=== PATIENT | female | born 1965 | race Two or more races ===

== ENCOUNTER 2020-07-16 08:06 | Outpatient (REF) | payer OTHER, SELFPAY ==
--- NOTE | 2020-07-16 09:32 | XR_ITS ---
EXAMINATION: CR X-RAY KNEE BILATERAL 4 VIEW CLINICAL INFORMATION: Bilateral knee pain. COMPARISON: None TECHNIQUE: 4 views each of the bilateral knees were obtained. FINDINGS: No significant tricompartmental degenerative joint changes are seen. There is no acute fracture, dislocation or joint effusion. The soft tissues are unremarkable. XR/XR knee RT 4V IMPRESSION: Unremarkable bilateral knees.
--- NOTE | 2020-07-16 09:32 | XR_ITS ---
EXAMINATION: XR LUMBOSACRAL SPINE WITH OBLIQUES CLINICAL INFORMATION: Low back pain, history of posterior fusion. COMPARISON: CT scan of the abdomen and pelvis dated 04/28/2018. TECHNIQUE: AP, both oblique, and lateral views of the lumbar spine. Lateral view of the lumbosacral junction. FINDINGS: Mild to moderate multilevel degenerative disc disease is seen, most pronounced at L5-S1. The patient is status post posterior fusion at L4-L5 with bilateral pedicle screws and posterior fixation rods intact. A retained screw is seen on the right at S1 without surrounding abnormality. A disc spacer at L4-5 appears intact. The vertebral bodies are intact. The soft tissues are unremarkable. Essure devices overlie the pelvis. XR/XR lumbar spine 4V min IMPRESSION: Multilevel degenerative changes. Posterior fusion hardware appears intact without overt abnormality.
--- NOTE | 2020-07-16 09:32 | XR_ITS ---
EXAMINATION: CR X-RAY KNEE BILATERAL 4 VIEW CLINICAL INFORMATION: Bilateral knee pain. COMPARISON: None TECHNIQUE: 4 views each of the bilateral knees were obtained. FINDINGS: No significant tricompartmental degenerative joint changes are seen. There is no acute fracture, dislocation or joint effusion. The soft tissues are unremarkable. XR/XR knee LT 4V IMPRESSION: Unremarkable bilateral knees.
[2020-07-16 11:00] LABS: Creatinine Urine 82.33 mg/dL; Microalbum/Creatinine Ratio Ur 12.1 ug/mg cr
[2020-07-16 11:02] LABS: Alanine Aminotransferase 13 U/L (0-31); Albumin Level 4.4 g/dL (3.5-5.0); Alkaline Phosphatase 55 U/L (39-117); Anion Gap 12 (12-20); Aspartate Amino Transferase 20 U/L (5-31); Bilirubin Total 0.8 mg/dL (0.0-1.0); Blood Urea Nitrogen 15 mg/dL (9-16); Calcium 9.4 mg/dL (8.4-10.2); Carbon Dioxide 28 mmol/L (22-29); Chloride 104 mmol/L (96-108); Cholesterol 220 mg/dL; Estimated Glomerular Filt Rate > 60; Glucose Fasting 74 mg/dL (60-99); HDL Cholesterol 66 mg/dL; LDL Cholesterol Calculated 142 mg/dl; Sodium 140 mmol/L (135-145); Triglycerides 61 mg/dL
[2020-07-16 11:06] LABS: Vitamin D 25-OH Total 22.9 ng/mL (>30)
--- NOTE | 2020-07-16 13:36 | MR_ITS ---
EXAMINATION: MR BRAIN WITHOUT AND WITH CONTRAST CLINICAL INFORMATION: Meningioma. COMPARISON: Brain MRI from 04/25/2019. TECHNIQUE: MRI of the brain was obtained using routine sequences without and with contrast following the administration of of Gadavist intravenous contrast. FINDINGS: Stable extra-axial, homogeneously enhancing lesion with susceptibility artifact along the posterior superior aspect of the right cerebellar hemisphere, measuring 1.8 x 1 x 1.1 cm. Stable 0.4 cm extra-axial enhancing nodule along the left aspect of the anterior falx cerebri with subtle susceptibility artifact. No significant perilesional edema. No focal restricted diffusion is demonstrated to suggest acute or subacute cerebral ischemia. No evidence of acute or chronic hemorrhagic products on heme-sensitive imaging. Normal parenchymal signal characteristics. The ventricles are normal in morphology and size. Normal positioning of the cerebellar tonsils. No midline shift. Normal appearance of the pituitary gland. No abnormalities of the posterior fossa with normal appearance of the brainstem and cerebellum. Normal arterial and venous vascular flow voids are present. No new abnormal contrast enhancement. Normal, homogeneous marrow signal. Mild mucosal thickening of the paranasal sinuses. No signal abnormalities within the mastoids. MR/MR head/brain wo/w con IMPRESSION: Stable 1.8 cm calcified meningioma along the undersurface of the right tentorial leaflet. Stable 0.4 cm left anterior falcine lesion suggestive of an additional small meningioma. No acute intracranial abnormalities.
== END 2020-07-16 08:07 | disposition home or self-care (01) ==
LOC: HO.LAB 08:06
PROVIDERS: PCP Internal Medicine; Referring Provider Internal Medicine; Visit Provider Physician Assistant
DX: M79.3 Panniculitis, unspecified (principal); Z90.3 Acquired absence of stomach [part of]; D32.9 Benign neoplasm of meninges, unspecified; E55.9 Vitamin D deficiency, unspecified; E11.9 Type 2 diabetes mellitus without complications; M25.561 Pain in right knee; M25.562 Pain in left knee; M51.36 Other intervertebral disc degeneration, lumbar region; M54.5 Low back pain
CPT/HCPCS: 70553; 72110; 73564; 80053; 80061; 82043; 82306; 99212; A9585

== ENCOUNTER → 2020-08-19 14:04 | Outpatient (BNVA) | payer OTHER, SELFPAY | PROVIDERS: PCP Internal Medicine; Referring Provider Internal Medicine; Visit Provider Nurse Practitioner | DX: Z13.89 Encounter for screening for other disorder (principal) | CPT/HCPCS: Q3014 ==

== ENCOUNTER → 2020-10-01 08:10 | Outpatient (BNVA) | payer OTHER, SELFPAY | PROVIDERS: PCP Internal Medicine; Visit Provider Physician Assistant | DX: Z90.3 Acquired absence of stomach [part of] (principal) | CPT/HCPCS: Q3014 ==

== ENCOUNTER 2021-01-09 09:32 | Outpatient (REF) | payer OTHER, SELFPAY ==
--- NOTE | ~2021-01-09 | MM_ITS ---
EXAMINATION: MM SCREENING DIGITAL BREAST TOMOSYNTHESIS, BILATERAL CLINICAL INFORMATION: Screening. Asymptomatic. The lifetime risk of breast cancer based on the Tyrer-Cuzick Model is 5%. COMPARISON: Mammography: 10/01/2019, 10/19/2018; outside mammography 12/26/2017 ([facility]). TECHNIQUE: Digital breast tomosynthesis is performed in both the craniocaudal and mediolateral oblique views along with computer-aided detection (CAD). Synthesized 2D images are generated from the tomosynthesis. FINDINGS: There are scattered areas of fibroglandular density (ACR BI-RADS breast composition Category b). There are no significant masses, abnormal calcifications, or other abnormalities. There is a small circumscribed nodule with adjacent biopsy clip marker again noted left breast mid upper outer quadrant. The axilla and skin contours are unremarkable. No significant changes. MM/MM tomosynthesis screening BI IMPRESSION: No mammographic evidence of malignancy. ASSESSMENT: BI-RADS 2: Benign RECOMMENDATION: Routine annual mammography screening. This patient's information was entered into a reminder system with a target due date for their next mammogram.
== END 2021-01-09 09:33 | disposition home or self-care (01) ==
LOC: HO.MAMMO 09:32
PROVIDERS: PCP Internal Medicine; Visit Provider Internal Medicine
DX: Z12.31 Encounter for screening mammogram for malignant neoplasm of breast (principal)
CPT/HCPCS: 77063; 77067

== ENCOUNTER → 2021-02-16 13:51 | Outpatient (BNVA) | payer OTHER, SELFPAY | PROVIDERS: PCP Internal Medicine; Visit Provider Nurse Practitioner | DX: K59.04 Chronic idiopathic constipation (principal); Z90.3 Acquired absence of stomach [part of] | CPT/HCPCS: Q3014 ==

== ENCOUNTER 2021-05-07 08:53 | Outpatient (REF) | payer OTHER, SELFPAY ==
--- NOTE | ~2021-05-07 | XR_ITS ---
EXAMINATION: XR ABDOMEN KUB CLINICAL INFORMATION: Calculus of kidney. COMPARISON: CT abdomen/pelvis dated 01/26/2018. TECHNIQUE: AP views of the abdomen. FINDINGS: No radiopaque renal stone. Left upper quadrant surgical sutures and clips. Essure device within the pelvis. Lower lumbar spine orthopedic hardware. Nonobstructive bowel gas pattern. No abnormal soft tissue calcification. No acute osseous abnormality. XR/XR KUB IMPRESSION: No radiopaque renal stone.
[2021-05-07 09:50] LABS: MANUAL DIFF FLAG NO
[2021-05-07 09:54] LABS: Eosinophils Absolute Auto 0.1 X10*3/uL (0.0-0.4); Eosinophils Percent Auto 2.4 % (0-4); Hematocrit 39.8 % (37-47); Hemoglobin 13.6 g/dl (12.0-16.0); Imm Gran Abs Auto 0.01 X10*3/uL (0.00-0.03); Imm Gran Pct Auto 0.3 % (0.0-0.4); Lymphocytes Absolute Auto 1.1 X10*3/uL (1.2-4.9); Lymphocytes Percent Auto 37.2 % (20-40); Mean Corpuscular HGB Conc 34.2 g/dl (31.0-35.0); Mean Corpuscular Hemoglobin 29.5 pg (27.0-33.0); Mean Corpuscular Volume 86.3 fL (80-98); Mean Platelet Volume 12.9 fL (9.4-12.3); Monocytes Absolute Auto 0.3 X10*3/uL (0.1-1.2); Monocytes Percent Auto 9.4 % (2-11); Neutrophils Absolute Auto 1.4 X10*3/uL (2.0-8.3); Neutrophils Percent Auto 49.7 % (45-73); Platelet Count 146 X10*3/uL (160-400); Red Blood Count 4.61 X10*6/uL (4.20-5.50); Red Cell Distribution Width 14.3 % (11.0-16.0); White Blood Count 2.9 X10*3/uL (4.8-10.8)
[2021-05-07 10:25] LABS: Alanine Aminotransferase 11 U/L (0-31); Albumin Level 4.5 g/dL (3.5-5.0); Alkaline Phosphatase 60 U/L (39-117); Anion Gap 13 (12-20); Aspartate Amino Transferase 19 U/L (5-31); Blood Urea Nitrogen 12 mg/dL (9-16); C Reactive Protein 0.04 mg/dL (< or = 0.50); Calcium 10.6 mg/dL (8.4-10.2); Carbon Dioxide 29 mmol/L (22-29); Chloride 106 mmol/L (96-108); Cholesterol 203 mg/dL; Estimated Glomerular Filt Rate > 60; Glucose Fasting 88 mg/dL (60-99); HDL Cholesterol 76 mg/dL; LDL Cholesterol Calculated 113 mg/dl; Potassium 3.8 mmol/L (3.3-5.1); Rheumatoid Factor 23.3 IU/mL (<15.0); Sodium 144 mmol/L (135-145); Total Protein 7.1 g/dL (6.5-8.0); Triglycerides 74 mg/dL
[2021-05-07 10:35] LABS: Erythrocyte Sedimentation Rate 6 MM/HR (0-20)
[2021-05-07 10:54] LABS: Folate 14.5 ng/mL (> or = 4.0); Vitamin B12 401 pg/mL (200-900)
[2021-05-12 20:31] LABS: Vitamin D 25-OH, D2 <4 ng/mL; Vitamin D 25-OH, D3 26 ng/mL; Vitamin D 25-OH, Total 26 ng/mL (30-100)
== END 2021-05-07 08:54 | disposition home or self-care (01) ==
LOC: HO.XRAY 08:53
PROVIDERS: PCP Internal Medicine; Visit Provider Internal Medicine
DX: E55.9 Vitamin D deficiency, unspecified (principal); M25.50 Pain in unspecified joint; D64.9 Anemia, unspecified; E78.5 Hyperlipidemia, unspecified; N20.0 Calculus of kidney
CPT/HCPCS: 36415; 74018; 80053; 80061; 82306; 82607; 82746; 85025; 85652; 86140; 86431

== ENCOUNTER → 2021-05-14 14:50 | Outpatient (BNVA) | payer OTHER, SELFPAY | PROVIDERS: PCP Internal Medicine; Referring Provider Internal Medicine; Visit Provider Physician Assistant Surgical | DX: Z90.3 Acquired absence of stomach [part of] (principal) | CPT/HCPCS: 99212 ==

== ENCOUNTER → 2021-06-15 14:56 | Outpatient (BNV) | payer OTHER, SELFPAY | PROVIDERS: PCP Student in an Organized Health Care Education/Training Program; Visit Provider Internal Medicine | DX: D69.6 Thrombocytopenia, unspecified (principal); D72.819 Decreased white blood cell count, unspecified | CPT/HCPCS: 99212; 99213; 99214 ==

== ENCOUNTER → 2021-08-20 07:18 | Outpatient (BNVA) | payer OTHER, SELFPAY | PROVIDERS: PCP Internal Medicine; Referring Provider Internal Medicine; Visit Provider Nurse Practitioner | DX: K59.04 Chronic idiopathic constipation (principal); K57.32 Diverticulitis of large intestine without perforation or abscess without bleeding | CPT/HCPCS: 99212 ==

== ENCOUNTER 2021-09-17 09:47 | Outpatient (REF) | payer OTHER, SELFPAY ==
--- NOTE | ~2021-09-17 | MR_ITS ---
MR BRAIN WITHOUT AND WITH CONTRAST CLINICAL INFORMATION: Meningioma. COMPARISON: Brain MRI 07/16/2020 and 04/24/2018. TECHNIQUE: Multiplanar, multisequence MRI of the brain was obtained before and after the intravenous administration of 6 mL Gadavist. FINDINGS: There is a stable appearing calcified 1.8 x 1 x 1.1 cm enhancing extra-axial mass along the undersurface of the right tentorial leaflet contacting the inferomedial margin of the right transverse sinus that remains most compatible with a meningioma. Stable nodular foci of enhancement dorsal to the vertebral arteries at the level of the foramen magnum when compared to a brain MRIs dated back to 04/24/2018, most likely benign enhancing foramen magnum lesions thought to be related to varices or spinal accessory nerve ganglion. There is no new pathologic enhancement intracranially. There is mild chronic microangiopathy. There is no hydrocephalus, extra-axial surface collection, or herniation. The major flow voids at the skull base are preserved. There is no acute infarct on diffusion-weighted imaging. There is no intracranial hemorrhage on the gradient recalled echo acquisition. The midline structures are normal. The cerebellar tonsils are normally positioned. The cerebellum and brainstem are normal. The craniocervical junction is normal. Osseous marrow signal intensity is homogenous. The visualized soft tissues are unremarkable. MR/MR head/brain wo/w con IMPRESSION: - Stable appearing 1.8 cm meningioma along the inferior surface of the right tentorial leaflet. No adjacent parenchymal edema. - There is a stable 0.4 cm anterior left parafalcine meningioma as well. - Stable nodular foci of enhancement dorsal to the vertebral arteries at the level of the foramen magnum bilaterally when compared to a brain MRIs dated back to 04/24/2018, most likely benign enhancing foramen magnum lesions thought to be related to varices or spinal accessory nerve ganglion.
[2021-09-17 10:29] LABS: Blood Urea Nitrogen 19 mg/dL (9-16); Estimated Glomerular Filt Rate > 60
== END 2021-09-17 09:48 | disposition home or self-care (01) ==
LOC: HO.MRI 09:47
PROVIDERS: PCP Internal Medicine; Visit Provider Neurological Surgery
DX: Z01.818 Encounter for other preprocedural examination (principal); D32.9 Benign neoplasm of meninges, unspecified
CPT/HCPCS: 36415; 70553; 82565; 84520

== ENCOUNTER → 2021-09-29 09:21 | Outpatient (BNVA) | payer OTHER, SELFPAY | PROVIDERS: PCP Internal Medicine; Referring Provider Internal Medicine; Visit Provider Nurse Practitioner | DX: K59.04 Chronic idiopathic constipation (principal); K57.32 Diverticulitis of large intestine without perforation or abscess without bleeding; R10.9 Unspecified abdominal pain | CPT/HCPCS: 99212 ==

== ENCOUNTER 2021-10-21 12:27 | Outpatient (REF) | payer OTHER, SELFPAY ==
--- NOTE | ~2021-10-21 | CT_ITS ---
EXAMINATION: CT ABDOMEN AND PELVIS WITH CONTRAST CLINICAL INFORMATION: Abdominal pain COMPARISON: Previous CT of the abdomen and pelvis December 2017 TECHNIQUE: Multidetector volumetric images were obtained from the superior aspect of the liver through the pubic symphysis following administration 85 mL of Omnipaque 350 intravenous contrast. Sagittal and coronal reformatted images were obtained on the technologist's workstation. Oral contrast: Yes This CT examination was performed using dose optimization techniques as appropriate, variously including the following: *Automated exposure control *Adjustment of mA and/or kV according to patient size (this includes techniques or standardized protocols for targeted exams where dose is matched to indication/reason for exam; i.e. extremities or head) *Use of iterative reconstruction technique DLP: 304 mGy-cm FINDINGS: LUNG BASES: The visualized lung bases are unremarkable. LIVER, GALLBLADDER, AND BILIARY TREE: There 2 small liver cysts, largest measuring 1 x 1.5 cm in the right lobe of the liver. The liver is otherwise unremarkable. The gallbladder is unremarkable. There is no biliary duct dilatation. PANCREAS: Unremarkable. SPLEEN: Unremarkable. ADRENAL GLANDS: Unremarkable. KIDNEYS AND URETERS: The kidneys are normal in size, shape, and attenuation. No hydronephrosis, hydroureter, or calculi seen. No perinephric stranding. BLADDER: Unremarkable. GASTROINTESTINAL TRACT: The small and large bowel are unremarkable. The appendix is unremarkable. There are postsurgical changes to the stomach, probably gastric sleeve procedure. ABDOMINAL WALL: No significant hernia is appreciated. LYMPH NODES: Normal. VASCULAR: Unremarkable. PELVIC VISCERA: There are probable Essure devices in the uterus. The ovaries appear prominent. There is a small calcification in the left ovary. OSSEOUS STRUCTURES: There are postsurgical changes at L4-L5. There are mild degenerative changes of the spine. CT/CT abdomen pelvis w con IMPRESSION: No acute findings. Small liver cysts. Postsurgical changes to the stomach probably from gastric sleeve procedure. Prominent bilateral ovaries. Small calcification in the left ovary. Fleischner guidelines were followed.
[2021-10-21] MEDS: iohexoL 350 MG/ML 100 ML INFUS..BTL IV (15:06)
[2021-10-21] MEDS: Barium Sulfate Oral (Mocha) 450 ML ORAL.SUSP 900 ML PO (15:07)
== END 2021-10-21 12:28 | disposition home or self-care (01) ==
LOC: HO.CT 12:27
PROVIDERS: Visit Provider Nurse Practitioner
DX: R10.9 Unspecified abdominal pain (principal)
CPT/HCPCS: 74177; Q9967

== ENCOUNTER 2021-10-22 08:11 | Outpatient (REF) | payer OTHER, SELFPAY | END 2021-10-22 08:12 | disposition home or self-care (01) | LOC: HO.MAMMO 08:11 | PROVIDERS: PCP Internal Medicine; Visit Provider Internal Medicine | DX: Z13.89 Encounter for screening for other disorder (principal) ==

== ENCOUNTER → 2021-11-03 07:43 | Outpatient (BNVA) | payer OTHER, SELFPAY | PROVIDERS: PCP Internal Medicine; Referring Provider Internal Medicine; Visit Provider Nurse Practitioner | DX: R10.32 Left lower quadrant pain (principal); K59.04 Chronic idiopathic constipation; K57.32 Diverticulitis of large intestine without perforation or abscess without bleeding; I10 Essential (primary) hypertension; E78.5 Hyperlipidemia, unspecified; E55.9 Vitamin D deficiency, unspecified; M79.7 Fibromyalgia; Z90.3 Acquired absence of stomach [part of]; Z88.8 Allergy status to other drugs, medicaments and biological substances | CPT/HCPCS: 99212 ==

== ENCOUNTER 2021-11-10 14:02 | Outpatient (REF) | payer OTHER, SELFPAY ==
--- NOTE | ~2021-11-10 | MM_ITS ---
EXAMINATION: BONE DENSITOMETRY CLINICAL INDICATION: Menopause. COMPARISON: This is the patient's baseline examination. TECHNIQUE: Using a [employer] DXA System (software version: 13.1) manufactured by [employer], dual-energy x-ray absorptiometry was performed of the lumbar spine and left hip. The images are of good technical quality. Summary results are attached. FINDINGS: AP SPINE L1-L2 (excluding L3 and L4): The data of L1-L4 has been changed to exclude the L3 and L4 vertebral bodies, because hardware at these levels may cause overestimation of lumbar spine density. BMD 1.154 g/cm2, Z-score 0.8, T-score -0.1, normal. LEFT FEMUR, NECK: BMD 1.031 g/cm2, Z-score 1.0, T-score 0.0, normal. LEFT FEMUR, TOTAL: BMD 1.127 g/cm2, Z-score 1.7, T-score 0.9, normal. IDENTIFIED RISK FACTORS: Menopause. HISTORY OF FRACTURE: None listed. MEDICATIONS: Calcium, vitamin D. MM/XR DEXA axial skeleton IMPRESSION: 1. DIAGNOSIS: Normal bone density based on the lowest T-score value of -0.1 in the lumbar spine applying World Health Organization criteria. 2. 10-YEAR FRACTURE RISK PREDICTION, FRAX: According to the guidelines, FRAX calculation should only be performed on patients in the osteopenia bone density category. Therefore, FRAX was not performed on this patient. 3. Treatment Recommendations: NOF guidelines recommend consideration for treatment in postmenopausal women and men age 50 and older presenting with the following: -A hip or vertebral (clinical or morphometric) fracture. -T-score less than or equal to -2.5 at the femoral neck or spine after appropriate evaluation to exclude secondary causes. -Low bone mass at the hip or spine and a 10-year fracture probability by FRAX of greater than or equal to 3% for hip fracture or greater than or equal to 20% for major osteoporotic fracture based on the [place] adapted WHO algorithm. 4. Other Recommendations: All treatment decisions require clinical judgment and consideration of individual patient factors, including patient preferences, comorbidities, previous drug use, risk factors not captured in the FRAX model (e.g. frailty, falls, vitamin D deficiency, increased bone turnover, interval significant decline in bone density) and possible under or overestimation of fracture risk by FRAX. FUTURE SCAN RECOMMENDATION: People with diagnosed cases of osteoporosis or at high risk for fracture should have regular bone mineral density tests. For patients eligible for Medicare, routine testing is allowed once every 2 years. The testing frequency can be increased to one year for patients who have rapidly progressing disease, those who are receiving or discontinuing medical therapy to restore bone mass, or have additional risk factors.
== END 2021-11-10 14:03 | disposition home or self-care (01) ==
LOC: HO.MAMMO 14:02
PROVIDERS: PCP Internal Medicine; Visit Provider Internal Medicine
DX: Z13.820 Encounter for screening for osteoporosis (principal); Z78.0 Asymptomatic menopausal state; Z79.899 Other long term (current) drug therapy
CPT/HCPCS: 77080

== ENCOUNTER → 2021-11-11 08:20 | Outpatient (BNVA) | payer OTHER, SELFPAY | PROVIDERS: PCP Internal Medicine; Visit Provider Physician Assistant Surgical | DX: Z90.3 Acquired absence of stomach [part of] (principal) | CPT/HCPCS: Q3014 ==

== ENCOUNTER 2022-01-26 07:39 | Outpatient (REF) | payer OTHER, SELFPAY ==
[2022-01-26 09:21] LABS: MANUAL DIFF FLAG NO
[2022-01-26 09:31] LABS: Basophils Percent Auto 0.7 % (0-2); Eosinophils Absolute Auto 0.1 X10*3/uL (0.0-0.4); Eosinophils Percent Auto 4.3 % (0-4); Hematocrit 37.7 % (37.0-47.0); Hemoglobin 12.9 g/dl (12.0-16.0); Imm Gran Abs Auto 0.01 X10*3/uL (0.00-0.03); Imm Gran Pct Auto 0.3 % (0.0-0.4); Lymphocytes Absolute Auto 0.8 X10*3/uL (1.2-4.9); Mean Corpuscular HGB Conc 34.2 g/dl (31.0-35.0); Mean Corpuscular Hemoglobin 30.1 pg (27.0-33.0); Mean Corpuscular Volume 87.9 fL (80.0-98.0); Mean Platelet Volume 12.4 fL (9.4-12.3); Monocytes Absolute Auto 0.3 X10*3/uL (0.1-1.2); Monocytes Percent Auto 8.9 % (2-11); Neutrophils Absolute Auto 1.9 x10*3/uL (2.0-8.3); Neutrophils Percent Auto 60.8 % (45-73); Platelet Count 132 X10*3/uL (160-400); Red Blood Count 4.29 X10*6/uL (4.20-5.50); Red Cell Distribution Width 13.8 % (11.0-16.0)
[2022-01-26 10:25] LABS: Erythrocyte Sedimentation Rate 4 MM/HR (0-20)
[2022-01-26 10:33] LABS: Alanine Aminotransferase 19 U/L (0-31); Albumin Level 4.2 g/dL (3.5-5.0); Alkaline Phosphatase 61 U/L (39-117); Anion Gap 12 (12-20); Aspartate Amino Transferase 22 U/L (5-31); Bilirubin Total 1.3 mg/dL (0.0-1.0); Blood Urea Nitrogen 21 mg/dL (9-16); C Reactive Protein 0.07 mg/dL (< or = 0.50); Calcium 9.8 mg/dL (8.4-10.2); Carbon Dioxide 27 mmol/L (22-29); Chloride 109 mmol/L (96-108); Cholesterol 201 mg/dL; Estimated Glomerular Filt Rate > 60; Glucose Fasting 93 mg/dL (60-99); HDL Cholesterol 71 mg/dL; LDL Cholesterol Calculated 114 mg/dl; Potassium 3.7 mmol/L (3.3-5.1); Sodium 144 mmol/L (135-145); Total Protein 6.7 g/dL (6.5-8.0); Triglycerides 80 mg/dL
[2022-01-26 11:21] LABS: Folate 14.6 ng/mL (> or = 4.0); Vitamin B12 321 pg/mL (200-900)
[2022-01-27 15:37] LABS: Anti Nuclear Antibody Screen NEGATIVE (NEGATIVE)
[2022-01-28 13:36] LABS: Complement C3 102 mg/dL (83-193)
[2022-01-28 23:06] LABS: Cyclic Citrullinated Peptide <16 UNITS
[2022-01-29 21:07] LABS: Vitamin A 79 mcg/dL (38-98)
[2022-01-30 11:17] LABS: Vitamin B1 13 nmol/L (8-30)
== END 2022-01-26 07:40 | disposition home or self-care (01) ==
LOC: HO.LAB 07:39
PROVIDERS: Nurse Practitioner; Physician Assistant Surgical; PCP Internal Medicine; Visit Provider Internal Medicine Rheumatology
DX: M25.50 Pain in unspecified joint (principal); M79.7 Fibromyalgia; M65.9 Synovitis and tenosynovitis, unspecified; M47.816 Spondylosis without myelopathy or radiculopathy, lumbar region; I10 Essential (primary) hypertension; K59.04 Chronic idiopathic constipation; R76.8 Other specified abnormal immunological findings in serum; R10.9 Unspecified abdominal pain; Z79.899 Other long term (current) drug therapy; Z90.3 Acquired absence of stomach [part of]
CPT/HCPCS: 36415; 80053; 80061; 82607; 82746; 84425; 84443; 84590; 85025; 85652; 86038; 86039; 86140; 86160; 86200; 99202

== ENCOUNTER 2022-05-15 07:32 | Outpatient (REF) | payer OTHER, SELFPAY ==
--- NOTE | ~2022-05-15 | MM_ITS ---
EXAMINATION: MM SCREENING DIGITAL BREAST TOMOSYNTHESIS, BILATERAL CLINICAL INFORMATION: Screening. Asymptomatic. The lifetime risk of breast cancer based on the Tyrer-Cuzick Model is 6%. COMPARISON: Mammography: 01/09/2021, 10/01/2019, 10/19/2018 TECHNIQUE: Digital breast tomosynthesis is performed in both the craniocaudal and mediolateral oblique views along with computer-aided detection (CAD). Synthesized 2D images are generated from the tomosynthesis. Additional left MLO view is provided. FINDINGS: There are scattered areas of fibroglandular density (ACR BI-RADS breast composition Category b). There are no significant masses, abnormal calcifications, or other abnormalities. Breast tissue composition borders on predominantly fatty. There is no developing density or architectural abnormality. Left breast has biopsy clip marker upper outer quadrant adjacent to a small stable smooth nodule. The axilla are unremarkable. MM/MM tomosynthesis screening BI IMPRESSION: No mammographic evidence of malignancy. ASSESSMENT: BI-RADS 2: Benign RECOMMENDATION: Routine annual mammography screening. This patient's information was entered into a reminder system with a target due date for their next mammogram.
== END 2022-05-15 07:33 | disposition home or self-care (01) ==
LOC: HO.MAMMO 07:32
PROVIDERS: PCP Internal Medicine; Visit Provider Internal Medicine
DX: Z12.31 Encounter for screening mammogram for malignant neoplasm of breast (principal)
CPT/HCPCS: 77063; 77067

== ENCOUNTER → 2022-05-27 15:43 | Outpatient (BNVA) | payer OTHER, SELFPAY | PROVIDERS: PCP Internal Medicine; Visit Provider Physician Assistant Surgical | DX: E66.3 Overweight (principal); Z90.3 Acquired absence of stomach [part of]; Z68.28 Body mass index [BMI] 28.0-28.9, adult | CPT/HCPCS: 99212 ==

== ENCOUNTER → 2022-06-15 08:16 | Outpatient (BNVA) | payer OTHER, SELFPAY | PROVIDERS: PCP Internal Medicine; Referring Provider Internal Medicine; Visit Provider Nurse Practitioner | DX: R10.32 Left lower quadrant pain (principal); K59.04 Chronic idiopathic constipation; Z80.0 Family history of malignant neoplasm of digestive organs | CPT/HCPCS: 99212 ==

== ENCOUNTER 2022-07-07 10:57 | Outpatient (REF) | payer OTHER, SELFPAY ==
--- NOTE | ~2022-07-07 | XR_ITS ---
EXAMINATION: XR SINUSES CLINICAL INFORMATION: Disorders of the nose and nasal sinuses. COMPARISON: October 10, 2017 TECHNIQUE: 5 views of the paranasal sinuses. FINDINGS: Paranasal sinuses appear clear without air-fluid levels. Mastoid air cells are aerated. No fractures are identified. No radiodense foreign bodies. XR/XR sinus min 3V IMPRESSION: No evidence of acute sinusitis.
--- NOTE | ~2022-07-07 | XR_ITS ---
EXAMINATION: XR SHOULDER, LEFT CLINICAL INFORMATION: Pain. COMPARISON: No similar priors. TECHNIQUE: AP external rotation, Grashey, scapular Y, and axillary views of the left shoulder. FINDINGS: No acute fracture or malalignment. Mild degenerative osteoarthritis of the left acromioclavicular joint. Os acromiale variation. Well-corticated 0.5 cm osseous density projecting over the superior glenohumeral joint. The included portions of left-sided ribs and left lung are within normal limits. XR/XR shoulder LT min 2V IMPRESSION: 1. No acute fracture or malalignment. 2. Mild degenerative osteoarthritis of the left acromioclavicular joint. 3. Os acromiale variation. 4. Well-corticated 0.5 cm osseous density projecting over the superior glenohumeral joint, possibly an intra-articular body.
--- NOTE | ~2022-07-07 | XR_ITS ---
EXAMINATION: XR KNEE, LEFT CLINICAL INFORMATION: Pain. COMPARISON: None TECHNIQUE: Three views of the left knee. FINDINGS: No acute fracture or malalignment. Mild joint space narrowing and subcortical sclerosis of the medial and patellofemoral compartments. Enthesophytes along the upper pole of the patellar noted. Small joint effusion. XR/XR knee LT 3V IMPRESSION: No acute fracture or malalignment. Mild degenerative osteoarthritis of the medial and patellofemoral compartments. Superior patellar enthesophytes. Small joint effusion.
--- NOTE | ~2022-07-07 | XR_ITS ---
EXAMINATION: XR ABDOMEN KUB CLINICAL INDICATION: Dorsalgia. COMPARISON: CT abdomen/pelvis 10/21/2021. KUB 05/07/2021. TECHNIQUE: AP view of the abdomen. FINDINGS: Nonobstructive bowel gas patterns. No significant colonic stool burden. Lower lumbar spinal hardware with similar fragmented body projecting along the right superior sacrum when compared to 05/07/2021. SI joints are symmetric. The femoral heads are well-seated in their respective acetabula with mild degenerative osteoarthritis. Essure devices are redemonstrated in the pelvis. XR/XR KUB IMPRESSION: 1. Nonobstructive bowel gas pattern. 2. No significant colonic stool burden. 3. Redemonstration of hardware in the lower lumbar spine with similar fragmented body projecting along the right superior sacrum when compared to 05/07/2021. In view of provided history of dorsalgia, correlation with dedicated radiographic images of the lumbar spine could be obtained if clinically deemed appropriate.
--- NOTE | ~2022-07-07 | XR_ITS ---
EXAMINATION: X-RAY RIGHT HIP X-RAY LEFT HIP CLINICAL INFORMATION: Pain. COMPARISON: CT abdomen/pelvis 10/21/2021. TECHNIQUE: 2 views of each hip. FINDINGS: Right hip: No acute fracture or malalignment. Mild joint space narrowing and subcortical sclerosis of the right hip. Pubic symphysis is maintained. Essure device noted in the pelvis. Redemonstration of a fragmented metallic body projecting over the right upper sacrum, unchanged since abdominal radiograph from 05/07/2021. Small pelvic phleboliths are noted. Left hip: No acute fracture or malalignment. As above, there is mild degenerative osteoarthritis. XR/XR hip RT min 2V IMPRESSION: 1. No acute fracture or malalignment. 2. Mild degenerative osteoarthritis of both hips. 3. Redemonstration of a fragmented metallic body projecting over the right upper sacrum, unchanged since 05/07/2021. 4. Essure device.
--- NOTE | ~2022-07-07 | XR_ITS ---
EXAMINATION: X-RAY RIGHT HIP X-RAY LEFT HIP CLINICAL INFORMATION: Pain. COMPARISON: CT abdomen/pelvis 10/21/2021. TECHNIQUE: 2 views of each hip. FINDINGS: Right hip: No acute fracture or malalignment. Mild joint space narrowing and subcortical sclerosis of the right hip. Pubic symphysis is maintained. Essure device noted in the pelvis. Redemonstration of a fragmented metallic body projecting over the right upper sacrum, unchanged since abdominal radiograph from 05/07/2021. Small pelvic phleboliths are noted. Left hip: No acute fracture or malalignment. As above, there is mild degenerative osteoarthritis. XR/XR hip LT min 2V IMPRESSION: 1. No acute fracture or malalignment. 2. Mild degenerative osteoarthritis of both hips. 3. Redemonstration of a fragmented metallic body projecting over the right upper sacrum, unchanged since 05/07/2021. 4. Essure device.
[2022-07-07 11:13] LABS: MANUAL DIFF FLAG NO
[2022-07-07 12:25] LABS: Basophils Percent Auto 0.8 % (0-2); Eosinophils Absolute Auto 0.2 X10*3/uL (0.0-0.4); Eosinophils Percent Auto 3.8 % (0-4); Hematocrit 42.2 % (37.0-47.0); Hemoglobin 14.1 g/dl (12.0-16.0); Lymphocytes Absolute Auto 1.2 X10*3/uL (1.2-4.9); Lymphocytes Percent Auto 30.1 % (20-40); Mean Corpuscular HGB Conc 33.4 g/dl (31.0-35.0); Mean Corpuscular Hemoglobin 29.4 pg (27.0-33.0); Mean Corpuscular Volume 88.1 fL (80.0-98.0); Mean Platelet Volume 12.2 fL (9.4-12.3); Monocytes Absolute Auto 0.4 X10*3/uL (0.1-1.2); Monocytes Percent Auto 9.6 % (2-11); Neutrophils Absolute Auto 2.2 x10*3/uL (2.0-8.3); Neutrophils Percent Auto 55.7 % (45-73); Platelet Count 145 X10*3/uL (160-400); Red Blood Count 4.79 X10*6/uL (4.20-5.50); Red Cell Distribution Width 13.1 % (11.0-16.0)
[2022-07-07 13:15] LABS: Alanine Aminotransferase 13 U/L (0-31); Albumin Level 4.7 g/dL (3.5-5.0); Alkaline Phosphatase 76 U/L (39-117); Anion Gap 14 (12-20); Aspartate Amino Transferase 20 U/L (5-31); Bilirubin Total 0.9 mg/dL (0.0-1.0); Blood Urea Nitrogen 16 mg/dL (9-16); Calcium 10.3 mg/dL (8.4-10.2); Carbon Dioxide 28 mmol/L (22-29); Chloride 107 mmol/L (96-108); Cholesterol 235 mg/dL; Estimated Glomerular Filt Rate > 60; Glucose Fasting 85 mg/dL (60-99); HDL Cholesterol 74 mg/dL; LDL Cholesterol Calculated 142 mg/dl; Potassium 4.3 mmol/L (3.3-5.1); Sodium 145 mmol/L (135-145); Total Protein 7.5 g/dL (6.5-8.0); Triglycerides 99 mg/dL
== END 2022-07-07 10:58 | disposition home or self-care (01) ==
LOC: HO.LAB 10:57
PROVIDERS: PCP Internal Medicine; Visit Provider Internal Medicine
DX: D72.819 Decreased white blood cell count, unspecified (principal); E55.9 Vitamin D deficiency, unspecified; E78.5 Hyperlipidemia, unspecified; M54.9 Dorsalgia, unspecified; J34.89 Other specified disorders of nose and nasal sinuses; M25.552 Pain in left hip; M25.512 Pain in left shoulder; M25.562 Pain in left knee; M25.551 Pain in right hip
CPT/HCPCS: 36415; 70220; 73030; 73502; 73562; 74018; 80053; 80061; 82306; 85025

== ENCOUNTER → 2022-08-09 10:31 | Outpatient (BNVA) | payer OTHER, SELFPAY | PROVIDERS: PCP Internal Medicine; Visit Provider Physician Assistant | DX: M75.22 Bicipital tendinitis, left shoulder (principal); S16.1XXA Strain of muscle, fascia and tendon at neck level, initial encounter | CPT/HCPCS: 99202 ==

== ENCOUNTER 2022-09-09 14:03 | Outpatient (REF) | payer OTHER, SELFPAY ==
--- NOTE | 2022-09-09 08:00 | EMG_ITS ---
Left median and ulnar motor and sensory studies were performed. Left radial sensory study was performed, and paraspinal muscles were tested with a needle. IMPRESSION: 1. [id number] left median neuropathy across carpal tunnel. 2. 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 MD ANTONINA Eden/DAVIAN / [id number]
== END 2022-09-09 14:04 | disposition home or self-care (01) ==
LOC: HO.NEURO 14:03
PROVIDERS: PCP Internal Medicine; Visit Provider Internal Medicine
DX: R20.0 Anesthesia of skin (principal)
CPT/HCPCS: 95886; 95909

== ENCOUNTER → 2022-10-06 11:53 | Outpatient (BNVA) | payer OTHER, SELFPAY | PROVIDERS: PCP Internal Medicine; Visit Provider Nurse Practitioner | DX: K59.04 Chronic idiopathic constipation (principal); K21.9 Gastro-esophageal reflux disease without esophagitis; R10.32 Left lower quadrant pain; Z80.0 Family history of malignant neoplasm of digestive organs | CPT/HCPCS: 99212 ==

== ENCOUNTER 2022-10-19 10:00 | Outpatient (RCR) | payer OTHER, SELFPAY ==
--- NOTE | 2022-10-12 14:27 | MHC.PT.EP ---
[facility] [place] Office [place] Office [place] Office [address] [phone] F: [phone] F: [phone] F: [phone] F: [phone] Physical Therapy Plan of Care Date of Evaluation: Date of Surgery: N/A Diagnosis: bicipital tendinitis, left shoulder strain of muscle, fascia and tendon at neck level, initial encounter Assessment: Pt is a 57yo F who presents to PT with pain in L side of neck radiating into L UE. She presents to PT with current impairments in pain, decreased cervical ROM, decreased L shoulder ROM, soft tissue restrictions, decreased UE strength and impaired posture. She is TTP throughout L medial scap border, L UT, L levator, cervical PS and occipitals. She is limited functionally by lifting, reaching, overhead ADLs, driving, and sleeping. She is a good candidate for skilled PT in order to address current impairments to facilitate return to PLOF. She is recommended to be seen 2x/week however she reports she is only able to attend 1x/week at this time. She will be seen 1x/week for 5 weeks and will be reassessed at that time. Frequency and Duration: The patient will be seen 1x/week for 5 weeks Short Term Goals: Pt will be I with HEP to promote self management of symptoms Pt will demonstrate improvements in postural awareness throughout the day Pt will improve B cervical rotation by 10 degrees B Intermediate Goals: Pt will achieve full ROM all planes of cervical spine Pt will perform overhead ADLs with minimal to no compensation Pt will demonstrate improvements in function as evidenced by statistically significant improvement in SPADI outcome measure Treatment Plan: Modalities to reduce pain, spasms and effusion. Manual therapy to restore motion and function. Therapeutic exercise to improve strength and flexibility. Neuromuscular re-education for posture and balance. Therapeutic activities to return to functional activities of daily living. Electronically signed by: Zunilda Harrison, PT, DPT Please sign and return to therapist. Thank you for your referral.
--- NOTE | 2022-11-25 14:17 | MHC.PT.DC ---
[facility] [place] Office [place] Office [place] Office [address] Vini Flores [address] [phone] F: [phone] F: [phone] F: [phone] F: [phone] Physical Therapy Discharge Report Diagnosis: bicipital tendinitis, left shoulder strain of muscle, fascia and tendon at neck level, initial encounter Date of Surgery: N/A Date of Evaluation: 10/12/22 Date of Discharge: 11/25/22 Treatments to Date: 2 Cancellations to Date: 1 No Shows to Date: 2 Discharge Status: Visit Non-compliance Discharge Summary: Pt was seen for PT from 10/12/22-10/19/22. She attended initial PT evaluation and 1 treatment session. Her last attended appointment was 10/19/22. She had 1 no-show and 2 cancellations for her last 3 scheduled appointments. Pt is being D/C from skilled PT as she has not attended in > 30 days. Pt current level of function unknown at this time. Electronically signed by: Zunilda Harrison, PT, DPT Please sign and return to therapist. Thank you for your referral.
== END 2022-11-25 14:17 | disposition home or self-care (01) ==
LOC: HO.PT 10:00
PROVIDERS: PCP Internal Medicine; Visit Provider Physician Assistant
DX: M75.22 Bicipital tendinitis, left shoulder (principal); S16.1XXD Strain of muscle, fascia and tendon at neck level, subsequent encounter
CPT/HCPCS: 97110; 97140; 97162

== ENCOUNTER → 2022-11-25 08:09 | Outpatient (BNVA) | payer OTHER, SELFPAY | PROVIDERS: PCP Internal Medicine; Visit Provider Nurse Practitioner Family | DX: G56.22 Lesion of ulnar nerve, left upper limb (principal); M79.7 Fibromyalgia; M54.2 Cervicalgia | CPT/HCPCS: 99202 ==

== ENCOUNTER → 2022-12-08 13:38 | Outpatient (BNVA) | payer OTHER, SELFPAY | PROVIDERS: PCP Internal Medicine; Visit Provider Orthopaedic Surgery | DX: G56.02 Carpal tunnel syndrome, left upper limb (principal); G56.22 Lesion of ulnar nerve, left upper limb; R20.0 Anesthesia of skin; R20.2 Paresthesia of skin | CPT/HCPCS: 99212 ==

== ENCOUNTER 2022-12-30 07:19 | Day surgery (SDC) | payer OTHER, SELFPAY ==
[2022-12-30 07:52] VITALS: BMI 28.3
--- NOTE | 2022-12-30 08:15 | MHC.SHP ---
Pre-Procedural Eval Section A Date of Service: 12/30/22 The patient is an INPATIENT: No The History & Physical has been completed within 30 days and I have reviewed it.: Yes Section B Chief Complaint: Carpal tunnel syndrome, left upper limb Allergies: Allergies Allergy/AdvReac Type Severity Reaction Status Date / Time gabapentin Allergy Intermediate inadequate Verified 12/08/22 14:12 response hydromorphone [From DILAUDID] Allergy Intermediate RASH Verified 12/08/22 14:12 lisinopril [LISINOPRIL] Allergy Intermediate CLOGGED Verified 12/08/22 14:12 THROAT, shortness of breath, anaphylaxis topiramate Allergy Intermediate inadequate Verified 12/08/22 14:12 response Plan I have reviewed the history and physical and performed a pertinent physical examination on my patient. No changes have occurred unless specified. Time Spent With Patient Time: Total time managing care of this patient today ____ minutes.
--- NOTE | 2022-12-30 08:15 | W.PM.OPN ---
Operative Note Operative Note Date of Service: 12/30/22 Narrative: Preop diagnosis: 1. Left Carpal tunnel syndrome Postop diagnosis: same Procedure: 1. Left Carpal tunnel release Surgeon: Goldie Spain MD Anesthesia: local block using 1% lidocaine with epinephrine Findings: Thickened transverse carpal ligament. EBL: Less than 5 mL Specimens: None Complications: None Disposition: Brought to recovery room in stable condition Plan: Follow-up for 10-14 days for wound check and suture removal Indications: The patient is 57 years old, with left carpal tunnel syndrome that has been unresponsive to nonoperative management. The risks and benefits of operative treatment including but not limited to risk of damage to blood vessels, nerves, tendons, infection, persistent pain, persistent symptoms, or possible need for additional surgery were discussed with the patient and the patient wishes to proceed with surgery. Procedure: Once consent was obtained a local block was performed using a combination of 1% lidocaine with epinephrine. The patient was then brought back to the operating suite and placed on the operative table in supine position. The left upper extremity was prepped and draped in a standard surgical fashion. Once assured that we had a good block, a 2.0 cm longitudinal incision was made centered over the carpal tunnel. The incision was made through the skin to the subcutaneous tissues using a #15 blade. Dissection was made down to the level of the transverse carpal ligament with care being taken to protect the palmar cutaneous nerve. Once the transverse carpal ligament was clearly visualized, a longitudinal incision was made in the transverse carpal ligament 1st using a #15 blade, then using tenotomy scissors under direct visualization. Care was taken to look for and protect the motor branch of the median nerve when seen in this area. Once satisfied with our carpal tunnel release the wound was copiously irrigated with normal saline and hemostasis was obtained with a brief period of local pressure. The skin edges were reapproximated with some 5.0 nylon suture material and a sterile dressing was applied. The patient appears to have tolerated the procedure well and with no complications. All digits were well vascularized at the conclusion of the case.
[2022-12-30 08:56] VITALS: BP 153/88; PULSE 62; RESP 18; O2SAT 99
== END 2022-12-30 09:08 | disposition home or self-care (01) ==
PROVIDERS: PCP Internal Medicine; Visit Provider Orthopaedic Surgery
PROC: (CPT 64721; principal; 2022-12-30 08:30)
DX: G56.02 Carpal tunnel syndrome, left upper limb (principal); R20.0 Anesthesia of skin; R20.2 Paresthesia of skin; E78.5 Hyperlipidemia, unspecified; I10 Essential (primary) hypertension; R76.8 Other specified abnormal immunological findings in serum; M79.7 Fibromyalgia; F41.1 Generalized anxiety disorder; E55.9 Vitamin D deficiency, unspecified; F32.0 Major depressive disorder, single episode, mild; Z88.8 Allergy status to other drugs, medicaments and biological substances
CPT/HCPCS: 64721; J0171

== ENCOUNTER → 2023-01-12 09:24 | Outpatient (BNVA) | payer OTHER, SELFPAY | PROVIDERS: PCP Internal Medicine; Visit Provider Orthopaedic Surgery | DX: G56.02 Carpal tunnel syndrome, left upper limb (principal) | CPT/HCPCS: 99212 ==

== ENCOUNTER 2023-03-31 10:01 | Outpatient (AMB) | payer OTHER, SELFPAY ==
--- NOTE | 2023-03-31 10:17 | MHC.OFFVIS ---
Intake Vital Signs 03/31/23 10:18 Height 5 ft 3 in Weight 152 lb 1.903 oz BMI 26.9 BP 171/90 H Blood Pressure Location Lt brachial Position Sitting Pulse 65 Intake Visit Reasons: 6month f/u Intake Note: Abby presents in offce as a est.patient for a f/u of [facility]. PT CC: Patient c/o bloating, abdominal pain<del>,</del> and constipation. 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 Accompanied by: Self / Same As Patient Allergies gabapentin Allergy (Intermediate, Verified 03/31/23 10:25) inadequate response hydromorphone [From DILAUDID] Allergy (Intermediate, Verified 03/31/23 10:25) RASH lisinopril [LISINOPRIL] Allergy (Intermediate, Verified 03/31/23 10:25) CLOGGED THROAT, shortness of breath, anaphylaxis topiramate Allergy (Intermediate, Verified 03/31/23 10:25) inadequate response HPI 6month f/u HPI Details Assessment & Plan (1) Chronic idiopathic constipation: ?Code(s): K59.04 - Chronic idiopathic constipation ?Plan: She is having more trouble with GERD, although she was told they fixed what caused the GERD when they did her gastric bypass. She admits she has gained back some weight after her initial loss, so this is part of the problems. I will start her on protonix 40mg bid. She continues to do well moving her bowels with Trulance, bisacodyl and she has no more LLQ cramping with taking the bentyl tid. ROV 6 mos. Her last colonoscopy was in 2018 so she will be due for repeat 2023. (2) LLQ abdominal pain: ?Code(s): R10.32 - Left lower quadrant pain (3) Family history of colon cancer in father: ?Comment: dx after age 60, survived of other problems.? Due for colonoscopy in 2023 ?Code(s): Z80.0 - Family history of malignant neoplasm of digestive organs (4) GERD (gastroesophageal reflux disease): ?Code(s): K21.9 - Gastro-esophageal reflux disease without esophagitis ? ? ? Medications: New pantoprazole (Prot peter) 40 mg? PO BID 30 d ays 60 tabs 6RF K21.9 - Gastro-eso phageal reflux dis ease without esoph agitis ? Changed From bisacodyl 10 mg (2 x 5 mg) P O BEDTIME 30 days 60 tabs 1RF K59.04 - Chronic i diopathic constipa tion ? To bisacodyl 10 mg (2 x 5 mg) P O BEDTIME 90 days 180 tabs 1RF K59.04 - Chronic i diopathic constipa tion ? Refilled plecanatide (Trula nce) 3 mg? PO DAILY 30 tabs 6RF K59.04 - Chronic i diopathic constipa tion ? Discontinued simethicone ?? aft er meals ?? Discon tinued Reason:? Do ctor's Order 180 mg? PO QID 30 days 120 caps 3RF A ? ? TODAY'S VISIT In the past she has been very stable on Trulance any needed bisacodyl at times to make it work but now she is having trouble with her stooling. About 1 month ago she started having blood in her BM's and bilateral lower abd and periumbilical pain. When she takes the Trulance her stooling is watery, which is not like before. The pain is worse with eating and not relieved with BM. She is no longer having blood in her stools, but she did have a for 2 day straight at the onset of symptoms. She denies any fevers or chills, she has occasional nausea no vomiting. No new medications at the time of the symptoms, she denies eating any undercooked food her seafood and she denies any sick contacts. When she does not take the Trulance she no longer has watery diarrhea so I kind of doubt that this is an infection. She continues on her pantoprazole twice a day with good control of her heartburn. Her last colonoscopy was in 2018 so she will be due for repeat 2023. Since her over riding problem is pain and she did have an episode of blood I am thinking this might be diverticulitis. I am going to get a CT scan to see but in the meantime I think I will start her on empiric Augmentin therapy to see if this improves her discomfort. She tells me she wanted to present to the ER but her insurance limits her saying that she needs to call, will [facility] and get permission before she can present to an ER. Return office visit in 2 weeks to evaluate her response the antibiotics and of course again after her CT scan. [facility] Medical History Bicytopenia Chronic idiopathic constipation Dyslipidemia Essential hypertension Fibromyalgia Flexor tenosynovitis of finger Generalized anxiety disorder History of herniated intervertebral disc History of partial adherence to treatment Hypovitaminosis D Meningioma Mild major depression, single episode Osteoarthritis of lumbar spine Polyarthralgia Postmenopausal Rheumatoid factor positive Surgical History History of lumbar fusion History of sleeve gastrectomy Hx of section Hx of colonoscopy Hx of hernia repair Hx of melanoma excision Hx of ovarian cystectomy Family History Father Prostate cancer Diabetes mellitus Mother Migraine Arthritis Hypertension Heart disease Emphysema lung CVD (cardiovascular disease) Brother Drug overdose Brother Kirvzfc-Qafop-Jjmqx disease Sister No problems noted. Sister No problems noted. Son No problems noted. Son No problems noted. Son No problems noted. Daughter No problems noted. Daughter No problems noted. Daughter No problems noted. Family/Other Substance use disorder Social History Household Members: Children Housing: House Are you a primary director of primary care to a significant other at home: No Do you presently have visiting nurse or other home services: No Alcohol intake: current Alcohol intake frequency: a few times a month Alcohol type: beer Patient Tobacco Use Status: Never used Tobacco e-Cigarette/Vaping Use: Never Used Second Hand Smoke Exposure: No service: No Current occupational status: disabled Cognitive needs: No Hearing needs: No Vision needs: No Review of Systems Const Denies fatigue, Denies fever(s), Denies night sweats, Denies poor appetite and Denies weight loss ENT Reports Normal hearing present, Denies dental pain, Denies dysphagia, Denies hearing loss, Denies mouth pain, Denies odynophagia, Denies throat swelling, Denies tongue swelling and Reports other (Dentition adequate) Card Reports no additional complaints Resp Reports no additional complaints GI Reports abdominal pain, Denies melena, Reports bloating, Reports hematochezia, Reports constipation, Denies GI cramping, Denies dysphagia, Denies excessive flatus, Denies early satiety, Reports heartburn, Reports diarrhea, Reports nausea, Denies odynophagia, Denies vomiting and Denies hematemesis Skin/Breast Denies pruritus, Denies lesions, Denies rash and Denies jaundice Neuro Reports Normal hearing present and Denies Abnormal speech present Endo Denies fatigue Aller/Immun Denies throat swelling and Denies tongue swelling Physical Exam Vital Signs: Last Vital Signs Pulse 65 03/31/23 10:18 BP 171/90 H 03/31/23 10:18 BMI result Body Mass Index 26.9 Const General: cooperative, no acute distress, well developed and well groomed Nutritional Appearance: average body habitus and well nourished Orientation/consciousness: oriented to person, oriented to place and oriented to time Limitations: No language barrier HEENT Head: Yes normocephalic and Yes atraumatic Eyes General: appearance normal, both eyes and all related structures Pupils: Equal, round and reactive pupils present Neck Neck: Yes normal visual inspection and Yes no lymphadenopathy Thyroid: Thyroid normal Resp Effort & Inspection: normal respiratory effort and able to speak in complete sentences Auscultation: clear to auscultation bilaterally Cardio Rate: regular rate Rhythm: regular rhythm Heart sounds: Normal, physiologic split S2 sound present Peripheral pulses: radial pulses present and posterior tibial pulses present GI Inspection: Yes distended and No Abdominal panniculus present Palpation (GI): Soft to palpation, Tenderness to palpation present (GI) periumbilically, no guarding, not rigid and No hepatosplenomegaly present Percussion: Yes normal to percussion Auscultation: normal bowel sounds Rectal Exam - Female: deferred Skin General skin exam: no rashes or lesions noted, turgor normal, skin not dry, no jaundice, No spider nevi and no striae Rashes: no rashes Nails: normal Neuro General: oriented to person, oriented to place and oriented to time Cranial nerves: Yes Equal, round and reactive pupils present and Yes Normal hearing present Speech: No Abnormal speech present Extrem General: Yes normal to inspection, No clubbing, No cyanosis and No edema Psych Appearance: grossly normal and well kempt Mental Status: mental status grossly normal Speech and movement: Normal speech and movement present Affect: normal affect Attitude: cooperative Thought process: Normal thought process present and not confabulating Thought content: Normal thought content present Insight: Limited insight present (Psych) Judgement: Limited judgement present (Psych) Assessment & Plan Assessment & Plan (1) Diverticulitis: Code(s): K57.92 - Diverticulitis of intestine, part unspecified, without perforation or abscess without bleeding Plan: In the past she has been very stable on Trulance any needed bisacodyl at times to make it work but now she is having trouble with her stooling. About 1 month ago she started having blood in her BM's and bilateral lower abd and periumbilical pain. When she takes the Trulance her stooling is watery, which is not like before. The pain is worse with eating and not relieved with BM. She is no longer having blood in her stools, but she did have a for 2 day straight at the onset of symptoms. She denies any fevers or chills, she has occasional nausea no vomiting. No new medications at the time of the symptoms, she denies eating any undercooked food her seafood and she denies any sick contacts. When she does not take the Trulance she no longer has watery diarrhea so I kind of doubt that this is an infection. She continues on her pantoprazole twice a day with good control of her heartburn. Her last colonoscopy was in 2018 so she will be due for repeat 2023. Since her over riding problem is pain and she did have an episode of blood I am thinking this might be diverticulitis. I am going to get a CT scan to see but in the meantime I think I will start her on empiric Augmentin therapy to see if this improves her discomfort. She tells me she wanted to present to the ER but her insurance limits her saying that she needs to call, will [facility] and get permission before she can present to an ER. Return office visit in 2 weeks to evaluate her response the antibiotics and of course again after her CT scan. (2) Abdominal pain: Code(s): R10.9 - Unspecified abdominal pain (3) GERD (gastroesophageal reflux disease): Code(s): K21.9 - Gastro-esophageal reflux disease without esophagitis (4) Chronic idiopathic constipation: Code(s): K59.04 - Chronic idiopathic constipation Orders: Orders CT abdomen pelvis w IV con Today R10.9 - Unspecified abdominal pain Creatinine Today K57.92 - Diverticulitis of intestine, part unspecified, without perforation or abscess without bleeding Blood Urea Nitrogen Today K57.92 - Diverticulitis of intestine, part unspecified, without perforation or abscess without bleeding Medications: New amoxicillin-pot clavulanate 875-125 mg 1 tab PO BID 10 days 20 tabs 0RF K21.9 - Gastro-esophageal reflux disease without esophagitis, K57.92 - Diverticulitis of intestine, part unspecified, without perforation or abscess without bleeding Coding Level of Care Code Est Pt Level 4 (68204) Diagnoses Diverticulitis K57.92 Abdominal pain R10.9 GERD (gastroesophageal reflux disease) K21.9 Chronic idiopathic constipation K59.04
[2023-03-31 10:18] VITALS: BP 171/90; PULSE 65; BMI 26.9
== END 2023-03-31 10:40 | disposition home or self-care (01) ==
PROVIDERS: PCP Internal Medicine; Visit Provider Nurse Practitioner
DX: K57.92 Diverticulitis of intestine, part unspecified, without perforation or abscess without bleeding (principal); R10.9 Unspecified abdominal pain; K21.9 Gastro-esophageal reflux disease without esophagitis; K59.04 Chronic idiopathic constipation
CPT/HCPCS: 99214

== ENCOUNTER → 2023-03-31 10:01 | Outpatient (BNVA) | payer OTHER, SELFPAY | PROVIDERS: PCP Internal Medicine; Visit Provider Nurse Practitioner | DX: K57.92 Diverticulitis of intestine, part unspecified, without perforation or abscess without bleeding (principal); K21.9 Gastro-esophageal reflux disease without esophagitis; K59.04 Chronic idiopathic constipation; R10.9 Unspecified abdominal pain | CPT/HCPCS: 99212 ==

== ENCOUNTER 2023-04-12 14:29 | Outpatient (AMB) | payer OTHER, SELFPAY ==
--- NOTE | 2023-04-12 14:37 | MHC.PC.OV ---
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 Accompanied by: Self / Same As Patient Allergies gabapentin Allergy (Intermediate, Verified 04/12/23 15:11) inadequate response hydromorphone [From DILAUDID] Allergy (Intermediate, Verified 04/12/23 15:11) RASH lisinopril [LISINOPRIL] Allergy (Intermediate, Verified 04/12/23 15:11) CLOGGED THROAT, shortness of breath, anaphylaxis topiramate Allergy (Intermediate, Verified 04/12/23 15:11) inadequate response Medication List - Last Reconciled 04/12/23 by Quynh Fried MD acetaminophen (Tylenol Extra Strength) 1,000 mg PO QID PRN amlodipine 5 mg PO BID 90 days biotin 1 mg PO DAILY bisacodyl 10 mg (2 x 5 mg) PO BEDTIME 90 days blood pressure test kit-small As directed cholecalciferol (vitamin D3) 25 mcg PO DAILY dicyclomine 20 mg PO TID PRN [elevating leg wedge As directed] [handheld shower As directed] hydrochlorothiazide 12.5 mg PO DAILY 90 days ibuprofen 800 mg PO Q8H PRN magnesium oxide 400 mg PO BEDTIME 30 days aktny-2f-caq-epa-fish oil 350-400 mg 1 cap PO DAILY pantoprazole 40 mg PO BID plecanatide (Trulance) 3 mg PO DAILY [wedge pillow As directed] Tobacco use date assessed: 11/03/22 Dental Screening Dental Screen Date: 04/12/23 Did you have a dental visit in the last 12 months?: Yes Did you have a dental problem in the last 6 months where you did not have access to dental care?: No Was dental information given to patient?: Patient has dentist HPI HPI Comments History of Present Illness Details This is a 57-year-old female with mild major depression, chronic idiopathic constipation and GERD that complains of bilateral leg pain that started few weeks ago. She has fibromyalgia with diffuse joint pain and has tried multiple medications with no success. She declines medication for her depression. Constipation stable with medications as well as GERD. Has diffuse abdominal pain follow by GI. Will order venous duplex to rule out DVT. Mony's positive bilateral PFSH Medical History (Updated 04/12/23 @ 15:17 by Quynh Fried MD) Bicytopenia Chronic idiopathic constipation Dyslipidemia Essential hypertension Fibromyalgia Flexor tenosynovitis of finger Generalized anxiety disorder History of herniated intervertebral disc History of partial adherence to treatment Hypovitaminosis D Meningioma Mild major depression, single episode Osteoarthritis of lumbar spine Polyarthralgia Postmenopausal Rheumatoid factor positive Surgical History History of lumbar fusion History of sleeve gastrectomy Hx of section Hx of colonoscopy Hx of hernia repair Hx of melanoma excision Hx of ovarian cystectomy Family History Father Prostate cancer Diabetes mellitus Mother Migraine Arthritis Hypertension Heart disease Emphysema lung CVD (cardiovascular disease) Brother Drug overdose Brother Qztdgkc-Ecuac-Srwru disease Sister No problems noted. Sister No problems noted. Son No problems noted. Son No problems noted. Son No problems noted. Daughter No problems noted. Daughter No problems noted. Daughter No problems noted. Family/Other Substance use disorder Social History Household Members: Children Housing: House Are you a primary customer care associate to a significant other at home: No Do you presently have visiting nurse or other home services: No Alcohol intake: current Alcohol intake frequency: a few times a month Alcohol type: beer Patient Tobacco Use Status: Never used Tobacco e-Cigarette/Vaping Use: Never Used Second Hand Smoke Exposure: No service: No Current occupational status: disabled Cognitive needs: No Hearing needs: No Vision needs: No Questionnaire Thrive Questionnaire Date Thrive assessed: 11/03/22 MARK ANTHONY-7 AMB Questionnaire MARK ANTHONY-7 Date MARK ANTHONY - 7 assessed: 11/03/22 Source: Developed by Drs. Celso Finney, Josefa Morales, Damion Wood and colleagues, with an educational maria r from [employer]. Review of Systems Const All systems reviewed & are unremarkable except as noted in HPI and below Eyes Reports no additional complaints, Denies change in vision and Denies other visual disturbances Card Denies chest pain at rest, Denies chest pain with activity, Denies edema, Denies irregular heart rhythm, Denies claudication, Denies dyspnea, Denies dyspnea on exertion, Denies orthopnea, Denies paroxysmal nocturnal dyspnea and Denies slow heart rate Resp Denies cough, Denies dyspnea and Denies dyspnea on exertion GI Denies abdominal pain, Denies change in bowel habits, Denies excessive flatus, Denies nausea and Denies vomiting Denies urinary incontinence, Denies urinary hesitancy and Denies urinary urgency Musc Denies abnormal gait, Denies atrophy, Denies deformity, Reports arthralgias and Denies limited range of motion Skin/Breast Denies bleeding lesions, Denies changing lesions and Denies rash Neuro Denies abnormal gait and Denies lack of coordination Physical exam (Primary Care) Vital Signs: Last Vital Signs Pulse 76 04/12/23 14:42 BP 138/88 04/12/23 14:42 Pulse Ox 98 04/12/23 14:42 Oxygen Delivery Method Room Air 04/12/23 14:42 BMI result Body Mass Index 27.3 Tobacco/Smoking Status: Tobacco use Status Tobacco use date assessed 11/03/22 04/12/23 14:37 Patient Tobacco Use Status Never used Tobacco 04/12/23 14:37 e-Cigarette/Vaping Use Never Used 04/12/23 14:37 Thrive Assessment: Date of Thrive Assessment Date Thrive assessed 11/03/22 04/12/23 14:37 Eyes General: appearance normal, both eyes and all related structures Eyelids: Yes eyelids normal Conjunctivae: conjunctivae normal Neck Neck: Yes normal visual inspection and Yes supple Resp Effort & Inspection: normal respiratory effort Auscultation: clear to auscultation bilaterally Cardio Jugular venous distension: no JVD Rate: regular rate Rhythm: regular rhythm Heart sounds: S1 normal heart sound present and S2 normal heart sound present Extrem General: Yes full ROM Assessment and Plan Assessment & Plan (1) GERD (gastroesophageal reflux disease): Code(s): K21.9 - Gastro-esophageal reflux disease without esophagitis Plan: Continue pantoprazole. (2) Mild major depression, single episode: Code(s): F32.0 - Major depressive disorder, single episode, mild Plan: Declines medication. (3) Chronic idiopathic constipation: Code(s): K59.04 - Chronic idiopathic constipation Plan: Continue true lands as needed. (4) Right leg pain: Code(s): M79.604 - Pain in right leg Plan: Ultrasound Doppler ordered. (5) Left leg pain: Code(s): M79.605 - Pain in left leg Plan: Ultrasound Doppler ordered. Orders: Orders US venous duplex LE BI Today M79.604 - Pain in right leg, M79.605 - Pain in left leg Coding Level of Care Code Est Pt Level 4 (45922) Diagnoses GERD (gastroesophageal reflux disease) K21.9 Mild major depression, single episode F32.0 Chronic idiopathic constipation K59.04 Right leg pain M79.604 Left leg pain M79.605 Time Spent (min) 22
[2023-04-12 14:42] VITALS: BP 138/88; PULSE 76; O2SAT 98; BMI 27.3
== END 2023-04-12 15:20 | disposition home or self-care (01) ==
PROVIDERS: PCP Internal Medicine; Visit Provider Internal Medicine
DX: K21.9 Gastro-esophageal reflux disease without esophagitis (principal); F32.0 Major depressive disorder, single episode, mild; K59.04 Chronic idiopathic constipation; M79.604 Pain in right leg; M79.605 Pain in left leg
CPT/HCPCS: 99214

== ENCOUNTER 2023-04-13 09:03 | Outpatient (REF) | payer OTHER, SELFPAY ==
--- NOTE | ~2023-04-13 | US_ITS ---
EXAMINATION: US VENOUS ULTRASOUND WITH DOPPLER LOWER EXTREMITY, BILATERAL CLINICAL INFORMATION: Lower leg pain. COMPARISON: None available. TECHNIQUE: Ultrasound of the deep veins is performed from the hip to the calf with compression sonography and color and pulse Doppler assessment. Spectral analysis with color-flow imaging is performed. FINDINGS: RIGHT: There is normal venous compression and respiratory variation and augmented flow. The visualized common femoral vein, superficial femoral vein, profunda femoral vein, popliteal vein, and the trifurcation region shows no evidence of deep venous thrombosis. There is no significant popliteal fossa cyst. LEFT: There is normal venous compression and respiratory variation and augmented flow. The visualized common femoral vein, superficial femoral vein, profunda femoral vein, popliteal vein, and the trifurcation region shows no evidence of deep venous thrombosis. There is no significant popliteal fossa cyst. If the patient's symptoms persist, followup ultrasound in 5 days 7 days might be of value to exclude proximal propagation from a non-visualized calf vein. US/US venous duplex LE BI IMPRESSION: No evidence for deep venous thrombosis in the visualized veins of the bilateral lower extremities.
== END 2023-04-13 09:04 | disposition home or self-care (01) ==
LOC: HO.US 09:03
PROVIDERS: PCP Internal Medicine; Visit Provider Internal Medicine
DX: M79.604 Pain in right leg (principal); M79.605 Pain in left leg
CPT/HCPCS: 93970

== ENCOUNTER 2023-04-14 09:35 | Outpatient (AMB) | payer OTHER, SELFPAY ==
--- NOTE | 2023-04-14 09:37 | MHC.OFFVIS ---
Intake Vital Signs 04/14/23 10:16 Height 5 ft 3 in Weight 154 lb 5.177 oz BMI 27.3 BP 121/67 Blood Pressure Location Lt brachial Position Sitting Pulse 73 Intake Visit Reasons: 2 week follow up Intake Note: Abby presents in offce as a est.patient for a f/u of [facility]. PT CC: Patient c/o bloating, abdominal pain, and constipation. 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 Required: No Accompanied by: Self / Same As Patient Allergies gabapentin Allergy (Intermediate, Verified 04/14/23 10:18) inadequate response hydromorphone [From DILAUDID] Allergy (Intermediate, Verified 04/14/23 10:18) RASH lisinopril [LISINOPRIL] Allergy (Intermediate, Verified 04/14/23 10:18) CLOGGED THROAT, shortness of breath, anaphylaxis topiramate Allergy (Intermediate, Verified 04/14/23 10:18) inadequate response HPI 2 week follow up HPI Details Assessment & Plan (1) Diverticulitis: ?Code(s): K57.92 - Diverticulitis of intestine, part unspecified, without perforation or abscess without bleeding ?Plan: In the past she has been very stable on Trulance any needed bisacodyl at times to make it work but now she is having trouble with her stooling. About 1 month ago she started having blood in her BM's and bilateral lower abd and periumbilical pain. When she takes the Trulance her stooling is watery, which is not like before. The pain is worse with eating and not relieved with BM. She is no longer having blood in her stools, but she did have a for 2 day straight at the onset of symptoms.? She denies any fevers or chills, she has occasional nausea no vomiting. No new medications at the time of the symptoms, she denies eating any undercooked food her seafood and she denies any sick contacts.? When she does not take the Trulance she no longer has watery diarrhea so I kind of doubt that this is an infection.? She continues on her pantoprazole twice a day with good control of her heartburn. Her last colonoscopy was in 2018 so she will be due for repeat 2023. Since her over riding problem is pain and she did have an episode of blood I am thinking this might be diverticulitis.? I am going to get a CT scan to see but in the meantime I think I will start her on empiric Augmentin therapy to see if this improves her discomfort.? She tells me she wanted to present to the ER but her insurance limits her saying that she needs to call, [facility] and get permission before she can present to an ER. Return office visit in 2 weeks to evaluate her response the antibiotics and of course again after her CT scan. (2) Abdominal pain: ?Code(s): R10.9 - Unspecified abdominal pain (3) GERD (gastroesophageal reflux disease): ?Code(s): K21.9 - Gastro-esophageal reflux disease without esophagitis (4) Chronic idiopathic constipation: ?Code(s): K59.04 - Chronic idiopathic constipation ? ? ? Orders: Orders CT abdomen pelvis w IV con Today R10.9 - Unspecifie d abdominal pain ? Creatinine Today K57.92 - Diverticu litis of intestine , part unspecified , without perforat ion or abscess wit hout bleeding ? Blood Urea Nitroge n Today K57.92 - Diverticu litis of intestine , part unspecified , without perforat ion or abscess wit hout bleeding ? Medications: New amoxicillin-pot cl avulanate 875-125 mg 1 tab? PO BID 10 d ays 20 tabs 0RF K21.9 - Gastro-eso phageal reflux dis ease without esoph agitis, K57.92 - D iverticulitis of i ntestine, part uns pecified, without perforation or abs cess without bleed ing ? CT ABDOMEN AND PELVIS NOT YET OBTAINED . TODAY'S VISIT She continues to have whole belly periumbilical pain and bloating. Her BM's are variable. CT has not yet been scheduled. will change to urgent. Again she has a history of diverticulitis that has not resolved with several rounds of antibiotic treatment. However this time the problem is not isolated to left lower quadrant.. She continues on pantoprazole twice a day. ROV 4 weeks. Adding reglan to Trulance and bisacodyl. [facility] Medical History Bicytopenia Chronic idiopathic constipation Dyslipidemia Essential hypertension Fibromyalgia Flexor tenosynovitis of finger Generalized anxiety disorder History of herniated intervertebral disc History of partial adherence to treatment Hypovitaminosis D Meningioma Mild major depression, single episode Osteoarthritis of lumbar spine Polyarthralgia Postmenopausal Rheumatoid factor positive Surgical History History of lumbar fusion History of sleeve gastrectomy Hx of section Hx of colonoscopy Hx of hernia repair Hx of melanoma excision Hx of ovarian cystectomy Family History Father Prostate cancer Diabetes mellitus Mother Migraine Arthritis Hypertension Heart disease Emphysema lung CVD (cardiovascular disease) Brother Drug overdose Brother Kelwqah-Bgqtp-Atcaj disease Sister No problems noted. Sister No problems noted. Son No problems noted. Son No problems noted. Son No problems noted. Daughter No problems noted. Daughter No problems noted. Daughter No problems noted. Family/Other Substance use disorder Social History Household Members: Children Housing: House Are you a primary resident care manager rn to a significant other at home: No Do you presently have visiting nurse or other home services: No Alcohol intake: current Alcohol intake frequency: a few times a month Alcohol type: beer Patient Tobacco Use Status: Never used Tobacco e-Cigarette/Vaping Use: Never Used Second Hand Smoke Exposure: No service: No Current occupational status: disabled Cognitive needs: No Hearing needs: No Vision needs: No Review of Systems Const Denies fatigue, Denies fever(s), Denies night sweats, Denies poor appetite and Denies weight loss Eyes Reports requires corrective lenses ENT Reports Normal hearing present, Denies dental pain, Denies dysphagia, Denies hearing loss, Denies mouth pain, Denies odynophagia, Denies throat swelling, Denies tongue swelling and Reports other (Dentition adequate) GI Denies abdominal pain, Denies melena, Denies bloating, Denies hematochezia, Denies constipation, Denies GI cramping, Denies dysphagia, Denies excessive flatus, Denies early satiety, Denies heartburn, Denies diarrhea, Denies nausea, Denies odynophagia, Denies vomiting and Denies hematemesis Skin/Breast Denies pruritus, Denies lesions, Denies rash and Denies jaundice Neuro Reports Normal hearing present and Denies Abnormal speech present Endo Denies fatigue Aller/Immun Denies throat swelling and Denies tongue swelling Physical Exam Vital Signs: Last Vital Signs Pulse 73 04/14/23 10:16 BP 121/67 04/14/23 10:16 BMI result Body Mass Index 27.3 Const General: cooperative, no acute distress, well developed and well groomed Nutritional Appearance: well nourished, obese and overweight Orientation/consciousness: oriented to person, oriented to place and oriented to time Limitations: No language barrier, ambulation with cane, ambulation with walker and wheelchair HEENT Head: Yes normocephalic and Yes atraumatic Eyes General: appearance normal, both eyes and all related structures Pupils: Equal, round and reactive pupils present Neck Neck: Yes normal visual inspection and Yes no lymphadenopathy Thyroid: Thyroid normal Resp Effort & Inspection: normal respiratory effort and able to speak in complete sentences Auscultation: clear to auscultation bilaterally Cardio Rate: regular rate Rhythm: regular rhythm Heart sounds: Normal, physiologic split S2 sound present Peripheral pulses: radial pulses present and posterior tibial pulses present GI Inspection: Yes distended, No Abdominal panniculus present and Yes obesity Palpation (GI): Soft to palpation, nontender, no guarding, not rigid and No hepatosplenomegaly present Percussion: Yes normal to percussion Auscultation: normal bowel sounds Rectal Exam - Female: deferred Skin General skin exam: no rashes or lesions noted, turgor normal, skin not dry, no jaundice, No spider nevi and no striae Rashes: no rashes Nails: normal Neuro General: oriented to person, oriented to place and oriented to time Cranial nerves: Yes Equal, round and reactive pupils present and Yes Normal hearing present Speech: No Abnormal speech present Extrem General: Yes normal to inspection, No clubbing, No cyanosis and No edema Psych Thought process: Normal thought process present and not confabulating Thought content: Normal thought content present Insight: Good insight present (Psych) Judgement: Good judgement present (Psych) Assessment & Plan Assessment & Plan (1) Chronic idiopathic constipation: Code(s): K59.04 - Chronic idiopathic constipation Plan: She continues to have whole belly periumbilical pain and bloating. Her BM's are variable. CT has not yet been scheduled. will change to urgent. Again she has a history of diverticulitis that has not resolved with several rounds of antibiotic treatment. However this time the problem is not isolated to left lower quadrant.. She continues on pantoprazole twice a day. ROV 4 weeks. Adding reglan to Trulance and bisacodyl. . (2) Small bowel motility disorder: Code(s): K59.9 - Functional intestinal disorder, unspecified (3) GERD (gastroesophageal reflux disease): Code(s): K21.9 - Gastro-esophageal reflux disease without esophagitis (4) Diverticulitis: Code(s): K57.92 - Diverticulitis of intestine, part unspecified, without perforation or abscess without bleeding Medications: New metoclopramide HCl (Reglan) 10 mg PO TID 90 tabs 3RF K59.9 - Functional intestinal disorder, unspecified Coding Level of Care Code Est Pt Level 3 (49890) Diagnoses Chronic idiopathic constipation K59.04 Small bowel motility disorder K59.9 GERD (gastroesophageal reflux disease) K21.9 Diverticulitis K57.92
[2023-04-14 10:16] VITALS: BP 121/67; PULSE 73; BMI 27.3
== END 2023-04-14 10:42 | disposition home or self-care (01) ==
PROVIDERS: PCP Internal Medicine; Visit Provider Nurse Practitioner
DX: K59.04 Chronic idiopathic constipation (principal); K59.9 Functional intestinal disorder, unspecified; K21.9 Gastro-esophageal reflux disease without esophagitis; K57.92 Diverticulitis of intestine, part unspecified, without perforation or abscess without bleeding
CPT/HCPCS: 99213

== ENCOUNTER → 2023-04-14 09:35 | Outpatient (BNVA) | payer OTHER, SELFPAY | PROVIDERS: PCP Internal Medicine; Visit Provider Nurse Practitioner | DX: K59.04 Chronic idiopathic constipation (principal); K59.9 Functional intestinal disorder, unspecified; K21.9 Gastro-esophageal reflux disease without esophagitis; K57.92 Diverticulitis of intestine, part unspecified, without perforation or abscess without bleeding | CPT/HCPCS: 99212 ==

== ENCOUNTER 2023-04-27 07:42 | Outpatient (AMB) | payer OTHER, SELFPAY ==
--- NOTE | 2023-04-27 08:00 | MHC.OFFVIS ---
Intake Vital Signs 04/27/23 08:05 Height 5 ft 3 in Weight 154 lb BMI 27.3 BP 130/99 H Blood Pressure Location Rt brachial Position Sitting Pulse 73 Pulse Source Pulse Oximeter Pulse Oximetry (%) 98 Oxygen Delivery Method Room Air Intake Visit Reasons: 5m follow up Lesion of Medium Nerve - Confirmed Intake Note: Patient presents for 5 month follow up. patient states My PCP informed to tell her about some symptoms I've been having ,I'm experiencing like this burning feeling in my head and my memory fails on me Allergies gabapentin Allergy (Intermediate, Verified 04/27/23 08:04) inadequate response hydromorphone [From DILAUDID] Allergy (Intermediate, Verified 04/27/23 08:04) RASH lisinopril [LISINOPRIL] Allergy (Intermediate, Verified 04/27/23 08:04) CLOGGED THROAT, shortness of breath, anaphylaxis topiramate Allergy (Intermediate, Verified 04/27/23 08:04) inadequate response Medication List - Last Reconciled 04/27/23 by SIMON Johnston acetaminophen (Tylenol Extra Strength) 1,000 mg PO QID PRN amlodipine 5 mg PO BID 90 days biotin 1 mg PO DAILY bisacodyl 10 mg (2 x 5 mg) PO BEDTIME 90 days blood pressure test kit-small As directed cholecalciferol (vitamin D3) 25 mcg PO DAILY dicyclomine 20 mg PO TID PRN [elevating leg wedge As directed] [handheld shower As directed] hydrochlorothiazide 12.5 mg PO DAILY 90 days ibuprofen 800 mg PO Q8H PRN 30 days magnesium oxide 400 mg PO BEDTIME 30 days metoclopramide HCl (Reglan) 10 mg PO TID uyfkx-[id number]-fish oil 350-400 mg 1 cap PO DAILY pantoprazole 40 mg PO BID plecanatide (Trulance) 3 mg PO DAILY [wedge pillow As directed] HPI HPI Comments History of Present Illness Details 57-yr-old presents for f/u visit. States her left hand is still weak following the carpal tunnel repair- states she is doing home exrcises. Pt reports she was outside shoveling with her dtr. When all of a sudden, pt stopped responding. She did not have LOC or fall. Her dtr called 911, and she was brought to [facility] ER. Pt does not recall this event well or what happened in the ER. She sometimes forgets what she is about to do. Sometimes she has a burning sensation in bilateral occipital regions a/w cheek redness. This lasts about 5-10 minutes. Occurs once a day, not every day. Pressing her thumbs over the bilateral mastoid processes alleviates the discomfort. She reports chronic neck-upper trap pain. She states that she was advised to have cervical repair, but does not want to at this time. She reports that she is having a migraine 3 x's per week. Throbbing frontal/temporal pounding pain a/w photophobia, phonophobia, nausea. Has to jann down. Used to take Fioricet- but insurnace does not cover. Ibuprofen 800mg does not help. She has tried Amitriptyline, Topiramate, Lyrica- none was helpful. [facility] Medical History Bicytopenia Chronic idiopathic constipation Dyslipidemia Essential hypertension Fibromyalgia Flexor tenosynovitis of finger Generalized anxiety disorder History of herniated intervertebral disc History of partial adherence to treatment Hypovitaminosis D Meningioma Mild major depression, single episode Osteoarthritis of lumbar spine Polyarthralgia Postmenopausal Rheumatoid factor positive Surgical History History of lumbar fusion History of sleeve gastrectomy Hx of section Hx of colonoscopy Hx of hernia repair Hx of melanoma excision Hx of ovarian cystectomy Family History Father Prostate cancer Diabetes mellitus Mother Migraine Arthritis Hypertension Heart disease Emphysema lung CVD (cardiovascular disease) Brother Drug overdose Brother Kzctbgx-Mpdfg-Dbdrz disease Sister No problems noted. Sister No problems noted. Son No problems noted. Son No problems noted. Son No problems noted. Daughter No problems noted. Daughter No problems noted. Daughter No problems noted. Family/Other Substance use disorder Social History Household Members: Children Housing: House Are you a primary child day care teacher to a significant other at home: No Do you presently have visiting nurse or other home services: No Alcohol intake: current Alcohol intake frequency: a few times a month Alcohol type: beer Patient Tobacco Use Status: Never used Tobacco e-Cigarette/Vaping Use: Never Used Second Hand Smoke Exposure: No service: No Current occupational status: disabled Cognitive needs: No Hearing needs: No Vision needs: No Review of Systems Const All systems reviewed & are unremarkable except as noted in HPI and below Physical Exam Vital Signs: Last Vital Signs Pulse 73 04/27/23 08:05 BP 130/99 H 04/27/23 08:05 Pulse Ox 98 04/27/23 08:05 Oxygen Delivery Method Room Air 04/27/23 08:05 BMI result Body Mass Index 27.3 Const General: cooperative and no acute distress Orientation/consciousness: patient oriented x3 HEENT Other: Diffuse scalp tenderness No focal pain/shooting pain elicted w/ plapation over ez VISHNU and JEEVAN Head: Yes normocephalic Resp Effort & Inspection: normal respiratory effort and able to speak in complete sentences Back/Spine/Pelvis Other: Bilateral posterior cervical tightness. Cervical ROM: limited Left Spurling: elicits pain that moves into bilateral upper traps Right Spurling: elicits pain that moves into bilateral upper traps Neuro General: patient oriented x3, gait normal and CN's II-XI intact bilaterally Cognition (Neuro): normal cognition Motor exam (neuro): 5/5 motor strength present throughout (w/ exception of mildly decreased L> R hand grasp) Deep tendon reflexes (DTR's): Right triceps reflex intensity grade: 2+, Left triceps reflex intensity grade: 2+, Rt Biceps (C5, C6): 2+, Left biceps reflex intensity grade: 2+, Right brachioradialis reflex intensity grade: 2+, Left brachioradialis reflex intensity grade: 2+, Right patellar reflex intensity grade: 2+ and Left patellar reflex intensity grade: 2+ Psych Appearance: grossly normal Mental Status: mental status grossly normal Speech and movement: Normal speech and movement present Affect: normal affect Attitude: cooperative Thought process: Normal thought process present Assessment & Plan Assessment & Plan (1) Obstructive sleep apnea: Comment: not on PAP for years Code(s): G47.33 - Obstructive sleep apnea (adult) (pediatric) (2) Sleep difficulties: Code(s): G47.9 - Sleep disorder, unspecified (3) Excessive daytime sleepiness: Code(s): G47.19 - Other hypersomnia (4) Snoring: Code(s): R06.83 - Snoring (5) Memory loss: Code(s): R41.3 - Other amnesia (6) Migraine without aura: Code(s): G43.009 - Migraine without aura, not intractable, without status migrainosus (7) Headache: Comment: likely cervicogenic. Low suspicion for ON as pain relieved by pt applying pressure Code(s): R51.9 - Headache, unspecified Plan For episode of memroy loss and memory difficulties: Will request [facility] records Pt advised to undergo HST to assess status of sleep apnea follwoing her weight loss surgery w/ > 10 % body weight reduction. For occipital headcahe and cervicalgia: Offered PT- pt states she will do exercises at home Use warm compresses x's 20 minutes For migarine w/o aura: Trial propranolol 10mg bid- monitor for lightheadedness Continue Magnesium Trial Sumatriptan prn. Previous migraine tx trials- Amitriptyline- not effective, Topiramate- not effective, Gabapentin and Pregabalin- ineffective. Future considerations: CGRP MaB f/u in 3 months or sooner prn Orders: Orders RT home sleep study Today G47.19 - Other hypersomnia, G47.33 - Obstructive sleep apnea (adult) (pediatric), G47.9 - Sleep disorder, unspecified, R06.83 - Snoring Medications: New sumatriptan succinate (0.5 - 1 x 100 mg) 50 - 100 mg orally at onset of headache, may repeat in 2 hrs PRN; max 2 tabs per day or 4 tabs/week (may take with Ibuprofen) 30 days 12 tabs 6RF migraine headache propranolol 10 mg PO BID 30 days 60 tabs 3RF Coding Level of Care Code Est Pt Level 4 (32542) Diagnoses Obstructive sleep apnea G47.33 Sleep difficulties G47.9 Excessive daytime sleepiness G47.19 Snoring R06.83 Memory loss R41.3 Migraine without aura G43.009 Headache R51.9
[2023-04-27 08:05] VITALS: BP 130/99; PULSE 73; O2SAT 98; BMI 27.3
== END 2023-04-27 08:39 | disposition home or self-care (01) ==
PROVIDERS: Visit Provider Nurse Practitioner Family
DX: G47.33 Obstructive sleep apnea (adult) (pediatric) (principal); G47.9 Sleep disorder, unspecified; G47.19 Other hypersomnia; R06.83 Snoring; R41.3 Other amnesia; G43.009 Migraine without aura, not intractable, without status migrainosus; R51.9 Headache, unspecified
CPT/HCPCS: 99214

== ENCOUNTER → 2023-04-27 07:42 | Outpatient (BNVA) | payer OTHER, SELFPAY | PROVIDERS: Visit Provider Nurse Practitioner Family | DX: G47.33 Obstructive sleep apnea (adult) (pediatric) (principal); G47.19 Other hypersomnia; R06.83 Snoring; R41.3 Other amnesia; G43.009 Migraine without aura, not intractable, without status migrainosus; Z79.899 Other long term (current) drug therapy | CPT/HCPCS: 99212 ==

== ENCOUNTER 2023-05-10 10:16 | Outpatient (AMB) | payer OTHER, SELFPAY ==
[2023-05-10 10:24] VITALS: BP 118/78; PULSE 74; RESP 16; O2SAT 98; BMI 29.1
--- NOTE | 2023-05-10 10:24 | MHC.PC.OV ---
Vital Signs 05/10/23 10:24 Height 5 ft 0.63 in Weight 152 lb 2 oz BMI 29.1 BP 118/78 Blood Pressure Location Lt brachial Position Sitting Respiration 16 Pulse 74 Pulse Source Pulse Oximeter Pulse Oximetry (%) 98 Intake Visit Reasons: chronic pain Intake Note: Pt is here for F/U on chronic pain. 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 Accompanied by: Self / Same As Patient Allergies gabapentin Allergy (Intermediate, Verified 05/10/23 10:32) inadequate response hydromorphone [From DILAUDID] Allergy (Intermediate, Verified 05/10/23 10:32) RASH lisinopril [LISINOPRIL] Allergy (Intermediate, Verified 05/10/23 10:32) CLOGGED THROAT, shortness of breath, anaphylaxis topiramate Allergy (Intermediate, Verified 05/10/23 10:32) inadequate response Medication List - Last Reconciled 05/10/23 by Quynh Fried MD acetaminophen (Tylenol Extra Strength) 1,000 mg PO QID PRN amlodipine 5 mg PO BID 90 days biotin 1 mg PO DAILY bisacodyl 10 mg (2 x 5 mg) PO BEDTIME 90 days blood pressure test kit-small As directed cholecalciferol (vitamin D3) 25 mcg PO DAILY dicyclomine 20 mg PO TID PRN [elevating leg wedge As directed] [handheld shower As directed] hydrochlorothiazide 12.5 mg PO DAILY 90 days ibuprofen 800 mg PO Q8H PRN 30 days magnesium oxide 400 mg PO BEDTIME 30 days metoclopramide HCl (Reglan) 10 mg PO TID [id number]-fish oil 350-400 mg 1 cap PO DAILY pantoprazole 40 mg PO BID plecanatide (Trulance) 3 mg PO DAILY propranolol 10 mg PO BID 30 days sumatriptan succinate 50 - 100 mg orally at onset of headache, may repeat in 2 hrs PRN; max 2 tabs per day or 4 tabs/week (may take with Ibuprofen) 30 days [wedge pillow As directed] Tobacco use date assessed: 11/03/22 Dental Screening Dental Screen Date: 05/10/23 Did you have a dental visit in the last 12 months?: Yes Did you have a dental problem in the last 6 months where you did not have access to dental care?: No Was dental information given to patient?: Patient has dentist HPI HPI Comments History of Present Illness Details This is a 58-year-old female with GERD, hypertension, mild major depression and meningioma that comes today complaining of lumbar pain has been present for years with no radiation to legs. She would like a back brace for stability. GERD somewhat stable with PPIs but she complains of a diffuse abdominal pain and will have CT scan of the abdomen May 25. Blood pressure stable. Depression he is present but she declines counseling or medication. Has meningioma follow by Neurosurgery and has MRI of the brain yearly which has not changed. No chest pain or shortness of breath. [facility] Medical History (Updated 05/10/23 @ 10:37 by Quynh Fried MD) Osteoarthritis of lumbar spine Flexor tenosynovitis of finger Rheumatoid factor positive Postmenopausal Generalized anxiety disorder Mild major depression, single episode Fibromyalgia Essential hypertension Meningioma Bicytopenia Dyslipidemia Hypovitaminosis D Chronic idiopathic constipation Polyarthralgia History of herniated intervertebral disc History of partial adherence to treatment Surgical History Hx of colonoscopy Hx of melanoma excision History of sleeve gastrectomy Hx of hernia repair Hx of ovarian cystectomy History of lumbar fusion Hx of section Family History Father Prostate cancer Diabetes mellitus Mother Migraine Arthritis Hypertension Heart disease Emphysema lung CVD (cardiovascular disease) Brother Drug overdose Brother Nuxwbny-Kwrve-Lyths disease Sister No problems noted. Sister No problems noted. Son No problems noted. Son No problems noted. Son No problems noted. Daughter No problems noted. Daughter No problems noted. Daughter No problems noted. Family/Other Substance use disorder Social History Household Members: Children Housing: House Are you a primary respiratory care instructor to a significant other at home: No Do you presently have visiting nurse or other home services: No Alcohol intake: current Alcohol intake frequency: a few times a month Alcohol type: beer Patient Tobacco Use Status: Never used Tobacco e-Cigarette/Vaping Use: Never Used Second Hand Smoke Exposure: No service: No Current occupational status: disabled Cognitive needs: No Hearing needs: No Vision needs: No Questionnaire Thrive Questionnaire Date Thrive assessed: 11/03/22 MARK ANTHONY-7 AMB Questionnaire MARK ANTHONY-7 Date MARK ANTHONY - 7 assessed: 11/03/22 Source: Developed by Drs. Celso Finney, Josefa Morales, Damion Wood and colleagues, with an educational maria r from [employer]. Review of Systems Const All systems reviewed & are unremarkable except as noted in HPI and below Eyes Reports no additional complaints, Denies change in vision and Denies other visual disturbances Card Denies chest pain at rest, Denies chest pain with activity, Denies edema, Denies irregular heart rhythm, Denies claudication, Denies dyspnea, Denies dyspnea on exertion, Denies orthopnea, Denies paroxysmal nocturnal dyspnea and Denies slow heart rate Resp Denies cough, Denies dyspnea and Denies dyspnea on exertion GI Denies abdominal pain, Denies change in bowel habits, Denies excessive flatus, Denies nausea and Denies vomiting Denies urinary incontinence, Denies urinary hesitancy and Denies urinary urgency Musc Denies abnormal gait, Denies atrophy, Denies deformity and Denies limited range of motion Skin/Breast Denies bleeding lesions, Denies changing lesions and Denies rash Neuro Denies abnormal gait and Denies lack of coordination Physical exam (Primary Care) Vital Signs: Last Vital Signs Pulse 74 05/10/23 10:24 Resp 16 05/10/23 10:24 BP 118/78 05/10/23 10:24 Pulse Ox 98 05/10/23 10:24 BMI result Body Mass Index 29.1 Tobacco/Smoking Status: Tobacco use Status Tobacco use date assessed 11/03/22 05/10/23 10:30 Patient Tobacco Use Status Never used Tobacco 05/10/23 10:30 e-Cigarette/Vaping Use Never Used 05/10/23 10:30 Thrive Assessment: Date of Thrive Assessment Date Thrive assessed 11/03/22 05/10/23 10:30 Eyes General: appearance normal, both eyes and all related structures Eyelids: Yes eyelids normal Conjunctivae: conjunctivae normal Neck Neck: Yes normal visual inspection and Yes supple Resp Effort & Inspection: normal respiratory effort Auscultation: clear to auscultation bilaterally Cardio Jugular venous distension: no JVD Rate: regular rate Rhythm: regular rhythm Heart sounds: S1 normal heart sound present and S2 normal heart sound present Extrem General: Yes full ROM Assessment and Plan Assessment & Plan (1) Lumbar pain: Code(s): M54.50 - Low back pain, unspecified Plan: Start back brace as needed (2) GERD (gastroesophageal reflux disease): Code(s): K21.9 - Gastro-esophageal reflux disease without esophagitis Plan: Continue PPIs (3) Mild major depression, single episode: Code(s): F32.0 - Major depressive disorder, single episode, mild Plan: Consider counseling. (4) Essential hypertension: Code(s): I10 - Essential (primary) hypertension Plan: Continue amlodipine and hydrochlorothiazide. Blood pressure goal is equal or less than 130/80. (5) Meningioma: Code(s): D32.9 - Benign neoplasm of meninges, unspecified Plan: Follow-up with Neurosurgery. Medications: New back brace As directed 1 ea 0RF M54.50 - Low back pain, unspecified Coding Level of Care Code Est Pt Level 4 (30477) Diagnoses Lumbar pain M54.50 GERD (gastroesophageal reflux disease) K21.9 Mild major depression, single episode F32.0 Essential hypertension I10 Meningioma D32.9 Time Spent (min) 23
== END 2023-05-10 10:37 | disposition home or self-care (01) ==
PROVIDERS: PCP Internal Medicine; Visit Provider Internal Medicine
DX: K21.9 Gastro-esophageal reflux disease without esophagitis (principal); F32.0 Major depressive disorder, single episode, mild; I10 Essential (primary) hypertension; D32.9 Benign neoplasm of meninges, unspecified; M54.50 Low back pain, unspecified
CPT/HCPCS: 99214

== ENCOUNTER 2023-05-25 07:39 | Outpatient (REF) | payer OTHER, SELFPAY ==
--- NOTE | ~2023-05-25 | CT_ITS ---
EXAMINATION: CT ABDOMEN AND PELVIS WITH CONTRAST CLINICAL INFORMATION: Abdominal pain COMPARISON: Previous CT of the abdomen and pelvis September 2021 TECHNIQUE: Multidetector volumetric images were obtained from the superior aspect of the liver through the pubic symphysis following administration 85 mL of Omnipaque 350 intravenous contrast. Sagittal and coronal reformatted images were obtained on the technologist's workstation. Oral contrast: Yes This CT examination was performed using dose optimization techniques as appropriate, variously including the following: *Automated exposure control *Adjustment of mA and/or kV according to patient size (this includes techniques or standardized protocols for targeted exams where dose is matched to indication/reason for exam; i.e. extremities or head) *Use of iterative reconstruction technique DLP: 389 mGy-cm FINDINGS: LUNG BASES: Chronic scarring or subsegmental atelectasis right lower lobe LIVER, GALLBLADDER, AND BILIARY TREE: The liver is normal in size, shape, and attenuation. Small liver cysts largest measuring 2 cm right. No other focal hepatic lesion or biliary ductal dilatation is present. The gallbladder is unremarkable with no evidence of radiopaque gallstones, gallbladder wall thickening, or obvious pericholecystic inflammatory changes. PANCREAS: Unremarkable. SPLEEN: Unremarkable. ADRENAL GLANDS: Unremarkable. KIDNEYS AND URETERS: The kidneys are normal in size, shape, and attenuation. No hydronephrosis, hydroureter, or calculi seen. No perinephric stranding. BLADDER: Unremarkable. GASTROINTESTINAL TRACT: The small and large bowel are unremarkable. The appendix is unremarkable. Postsurgical changes from gastric sleeve ABDOMINAL WALL: No significant hernia is appreciated. LYMPH NODES: Normal. VASCULAR: Unremarkable. PELVIC VISCERA: Devika devices. These are prominent similar to previous exam. There is a small calcification left ovary OSSEOUS STRUCTURES: Postsurgical changes at L4-L5 with posterior rods, bilateral pedicle screws and disc spacer. Part of of a screw in the right S1 vertebral body. This is unchanged. There are degenerative changes at L L3-L4 and L5-S1. CT/CT abdomen pelvis w IV con IMPRESSION: No acute findings. Postoperative change from gastric sleeve. Liver cysts. Prominent ovaries and small calcification in the left ovary. This is similar to previous exam. Fleischner guidelines were followed.
[2023-05-25 08:55] LABS: Blood Urea Nitrogen 16 mg/dL (9-16); Estimated Glomerular Filt Rate > 60
[2023-05-25 09:11] LABS: Thyroid Stimulating Hormone 0.98 uIU/mL (0.32-4.0)
[2023-05-25 09:46] LABS: Folate 13.6 ng/mL (> or = 4.0); Vitamin B12 441 pg/mL (200-900)
[2023-05-25] MEDS: Barium Sulfate Oral (Berry) 450 ML ORAL.SUSP 900 ML PO (10:49)
[2023-05-25] MEDS: iohexoL 350 MG/ML 100 ML INFUS..BTL IV (10:49)
== END 2023-05-25 07:40 | disposition home or self-care (01) ==
LOC: HO.CT 07:39
PROVIDERS: PCP Internal Medicine; Visit Provider Nurse Practitioner
DX: K57.92 Diverticulitis of intestine, part unspecified, without perforation or abscess without bleeding (principal); R41.3 Other amnesia; E53.8 Deficiency of other specified B group vitamins; R10.9 Unspecified abdominal pain
CPT/HCPCS: 36415; 74177; 82565; 82607; 82746; 84443; 84520; Q9967

== ENCOUNTER 2023-05-26 10:04 | Outpatient (REF) | payer OTHER, SELFPAY ==
--- NOTE | ~2023-05-26 | MM_ITS ---
EXAMINATION: MM SCREENING DIGITAL BREAST TOMOSYNTHESIS, BILATERAL CLINICAL INFORMATION: Screening. Asymptomatic. COMPARISON: Mammography: This study is compared with prior exams dating back to 2018. TECHNIQUE: Digital breast tomosynthesis is performed in both the craniocaudal and mediolateral oblique views along with computer-aided detection (CAD). Synthesized 2D images are generated from the tomosynthesis. FINDINGS: There are scattered areas of fibroglandular density (ACR BI-RADS breast composition Category b). There are no significant masses, abnormal calcifications, or other abnormalities. There is a tissue marker present in the left breast from prior benign percutaneous biopsy. MM/MM tomosynthesis screening BI IMPRESSION: No mammographic evidence of malignancy. ASSESSMENT: BI-RADS BI-RADS 2 - Benign Findings RECOMMENDATION: Routine annual mammography screening. 1 year F/U This examination should not preclude the clinical evaluation of a suspicious palpable abnormality. This patient's information was entered into a reminder system with a target due date for their next mammogram.
== END 2023-05-26 10:05 | disposition home or self-care (01) ==
LOC: HO.MAMMO 10:04
PROVIDERS: PCP Internal Medicine; Visit Provider Obstetrics & Gynecology Female Pelvic Medicine and Reconstructive Surgery
DX: Z12.31 Encounter for screening mammogram for malignant neoplasm of breast (principal)
CPT/HCPCS: 77063; 77067

== ENCOUNTER → 2023-05-26 10:15 | Outpatient (BNV) | payer OTHER, SELFPAY | PROVIDERS: PCP Internal Medicine; Visit Provider Radiology Diagnostic Radiology | DX: Z12.31 Encounter for screening mammogram for malignant neoplasm of breast (principal) | CPT/HCPCS: 77063; 77067 ==

== ENCOUNTER 2023-06-01 07:47 | Outpatient (AMB) | payer OTHER, SELFPAY ==
[2023-06-01 07:53] VITALS: BP 154/100; PULSE 69; BMI 27.1
--- NOTE | 2023-06-01 07:53 | MHC.OFFVIS ---
Intake Vital Signs 06/01/23 07:53 Height 5 ft 3 in Weight 153 lb BMI 27.1 BP 154/100 H Blood Pressure Location Rt brachial Position Sitting Pulse 69 Intake Visit Reasons: 4 week follow up Intake Note: Abby presents to in office visit today in follow up of [facility] PT CC: Patient states she continues to have abdominal bloating, abdominal pain, and constipation. Denies any other GI issues. 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 Accompanied by: Self / Same As Patient Allergies gabapentin Allergy (Intermediate, Verified 06/01/23 07:55) inadequate response hydromorphone [From DILAUDID] Allergy (Intermediate, Verified 06/01/23 07:55) RASH lisinopril [LISINOPRIL] Allergy (Intermediate, Verified 06/01/23 07:55) CLOGGED THROAT, shortness of breath, anaphylaxis topiramate Allergy (Intermediate, Verified 06/01/23 07:55) inadequate response HPI 4 week follow up HPI Details Assessment & Plan (1) Chronic idiopathic constipation: Code(s): K59.04 - Chronic idiopathic constipation Plan: She continues to have whole belly periumbilical pain and bloating. Her BM's are variable. CT has not yet been scheduled. will change to urgent. Again she has a history of diverticulitis that has not resolved with several rounds of antibiotic treatment. However this time the problem is not isolated to left lower quadrant.. She continues on pantoprazole twice a day. ROV 4 weeks. Adding reglan to Trulance and bisacodyl. . (2) Small bowel motility disorder: Code(s): K59.9 - Functional intestinal disorder, unspecified (3) GERD (gastroesophageal reflux disease): Code(s): K21.9 - Gastro-esophageal reflux disease without esophagitis (4) Diverticulitis: Code(s): K57.92 - Diverticulitis of intestine, part unspecified, without perforation or abscess without bleeding Medications: New metoclopramide HCl (Reglan) 10 mg PO TID 90 t abs 3RF K59.9 - Functional intestinal disord er, unspecified CT ABDOMEN AND PELVIS 05/25/23 FINDINGS: LUNG BASES: Chronic scarring or subsegmental atelectasis right lower lobe LIVER, GALLBLADDER, AND BILIARY TREE: The liver is normal in size, shape, and attenuation. Small liver cysts largest measuring 2 cm right. No other focal hepatic lesion or biliary ductal dilatation is present. The gallbladder is unremarkable with no evidence of radiopaque gallstones, gallbladder wall thickening, or obvious pericholecystic inflammatory changes. PANCREAS: Unremarkable. SPLEEN: Unremarkable. ADRENAL GLANDS: Unremarkable. KIDNEYS AND URETERS: The kidneys are normal in size, shape, and attenuation. No hydronephrosis, hydroureter, or calculi seen. No perinephric stranding. BLADDER: Unremarkable. GASTROINTESTINAL TRACT: The small and large bowel are unremarkable. The appendix is unremarkable. Postsurgical changes from gastric sleeve ABDOMINAL WALL: No significant hernia is appreciated. LYMPH NODES: Normal. VASCULAR: Unremarkable. PELVIC VISCERA: Devika devices. These are prominent similar to previous exam. There is a small calcification left ovary OSSEOUS STRUCTURES: Postsurgical changes at L4-L5 with posterior rods, bilateral pedicle screws and disc spacer. Part of of a screw in the right S1 vertebral body. This is unchanged. There are degenerative changes at L L3-L4 and L5-S1. CT/CT abdomen pelvis w IV con IMPRESSION: No acute findings. Postoperative change from gastric sleeve. Liver cysts. Prominent ovaries and small calcification in the left ovary. This is similar to previous exam. TODAY'S VISIT She continues to have whole abd bloating and discomfort. She can not say that it comes after eating or when she moves her bowels, it is random in terms of timing/time of day. She DOES have a hx of adhesions after tubal ligation. We review the CT scan it does not provide any explanation for her pain. We agree she will try the metoclopramide at least twice a day to see if this helps. The only thing I can fat them is that she is having gas trapping since she has quite a lot of bloating. So far we have been unable to uncover the exact mechanism that is causing her the pain/discomfort. She was educated that could be adhesions which is something we create see on imaging and of course there is risks associated with surgery to corrected he has ends in that sometimes we create more of them. She understands this. I am uncertain how adherent she is her medical regimen. She admits she really does not like take pills and at 1st she did not try the Reglan because she said ?I do not like taking so many pills.? She does say she is taking the Trulance and she feels that she is moving her bowels well. She also has pantoprazole twice a day, dicyclomine and bisacodyl available to her. ROV 4 weeks. [facility] Medical History Osteoarthritis of lumbar spine Flexor tenosynovitis of finger Rheumatoid factor positive Postmenopausal Generalized anxiety disorder Mild major depression, single episode Fibromyalgia Essential hypertension Meningioma Bicytopenia Dyslipidemia Hypovitaminosis D Chronic idiopathic constipation Polyarthralgia History of herniated intervertebral disc History of partial adherence to treatment Surgical History Hx of colonoscopy Hx of melanoma excision History of sleeve gastrectomy Hx of hernia repair Hx of ovarian cystectomy History of lumbar fusion Hx of section Family History Father Prostate cancer Diabetes mellitus Mother Migraine Arthritis Hypertension Heart disease Emphysema lung CVD (cardiovascular disease) Brother Drug overdose Brother Ovhnptt-Fvury-Aelwg disease Sister No problems noted. Sister No problems noted. Son No problems noted. Son No problems noted. Son No problems noted. Daughter No problems noted. Daughter No problems noted. Daughter No problems noted. Family/Other Substance use disorder Social History Household Members: Children Housing: House Are you a primary long term acute care registered nurse to a significant other at home: No Do you presently have visiting nurse or other home services: No Alcohol intake: current Alcohol intake frequency: a few times a month Alcohol type: beer Patient Tobacco Use Status: Never used Tobacco e-Cigarette/Vaping Use: Never Used Second Hand Smoke Exposure: No service: No Current occupational status: disabled Cognitive needs: No Hearing needs: No Vision needs: No Review of Systems Const Denies fatigue, Denies fever(s), Denies night sweats, Denies poor appetite and Denies weight loss ENT Reports Normal hearing present, Denies dental pain, Denies dysphagia, Denies hearing loss, Denies mouth pain, Denies odynophagia, Denies throat swelling, Denies tongue swelling and Reports other (Dentition adequate) Card Reports no additional complaints Resp Reports no additional complaints GI Reports abdominal pain, Denies melena, Reports bloating, Denies hematochezia, Reports constipation, Denies GI cramping, Denies dysphagia, Denies excessive flatus, Denies early satiety, Reports heartburn, Denies diarrhea, Denies nausea, Denies odynophagia, Denies vomiting and Denies hematemesis Skin/Breast Denies pruritus, Denies lesions, Denies rash and Denies jaundice Neuro Reports Normal hearing present and Denies Abnormal speech present Endo Denies fatigue Aller/Immun Denies throat swelling and Denies tongue swelling Physical Exam Vital Signs: Last Vital Signs Pulse 69 06/01/23 07:53 BP 154/100 H 06/01/23 07:53 BMI result Body Mass Index 27.1 Const General: cooperative, no acute distress, well developed and well groomed Nutritional Appearance: average body habitus and well nourished Orientation/consciousness: oriented to person, oriented to place and oriented to time Limitations: No language barrier HEENT Head: Yes normocephalic and Yes atraumatic Eyes General: appearance normal, both eyes and all related structures Pupils: Equal, round and reactive pupils present Neck Neck: Yes normal visual inspection and Yes no lymphadenopathy Thyroid: Thyroid normal Resp Effort & Inspection: normal respiratory effort and able to speak in complete sentences Auscultation: clear to auscultation bilaterally Cardio Rate: regular rate Rhythm: regular rhythm Heart sounds: Normal, physiologic split S2 sound present Peripheral pulses: radial pulses present and posterior tibial pulses present GI Inspection: No distended and No Abdominal panniculus present Palpation (GI): Soft to palpation, nontender, no guarding, not rigid and No hepatosplenomegaly present Percussion: Yes normal to percussion Auscultation: normal bowel sounds Rectal Exam - Female: deferred Skin General skin exam: no rashes or lesions noted, turgor normal, skin not dry, no jaundice, No spider nevi and no striae Rashes: no rashes Nails: normal Neuro General: oriented to person, oriented to place and oriented to time Cranial nerves: Yes Equal, round and reactive pupils present and Yes Normal hearing present Speech: No Abnormal speech present Extrem General: Yes normal to inspection, No clubbing, No cyanosis and No edema Psych Appearance: grossly normal and well kempt Mental Status: mental status grossly normal Speech and movement: Normal speech and movement present Affect: normal affect Attitude: cooperative Thought process: Normal thought process present and not confabulating Thought content: Normal thought content present Insight: Limited insight present (Psych) Judgement: Limited judgement present (Psych) Results Reviewed Results Reviewed: CT ABDOMEN AND PELVIS 05/25/23 FINDINGS: LUNG BASES: Chronic scarring or subsegmental atelectasis right lower lobe LIVER, GALLBLADDER, AND BILIARY TREE: The liver is normal in size, shape, and attenuation. Small liver cysts largest measuring 2 cm right. No other focal hepatic lesion or biliary ductal dilatation is present. The gallbladder is unremarkable with no evidence of radiopaque gallstones, gallbladder wall thickening, or obvious pericholecystic inflammatory changes. PANCREAS: Unremarkable. SPLEEN: Unremarkable. ADRENAL GLANDS: Unremarkable. KIDNEYS AND URETERS: The kidneys are normal in size, shape, and attenuation. No hydronephrosis, hydroureter, or calculi seen. No perinephric stranding. BLADDER: Unremarkable. GASTROINTESTINAL TRACT: The small and large bowel are unremarkable. The appendix is unremarkable. Postsurgical changes from gastric sleeve ABDOMINAL WALL: No significant hernia is appreciated. LYMPH NODES: Normal. VASCULAR: Unremarkable. PELVIC VISCERA: Devika devices. These are prominent similar to previous exam. There is a small calcification left ovary OSSEOUS STRUCTURES: Postsurgical changes at L4-L5 with posterior rods, bilateral pedicle screws and disc spacer. Part of of a screw in the right S1 vertebral body. This is unchanged. There are degenerative changes at L L3-L4 and L5-S1. CT/CT abdomen pelvis w IV con IMPRESSION: No acute findings. Postoperative change from gastric sleeve. Liver cysts. Prominent ovaries and small calcification in the left ovary. This is similar to previous exam. Assessment & Plan Assessment & Plan (1) Periumbilical abdominal pain: Code(s): R10.33 - Periumbilical pain Plan: She continues to have whole abd bloating and discomfort. She can not say that it comes after eating or when she moves her bowels, it is random in terms of timing/time of day. She DOES have a hx of adhesions after tubal ligation. We review the CT scan it does not provide any explanation for her pain. We agree she will try the metoclopramide at least twice a day to see if this helps. The only thing I can fat them is that she is having gas trapping since she has quite a lot of bloating. So far we have been unable to uncover the exact mechanism that is causing her the pain/discomfort. She was educated that could be adhesions which is something we create see on imaging and of course there is risks associated with surgery to corrected he has ends in that sometimes we create more of them. She understands this. I am uncertain how adherent she is her medical regimen. She admits she really does not like take pills and at 1st she did not try the Reglan because she said ?I do not like taking so many pills.? She does say she is taking the Trulance and she feels that she is moving her bowels well. She also has pantoprazole twice a day, dicyclomine and bisacodyl available to her. ROV 4 weeks. (2) GERD (gastroesophageal reflux disease): Code(s): K21.9 - Gastro-esophageal reflux disease without esophagitis (3) Small bowel motility disorder: Code(s): K59.9 - Functional intestinal disorder, unspecified (4) Chronic idiopathic constipation: Code(s): K59.04 - Chronic idiopathic constipation (5) Back pain: Code(s): M54.9 - Dorsalgia, unspecified Orders: Orders XR thoracic spine 2V Today M54.9 - Dorsalgia, unspecified Coding Level of Care Code Est Pt Level 3 (93181) Diagnoses Periumbilical abdominal pain R10.33 GERD (gastroesophageal reflux disease) K21.9 Small bowel motility disorder K59.9 Chronic idiopathic constipation K59.04 Back pain M54.9
== END 2023-06-01 08:29 | disposition home or self-care (01) ==
PROVIDERS: PCP Internal Medicine; Visit Provider Nurse Practitioner
DX: R10.33 Periumbilical pain (principal); K21.9 Gastro-esophageal reflux disease without esophagitis; K59.9 Functional intestinal disorder, unspecified; K59.04 Chronic idiopathic constipation; M54.9 Dorsalgia, unspecified
CPT/HCPCS: 99213

== ENCOUNTER → 2023-06-01 07:47 | Outpatient (BNVA) | payer OTHER, SELFPAY | PROVIDERS: PCP Internal Medicine; Visit Provider Nurse Practitioner | DX: K59.04 Chronic idiopathic constipation (principal); K57.92 Diverticulitis of intestine, part unspecified, without perforation or abscess without bleeding; K59.9 Functional intestinal disorder, unspecified; K21.9 Gastro-esophageal reflux disease without esophagitis; R10.33 Periumbilical pain | CPT/HCPCS: 99212 ==

== ENCOUNTER → 2023-06-15 09:37 | Outpatient (REF) | payer OTHER, SELFPAY | LOC: HO.SL 09:37 | PROVIDERS: PCP Internal Medicine; Visit Provider Nurse Practitioner Family | DX: G47.33 Obstructive sleep apnea (adult) (pediatric) (principal); G47.19 Other hypersomnia; R06.83 Snoring | CPT/HCPCS: 95806 ==

== ENCOUNTER → 2023-06-15 09:45 | Outpatient (BNV) | payer OTHER, SELFPAY | PROVIDERS: PCP Internal Medicine; Visit Provider Psychiatry & Neurology Neurology | DX: G47.33 Obstructive sleep apnea (adult) (pediatric) (principal) | CPT/HCPCS: 95806 ==

== ENCOUNTER 2023-07-20 08:34 | Outpatient (AMB) | payer OTHER, SELFPAY ==
[2023-07-20 09:15] VITALS: BP 140/90; PULSE 72; TEMP 36.7; O2SAT 98; BMI 27.6
--- NOTE | 2023-07-20 09:15 | MHC.OFFWIV ---
Intake Vital Signs 07/20/23 09:15 Height 5 ft 3 in Weight 70.76 kg BMI 27.6 BP 140/90 H Blood Pressure Location Lt brachial Position Sitting Pulse 72 Pulse Source Pulse Oximeter Temp 98.0 F Temp Source Oral Pulse Oximetry (%) 98 Oxygen Delivery Method Room Air Intake Visit Reasons: EST/ear infection left side (lobby) Intake Note: Pt is here today c/o Lt ear pain and chest discomfort x2days Patient Tobacco Use Status: Never used Tobacco Allergies gabapentin Allergy (Intermediate, Verified 07/20/23 09:15) inadequate response hydromorphone [From DILAUDID] Allergy (Intermediate, Verified 07/20/23 09:15) RASH lisinopril [LISINOPRIL] Allergy (Intermediate, Verified 07/20/23 09:15) CLOGGED THROAT, shortness of breath, anaphylaxis topiramate Allergy (Intermediate, Verified 07/20/23 09:15) inadequate response HPI HPI Comments History of Present Illness Details [id number] 58 year old female presents w/ cough, fatigue, malise, L ear pain X few days worsening. Reports slight chest discomfort w/ , but when she is not coughing she does not have chest discomfort or shortness of breath. Denies shortness of breath in general, fevers, chills, nausea, vomiting, abdominal pain, headache, vision changes dizziness or weakness physical exam and history concerning for otitis media, unlikely otitis externa, mastoiditis. Other differentials include sinusitis. Unlikely pneumonia, pulmonary embolism, ACS, malignant otitis Plan- Dc w/ augmentin . Educated patient on diagnosis and treatment plan, answered all question, patient verbalizes understanding. At this time patient will be discharged home, advised to return with new or worsening symptoms. Educated on worrisome signs and symptoms and when to return. At this time I feel comfortable discharge home. [facility] Medical History Osteoarthritis of lumbar spine Flexor tenosynovitis of finger Rheumatoid factor positive Postmenopausal Generalized anxiety disorder Mild major depression, single episode Fibromyalgia Essential hypertension Meningioma Bicytopenia Dyslipidemia Hypovitaminosis D Chronic idiopathic constipation Polyarthralgia History of herniated intervertebral disc History of partial adherence to treatment Surgical History Hx of colonoscopy Hx of melanoma excision History of sleeve gastrectomy Hx of hernia repair Hx of ovarian cystectomy History of lumbar fusion Hx of section Family History Father Prostate cancer Diabetes mellitus Mother Migraine Arthritis Hypertension Heart disease Emphysema lung CVD (cardiovascular disease) Brother Drug overdose Brother Rmjusim-Swjpt-Nzbtq disease Sister No problems noted. Sister No problems noted. Son No problems noted. Son No problems noted. Son No problems noted. Daughter No problems noted. Daughter No problems noted. Daughter No problems noted. Family/Other Substance use disorder Household Members: Children Housing: House Are you a primary progressive care nurse to a significant other at home: No Do you presently have visiting nurse or other home services: No Alcohol intake: current Alcohol intake frequency: a few times a month Alcohol type: beer Patient Tobacco Use Status: Never used Tobacco e-Cigarette/Vaping Use: Never Used Second Hand Smoke Exposure: No service: No Current occupational status: disabled Cognitive needs: No Hearing needs: No Vision needs: No Review of Systems Const Details: Constitutional : No Weight loss, No Fever, No Chills, + Fatigue, + Malaise ENT/Mouth : No sore throat, No Rhinorrhea, + ear pain Eyes: No Eye Pain, No Swelling, No Redness Cardiovascular : No Chest Pain, No SOB, No Dyspnea on Exertion, No Orthopnea, No Edema, No Palpitations Respiratory : + Cough, No Sputum, No Wheezing Gastrointestinal : No Nausea, No Vomiting, No Diarrhea, No Constipation, No abdominal Pain, No Hematochezia, No Melena Genitourinary : No Dysuria, No Urinary Frequency, No Hematuria, Musculoskeletal : No joint pain, No Myalgias, No Joint Swelling Skin : No Skin Lesions, No rash Neuro : + Weakness, No Numbness, No Dizziness, No Headache Psych : No Anxiety/Panic, No Depression All other systems reviewed and are negative All systems reviewed & are unremarkable except as noted in HPI and below Physical Exam Vital Signs: Last Vital Signs Temp 98.0 F 07/20/23 09:15 Pulse 72 07/20/23 09:15 BP 140/90 H 07/20/23 09:15 Pulse Ox 98 11/22/23 09:15 Oxygen Delivery Method Room Air 07/20/23 09:15 BMI result Body Mass Index 27.6 vss Appearance: Alert.? Oriented X3.? No acute distress.? Head: Normocephalic, atraumatic, no step-offs or deformities Eyes: Pupils equal, round and reactive to light.? ENT: Pharynx normal.??External ears normal, TMs on left w/ errythema and bulging L EC errythema noted. Right TM and ear canal errythema noted. No pain with manipulation of external ears bilaterally. No mastoid tenderness. Neck: Normal inspection.? Neck supple.? CVS: Normal heart rate and rhythm.? Pulses normal.? Respiratory: No respiratory distress.? Breath sounds normal.? Abdomen: Soft and nontender.? Skin: Skin warm and dry.? Normal skin color.? Normal skin turgor.? Extremities: No lower extremity edema.? No calf ttp. 5/5 strength to bilateral upper and lower extremities Back: No midline tenderness, no C-spine tenderness, full range of motion, no CVA tenderness bilaterally Neuro: Oriented X 3.? No motor deficit.? No sensory deficit. CN 2-12 intact Assessment & Plan Assessment & Plan (1) Sinusitis: Code(s): J32.9 - Chronic sinusitis, unspecified (2) Otitis media: Code(s): H66.90 - Otitis media, unspecified, unspecified ear Plan Take your medications as prescribed. If you were prescribed antibiotics today, it is important that you take your medication to their entirety, do not skip any doses, do not finish them early. Follow-up with your primary care provider this week. Return to the emergency department with new or worsening symptoms. Such as fevers, chills, chest pain, shortness of breath, nausea, vomiting, dizziness, headache, vision changes, lethargy In case of emergency call 911 Medications: New amoxicillin-pot clavulanate 875-125 mg 1 tab PO BID 10 days 20 tabs 0RF Coding Level of Care Code Est Pt Level 3 (38401) Diagnoses Sinusitis J32.9 Otitis media H66.90
== END 2023-07-20 11:12 | disposition home or self-care (01) ==
PROVIDERS: PCP Internal Medicine; Visit Provider Physician Assistant
DX: J32.9 Chronic sinusitis, unspecified (principal); H66.90 Otitis media, unspecified, unspecified ear
CPT/HCPCS: 99213

== ENCOUNTER 2023-08-08 08:50 | Outpatient (AMB) | payer OTHER, SELFPAY ==
--- NOTE | 2023-08-08 08:54 | MHC.OFFVIS ---
Intake Vital Signs 08/08/23 08:56 Height 5 ft 1 in Weight 155 lb BMI 29.3 BP 148/100 H Blood Pressure Location Rt brachial Position Sitting Pulse 88 Pulse Source Pulse Oximeter Pulse Oximetry (%) 98 Oxygen Delivery Method Room Air Intake Visit Reasons: 3m follow up Lesion of Medium Nerve-LVM Intake Note: Patient presents for 3 month follow up. Allergies gabapentin Allergy (Intermediate, Verified 08/08/23 08:57) inadequate response hydromorphone [From DILAUDID] Allergy (Intermediate, Verified 08/08/23 08:57) RASH lisinopril [LISINOPRIL] Allergy (Intermediate, Verified 08/08/23 08:57) CLOGGED THROAT, shortness of breath, anaphylaxis topiramate Allergy (Intermediate, Verified 08/08/23 08:57) inadequate response Medication List - Last Reconciled 08/08/23 by SIMON Johnston acetaminophen (Tylenol Extra Strength) 1,000 mg PO QID PRN amlodipine 5 mg PO BID 90 days amoxicillin-pot clavulanate 875-125 mg 1 tab PO BID 10 days back brace As directed biotin 1 mg PO DAILY bisacodyl 10 mg (2 x 5 mg) PO BEDTIME 90 days blood pressure test kit-small As directed cholecalciferol (vitamin D3) 25 mcg PO DAILY dicyclomine 20 mg PO TID PRN [elevating leg wedge As directed] [handheld shower As directed] hydrochlorothiazide 12.5 mg PO DAILY 90 days ibuprofen 800 mg PO Q8H PRN 30 days magnesium oxide 400 mg PO BEDTIME 30 days metoclopramide HCl (Reglan) 10 mg PO TID aapir-5h-dve-epa-fish oil 350-400 mg 1 cap PO DAILY pantoprazole 40 mg PO BID plecanatide (Trulance) 3 mg PO DAILY propranolol 10 mg PO BID 30 days sumatriptan succinate (Imitrex) 50 - 100 mg orally at onset of headache, may repeat in 2 hrs PRN; max 2 tabs per day or 4 tabs/week (may take with Ibuprofen) [wedge pillow As directed] HPI HPI Comments History of Present Illness Details 58-yr-old female presents for f/u visit. Pt denies any significant interval medical changes. She is most concerned about her memory. States poor STM memory- forgetting things that people tell her, forgetting why she went into a room. Not repeating herself, not misplacing things. Her HST showed moderate obstructive sleep apnea w/ AHI 22/hr w/ O2 rani 79% (SpO2 under 90% x's 13 min of study) Pt reports she is having less migraines. Taking Propranolol- but not consistently. Sumatriptan is helpful. She continues to have posterior cervical pain and occipital headache. [facility] Medical History (Updated 08/08/23 @ 09:42 by SIMON Johnston) Osteoarthritis of lumbar spine Flexor tenosynovitis of finger Rheumatoid factor positive Postmenopausal Generalized anxiety disorder Mild major depression, single episode Fibromyalgia Essential hypertension Meningioma Bicytopenia Dyslipidemia Hypovitaminosis D Chronic idiopathic constipation Polyarthralgia History of herniated intervertebral disc History of partial adherence to treatment Surgical History Hx of colonoscopy Hx of melanoma excision History of sleeve gastrectomy Hx of hernia repair Hx of ovarian cystectomy History of lumbar fusion Hx of section Family History Father Prostate cancer Diabetes mellitus Mother Migraine Arthritis Hypertension Heart disease Emphysema lung CVD (cardiovascular disease) Brother Drug overdose Brother Ujepaun-Wjeil-Eqotj disease Sister No problems noted. Sister No problems noted. Son No problems noted. Son No problems noted. Son No problems noted. Daughter No problems noted. Daughter No problems noted. Daughter No problems noted. Family/Other Substance use disorder Social History Household Members: Children Housing: House Are you a primary primary care provider to a significant other at home: No Do you presently have visiting nurse or other home services: No Alcohol intake: current Alcohol intake frequency: a few times a month Alcohol type: beer Patient Tobacco Use Status: Never used Tobacco e-Cigarette/Vaping Use: Never Used Second Hand Smoke Exposure: No service: No Current occupational status: disabled Cognitive needs: No Hearing needs: No Vision needs: No Review of Systems Const All systems reviewed & are unremarkable except as noted in HPI and below Physical Exam Vital Signs: Last Vital Signs Pulse 88 08/08/23 08:56 BP 148/100 H 08/08/23 08:56 Pulse Ox 98 08/08/23 08:56 Oxygen Delivery Method Room Air 08/08/23 08:56 BMI result Body Mass Index 29.3 Const General: cooperative and no acute distress Orientation/consciousness: patient oriented x3 HEENT Head: Yes normocephalic Resp Effort & Inspection: normal respiratory effort and able to speak in complete sentences Neuro General: patient oriented x3, gait normal and CN's II-XI intact bilaterally Cognition (Neuro): normal cognition Motor exam (neuro): 5/5 motor strength present throughout Psych Appearance: grossly normal Mental Status: mental status grossly normal Speech and movement: Normal speech and movement present Affect: normal affect Attitude: cooperative Thought process: Normal thought process present Thought content: Normal thought content present Insight: Good insight present (Psych) Judgement: Good judgement present (Psych) Assessment & Plan Assessment & Plan (1) Moderate obstructive sleep apnea: Comment: 06/2023- HST AHI 22/hr w/ O2 rani 79% Code(s): G47.33 - Obstructive sleep apnea (adult) (pediatric) (2) Memory loss: Code(s): R41.3 - Other amnesia (3) Headache: Comment: likely cervicogenic. Low suspicion for ON as pain relieved by pt applying pressure Code(s): R51.9 - Headache, unspecified (4) Migraine without aura: Code(s): G43.009 - Migraine without aura, not intractable, without status migrainosus (5) Meningioma: Comment: MRI, Aug 2021: 1.8 cm meningioma along the inferior surface of the right tentorial leaflet. Head Ct Sep 2022: stable Code(s): D32.9 - Benign neoplasm of meninges, unspecified Plan For episode of memory loss and memory difficulties in setting of HTN: Reviewed HST- showed moderate ALEKSANDER w/ nocturnal hypoxemia w/ SpO2 < 90% x's 13 min of study. Pt advised to undergo in-lab PAP titration PSG to determine optimal PAP tx settings, which pt agrees to. ? For occipital headache and cervicalgia: Offered PT- pt declined Advised to use warm weighted neck packs x's 20 minutes 3-4 x's per day Could consider referring back to pain management. ? For migraine w/o aura: Try to be more consistent taking Propranolol 10mg bid. Continue Magnesium Continue Sumatriptan prn. Information shared on Nerivio neuromodulation device- this may help migraine and occipital headache. Previous migraine tx trials- Amitriptyline- not effective, Topiramate- not effective, Gabapentin and Pregabalin- ineffective. Future considerations: CGRP MaB ? f/u in 3 months or sooner prn Orders: Orders RT PSG in-lab sleep titration Today G47.33 - Obstructive sleep apnea (adult) (pediatric), G47.34 - Idiopathic sleep related nonobstructive alveolar hypoventilation, I10 - Essential (primary) hypertension Medications: Changed From sumatriptan succinate (Imitrex) 50 - 100 mg orally at onset of headache, may repeat in 2 hrs PRN; max 2 tabs per day or 4 tabs/week (may take with Ibuprofen) migraine headache To sumatriptan succinate (Imitrex) 50 - 100 mg orally at onset of headache, may repeat in 2 hrs PRN; max 2 tabs per day or 4 tabs/week (may take with Ibuprofen) 12 tabs 0RF migraine headache 30 days Refilled magnesium oxide may hold for loose stools 400 mg PO BEDTIME 30 tabs 6RF 30 days Coding Level of Care Code Est Pt Level 4 (15976) Diagnoses Moderate obstructive sleep apnea G47.33 Memory loss R41.3 Headache R51.9 Migraine without aura G43.009 Meningioma D32.9
[2023-08-08 08:56] VITALS: BP 148/100; PULSE 88; O2SAT 98; BMI 29.3
== END 2023-08-08 09:31 | disposition home or self-care (01) ==
PROVIDERS: PCP Internal Medicine; Visit Provider Nurse Practitioner Family
DX: G47.33 Obstructive sleep apnea (adult) (pediatric) (principal); R41.3 Other amnesia; R51.9 Headache, unspecified; G43.009 Migraine without aura, not intractable, without status migrainosus; D32.9 Benign neoplasm of meninges, unspecified
CPT/HCPCS: 99214

== ENCOUNTER → 2023-08-08 08:50 | Outpatient (BNVA) | payer OTHER, SELFPAY | PROVIDERS: PCP Internal Medicine; Visit Provider Nurse Practitioner Family | DX: D32.9 Benign neoplasm of meninges, unspecified (principal); R41.3 Other amnesia; R51.9 Headache, unspecified; G47.33 Obstructive sleep apnea (adult) (pediatric); G43.009 Migraine without aura, not intractable, without status migrainosus | CPT/HCPCS: 99212 ==

== ENCOUNTER 2023-09-14 07:54 | Outpatient (AMB) | payer OTHER, SELFPAY ==
[2023-09-14 08:03] VITALS: BP 122/90; BMI 29.7
--- NOTE | 2023-09-14 08:03 | MHC.PC.OV ---
Vital Signs 09/14/23 08:03 Height 5 ft 1 in Weight 157 lb BMI 29.7 BP 122/90 H Blood Pressure Location Lt brachial Position Sitting Intake Visit Reasons: 4mth f/u Intake Note: Patient here for a 4 month follow up [employer] Required: No Accompanied by: Self / Same As Patient Allergies gabapentin Allergy (Intermediate, Verified 09/14/23 08:16) inadequate response hydromorphone [From DILAUDID] Allergy (Intermediate, Verified 09/14/23 08:16) RASH lisinopril [LISINOPRIL] Allergy (Intermediate, Verified 09/14/23 08:16) CLOGGED THROAT, shortness of breath, anaphylaxis topiramate Allergy (Intermediate, Verified 09/14/23 08:16) inadequate response Medication List - Last Reconciled 09/14/23 by Quynh Fried MD acetaminophen (Tylenol Extra Strength) 1,000 mg PO QID PRN amlodipine 5 mg PO BID 90 days back brace As directed biotin 1 mg PO DAILY bisacodyl 10 mg (2 x 5 mg) PO BEDTIME 90 days blood pressure test kit-small As directed cholecalciferol (vitamin D3) 25 mcg PO DAILY dicyclomine 20 mg PO TID PRN [elevating leg wedge As directed] [handheld shower As directed] hydrochlorothiazide 12.5 mg PO DAILY 90 days ibuprofen 800 mg PO Q8H PRN 30 days magnesium oxide 400 mg PO BEDTIME 30 days metoclopramide HCl 10 mg PO TID spszj-2n-vzw-epa-fish oil 350-400 mg 1 cap PO DAILY pantoprazole 40 mg PO BID plecanatide (Trulance) 3 mg PO DAILY propranolol 10 mg PO BID 30 days sumatriptan succinate (Imitrex) 50 - 100 mg orally at onset of headache, may repeat in 2 hrs PRN; max 2 tabs per day or 4 tabs/week (may take with Ibuprofen) 30 days [wedge pillow As directed] Tobacco use date assessed: 09/14/23 Dental Screening Dental Screen Date: 09/14/23 Did you have a dental visit in the last 12 months?: Yes Did you have a dental problem in the last 6 months where you did not have access to dental care?: No Was dental information given to patient?: Patient has dentist HPI HPI Comments History of Present Illness Details This is a 58-year-old female with hypertension and GERD that complains of memory loss that has been present for over 6 months in which she gets loss while driving. She also complains of right hip pain that has been present for few months and the pain is aggravated on right hip abduction. Blood pressure stable. GERD stable with medications. No chest pain or shortness of breath. [facility] Medical History (Updated 09/14/23 @ 08:30 by Quynh Fried MD) Osteoarthritis of lumbar spine Flexor tenosynovitis of finger Rheumatoid factor positive Postmenopausal Generalized anxiety disorder Mild major depression, single episode Fibromyalgia Essential hypertension Meningioma Bicytopenia Dyslipidemia Hypovitaminosis D Chronic idiopathic constipation Polyarthralgia History of herniated intervertebral disc History of partial adherence to treatment Surgical History Hx of colonoscopy Hx of melanoma excision History of sleeve gastrectomy Hx of hernia repair Hx of ovarian cystectomy History of lumbar fusion Hx of section Family History (Updated 09/14/23 @ 08:20 by Quynh Fried MD) Father Prostate cancer Diabetes mellitus Colon cancer Mother Migraine Arthritis Hypertension Heart disease Emphysema lung CVD (cardiovascular disease) Brother Drug overdose Brother Ylyfvfs-Xuefv-Wfcgx disease Sister No problems noted. Sister No problems noted. Son No problems noted. Son No problems noted. Son No problems noted. Daughter No problems noted. Daughter No problems noted. Daughter No problems noted. Family/Other Substance use disorder Social History Household Members: Children Housing: House Are you a primary home care liaison to a significant other at home: No Do you presently have visiting nurse or other home services: No Alcohol intake: current Alcohol intake frequency: a few times a month Alcohol type: beer Patient Tobacco Use Status: Never used Tobacco e-Cigarette/Vaping Use: Never Used Second Hand Smoke Exposure: No service: No Current occupational status: disabled Cognitive needs: No Hearing needs: No Vision needs: No Questionnaire PHQ-9 Over the last 2 weeks, how often have you been bothered by any of the following problems? 1. Little interest or pleasure in doing things: not at all 2. Feeling down, depressed, or hopeless: not at all 3. Trouble falling or staying asleep, or sleeping too much: not at all 4. Feeling tired or having little energy: not at all 5. Poor appetite or overeating: not at all 6. Feeling bad about yourself - or that you are a failure or have let yourself or your family down: not at all 7. Trouble concentrating on things, such as reading the newspaper or watching television: not at all 8. Moving or speaking so slowly that other people could have noticed. Or the opposite - being so fidgety or restless that you have been moving around a lot more than usual: not at all 9. Thoughts that you would be better off or of hurting yourself in some way: not at all Total score: 0 Depression Screening Interpretation: Negative Depression Screening Done: Yes 72382 - PHQ-9 Billing: Yes Source: Developed by Drs. Celso Finney, Josefa Morales, Damion Wood and colleagues, with an educational maria r from [employer]. Thrive Questionnaire Date Thrive assessed: 09/14/23 I am a: Patient What is your living situation today?: I have a steady place to live Within the past 12 months, did the food you bought not last and you didn't have the money to get more?: Never true Within the past 12 months, did you worry whether your food would run out before you got money to buy more?: Never true Do you have trouble paying for medicines?: No Do you have trouble getting transportation to medical appointments?: No Do you have trouble paying your heating and electricity bill?: No Do you have trouble taking care of your child, family member or friend?: No Do you have trouble with day-to-day activities such as bathing, preparing meals, shopping, managing finances, etc.?: No Are you currently unemployed and looking for a job?: No Are you interested in more education?: No Please select the resources that you would like help with: None AUDIT C Alcohol Use Questionnaire (AUDIT-C) 1. How often do you have a drink containing alcohol?: Monthly or less 2. How many drinks containing alcohol do you have on a typical day when you are drinking?: 1 or 2 3. How often do you have six or more drinks on one occasion?: Never Total Score: 1 Score Reviewed/Action Taken: No MARK ANTHONY-7 AMB Questionnaire MARK ANTHONY-7 Date MARK ANTHONY - 7 assessed: 09/14/23 Feeling nervous, anxious, or on edge: 0 = Not at all Not being able to stop or control worryin = Not at all Worrying too much about different things: 0 = Not at all Trouble relaxin = Not at all Being so restless that it is hard to sit still: 0 = Not at all Becoming easily annoyed or irritable: 0 = Not at all Feeling afraid as if something awful might happen: 0 = Not at all Total MARK ANTHONY-7 score (0-4 normal; 5-9 mild; 10-14 moderate; 15-21 severe): 0 Source: Developed by Drs. Celso Finney, Josefa Morales, Damion Wood and colleagues, with an educational maria r from [employer]. MARK ANTHONY-7 Assessment Billing MARK ANTHONY-7 Assessment Tool: MARK ANTHONY-7 Assessment 53159 Review of Systems Const All systems reviewed & are unremarkable except as noted in HPI and below Reports headache(s) Eyes Reports no additional complaints, Denies change in vision and Denies other visual disturbances ENT Reports headache(s) Card Denies chest pain at rest, Denies chest pain with activity, Denies edema, Denies irregular heart rhythm, Denies claudication, Denies dyspnea, Denies dyspnea on exertion, Denies orthopnea, Denies paroxysmal nocturnal dyspnea and Denies slow heart rate Resp Denies cough, Denies dyspnea and Denies dyspnea on exertion GI Denies abdominal pain, Denies change in bowel habits, Denies excessive flatus, Denies nausea and Denies vomiting Denies urinary incontinence, Denies urinary hesitancy and Denies urinary urgency Musc Denies abnormal gait, Reports back pain, Denies atrophy, Denies deformity, Reports arthralgias and Denies limited range of motion Skin/Breast Denies bleeding lesions, Denies changing lesions and Denies rash Neuro Denies abnormal gait, Denies behavioral changes, Reports headache(s), Denies lack of coordination and Reports memory loss Psych Denies behavioral changes and Reports memory loss Physical exam (Primary Care) Vital Signs: Last Vital Signs BP 122/90 H 09/14/23 08:03 BMI result Body Mass Index 29.7 Tobacco/Smoking Status: Tobacco use Status Tobacco use date assessed 09/14/23 09/14/23 08:07 Patient Tobacco Use Status Never used Tobacco 09/14/23 08:07 e-Cigarette/Vaping Use Never Used 09/14/23 08:07 PHQ-9: PHQ-9 Score PHQ-9: Total score 0 09/14/23 08:10 Depression Screening Interpretation: Negative Thrive Assessment: Date of Thrive Assessment Date Thrive assessed 09/14/23 09/14/23 08:10 Eyes General: appearance normal, both eyes and all related structures Eyelids: Yes eyelids normal Conjunctivae: conjunctivae normal Neck Neck: Yes normal visual inspection and Yes supple Resp Effort & Inspection: normal respiratory effort Auscultation: clear to auscultation bilaterally Cardio Jugular venous distension: no JVD Rate: regular rate Rhythm: regular rhythm Heart sounds: S1 normal heart sound present and S2 normal heart sound present Extrem General: Yes full ROM Office Procedures Flu Questionnaire Does the patient have a severe egg allergy?: No Immunizations flu vacc [id number] 6mos up(PF) 60 mcg(15 mcgx4)/0.5 mL IM syringe Performing Provider: Quynh Fried MD [facility] Documented (not given) by: MARLENE Wiggins on 09/14/23 08:08 Reason Not Given: Patient Refused Assessment and Plan Assessment & Plan (1) Cognitive impairment: Code(s): R41.89 - Other symptoms and signs involving cognitive functions and awareness Plan: Labs ordered. Referred to neurology. (2) GERD (gastroesophageal reflux disease): Code(s): K21.9 - Gastro-esophageal reflux disease without esophagitis Plan: Continue pantoprazole. Follow-up with Gastroenterology. (3) Right hip pain: Code(s): M25.551 - Pain in right hip Plan: X-ray ordered. (4) Essential hypertension: Code(s): I10 - Essential (primary) hypertension Plan: Continue hydrochlorothiazide. Blood pressure goal is equal or less than 130/80. Orders: Orders Lipid Panel Today E78.5 - Hyperlipidemia, unspecified Vitamin B12 and Folate Today E53.8 - Deficiency of other specified B group vitamins, R41.89 - Other symptoms and signs involving cognitive functions and awareness Comprehensive [place]. Panel Fast Today R41.89 - Other symptoms and signs involving cognitive functions and awareness MR head/brain wo con Today D32.9 - Benign neoplasm of meninges, unspecified, R41.89 - Other symptoms and signs involving cognitive functions and awareness Influenza [id number] Immunization Today Z23 - Encounter for immunization XR hip RT min 2V Today M25.551 - Pain in right hip Vitamin D 25-OH Total Today E55.9 - Vitamin D deficiency, unspecified Thyroid Stimulating Hormone Today R41.89 - Other symptoms and signs involving cognitive functions and awareness Referrals Neurology Referral R41.89 - Other symptoms and signs involving cognitive functions and awareness Coding Level of Care Code Est Pt Level 4 (45125) Diagnoses Cognitive impairment R41.89 GERD (gastroesophageal reflux disease) K21.9 Right hip pain M25.551 Essential hypertension I10 Additional Codes MARK ANTHONY-7 Assessment Billing - MARK ANTHONY-7 Assessment Tool: MARK ANTHONY-7 Assessment 26268 ([id number]) Time Spent (min) 23
== END 2023-09-14 08:24 | disposition home or self-care (01) ==
PROVIDERS: PCP Internal Medicine; Visit Provider Internal Medicine
DX: R41.89 Other symptoms and signs involving cognitive functions and awareness (principal); K21.9 Gastro-esophageal reflux disease without esophagitis; M25.551 Pain in right hip; I10 Essential (primary) hypertension
CPT/HCPCS: 99214

== ENCOUNTER 2023-09-14 08:36 | Outpatient (REF) | payer OTHER, SELFPAY ==
--- NOTE | ~2023-09-14 | XR_ITS ---
EXAMINATION: XR HIP, RIGHT CLINICAL INFORMATION: Pain. COMPARISON: Radiographs dated 07/07/2022. TECHNIQUE: AP and frog-leg lateral views of the right hip. FINDINGS: Bony alignment and mineralization are normal. The right acetabular joint space is well-maintained. There is minimal subchondral sclerosis and peripheral osteophyte formation of the right acetabular roof. The right femoral head is smooth. There is no fracture or dislocation. Essure fallopian tube closure coils are noted, and there are pelvic phleboliths. XR/XR hip RT min 2V IMPRESSION: There is very mild osteoarthritic change of the right hip. No fracture or dislocation is seen.
[2023-09-14 10:10] LABS: Alanine Aminotransferase 17 U/L (0-31); Albumin Level 4.5 g/dL (3.5-5.0); Alkaline Phosphatase 61 U/L (39-117); Anion Gap 14 (12-20); Aspartate Amino Transferase 20 U/L (5-31); Bilirubin Total 0.6 mg/dL (0.0-1.0); Blood Urea Nitrogen 20 mg/dL (9-16); Calcium 10.1 mg/dL (8.4-10.2); Carbon Dioxide 28 mmol/L (22-29); Chloride 104 mmol/L (96-108); Cholesterol 216 mg/dL (<200); Estimated Glomerular Filt Rate > 60; Glucose Fasting 98 mg/dL (60-99); HDL Cholesterol 73 mg/dL (>40); LDL Cholesterol Calculated 121 mg/dL (<100); Potassium 3.8 mmol/L (3.3-5.1); Sodium 142 mmol/L (135-145); Total Protein 7.6 g/dL (6.5-8.0); Triglycerides 111 mg/dL (<150)
[2023-09-14 10:31] LABS: Thyroid Stimulating Hormone 0.88 uIU/mL (0.32-4.0); Vitamin D 25-OH Total 25.6 ng/mL (>30)
[2023-09-14 10:33] LABS: Folate 11.4 ng/mL (> or = 4.0); Vitamin B12 387 pg/mL (200-900)
== END 2023-09-14 08:37 | disposition home or self-care (01) ==
LOC: HO.LAB 08:36
PROVIDERS: PCP Internal Medicine; Visit Provider Internal Medicine
DX: M25.551 Pain in right hip (principal); R41.89 Other symptoms and signs involving cognitive functions and awareness; E78.5 Hyperlipidemia, unspecified; E53.8 Deficiency of other specified B group vitamins; E55.9 Vitamin D deficiency, unspecified
CPT/HCPCS: 36415; 73502; 80053; 80061; 82306; 82607; 82746; 84443

== ENCOUNTER 2023-09-14 16:21 | Outpatient (REF) | payer OTHER, SELFPAY ==
--- NOTE | ~2023-09-14 | MR_ITS ---
EXAMINATION: MR BRAIN WITH AND WITHOUT CONTRAST CLINICAL INFORMATION: Follow-up meningioma COMPARISON: MRI brain 09/17/2021 TECHNIQUE: MRI of the brain was obtained using routine sequences before and following administration of intravenous contrast. A total of 7 mL of Gadavist was administered intravenously. FINDINGS: Again seen is a calcified, enhancing, extra-axial mass along the inferior aspect of the right tentorial leaflet measuring up to 1.8 x 1.0 cm, not significantly change compared to the prior examination. There is compression and probable invasion of the right transverse sinus. An additional calcified lesion along the parasagittal left frontal lobe measuring approximately 4 mm appears stable. Stable enhancing, nodular foci at the level of the foramen magnum dorsal to the vertebral arteries. There is no reduced diffusion to suggest acute infarct. No midline shift or downward herniation. The ventricles and sulci are normal in size and configuration. Few punctate scattered T2/FLAIR hyperintense foci are specific but likely represent chronic change. Intracranial flow voids are preserved. Mild upward convexity of the pituitary gland. Mucosal thickening in the ethmoid air cells. The mastoid air cells are well-aerated. No focal expansile/destructive osseous lesion. MR/MR head/brain wo/w con IMPRESSION: Stable meningioma along the inferior aspect of the right tentorial leaflet with compression and possible extension into the right transverse sinus. Stable nodular enhancement with associated susceptibility artifact in the parasagittal left frontal lobe. Stable nodular foci of enhancement at the foramen magnum which may represent benign enhancing foramen magnum lesions.
[2023-09-14] MEDS: gadobutroL 7.5 ML VIAL IVPUSH (17:25)
== END 2023-09-14 16:22 | disposition home or self-care (01) ==
LOC: HO.MRI 16:21
PROVIDERS: Visit Provider Neurological Surgery
DX: D32.0 Benign neoplasm of cerebral meninges (principal)
CPT/HCPCS: 70553; A9585

== ENCOUNTER → 2023-09-21 22:09 | Outpatient (REF) | payer OTHER, SELFPAY | LOC: HO.SL 22:09 | PROVIDERS: PCP Internal Medicine; Visit Provider Nurse Practitioner Family | DX: G47.33 Obstructive sleep apnea (adult) (pediatric) (principal); G47.34 Idiopathic sleep related nonobstructive alveolar hypoventilation; I10 Essential (primary) hypertension | CPT/HCPCS: 95811 ==

== ENCOUNTER → 2023-09-21 22:26 | Outpatient (BNV) | payer OTHER, SELFPAY | PROVIDERS: PCP Internal Medicine; Visit Provider Psychiatry & Neurology Neurology | DX: G47.33 Obstructive sleep apnea (adult) (pediatric) (principal) | CPT/HCPCS: 95811 ==

== ENCOUNTER 2023-09-22 09:43 | Outpatient (AMB) | payer OTHER, SELFPAY ==
--- NOTE | 2023-09-22 09:58 | MHC.OFFVIS ---
Intake Vital Signs 09/22/23 09:59 Height 5 ft 1 in Weight 155 lb BMI 29.3 BP 135/88 Blood Pressure Location Lt brachial Position Sitting Pulse 68 Intake Visit Reasons: follow up Intake Note: Abby presents to in office visit today in follow up of [facility]. CC: Patient states she continues to have abdominal bloating. Patient states that Trulance has been helping her with constipation. Denies any other GI issues. 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 She can not say that it comes after eating or when she moves her bowels, it is random in terms of timing/time of day. She DOES have a hx of adhesions after tubal ligation. We review the CT scan it does not provide any explanation for her pain. We agree she will try the metoclopramide at least twice a day to see if this helps. The only thing I can fat them is that she is having gas trapping since she has quite a lot of bloating. So far we have been unable to uncover the exact mechanism that is causing her the pain/discomfort. She was educated that could be adhesions which is something we create see on imaging and of course there is risks associated with surgery to corrected he has ends in that sometimes we create more of them. She understands this. I am uncertain how adherent she is her medical regimen. She admits she really does not like take pills and at 1st she did not try the Reglan because she said ?I do not like taking so many pills.? She does say she is taking the Trulance and she feels that she is moving her bowels well. She also has pantoprazole twice a day, dicyclomine and bisacodyl available to her. ROV 4 weeks. (2) GERD (gastroesophageal reflux disease): Code(s): K21.9 - Gastro-esophageal reflux disease without esophagitis (3) Small bowel motility disorder: Code(s): K59.9 - Functional intestinal disorder, unspecified (4) Chronic idiopathic constipation: Code(s): K59.04 - Chronic idiopathic constipation (5) Back pain: Code(s): M54.9 - Dorsalgia, unspecified Orders: Orders XR thoracic spine 2V Today M54.9 - Dorsalgia, unspecified X-RAY OF THE THORACIC SPINE Laboratory Tests 07/26/23 09/14/23 15:06 08:56 WBC 4.7 L Hgb 13.6 Hct 38.9 Plt Count 189 D Estimated GFR > 60 Total Bilirubin 0.6 AST 20 ALT 17 Alkaline Phosphata se 61 TSH 0.88 TODAY'S VISIT She did not go for the x-ray of the thoracic spine could she had many other studies and she was fearful about radiation exposure. She continues to have bloating, but moving her bowels well with just Trulance. She is passing gas, ? if enough as it really sounds like gas trapping especially since it gets worse when she eats vegetables like broccoli. She is tried to cut broccoli way down. She may do better with some digestive enzymes like Creon but she has a bit pill adverse. For now we will just try to get her on the simethicone and see if this relieves the problem but if not then we will consider moving to [place]on. She frequently becomes overwhelmed with her pill burden. She is due for screening colonoscopy because of her family history of colon cancer. Her last was in 2019 at [facility]. There are no prior problems with anesthesia or sedation. She has sleep apnea but no other respiratory problems and denies any cardiac problems. There are no infectious disease problems. Again she has a strong family history of colorectal cancer. ROV 6 weeks. PFSH Medical History (Updated 09/22/23 @ 16:42 by GRECIA Burgess) Small bowel motility disorder Diverticulitis Pre-op examination LLQ abdominal pain Back pain Lumbar pain Snoring Excessive daytime sleepiness Sleep difficulties Obstructive sleep apnea Right leg pain Left leg pain Upper respiratory tract infection Physical exam Memory loss Cervical strain Right hip pain Tenderness over frontal sinus Left knee pain Arm numbness Left hip pain Left shoulder pain Leg pain Osteoarthritis of lumbar spine Flexor tenosynovitis of finger Rheumatoid factor positive Postmenopausal Generalized anxiety disorder Mild major depression, single episode Fibromyalgia Essential hypertension Meningioma Bicytopenia Dyslipidemia Hypovitaminosis D Chronic idiopathic constipation Polyarthralgia History of herniated intervertebral disc History of partial adherence to treatment Surgical History (Updated 09/22/23 @ 16:42 by GRECIA Burgess) History of sleeve gastrectomy Hx of colonoscopy Hx of melanoma excision Hx of hernia repair Hx of ovarian cystectomy History of lumbar fusion Hx of section Family History Father Prostate cancer Diabetes mellitus Colon cancer Mother Migraine Arthritis Hypertension Heart disease Emphysema lung CVD (cardiovascular disease) Brother Drug overdose Brother Doepwlp-Zbmmu-Rryuh disease Sister No problems noted. Sister No problems noted. Son No problems noted. Son No problems noted. Son No problems noted. Daughter No problems noted. Daughter No problems noted. Daughter No problems noted. Family/Other Substance use disorder Social History Household Members: Children Housing: House Are you a primary housekeeper caregiver to a significant other at home: No Do you presently have visiting nurse or other home services: No Alcohol intake: current Alcohol intake frequency: a few times a month Alcohol type: beer Patient Tobacco Use Status: Never used Tobacco e-Cigarette/Vaping Use: Never Used Second Hand Smoke Exposure: No service: No Current occupational status: disabled Cognitive needs: No Hearing needs: No Vision needs: No Review of Systems Const Denies fatigue, Denies fever(s), Denies night sweats, Denies poor appetite and Denies weight loss ENT Reports Normal hearing present, Denies dental pain, Denies dysphagia, Denies hearing loss, Denies mouth pain, Reports neck pain, Denies odynophagia, Denies throat swelling, Denies tongue swelling and Reports other (Dentition adequate) Card Reports no additional complaints Resp Reports no additional complaints GI Denies abdominal pain, Denies melena, Reports bloating, Denies hematochezia, Reports constipation, Denies GI cramping, Denies dysphagia, Denies excessive flatus, Denies early satiety, Reports heartburn, Denies diarrhea, Denies nausea, Denies odynophagia, Denies vomiting and Denies hematemesis Musc Reports back pain, Reports myalgias, Reports arthralgias, Reports joint swelling, Reports neck pain and Reports tingling Skin/Breast Denies pruritus, Denies lesions, Denies rash and Denies jaundice Neuro Reports Normal hearing present, Denies Abnormal speech present and Reports tingling Endo Denies fatigue Aller/Immun Denies throat swelling and Denies tongue swelling Physical Exam Vital Signs: Last Vital Signs Pulse 68 09/22/23 09:59 BP 135/88 09/22/23 09:59 BMI result Body Mass Index 29.3 Const General: cooperative, no acute distress, well developed and well groomed Nutritional Appearance: well nourished and obese Orientation/consciousness: oriented to person, oriented to place and oriented to time Limitations: No language barrier HEENT Head: Yes normocephalic and Yes atraumatic Eyes General: appearance normal, both eyes and all related structures Pupils: Equal, round and reactive pupils present Neck Neck: Yes normal visual inspection and Yes no lymphadenopathy Thyroid: Thyroid normal Resp Effort & Inspection: normal respiratory effort and able to speak in complete sentences Auscultation: clear to auscultation bilaterally Cardio Rate: regular rate Rhythm: regular rhythm Heart sounds: Normal, physiologic split S2 sound present Peripheral pulses: radial pulses present and posterior tibial pulses present GI Inspection: Yes distended, Yes Abdominal panniculus present and Yes obesity Palpation (GI): Soft to palpation, nontender, no guarding, not rigid and No hepatosplenomegaly present Percussion: Yes normal to percussion Auscultation: normal bowel sounds Rectal Exam - Female: deferred Skin General skin exam: no rashes or lesions noted, turgor normal, skin not dry, no jaundice, No spider nevi and no striae Rashes: no rashes Nails: normal Neuro General: oriented to person, oriented to place and oriented to time Cranial nerves: Yes Equal, round and reactive pupils present and Yes Normal hearing present Speech: No Abnormal speech present Extrem General: Yes normal to inspection, No clubbing, No cyanosis and No edema Psych Appearance: grossly normal and well kempt Mental Status: mental status grossly normal Speech and movement: Normal speech and movement present Affect: normal affect Attitude: cooperative Thought process: Normal thought process present and not confabulating Thought content: Normal thought content present Insight: Fair insight present (Psych) Judgement: Fair judgement present (Psych) Assessment & Plan Assessment & Plan (1) Periumbilical abdominal pain: Code(s): R10.33 - Periumbilical pain (2) Family history of colon cancer in father: Comment: dx after age 60, survived of other problems. Due for colonoscopy in 2023 Code(s): Z80.0 - Family history of malignant neoplasm of digestive organs (3) GERD (gastroesophageal reflux disease): Code(s): K21.9 - Gastro-esophageal reflux disease without esophagitis (4) Chronic idiopathic constipation: Code(s): K59.04 - Chronic idiopathic constipation (5) Cognitive impairment: Code(s): R41.89 - Other symptoms and signs involving cognitive functions and awareness (6) Pre-op examination: Code(s): Z01.818 - Encounter for other preprocedural examination (7) Moderate obstructive sleep apnea: Comment: 06/2023- HST AHI 22/hr w/ O2 rani 79% Code(s): G47.33 - Obstructive sleep apnea (adult) (pediatric) Plan She did not go for the x-ray of the thoracic spine could she had many other studies and she was fearful about radiation exposure. She continues to have bloating, but moving her bowels well with just Trulance. She is passing gas, ? if enough as it really sounds like gas trapping especially since it gets worse when she eats vegetables like broccoli. She is tried to cut broccoli way down. She may do better with some digestive enzymes like Creon but she has a bit pill adverse. For now we will just try to get her on the simethicone and see if this relieves the problem but if not then we will consider moving to [place]. She frequently becomes overwhelmed with her pill burden. She is due for screening colonoscopy because of her family history of colon cancer. Her last was in 2019 at [facility]. There are no prior problems with anesthesia or sedation. She has sleep apnea but no other respiratory problems and denies any cardiac problems. There are no infectious disease problems. Again she has a strong family history of colorectal cancer. ROV 6 weeks. Orders: Orders Colonoscopy - GI Use Only Today Z80.0 - Family history of malignant neoplasm of digestive organs Medications: New simethicone after meals 180 mg PO QID 30 days 120 caps 3RF peg 3350-electrolytes 236-22.74-6.74 -5.86 gram (Golytely) until fecal effluent is clear; do not exceed a total volume of 2,000 mL 240 mL PO Q10M 1 day 4,000 mL 0RF Z12.11 - Encounter for screening for malignant neoplasm of colon Discontinued metoclopramide HCl Discontinued Reason: Patient Refused 10 mg PO TID 90 tabs 3RF K59.9 - Functional intestinal disorder, unspecified Coding Level of Care Code Est Pt Level 3 (36451) Diagnoses Periumbilical abdominal pain R10.33 Family history of colon cancer in father Z80.0 GERD (gastroesophageal reflux disease) K21.9 Chronic idiopathic constipation K59.04 Cognitive impairment R41.89 Pre-op examination Z01.818 Moderate obstructive sleep apnea G47.33
[2023-09-22 09:59] VITALS: BP 135/88; PULSE 68; BMI 29.3
== END 2023-09-22 10:36 | disposition home or self-care (01) ==
PROVIDERS: PCP Internal Medicine; Visit Provider Nurse Practitioner
DX: R10.33 Periumbilical pain (principal); Z80.0 Family history of malignant neoplasm of digestive organs; K21.9 Gastro-esophageal reflux disease without esophagitis; K59.04 Chronic idiopathic constipation; R41.89 Other symptoms and signs involving cognitive functions and awareness; Z01.818 Encounter for other preprocedural examination; G47.33 Obstructive sleep apnea (adult) (pediatric)
CPT/HCPCS: 99213

== ENCOUNTER → 2023-09-22 09:43 | Outpatient (BNVA) | payer OTHER, SELFPAY | PROVIDERS: PCP Internal Medicine; Visit Provider Nurse Practitioner | DX: Z01.818 Encounter for other preprocedural examination (principal); K59.04 Chronic idiopathic constipation; K21.9 Gastro-esophageal reflux disease without esophagitis; R10.33 Periumbilical pain; R41.89 Other symptoms and signs involving cognitive functions and awareness; G47.33 Obstructive sleep apnea (adult) (pediatric); Z80.0 Family history of malignant neoplasm of digestive organs | CPT/HCPCS: 99212 ==

== ENCOUNTER 2023-10-03 08:36 | Outpatient (AMB) | payer OTHER, SELFPAY ==
--- NOTE | 2023-10-03 09:14 | AM.OFFWIN_ITS ---
Intake Vital Signs 10/03/23 09:16 Height 5 ft 1 in BMI Reason not done Patient refused/unable BP 136/80 Blood Pressure Location Lt brachial Position Sitting Pulse 87 Pulse Source Pulse Oximeter Temp 98.6 F Temp Source Oral Pulse Oximetry (%) 98 Intake Visit Reasons: EP Sore throat/Bilateral ear pain [phone] Intake Note: pt is here for c/o sore throat, bilateral ear pain since yesterday Patient Tobacco Use Status: Never used Tobacco Allergies gabapentin Allergy (Intermediate, Verified 10/03/23 09:15) inadequate response hydromorphone [From DILAUDID] Allergy (Intermediate, Verified 10/03/23 09:15) RASH lisinopril [LISINOPRIL] Allergy (Intermediate, Verified 10/03/23 09:15) CLOGGED THROAT, shortness of breath, anaphylaxis topiramate Allergy (Intermediate, Verified 10/03/23 09:15) inadequate response Do you need a note to return to daycare/school/sports/work: Yes HPI HPI Comments History of Present Illness Details [id number] 58 year old female presents w/ sore thro at w/ radiation to b/l ears x 2 days. Daughter at home sick with strep and currently on atbx. Reports her throat hurts more w/ swallowing better at rest. Able to eat and drink just hurts. Denies changes in voice, fevers, chills, cp, sob, n/v/d, BRADY PE- Pharynx w/ errythema and mild edema w/ uvula mid line. Exudates to uvula, b/l tonsils. No palpable LAD b/l. Speaking full sentences controlling secretions well. History and physical exam concerning for strep pharyngitis versus viral illness versus mononucleosis. Peritonsillar or retropharyngeal abscess, epiglottitis, threat to airway, acute respiratory distress. Plan at this time will discharge with Augmentin, prednisone and magic mouthwash. Patient's rapid strep was negative however low sensitivity, will treat due to high clinical suspicion. Educated patient on diagnosis and treatment plan, answered all question, patient verbalizes understanding. At this time patient will be discharged home, advised to return with new or worsening symptoms. Educated on worrisome signs and symptoms and when to return. At this time I feel comfortable discharge home. [facility] Medical History Small bowel motility disorder Diverticulitis Pre-op examination LLQ abdominal pain Back pain Lumbar pain Snoring Excessive daytime sleepiness Sleep difficulties Obstructive sleep apnea Right leg pain Left leg pain Upper respiratory tract infection Physical exam Memory loss Cervical strain Right hip pain Tenderness over frontal sinus Left knee pain Arm numbness Left hip pain Left shoulder pain Leg pain Osteoarthritis of lumbar spine Flexor tenosynovitis of finger Rheumatoid factor positive Postmenopausal Generalized anxiety disorder Mild major depression, single episode Fibromyalgia Essential hypertension Meningioma Bicytopenia Dyslipidemia Hypovitaminosis D Chronic idiopathic constipation Polyarthralgia History of herniated intervertebral disc History of partial adherence to treatment Surgical History History of sleeve gastrectomy Hx of colonoscopy Hx of melanoma excision Hx of hernia repair Hx of ovarian cystectomy History of lumbar fusion Hx of section Family History Father Prostate cancer Diabetes mellitus Colon cancer Mother Migraine Arthritis Hypertension Heart disease Emphysema lung CVD (cardiovascular disease) Brother Drug overdose Brother Wgwmoib-Gpsqy-Epjct disease Sister No problems noted. Sister No problems noted. Son No problems noted. Son No problems noted. Son No problems noted. Daughter No problems noted. Daughter No problems noted. Daughter No problems noted. Family/Other Substance use disorder Social History Household Members: Children Housing: House Are you a primary manager medicare marketing to a significant other at home: No Do you presently have visiting nurse or other home services: No Alcohol intake: current Alcohol intake frequency: a few times a month Alcohol type: beer Patient Tobacco Use Status: Never used Tobacco e-Cigarette/Vaping Use: Never Used Second Hand Smoke Exposure: No service: No Current occupational status: disabled Cognitive needs: No Hearing needs: No Vision needs: No Review of Systems Const All systems reviewed & are unremarkable except as noted in HPI and below Physical Exam Vital Signs: Last Vital Signs Temp 98.6 F 10/03/23 09:16 Pulse 87 10/03/23 09:16 BP 136/80 10/03/23 09:16 Pulse Ox 98 10/03/23 09:16 vss Appearance: Alert.? Oriented X3.? No acute distress.? Head: Normocephalic, atraumatic, no step-offs or deformities Eyes: Pupils equal, round and reactive to light.? ENT: Pharynx w/ errythema and mild edema w/ uvula mid line. Exudates to uvula, b/l tonsils. No palpable LAD b/l. Speaking full sentences controlling secretions well. Neck: Normal inspection.? Neck supple.? CVS: Normal heart rate and rhythm.? Pulses normal.? Respiratory: No respiratory distress.? Breath sounds normal.? Abdomen: Soft and nontender.? Skin: Skin warm and dry.? Normal skin color.? Normal skin turgor.? Extremities: No lower extremity edema.? No calf ttp. 5/5 strength to bilateral upper and lower extremities Neuro: Oriented X 3.? No motor deficit.? No sensory deficit. CN 2-12 intact Assessment & Plan Assessment & Plan (1) Strep pharyngitis: Code(s): J02.0 - Streptococcal pharyngitis Plan Take your medications as prescribed. If you were prescribed antibiotics today, it is important that you take your medication to their entirety, do not skip any doses, do not finish them early. Follow-up with your primary care provider this week. Return to the emergency department with new or worsening symptoms. Such as fevers, chills, chest pain, shortness of breath, nausea, vomiting, dizziness, headache, vision changes, lethargy In case of emergency call 911 Medications: New prednisone 40 mg (2 x 20 mg) PO DAILY 5 days 10 tabs 0RF amoxicillin-pot clavulanate 875-125 mg 1 tab PO BID 10 days 20 tabs 0RF Magic Mouthwash Diphen/Lido/Antacid 1:1:1 Lidocaine Viscous 2 % 80mL; diphenhydramine 12.5 mg/5 mL 80mL; aluminum-mag hydrox-simeth 330tv-460xe-79yr/5mL 80mL Swish and spit do not swallow 5 mL PO TID 240 mL 0RF Coding Level of Care Code Est Pt Level 3 (64029) Diagnoses Strep pharyngitis J02.0
[2023-10-03 09:16] VITALS: BP 136/80; PULSE 87; TEMP 37; O2SAT 98
== END 2023-10-03 10:16 | disposition home or self-care (01) ==
PROVIDERS: PCP Internal Medicine; Visit Provider Physician Assistant
DX: J02.0 Streptococcal pharyngitis (principal); J02.9 Acute pharyngitis, unspecified
CPT/HCPCS: 87880; 99213

== ENCOUNTER 2023-11-03 09:36 | Outpatient (AMB) | payer OTHER, SELFPAY ==
--- NOTE | 2023-11-03 09:44 | A.OFFVIS_ITS ---
Intake Vital Signs 11/03/23 09:46 Height 5 ft 1 in Weight 158 lb 11.725 oz BMI 30.0 BP 160/94 H Blood Pressure Location Lt brachial Position Sitting Pulse 67 Intake Visit Reasons: 6 week follow up Intake Note: Abby presents to in office visit today in follow up of CIC. CC: Patient c/o abdominal pain, LLQ pain with radiation to her left leg, burning from her abdomen,and rectal bleeding that lasted one week. Symptoms onset about 3 weeks ago per PT. 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 Accompanied by: Self / Same As Patient Allergies gabapentin Allergy (Intermediate, Verified 11/03/23 09:53) inadequate response hydromorphone [From DILAUDID] Allergy (Intermediate, Verified 11/03/23 09:53) RASH lisinopril [LISINOPRIL] Allergy (Intermediate, Verified 11/03/23 09:53) CLOGGED THROAT, shortness of breath, anaphylaxis topiramate Allergy (Intermediate, Verified 11/03/23 09:53) inadequate response HPI 6 week follow up HPI Details Assessment & Plan (1) Periumbilical abdominal pain: Code(s): R10.33 - Periumbilical pain (2) Family history of colon cancer in fa ther: Comment: dx after age 62, survived of other problems. Due for colonoscopy in 2023 Code(s): Z80.0 - Family history of malignant neoplasm of digestive organs (3) GERD (gastroesophageal reflux diseas e): Code(s): K21.9 - Gastro-esophageal reflux disease without esophagitis (4) Chronic idiopathic constipation: Code(s): K59.04 - Chronic idiopathic constipation (5) Cognitive impairment: Code(s): R41.89 - Other symptoms and signs involving cognitive functions and awareness (6) Pre-op examination: Code(s): Z01.818 - Encounter for other preprocedural examination (7) Moderate obstructive sleep apnea: Comment: 06/2023- HST AHI 22/hr w/ O2 rani 79% Code(s): G47.33 - Obstructive sleep apnea (adult) (pediatric) Plan She did not go for the x-ray of the thoracic spine could she had many other studies and she was fearful about radiation exposure. She continues to have bloating, but moving her bowels well with just Trulance. She is passing gas, ? if enough as it really sounds like gas trapping especially since it gets worse when she eats vegetables like broccoli. She is tried to cut broccoli way down. She may do better with some digestive enzymes like Creon but she has a bit pill adverse. For now we will just try to get her on the simethicone and see if this relieves the problem but if not then we will consider moving to Creon. She frequently becomes overwhelmed with her pill burden. She is due for screening colonoscopy because of her family history of colon cancer. Her last was in 2019 at [facility]. There are no prior problems with anesthesia or sedation. She has sleep apnea but no other respiratory problems and denies any cardiac problems. There are no infectious disease problems. Again she has a strong family history of colorectal cancer. ROV 6 weeks. Orders: Orders Colonoscopy - GI U se Only Today Z80.0 - Family his tory of malignant neoplasm of digest dionisio organs Medications: New simethicone aft er meals 180 mg PO QID 30 days 120 caps 3RF peg 3350-electroly ngozi 236-22.74-6.74 -5.86 gram (Golyt rosa) until feca l effluent is joaquim r; do not exceed a total volume of 2 ,000 mL 240 mL PO Q10M 1 day 4,000 mL 0RF Z12.11 - Encounter for screening for malignant neoplas m of colon Discontinued metoclopramide HCl Discontinued R nathan: Patient Re fused 10 mg PO TID 90 t abs 3RF K59.9 - Functional intestinal disord er, unspecified COLONOSCOPY Scheduled for 01/16/2024 BIOPSY TODAY'S VISIT Her current medical regimen consists of Trulance, simethicone, bisacodyl, dicyclomine, magnesium, and pantoprazole twice a day. She started feeling unwell about 3 weeks ago, she tried to present to the ER in [place] but it was packed, so she left w/o being seen. She has been passing blood for a week and has pain described as burning on the left side, LLQ the worst and it radiates down her left leg. No fever, nausea. This sounds like diverticulitis even though she has no prior episodes. Rather than order a CT scan delay treatment further I think will just try treating her with a round of amoxicillin. I let her know that if she has not improving quickly to call me and then will consider adding a CT scan. Return office visit in 3 weeks to evaluate her response. [facility] Medical History (Updated 11/03/23 @ 10:10 by GRECIA Burgess) LLQ abdominal pain Pre-op examination Small bowel motility disorder Diverticulitis Back pain Lumbar pain Snoring Excessive daytime sleepiness Sleep difficulties Obstructive sleep apnea Right leg pain Left leg pain Upper respiratory tract infection Physical exam Memory loss Cervical strain Right hip pain Tenderness over frontal sinus Left knee pain Arm numbness Left hip pain Left shoulder pain Leg pain Osteoarthritis of lumbar spine Flexor tenosynovitis of finger Rheumatoid factor positive Postmenopausal Generalized anxiety disorder Mild major depression, single episode Fibromyalgia Essential hypertension Meningioma Bicytopenia Dyslipidemia Hypovitaminosis D Chronic idiopathic constipation Polyarthralgia History of herniated intervertebral disc History of partial adherence to treatment Surgical History History of sleeve gastrectomy Hx of colonoscopy Hx of melanoma excision Hx of hernia repair Hx of ovarian cystectomy History of lumbar fusion Hx of section Family History Father Prostate cancer Diabetes mellitus Colon cancer Mother Migraine Arthritis Hypertension Heart disease Emphysema lung CVD (cardiovascular disease) Brother Drug overdose Brother Ykwnill-Ftfes-Oxokb disease Sister No problems noted. Sister No problems noted. Son No problems noted. Son No problems noted. Son No problems noted. Daughter No problems noted. Daughter No problems noted. Daughter No problems noted. Family/Other Substance use disorder Social History Household Members: Children Housing: House Are you a primary healthcare prof to a significant other at home: No Do you presently have visiting nurse or other home services: No Alcohol intake: current Alcohol intake frequency: a few times a month Alcohol type: beer Patient Tobacco Use Status: Never used Tobacco e-Cigarette/Vaping Use: Never Used Second Hand Smoke Exposure: No service: No Current occupational status: disabled Cognitive needs: No Hearing needs: No Vision needs: No Review of Systems Const Denies fatigue, Denies fever(s), Reports malaise, Denies night sweats, Denies poor appetite and Denies weight loss ENT Reports Normal hearing present, Denies dental pain, Denies dysphagia, Denies hearing loss, Denies mouth pain, Denies odynophagia, Denies throat swelling, Denies tongue swelling and Reports other (Dentition adequate) Card Reports no additional complaints Resp Reports no additional complaints GI Details: Reports abdominal pain, Denies melena, Reports bloating, Reports hematochezia, Reports constipation, Denies GI cramping, Denies dysphagia, Denies excessive flatus, Denies early satiety, Reports heartburn, Denies diarrhea, Reports nausea, Denies odynophagia, Denies vomiting and Denies hematemesis Skin/Breast Denies pruritus, Denies lesions, Denies rash and Denies jaundice Neuro Reports Normal hearing present and Denies Abnormal speech present Endo Denies fatigue Aller/Immun Denies throat swelling and Denies tongue swelling Physical Exam Vital Signs: Last Vital Signs Pulse 67 11/03/23 09:46 BP 160/94 H 11/03/23 09:46 BMI result Body Mass Index 30.0 Const General: cooperative, no acute distress, well developed and well groomed Nutritional Appearance: well nourished and obese Orientation/consciousness: oriented to person, oriented to place and oriented to time Limitations: No language barrier HEENT Head: Yes normocephalic and Yes atraumatic Eyes General: appearance normal, both eyes and all related structures Pupils: Equal, round and reactive pupils present Neck Neck: Yes normal visual inspection and Yes no lymphadenopathy Thyroid: Thyroid normal Resp Effort & Inspection: normal respiratory effort and able to speak in complete sentences Auscultation: clear to auscultation bilaterally Cardio Rate: regular rate Rhythm: regular rhythm Heart sounds: Normal, physiologic split S2 sound present Peripheral pulses: radial pulses present and posterior tibial pulses present GI Inspection: No distended, No Abdominal panniculus present and Yes obesity Palpation (GI): Soft to palpation, nontender, no guarding, not rigid and No hepatosplenomegaly present Percussion: Yes normal to percussion Auscultation: normal bowel sounds Rectal Exam - Female: deferred Skin General skin exam: no rashes or lesions noted, turgor normal, skin not dry, no jaundice, No spider nevi and no striae Rashes: no rashes Nails: normal Neuro General: oriented to person, oriented to place and oriented to time Cranial nerves: Yes Equal, round and reactive pupils present and Yes Normal hearing present Speech: No Abnormal speech present Extrem General: Yes normal to inspection, No clubbing, No cyanosis and No edema Psych Appearance: grossly normal and well kempt Mental Status: mental status grossly normal Speech and movement: Normal speech and movement present Affect: normal affect Attitude: cooperative Thought process: Normal thought process present and not confabulating Thought content: Normal thought content present Insight: Fair insight present (Psych) and Limited insight present (Psych) Judgement: Fair judgement present (Psych) and Limited judgement present (Psych) Assessment & Plan Assessment & Plan (1) Abdominal bloating: Code(s): R14.0 - Abdominal distension (gaseous) (2) GERD (gastroesophageal reflux disease): Code(s): K21.9 - Gastro-esophageal reflux disease without esophagitis (3) Chronic idiopathic constipation: Code(s): K59.04 - Chronic idiopathic constipation (4) LLQ abdominal pain: Code(s): R10.32 - Left lower quadrant pain Plan Her current medical regimen consists of Trulance, simethicone, bisacodyl, dicyclomine, magnesium, and pantoprazole twice a day. She started feeling unwell about 3 weeks ago, she tried to present to the ER in [place] but it was packed, so she left w/o being seen. She has been passing blood for a week and has pain described as burning on the left side, LLQ the worst and it radiates down her left leg. No fever, nausea. This sounds like diverticulitis even though she has no prior episodes. Rather than order a CT scan delay treatment further I think will just try treating her with a round of amoxicillin. I let her know that if she has not improving quickly to call me and then will consider adding a CT scan. She has no prior colonoscopy so were uncertain what her level of diverticulosis is, but since this does not correlate well in the literature to actual infection this may be moot. She is prone to constipation so it makes sense that she may be prone to diverticulitis. Return office visit in 3 weeks to evaluate her response. COLONOSCOPY Scheduled for 01/16/2024 BIOPSY Medications: New amoxicillin-pot clavulanate 875-125 mg 1 tab PO BID 14 days 28 tabs 0RF R10.32 - Left lower quadrant pain Coding Level of Care Code Est Pt Level 3 (41757) Diagnoses Abdominal bloating R14.0 GERD (gastroesophageal reflux disease) K21.9 Chronic idiopathic constipation K59.04 LLQ abdominal pain R10.32
[2023-11-03 09:46] VITALS: BP 160/94; PULSE 67
== END 2023-11-03 10:13 | disposition home or self-care (01) ==
PROVIDERS: PCP Internal Medicine; Visit Provider Nurse Practitioner
DX: R14.0 Abdominal distension (gaseous) (principal); K21.9 Gastro-esophageal reflux disease without esophagitis; K59.04 Chronic idiopathic constipation; R10.32 Left lower quadrant pain
CPT/HCPCS: 99213

== ENCOUNTER → 2023-11-03 09:36 | Outpatient (BNVA) | payer OTHER, SELFPAY | PROVIDERS: PCP Internal Medicine; Visit Provider Nurse Practitioner | DX: R14.0 Abdominal distension (gaseous) (principal); K59.04 Chronic idiopathic constipation; R10.32 Left lower quadrant pain; K21.9 Gastro-esophageal reflux disease without esophagitis | CPT/HCPCS: 99212 ==

== ENCOUNTER 2023-11-06 13:34 | Outpatient (REF) | payer OTHER, SELFPAY ==
--- NOTE | ~2023-11-06 | MR_ITS ---
EXAMINATION: MR CERVICAL SPINE WITHOUT CONTRAST CLINICAL INFORMATION: Radiculopathy COMPARISON: Brain MRI 09/14/2023 TECHNIQUE: MRI of the cervical spine was obtained using routine sequences without contrast. FINDINGS: The craniocervical junction is intact. Reversal of the normal cervical lordosis. Slight retrolisthesis at C4-C5 related and C5-C6. Vertebral body heights are normal without acute compression fracture. No suspicious osseous lesion. Multilevel disc desiccation with severe C4-C5 and moderate C5-C6 and C6-C7 disc height loss with ventral disc osteophytes, patchy degenerative endplate Schmorl's nodes, and type I Modic endplate changes at these levels. Type II Modic endplate change at C6-C7. Several perineural root sleeve cysts are seen. There are multilevel degenerative changes with level by level detail as follows: C2-C3: Severe hypertrophic left greater than right facet arthrosis with degenerative marrow edema on the left and bilateral uncovertebral spurring. No spinal canal or neural foraminal stenosis. C3-C4: Bilateral uncovertebral joint hypertrophy. No spinal canal stenosis. Moderate left without right neural foraminal stenosis. C4-C5: Disc osteophyte complex with broad-based left paracentral disc protrusion, and left greater than right uncovertebral joint hypertrophy. Mild left eccentric spinal canal stenosis with left ventral cord flattening, severe left and moderate to severe right neural foraminal stenosis. C5-C6: Disc osteophyte complex with central disc protrusion, and bilateral uncovertebral joint hypertrophy. Mild spinal canal and moderate to severe bilateral neural foraminal stenosis. C6-C7: Disc osteophyte complex with bilateral uncovertebral joint hypertrophy. Mild spinal canal and moderate left greater than right neural foraminal stenosis. C7-T1: No spinal canal or neural foraminal stenosis. No cervical cord signal abnormality. No epidural fluid collection, mass, or hematoma. No significant abnormalities of the paraspinal musculature. The flow voids of the major cervical vessels are maintained. Partially imaged T2 hypointense mineralized meningioma in the right posterior fossa, better characterized on prior brain MRI. No demonstrated abnormalities in the visualized neck. MR/MR cervical spine wo con IMPRESSION: 1. Multilevel cervical spondylosis as described above with mild spinal canal stenosis from C4-C5 to C6-C7, most pronounced at C4-C5 where there is left ventral cord flattening. No cord compression or cord signal abnormality. Multilevel neural foraminal stenosis, worst and severe on the left and moderate to severe on the right at C4-C5 and moderate to severe bilaterally at C5-C6. 2. Severe hypertrophic left C2-C3 facet arthrosis with associated degenerative marrow edema. 3. Partially imaged meningioma in the right posterior fossa, better characterized on prior brain MRI.
== END 2023-11-06 13:35 | disposition home or self-care (01) ==
LOC: HO.MRI 13:34
PROVIDERS: PCP Internal Medicine; Visit Provider Neurological Surgery
DX: M54.12 Radiculopathy, cervical region (principal)
CPT/HCPCS: 72141

== ENCOUNTER 2023-11-17 09:03 | Outpatient (AMB) | payer OTHER, SELFPAY ==
[2023-11-17 09:20] VITALS: BP 136/82; BMI 29.9
--- NOTE | 2023-11-17 09:20 | MHC.PC.OV ---
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 Accompanied by: Self / Same As Patient Allergies gabapentin Allergy (Intermediate, Verified 11/17/23 09:47) inadequate response hydromorphone [From DILAUDID] Allergy (Intermediate, Verified 11/17/23 09:47) RASH lisinopril [LISINOPRIL] Allergy (Intermediate, Verified 11/17/23 09:47) CLOGGED THROAT, shortness of breath, anaphylaxis topiramate Allergy (Intermediate, Verified 11/17/23 09:47) inadequate response Medication List - Last Reconciled 11/17/23 by Quynh Fried MD acetaminophen (Tylenol Extra Strength) 1,000 mg PO QID PRN amlodipine 5 mg PO BID 90 days back brace As directed biotin 1 mg PO DAILY bisacodyl 10 mg (2 x 5 mg) PO BEDTIME 90 days blood pressure test kit-small As directed cholecalciferol (vitamin D3) 25 mcg PO DAILY dicyclomine 20 mg PO TID PRN [elevating leg wedge As directed] estradiol 0.01%(0.1mg/gram) vaginal [handheld shower As directed] hydrochlorothiazide 12.5 mg PO DAILY 90 days ibuprofen 800 mg PO Q8H PRN 30 days magnesium oxide 400 mg PO BEDTIME 30 days [id number]-epa-fish oil 350-400 mg 1 cap PO DAILY pantoprazole 40 mg PO BID plecanatide (Trulance) 3 mg PO DAILY propranolol 10 mg PO BID 30 days simethicone 180 mg PO QID 30 days sumatriptan succinate (Imitrex) 50 - 100 mg orally at onset of headache, may repeat in 2 hrs PRN; max 2 tabs per day or 4 tabs/week (may take with Ibuprofen) 30 days [wedge pillow As directed] Tobacco use date assessed: 09/14/23 Dental Screening Dental Screen Date: 11/17/23 Did you have a dental visit in the last 12 months?: Yes Did you have a dental problem in the last 6 months where you did not have access to dental care?: No Was dental information given to patient?: Patient has dentist HPI HPI Comments History of Present Illness Details This is a 58-year-old female that comes for her physical exam. Last mammogram was April 2023 and was normal. Last colonoscopy was 2018 and next colonoscopy is scheduled for December 2023. Pap smear is also schedule for 2023. No chest pain or shortness of breath. Complains of diffuse joint pain and abdominal pain. She has a meningioma for years that has been stable and this is follow by Neurosurgery. [facility] Medical History (Updated 11/17/23 @ 11:18 by Quynh Fried MD) Physical exam LLQ abdominal pain Pre-op examination Small bowel motility disorder Diverticulitis Back pain Lumbar pain Snoring Excessive daytime sleepiness Sleep difficulties Obstructive sleep apnea Right leg pain Left leg pain Upper respiratory tract infection Memory loss Cervical strain Right hip pain Tenderness over frontal sinus Left knee pain Arm numbness Left hip pain Left shoulder pain Leg pain Osteoarthritis of lumbar spine Flexor tenosynovitis of finger Rheumatoid factor positive Postmenopausal Generalized anxiety disorder Mild major depression, single episode Fibromyalgia Essential hypertension Meningioma Bicytopenia Dyslipidemia Hypovitaminosis D Chronic idiopathic constipation Polyarthralgia History of herniated intervertebral disc History of partial adherence to treatment Surgical History History of sleeve gastrectomy Hx of colonoscopy Hx of melanoma excision Hx of hernia repair Hx of ovarian cystectomy History of lumbar fusion Hx of section Family History Father Prostate cancer Diabetes mellitus Colon cancer Mother Migraine Arthritis Hypertension Heart disease Emphysema lung CVD (cardiovascular disease) Brother Drug overdose Brother Ulphoue-Ifkcf-Ouymq disease Sister No problems noted. Sister No problems noted. Son No problems noted. Son No problems noted. Son No problems noted. Daughter No problems noted. Daughter No problems noted. Daughter No problems noted. Family/Other Substance use disorder Social History Household Members: Children Housing: House Are you a primary critical care educator to a significant other at home: No Do you presently have visiting nurse or other home services: No Alcohol intake: current Alcohol intake frequency: a few times a month Alcohol type: beer Patient Tobacco Use Status: Never used Tobacco e-Cigarette/Vaping Use: Never Used Second Hand Smoke Exposure: No service: No Current occupational status: disabled Cognitive needs: No Hearing needs: No Vision needs: No Questionnaire Thrive Questionnaire Date Thrive assessed: 09/14/23 MARK ANTHONY-7 AMB Questionnaire MARK ANTHONY-7 Date MARK ANTHONY - 7 assessed: 09/14/23 Source: Developed by Drs. Celso Finney, Josefa Morales, Damion Wood and colleagues, with an educational maria r from [employer]. Review of Systems Const All systems reviewed & are unremarkable except as noted in HPI and below Eyes Reports no additional complaints, Denies change in vision and Denies other visual disturbances Card Denies chest pain at rest, Denies chest pain with activity, Denies edema, Denies irregular heart rhythm, Denies claudication, Denies dyspnea, Denies dyspnea on exertion, Denies orthopnea, Denies paroxysmal nocturnal dyspnea and Denies slow heart rate Resp Denies cough, Denies dyspnea and Denies dyspnea on exertion GI Denies abdominal pain, Denies change in bowel habits, Denies excessive flatus, Denies nausea and Denies vomiting Denies urinary incontinence, Denies urinary hesitancy and Denies urinary urgency Musc Denies abnormal gait, Denies atrophy, Denies deformity and Denies limited range of motion Skin/Breast Denies bleeding lesions, Denies changing lesions and Denies rash Neuro Denies abnormal gait, Denies behavioral changes, Denies confusion and Denies lack of coordination Psych Denies behavioral changes and Denies confusion Physical exam (Primary Care) Vital Signs: Last Vital Signs BP 136/82 11/17/23 09:20 BMI result Body Mass Index 29.9 Tobacco/Smoking Status: Tobacco use Status Tobacco use date assessed 09/14/23 11/17/23 09:24 Patient Tobacco Use Status Never used Tobacco 11/17/23 09:24 e-Cigarette/Vaping Use Never Used 11/17/23 09:24 Thrive Assessment: Date of Thrive Assessment Date Thrive assessed 09/14/23 11/17/23 09:24 Const General: No confusion Orientation/consciousness: patient oriented x3 and No confusion HENMT Head: Yes normal to inspection, Yes normocephalic and Yes atraumatic Ears: external ears normal Eyes General: appearance normal, both eyes and all related structures Eyelids: Yes eyelids normal Conjunctivae: conjunctivae normal Neck Neck: Yes normal visual inspection and Yes supple Resp Effort & Inspection: normal respiratory effort Auscultation: clear to auscultation bilaterally Cardio Jugular venous distension: no JVD Rate: regular rate Rhythm: regular rhythm Heart sounds: S1 normal heart sound present and S2 normal heart sound present GI Inspection: Yes normal to inspection Palpation (GI): Soft to palpation and nontender Auscultation: normal bowel sounds Skin General skin exam: no rashes or lesions noted Neuro General: patient oriented x3, no focal motor deficits and No confusion Extrem General: Yes full ROM Psych Appearance: grossly normal Assessment and Plan Assessment & Plan (1) Physical exam: Code(s): Z00.00 - Encounter for general adult medical examination without abnormal findings Plan: Repeat in a year. (2) Meningioma: Comment: MRI, Aug 2021: 1.8 cm meningioma along the inferior surface of the right tentorial leaflet. Head Ct Sep 2022: stable Code(s): D32.9 - Benign neoplasm of meninges, unspecified Plan: Follow-up with neurosurgery. Coding Level of Care Code Est Pt Prev Care 40-64y(85189) Diagnoses Physical exam Z00.00 Meningioma D32.9 Time Spent (min) 33
== END 2023-11-17 10:04 | disposition home or self-care (01) ==
PROVIDERS: Visit Provider Internal Medicine
DX: Z00.00 Encounter for general adult medical examination without abnormal findings (principal); D32.9 Benign neoplasm of meninges, unspecified
CPT/HCPCS: 99396

== ENCOUNTER 2023-11-24 09:11 | Outpatient (AMB) | payer OTHER, SELFPAY ==
[2023-11-24 09:17] VITALS: BP 125/80; PULSE 85; BMI 29.8
--- NOTE | 2023-11-24 09:17 | MHC.OFFVIS ---
Intake Vital Signs 11/24/23 09:17 Height 5 ft 1 in Weight 157 lb 13.616 oz BMI 29.8 BP 125/80 Blood Pressure Location Lt brachial Position Sitting Pulse 85 Intake Visit Reasons: 3 week follow up Intake Note: Abby returns in follow up today of abdominal pain. CC: Patient c/o constant LLQ abdominal pain, abdominal inflammation, nausea, and diarrhea yesterday. She also states Yesterday I thought I was going to , I started feeling a heat coming up and my face got red . Patient completed abx course. Telephone Lineman Required: No Accompanied by: Self / Same As Patient Allergies gabapentin Allergy (Intermediate, Verified 11/24/23 09:24) inadequate response hydromorphone [From DILAUDID] Allergy (Intermediate, Verified 11/24/23 09:24) RASH lisinopril [LISINOPRIL] Allergy (Intermediate, Verified 11/24/23 09:24) CLOGGED THROAT, shortness of breath, anaphylaxis topiramate Allergy (Intermediate, Verified 11/24/23 09:24) inadequate response HPI 3 week follow up HPI Details Assessment & Plan (1) Abdominal bloating: Code(s): R14.0 - Abdominal distension (gaseous) (2) GERD (gastroesophageal reflux disease): Code(s): K21.9 - Gastro-esophageal reflux disease without esophagitis (3) Chronic idiopathic constipation: Code(s): K59.04 - Chronic idiopathic constipation (4) LLQ abdominal pain: Code(s): R10.32 - Left lower quadrant pain Plan Her current medical regimen consists of Trulance, simethicone, bisacodyl, dicyclomine, magnesium, and pantoprazole twice a day. She started feeling unwell about 3 weeks ago, she tried to present to the ER in [place] but it was packed, so she left w/o being seen. She has been passing blood for a week and has pain described as burning on the left side, LLQ the worst and it radiates down her left leg. No fever, nausea. This sounds like diverticulitis even though she has no prior episodes. Rather than order a CT scan delay treatment further I think will just try treating her with a round of amoxicillin. I let her know that if she has not improving quickly to call me and then will consider adding a CT scan. She has no prior colonoscopy so were uncertain what her level of diverticulosis is, but since this does not correlate well in the literature to actual infection this may be moot. She is prone to constipation so it makes sense that she may be prone to diverticulitis. Return office visit in 3 weeks to evaluate her response. Medications: New amoxicillin-pot cl avulanate 875-125 mg 1 tab PO BID 14 d ays 28 tabs 0RF R10.32 - Left lowe r quadrant pain COLONOSCOPY Scheduled for 01/16/2024 BIOPSY TODAY'S VISIT She completed the Augmentin with absolutely no improvement. She continues to have severe pain and soreness in the left lower quadrant along with general malaise and subjective fevers. She is now having diarrhea. Because we only have presumptive diagnosis of diverticulitis on CT scan I think we need to do stool testing to make sure were not missing a different organism. At this point I will treat her with Levaquin and Flagyl hoping that she simply failed Augmentin because of the organisms. I will do a 14 day course. However to be thorough I am also doing a CRP and a fecal calprotectin along with GI panel. Return office visit in 2 weeks [facility] Medical History (Updated 11/24/23 @ 09:50 by GRECIA Burgess) Diverticulitis Physical exam LLQ abdominal pain Pre-op examination Small bowel motility disorder Back pain Lumbar pain Snoring Excessive daytime sleepiness Sleep difficulties Obstructive sleep apnea Right leg pain Left leg pain Upper respiratory tract infection Memory loss Cervical strain Right hip pain Tenderness over frontal sinus Left knee pain Arm numbness Left hip pain Left shoulder pain Leg pain Osteoarthritis of lumbar spine Flexor tenosynovitis of finger Rheumatoid factor positive Postmenopausal Generalized anxiety disorder Mild major depression, single episode Fibromyalgia Essential hypertension Meningioma Bicytopenia Dyslipidemia Hypovitaminosis D Chronic idiopathic constipation Polyarthralgia History of herniated intervertebral disc History of partial adherence to treatment Surgical History History of sleeve gastrectomy Hx of colonoscopy Hx of melanoma excision Hx of hernia repair Hx of ovarian cystectomy History of lumbar fusion Hx of section Family History Father Prostate cancer Diabetes mellitus Colon cancer Mother Migraine Arthritis Hypertension Heart disease Emphysema lung CVD (cardiovascular disease) Brother Drug overdose Brother Mbfpyck-Gwtmn-Rntup disease Sister No problems noted. Sister No problems noted. Son No problems noted. Son No problems noted. Son No problems noted. Daughter No problems noted. Daughter No problems noted. Daughter No problems noted. Family/Other Substance use disorder Social History Household Members: Children Housing: House Are you a primary care team coordinator scheduler to a significant other at home: No Do you presently have visiting nurse or other home services: No Alcohol intake: current Alcohol intake frequency: a few times a month Alcohol type: beer Patient Tobacco Use Status: Never used Tobacco e-Cigarette/Vaping Use: Never Used Second Hand Smoke Exposure: No service: No Current occupational status: disabled Cognitive needs: No Hearing needs: No Vision needs: No Review of Systems Const Reports fatigue, Reports fever(s), Reports malaise, Denies night sweats, Reports poor appetite and Denies weight loss ENT Reports Normal hearing present, Denies dental pain, Denies dysphagia, Denies hearing loss, Denies mouth pain, Denies odynophagia, Denies throat swelling, Denies tongue swelling and Reports other (Dentition adequate) Card Reports no additional complaints Resp Reports no additional complaints GI Details: Reports abdominal pain, Denies melena, Reports bloating, Denies hematochezia, Denies constipation, Denies GI cramping, Denies dysphagia, Denies excessive flatus, Denies early satiety, Denies heartburn, Reports diarrhea, Denies nausea, Denies odynophagia, Denies vomiting and Denies hematemesis Skin/Breast Denies pruritus, Denies lesions, Denies rash and Denies jaundice Neuro Reports Normal hearing present and Denies Abnormal speech present Endo Reports fatigue Aller/Immun Denies throat swelling and Denies tongue swelling Physical Exam Vital Signs: Last Vital Signs Pulse 85 11/24/23 09:17 BP 125/80 11/24/23 09:17 BMI result Body Mass Index 29.8 Const General: cooperative, no acute distress, well developed, in distress mild, ill appearing, tired appearing and well groomed Nutritional Appearance: well nourished and obese Orientation/consciousness: oriented to person, oriented to place and oriented to time Limitations: No language barrier HEENT Head: Yes normocephalic and Yes atraumatic Eyes General: appearance normal, both eyes and all related structures Pupils: Equal, round and reactive pupils present Neck Neck: Yes normal visual inspection and Yes no lymphadenopathy Thyroid: Thyroid normal Resp Effort & Inspection: normal respiratory effort and able to speak in complete sentences Auscultation: clear to auscultation bilaterally Cardio Rate: regular rate Rhythm: regular rhythm Heart sounds: Normal, physiologic split S2 sound present Peripheral pulses: radial pulses present and posterior tibial pulses present GI Inspection: Yes distended, No Abdominal panniculus present and Yes obesity Palpation (GI): Soft to palpation, Tenderness to palpation present (GI) in the LLQ, Guarding due to palpation present (GI), not rigid and No hepatosplenomegaly present Percussion: Yes normal to percussion Auscultation: Hypoactive bowel sounds present Rectal Exam - Female: deferred Skin General skin exam: no rashes or lesions noted, turgor normal, skin not dry, no jaundice, No spider nevi and no striae Rashes: no rashes Nails: normal Neuro General: oriented to person, oriented to place and oriented to time Cranial nerves: Yes Equal, round and reactive pupils present and Yes Normal hearing present Speech: No Abnormal speech present Extrem General: Yes normal to inspection, No clubbing, No cyanosis and No edema Psych Appearance: grossly normal and well kempt Mental Status: mental status grossly normal Speech and movement: Normal speech and movement present Affect: normal affect Attitude: cooperative Thought process: Normal thought process present and not confabulating Thought content: Normal thought content present Insight: Fair insight present (Psych) and Limited insight present (Psych) Judgement: Fair judgement present (Psych) and Limited judgement present (Psych) Assessment & Plan Assessment & Plan (1) Diverticulitis: Comment: presumed from CT, ? if other organisms Code(s): K57.92 - Diverticulitis of intestine, part unspecified, without perforation or abscess without bleeding (2) Acute diarrhea: Code(s): R19.7 - Diarrhea, unspecified (3) Abdominal bloating: Code(s): R14.0 - Abdominal distension (gaseous) (4) GERD (gastroesophageal reflux disease): Code(s): K21.9 - Gastro-esophageal reflux disease without esophagitis (5) Chronic idiopathic constipation: Code(s): K59.04 - Chronic idiopathic constipation Plan She completed the Augmentin with absolutely no improvement. She continues to have severe pain and soreness in the left lower quadrant along with general malaise and subjective fevers. She is now having diarrhea. Because we only have presumptive diagnosis of diverticulitis on CT scan I think we need to do stool testing to make sure were not missing a different organism. At this point I will treat her with Levaquin and Flagyl hoping that she simply failed Augmentin because of the organisms. I will do a 14 day course. However to be thorough I am also doing a CRP and a fecal calprotectin along with GI panel. Return office visit in 2 weeks Orders: Orders CDiff Gene PCR Today R19.7 - Diarrhea, unspecified C Reactive Protein Today R19.7 - Diarrhea, unspecified Calprotectin, Fecal Today R19.7 - Diarrhea, unspecified GI Panel Today R19.7 - Diarrhea, unspecified Medications: New levofloxacin 500 mg PO DAILY 14 days 14 tabs 0RF K57.92 - Diverticulitis of intestine, part unspecified, without perforation or abscess without bleeding metronidazole 500 mg PO TID 14 days 42 tabs 0RF Coding Level of Care Code Est Pt Level 4 (54028) Diagnoses Diverticulitis K57.92 Acute diarrhea R19.7 Abdominal bloating R14.0 GERD (gastroesophageal reflux disease) K21.9 Chronic idiopathic constipation K59.04
== END 2023-11-24 09:54 | disposition home or self-care (01) ==
PROVIDERS: PCP Internal Medicine; Visit Provider Nurse Practitioner
DX: K57.92 Diverticulitis of intestine, part unspecified, without perforation or abscess without bleeding (principal); R19.7 Diarrhea, unspecified; R14.0 Abdominal distension (gaseous); K21.9 Gastro-esophageal reflux disease without esophagitis; K59.04 Chronic idiopathic constipation
CPT/HCPCS: 99214

== ENCOUNTER → 2023-11-24 09:11 | Outpatient (BNVA) | payer OTHER, SELFPAY | PROVIDERS: PCP Internal Medicine; Visit Provider Nurse Practitioner | DX: K57.92 Diverticulitis of intestine, part unspecified, without perforation or abscess without bleeding (principal); K21.9 Gastro-esophageal reflux disease without esophagitis; K59.04 Chronic idiopathic constipation; R19.7 Diarrhea, unspecified; R14.0 Abdominal distension (gaseous) | CPT/HCPCS: 99212 ==

== ENCOUNTER 2023-12-12 09:24 | Outpatient (REF) | payer OTHER, SELFPAY ==
[2023-12-12 10:24] LABS: C Reactive Protein 0.14 mg/dL (< or = 0.50)
== END 2023-12-12 09:25 | disposition home or self-care (01) ==
LOC: HO.LAB 09:24
PROVIDERS: PCP Internal Medicine; Visit Provider Nurse Practitioner
DX: R19.7 Diarrhea, unspecified (principal)
CPT/HCPCS: 36415; 86140

== ENCOUNTER 2023-12-13 08:49 | Outpatient (AMB) | payer OTHER, SELFPAY ==
[2023-12-13 09:05] VITALS: BP 142/90; PULSE 65; O2SAT 97; BMI 30.2
--- NOTE | 2023-12-13 09:05 | A.OFFVIS_ITS ---
Intake Vital Signs 12/13/23 09:05 Height 5 ft 1 in Weight 160 lb BMI 30.2 BP 142/90 H Blood Pressure Location Rt brachial Position Sitting Pulse 65 Pulse Source Pulse Oximeter Pulse Oximetry (%) 97 Oxygen Delivery Method Room Air Intake Visit Reasons: 4 mo f/u -Other S&S inv cog - CONF w/address Intake Note: Patient presents for 4 month follow up. Patient still having headaches. not like before but still there. Allergies gabapentin Allergy (Intermediate, Verified 12/13/23 09:08) inadequate response hydromorphone [From DILAUDID] Allergy (Intermediate, Verified 12/13/23 09:08) RASH lisinopril [LISINOPRIL] Allergy (Intermediate, Verified 12/13/23 09:08) CLOGGED THROAT, shortness of breath, anaphylaxis topiramate Allergy (Intermediate, Verified 12/13/23 09:08) inadequate response Medication List - Last Reconciled 12/13/23 by SIMON Johnston acetaminophen (Tylenol Extra Strength) 1,000 mg PO QID PRN amlodipine 5 mg PO BID 90 days back brace As directed biotin 1 mg PO DAILY bisacodyl 10 mg (2 x 5 mg) PO BEDTIME 90 days blood pressure test kit-small As directed cholecalciferol (vitamin D3) 25 mcg PO DAILY dicyclomine 20 mg PO TID PRN [elevating leg wedge As directed] estradiol 0.01%(0.1mg/gram) vaginal [handheld shower As directed] hydrochlorothiazide 12.5 mg PO DAILY 90 days ibuprofen 800 mg PO Q8H PRN 30 days levofloxacin 500 mg PO DAILY 14 days magnesium oxide 400 mg PO BEDTIME 30 days metronidazole 500 mg PO TID 14 days ihxob-2z-[id number]-epa-fish oil 350-400 mg 1 cap PO DAILY pantoprazole 40 mg PO BID plecanatide (Trulance) 3 mg PO DAILY propranolol 10 mg PO BID 30 days simethicone 180 mg PO QID 30 days sumatriptan succinate (Imitrex) 50 - 100 mg orally at onset of headache, may repeat in 2 hrs PRN; max 2 tabs per day or 4 tabs/week (may take with Ibuprofen) 30 days [wedge pillow As directed] HPI HPI Comments History of Present Illness Details 58-yr-old female presents for f/u visit. Pt states she recently underwent c-spine MRI, d/t neck pain and BUE numbness/tingling. Pt states she often wakes up w/ numbness/tingling in her hands. Notes that previous CTS repair did not help this. She states Dr Lee has advised her to have surgical intervention, but pt is worried this will not help her neck pain. 11/06/23, MR/MR cervical spine wo con IMPRESSION: 1. Multilevel cervical spondylosis as d escribed above with mild spinal canal stenosis from C4-C5 to C6-C7, most pronounced at C4-C5 where there is left ventral cord flattening. No cord compression or cord signal abnormality. Multilevel neural foraminal stenosis, worst and severe on the left and moderate to severe on the right at C4-C5 and moderate to severe bilaterally at C5-C6. 2. Severe hypertrophic left C2-C3 facet arthrosis with associated degenerative marrow edema. 3. Partially imaged meningioma in the r ight posterior fossa, better characterized on prior brain MRI. She states her headaches are better. She uses Prorpanolol 10mg at times. Sumatriptan is helpful. She did start CPAP, states she is sleeping well w/ use and is tolerating this well- though sometime sthe mask is a bit bothersome. ON LICENSE OF [facility] Medical History (Updated 11/24/23 @ 09:50 by GRECIA Burgess) Diverticulitis Physical exam LLQ abdominal pain Pre-op examination Small bowel motility disorder Back pain Lumbar pain Snoring Excessive daytime sleepiness Sleep difficulties Obstructive sleep apnea Right leg pain Left leg pain Upper respiratory tract infection Memory loss Cervical strain Right hip pain Tenderness over frontal sinus Left knee pain Arm numbness Left hip pain Left shoulder pain Leg pain Osteoarthritis of lumbar spine Flexor tenosynovitis of finger Rheumatoid factor positive Postmenopausal Generalized anxiety disorder Mild major depression, single episode Fibromyalgia Essential hypertension Meningioma Bicytopenia Dyslipidemia Hypovitaminosis D Chronic idiopathic constipation Polyarthralgia History of herniated intervertebral disc History of partial adherence to treatment Surgical History History of sleeve gastrectomy Hx of colonoscopy Hx of melanoma excision Hx of hernia repair Hx of ovarian cystectomy History of lumbar fusion Hx of section Family History Father Prostate cancer Diabetes mellitus Colon cancer Mother Migraine Arthritis Hypertension Heart disease Emphysema lung CVD (cardiovascular disease) Brother Drug overdose Brother Vveetqi-Tovtb-Rbiak disease Sister No problems noted. Sister No problems noted. Son No problems noted. Son No problems noted. Son No problems noted. Daughter No problems noted. Daughter No problems noted. Daughter No problems noted. Family/Other Substance use disorder Social History Household Members: Children Housing: House Are you a primary day care teacher to a significant other at home: No Do you presently have visiting nurse or other home services: No Alcohol intake: current Alcohol intake frequency: a few times a month Alcohol type: beer Patient Tobacco Use Status: Never used Tobacco e-Cigarette/Vaping Use: Never Used Second Hand Smoke Exposure: No service: No Current occupational status: disabled Cognitive needs: No Hearing needs: No Vision needs: No Physical Exam Vital Signs: Last Vital Signs Pulse 65 12/13/23 09:05 BP 142/90 H 12/13/23 09:05 Pulse Ox 97 12/13/23 09:05 Oxygen Delivery Method Room Air 12/13/23 09:05 BMI result Body Mass Index 30.2 Const General: cooperative and no acute distress Orientation/consciousness: patient oriented x3 Resp Effort & Inspection: normal respiratory effort and able to speak in complete sentences Neuro Other: Bilateral posterior cervical tightness w/ limited cervical ROM. BUE weaker hand grasps. BUE- Light touch sensation intact. General: patient oriented x3 and deep tendon reflexes 2+ bilaterally Cranial nerves: Yes CN's II-XII intact bilaterally Cognition (Neuro): normal cognition Psych Appearance: grossly normal Mental Status: mental status grossly normal Speech and movement: Normal speech and movement present Affect: normal affect Attitude: cooperative Assessment & Plan Assessment & Plan (1) Migraine without aura: Code(s): G43.009 - Migraine without aura, not intractable, without status migrainosus (2) Headache: Comment: likely cervicogenic. Low suspicion for ON as pain relieved by pt applying pressure Code(s): R51.9 - Headache, unspecified (3) Moderate obstructive sleep apnea: Comment: 06/2023- HST AHI 22/hr w/ O2 rani 79% Code(s): G47.33 - Obstructive sleep apnea (adult) (pediatric) (4) Cervicalgia: Code(s): M54.2 - Cervicalgia Plan For episode of memory loss and memory difficulties in setting of ALEKSANDER and HTN: Continue CPAP 4 cmH2O- will request compliance report.. ? For occipital headache and cervicalgia: Reviewed c-pine MRI images and report w/ pt- Multilevel cervical spondylosis w/ mild spinal canal stenosis from C4-C5 to C6-C7, most pronounced at C4-C5 w/ left ventral cord flattening. Multilevel moderate to severe neural foraminal stenosis. Severe hypertrophic left C2-C3 facet arthrosis w/ degenerative marrow edema. Discussed that goals of cervical spine surgical intervention may extend beyond pain relief, such as preventing progression of paresthesias and weakness. Will refer pt to Dr Das for second opinion. Trial Baclofen 5-10mg qhs prn. For migraine w/o aura: Propranolol 10mg bid. Continue Magnesium Continue Sumatriptan prn. Information shared on Nerivio neuromodulation device- this may help migraine and occipital headache. Previous migraine tx trials- Amitriptyline- not effective, Topiramate- not effective, Gabapentin and Pregabalin- ineffective. Future considerations: CGRP MaB ? f/u in 3-6 months or sooner prn Orders: Referrals Neurosurgery Referral M54.2 - Cervicalgia Medications: New baclofen 5 - 10 mg (1 - 2 x 5 mg) PO BEDTIME 30 days PRN 60 tabs 3RF muscle spasm Coding Level of Care Code Est Pt Level 4 (59848) Diagnoses Migraine without aura G43.009 Headache R51.9 Moderate obstructive sleep apnea G47.33 Cervicalgia M54.2
== END 2023-12-13 09:39 | disposition home or self-care (01) ==
PROVIDERS: PCP Internal Medicine; Visit Provider Nurse Practitioner Family
DX: G43.009 Migraine without aura, not intractable, without status migrainosus (principal); R51.9 Headache, unspecified; G47.33 Obstructive sleep apnea (adult) (pediatric); M54.2 Cervicalgia
CPT/HCPCS: 99214

== ENCOUNTER → 2023-12-13 08:49 | Outpatient (BNVA) | payer OTHER, SELFPAY | PROVIDERS: PCP Internal Medicine; Visit Provider Nurse Practitioner Family | DX: G43.009 Migraine without aura, not intractable, without status migrainosus (principal); G47.33 Obstructive sleep apnea (adult) (pediatric); R51.9 Headache, unspecified; M54.2 Cervicalgia | CPT/HCPCS: 99212 ==

== ENCOUNTER 2023-12-14 09:23 | Outpatient (REF) | payer OTHER, SELFPAY ==
[2023-12-14 10:19] LABS: CDiff Gene PCR NEGATIVE (Negative)
[2023-12-14 13:18] LABS: Adenovirus F 40/41 Not Detected (Not Detect.); Astrovirus Not Detected (Not Detect.); Campylobacter Not Detected (Not Detect.); Cryptosporidium Not Detected (Not Detect.); Cyclospora cayetanensis Not Detected (Not Detect.); E. coli EAEC Not Detected (Not Detect.); E. coli EPEC Not Detected (Not Detect.); E. coli ETEC Not Detected (Not Detect.); E. coli STEC Not Detected (Not Detect.); Entamoeba histolytica Not Detected (Not Detect.); Giardia lamblia Not Detected (Not Detect.); Plesiomonas shigelloides Not Detected (Not Detect.); Rotavirus A Not Detected (Not Detect.); Salmonella Not Detected (Not Detect.); Sapovirus Not Detected (Not Detect.); Shigella sp./EIEC Not Detected (Not Detect.); Vibrio Not Detected (Not Detect.); Vibrio Cholerae Not Detected (Not Detect.); Yersinia enterocolitica Not Detected (Not Detect.)
[2023-12-16 11:06] LABS: Norovirus Stool PCR NEGATIVE
[2023-12-20 15:43] LABS: Calprotectin, Fecal 218 mcg/g
== END 2023-12-14 09:24 | disposition home or self-care (01) ==
LOC: HO.LNP 09:23
PROVIDERS: Visit Provider Nurse Practitioner
DX: R19.7 Diarrhea, unspecified (principal)
CPT/HCPCS: 83993; 87493; 87507

== ENCOUNTER 2023-12-21 14:37 | Outpatient (AMB) | payer OTHER, SELFPAY ==
[2023-12-21 14:48] VITALS: BP 142/98; BMI 29.5
--- NOTE | 2023-12-21 14:48 | A.OFFPC_ITS ---
Vital Signs 12/21/23 14:48 Height 5 ft 1 in Weight 156 lb BMI 29.5 BP 142/98 H Blood Pressure Location Lt brachial Position Sitting Intake Visit Reasons: nodule/ order request Intake Note: Patient here for order for nodule on right side neck, bilateral knee pain more on the left knee pain Cost Manager Required: No Accompanied by: Self / Same As Patient Allergies gabapentin Allergy (Intermediate, Verified 12/21/23 15:19) inadequate response hydromorphone [From DILAUDID] Allergy (Intermediate, Verified 12/21/23 15:19) RASH lisinopril [LISINOPRIL] Allergy (Intermediate, Verified 12/21/23 15:19) CLOGGED THROAT, shortness of breath, anaphylaxis topiramate Allergy (Intermediate, Verified 12/21/23 15:19) inadequate response Medication List - Last Reconciled 12/21/23 by Quynh Fried MD acetaminophen (Tylenol Extra Strength) 1,000 mg PO QID PRN amlodipine 5 mg PO BID 90 days back brace As directed baclofen 5 - 10 mg (1 - 2 x 5 mg) PO BEDTIME PRN 30 days biotin 1 mg PO DAILY bisacodyl 10 mg (2 x 5 mg) PO BEDTIME 90 days blood pressure test kit-small As directed cholecalciferol (vitamin D3) 25 mcg PO DAILY dicyclomine 20 mg PO TID PRN [elevating leg wedge As directed] estradiol 0.01%(0.1mg/gram) vaginal [handheld shower As directed] hydrochlorothiazide 12.5 mg PO DAILY 90 days ibuprofen 800 mg PO Q8H PRN 30 days levofloxacin 500 mg PO DAILY 14 days magnesium oxide 400 mg PO BEDTIME 30 days metronidazole 500 mg PO TID 14 days vpotb-[id number]-nvb-epa-fish oil 350-400 mg 1 cap PO DAILY pantoprazole 40 mg PO BID plecanatide (Trulance) 3 mg PO DAILY propranolol 10 mg PO BID 30 days simethicone 180 mg PO QID 30 days sumatriptan succinate (Imitrex) 50 - 100 mg orally at onset of headache, may repeat in 2 hrs PRN; max 2 tabs per day or 4 tabs/week (may take with Ibuprofen) 30 days [wedge pillow As directed] Tobacco use date assessed: 09/14/23 Dental Screening Dental Screen Date: 11/17/23 HPI HPI Comments History of Present Illness Details This is a 58-year-old female with hypertension and meningioma that comes today complaining of cervical lymphadenopathy that has been present for over 2 weeks. Has 2 lymph nodes in the right anterior neck and 1 of them is mildly tender. No signs of infection. Ultrasound will be ordered. No fever or night sweats. She also complains of bilateral knee pain aggravated by crawling. Blood pressure elevated but she has not take her amlodipine or hydrochlorothiazide yet. Blood pressure will be recheck in 3 weeks by nurse navigator. Meningioma is follow by neurosurgery who recently did an MRI and has been stable. [facility] Medical History (Updated 12/21/23 @ 20:39 by Quynh Fried MD) Diverticulitis Physical exam LLQ abdominal pain Pre-op examination Small bowel motility disorder Back pain Lumbar pain Snoring Excessive daytime sleepiness Sleep difficulties Obstructive sleep apnea Right leg pain Left leg pain Upper respiratory tract infection Memory loss Cervical strain Right hip pain Tenderness over frontal sinus Left knee pain Arm numbness Left hip pain Left shoulder pain Leg pain Osteoarthritis of lumbar spine Flexor tenosynovitis of finger Rheumatoid factor positive Postmenopausal Generalized anxiety disorder Mild major depression, single episode Fibromyalgia Essential hypertension Meningioma Bicytopenia Dyslipidemia Hypovitaminosis D Chronic idiopathic constipation Polyarthralgia History of herniated intervertebral disc History of partial adherence to treatment Surgical History History of sleeve gastrectomy Hx of colonoscopy Hx of melanoma excision Hx of hernia repair Hx of ovarian cystectomy History of lumbar fusion Hx of section Family History Father Prostate cancer Diabetes mellitus Colon cancer Mother Migraine Arthritis Hypertension Heart disease Emphysema lung CVD (cardiovascular disease) Brother Drug overdose Brother Zcuatar-Oinix-Zkkdk disease Sister No problems noted. Sister No problems noted. Son No problems noted. Son No problems noted. Son No problems noted. Daughter No problems noted. Daughter No problems noted. Daughter No problems noted. Family/Other Substance use disorder Social History Household Members: Children Housing: House Are you a primary lawn care technician to a significant other at home: No Do you presently have visiting nurse or other home services: No Alcohol intake: current Alcohol intake frequency: a few times a month Alcohol type: beer Patient Tobacco Use Status: Never used Tobacco e-Cigarette/Vaping Use: Never Used Second Hand Smoke Exposure: No service: No Current occupational status: disabled Cognitive needs: No Hearing needs: No Vision needs: No Questionnaire Thrive Questionnaire Date Thrive assessed: 09/14/23 MARK ANTHONY-7 AMB Questionnaire MARK ANTHONY-7 Date MARK ANTHONY - 7 assessed: 09/14/23 Source: Developed by Drs. Celso Finney, Josefa Morales, Damion Wood and colleagues, with an educational maria r from [employer] Review of Systems Const All systems reviewed & are unremarkable except as noted in HPI and below Eyes Reports no additional complaints, Denies change in vision and Denies other visual disturbances Card Denies chest pain at rest, Denies chest pain with activity, Denies edema, Denies irregular heart rhythm, Denies claudication, Denies dyspnea, Denies dyspnea on exertion, Denies orthopnea, Denies paroxysmal nocturnal dyspnea and Denies slow heart rate Resp Denies cough, Denies dyspnea and Denies dyspnea on exertion Physical exam (Primary Care) Vital Signs: Last Vital Signs BP 142/98 H 12/21/23 14:48 BMI result Body Mass Index 29.5 Tobacco/Smoking Status: Tobacco use Status Tobacco use date assessed 09/14/23 12/21/23 14:52 Patient Tobacco Use Status Never used Tobacco 12/21/23 14:52 e-Cigarette/Vaping Use Never Used 12/21/23 14:52 Thrive Assessment: Date of Thrive Assessment Date Thrive assessed 09/14/23 12/21/23 14:52 Neck Neck: Yes lymphadenopathy Resp Effort & Inspection: normal respiratory effort Auscultation: clear to auscultation bilaterally Cardio Jugular venous distension: no JVD Rate: regular rate Rhythm: regular rhythm Heart sounds: S1 normal heart sound present and S2 normal heart sound present Extrem General: Yes full ROM Assessment and Plan Assessment & Plan (1) Cervical lymphadenopathy: Code(s): R59.0 - Localized enlarged lymph nodes Plan: Ultrasound ordered. (2) Knee pain: Code(s): M25.569 - Pain in unspecified knee Qualifiers: Chronicity: chronic Laterality: bilateral Qualified Code(s): M25.561 - Pain in right knee; M25.562 - Pain in left knee; G89.29 - Other chronic pain Plan: Referred to Ortho. (3) Meningioma: Comment: MRI, Aug 2021: 1.8 cm meningioma along the inferior surface of the right tentorial leaflet. Head Ct Sep 2022: stable Code(s): D32.9 - Benign neoplasm of meninges, unspecified Plan: Continue follow-up with Neurosurgery. She has no symptoms. Meningioma has not significantly changed, (4) Essential hypertension: Code(s): I10 - Essential (primary) hypertension Plan: Be compliant with amlodipine and hydrochlorothiazide. Recheck blood pressure with nurse in 3 weeks. Blood pressure goal is equal or less than 130/80. Orders: Orders US soft tiss head and/or neck Today R59.0 - Localized enlarged lymph nodes Referrals Orthopedics Referral M25.569 - Pain in unspecified knee Coding Level of Care Code Est Pt Level 4 (62914) Diagnoses Cervical lymphadenopathy R59.0 Chronic pain of both knees M25.561; M25.562; G89.29 Chronicity: chronic Laterality: bilateral Meningioma D32.9 Essential hypertension I10 Time Spent (min) 23
== END 2023-12-21 15:30 | disposition home or self-care (01) ==
PROVIDERS: PCP Internal Medicine; Visit Provider Internal Medicine
DX: R59.0 Localized enlarged lymph nodes (principal); D32.9 Benign neoplasm of meninges, unspecified; M25.561 Pain in right knee; M25.562 Pain in left knee; G89.29 Other chronic pain; I10 Essential (primary) hypertension
CPT/HCPCS: 99214

== ENCOUNTER 2023-12-23 09:19 | Outpatient (AMB) | payer OTHER, SELFPAY ==
--- NOTE | 2023-12-23 09:25 | HO.SPINEOV ---
Intake Visit Reasons: neck pain/second opinion Intake Note: Ms. Leonardo is here today c/o Neck pain and would like a second opinion. 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 She is a very nice 58-year-old female who has a history of neck pain going on now for at least a year more. It is mostly in the left side of her neck and radiates down her left trapezius. She does get numbness of her hands as well from time to time. The pain has been getting steadily worse and got to the point now where she is tried things like ibuprofen, narcotics, baclofen etc. nothing seems to help. She has not yet tried any physical therapy or cortisone shots. She has generally try these things in the past for other orthopedic and spine problems and has never worked so she does not have any interest in it. She is very frustrated because her neck pain has now become main feature in her quality of life and her limiting from doing basic things like housework and daily activities with the family. She has a history of fibromyalgia, as well as chronic pain in her back with a history of spinal fusion done twice and despite excellent results from the clinical side of surgery, these kind of interventions never seemed to help her pain. She still has the same back pain she started with years ago. She saw Dr. Orr at [facility]. I was able to read her note, and it looks like there is consideration of doing an ACDF at C4-5, but the patient has significant disc degeneration at C5-6 and C6-7 as well. The thinking is that she ultimately may need a 3 level fusion but the risk for pseudoarthrosis would be high if all 3 levels were done at once. The patient is here for 2nd opinion today. PMH: History of arthritis, fibromyalgia, sleep apnea, status post gastric sleeve, she is down about 80 lb. She was diabetic but when she lost the weight diabetes went away. Previous history of lumbar fusion that was unsuccessful, hypertension, , constipation, meningioma, GERD, hypertension carpal tunnel, bicytopenia but her platelet counts usually run in the 120-130 range based on laboratories IC. Social hx: She has not smoke, she does not drink or use any recreational drugs Medications: Vitamin-D, laxative, ibuprofen, hydrochlorothiazide, Trulance, amlodipine, baclofen, magnesium Allergies: Dilaudid gives her rash and lisinopril gives her anaphylaxis Physical exam: She is awake alert oriented no acute distress, she has normal gait, full strength and sensation bilateral upper and lower extremities with normal reflexes, no Levy's sign. Imaging review: Cervical MRI done [place] shows reversal of the normal lordotic curvature of the cervical spine with severe collapse of the disc at C4-5, C5-6 and C6-7. She has large anterior bridging osteophytes at all these levels. I am not sure that she is auto fused. There is a CT scan of her abdomen which was done and in the lower thoracic portions of the spine I can see what looks like DISH and fusion of the anterior segments of the thoracic spine. Impression: 58-year-old female presents to the office for evaluation of neck pain that has been going on for year more which radiates down into her left trapezius with occasional tingling of both of her hands. The main symptom today though is the neck pain. As above she has severely collapsed disc at C4-5, C5-6 C6-7. She had seen Dr. Coronado at [facility] who was considering surgery, from the notes it looks like C4-5 as the 1st surgery, with possible intent to do a 3 level fusion but not all at once. The patient was counseled that there would be no guarantee of improvement in her neck pain because of the complexity of the disc degeneration at multiple levels and the possible need for multiple fusions which can give patient's neck pain. I think this is more less accurate. I do think we need to consider few things before we give the patient a final opinion. First is that this patient never responds well to any surgery that she has ever had. She tells me that every time someone operates on her, whatever the intent to operate on fix never feels better, in fact almost always feels worse. This is common in patients with fibromyalgia. 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 From the MRI i can already see there are large anterior bridging osteophytes present already. This would negate the need for surgery. I will also get flexion-extension studies to make sure there is no occult instability. I would like to see her back after these tests are ordered. Thank you for allowing us to care for your patient. The total time spent with this visit with this patient was45 minutes reviewing history, physical exam, cervical imaging review, and implementation of treatment plan or further diagnostic testing Jovanny Das MD,PhD [facility] Orders: Orders XR cervical spine 4V Today M54.2 - Cervicalgia CT cervical spine wo IV con Today M54.2 - Cervicalgia Coding Level of Care Code New Pt Level 4 (52506) Diagnoses Cervicalgia M54.2
== END 2023-12-23 11:08 | disposition home or self-care (01) ==
PROVIDERS: PCP Internal Medicine; Referring Provider Nurse Practitioner Family; Visit Provider Physician Assistant
DX: M54.2 Cervicalgia (principal)
CPT/HCPCS: 99204

== ENCOUNTER 2023-12-23 09:19 | Outpatient (REF) | payer OTHER, SELFPAY ==
--- NOTE | ~2023-12-23 | XR_ITS ---
EXAMINATION: XR CERVICAL SPINE CLINICAL INFORMATION: Cervicalgia COMPARISON: X-rays of the cervical spine May 2014. MRI of the cervical spine October 2023. TECHNIQUE: Upright AP and lateral views of the cervical spine in addition to upright flexion and extension views. FINDINGS: There is persistent slight reversal of the usual cervical lordosis of the upper cervical spine. There is severe disc space narrowing with endplate osteophytes at the C4-C5 level and moderate disc space narrowing and endplate osteophytes at the C5-C6 and C6-C7 levels. This has progressed compared with the x-ray in 2013 and is unchanged compared with the recent MRI in 2023. Facets are unremarkable. No abnormal translation with flexion and extension. Remaining disc levels unremarkable. Surrounding bone and soft tissues unremarkable. XR/XR cervical spine 4V IMPRESSION: Advanced multilevel spondylosis of the cervical spine, unchanged compared with recent MRI but progressed compared with the 2013 x-ray.
== END 2023-12-23 09:20 | disposition home or self-care (01) ==
LOC: HO.HOSX 09:19
PROVIDERS: PCP Internal Medicine; Visit Provider Physician Assistant
DX: M54.2 Cervicalgia (principal)
CPT/HCPCS: 72050; 99202

== ENCOUNTER 2024-01-16 09:45 | Day surgery (SDC) | payer OTHER, SELFPAY ==
[2024-01-12 14:16] VITALS: BMI 29.7
[2024-01-16 10:28] VITALS: BP 159/96; PULSE 71; RESP 18; TEMP 36.4; O2SAT 99; BMI 29.5
--- NOTE | 2024-01-16 10:43 | MHC.SHP ---
Pre-Procedural Eval Section A - 24 Hr Update-Section A only Date of Service: 01/16/24 Section B - Complete if H&P > 30 days Chief Complaint: Family history of malignant neoplasm of digestive Details of Present Illness: father -CRC Relevant Family History (Specify if Yes): Yes Relevant Social History: Alcohol Use Present Medications: see Short Stay Collaborative assessment Medical History: Significant History ( Diverticulitis Physical exam LLQ abdominal pain Pre-op examination Small bowel motility disorder Back pain Lumbar pain Snoring Excessive daytime sleepiness Sleep difficulties Obstructive sleep apnea Right leg pain Left leg pain Upper respiratory tract infection Memory loss Cervical strain Right hip) History of Previous Operations: Relevant previous surgery/procedure and date(s) (History of sleeve gastrectomy Hx of colonoscopy Hx of melanoma excision Hx of hernia repair Hx of ovarian cystectomy History of lumbar fusion Hx of section) Allergies: Allergies Allergy/AdvReac Type Severity Reaction Status Date / Time gabapentin Allergy Intermediate inadequate Verified 12/23/23 09:43 response hydromorphone [From DILAUDID] Allergy Intermediate RASH Verified 12/23/23 09:43 lisinopril [LISINOPRIL] Allergy Intermediate CLOGGED Verified 12/23/23 09:43 THROAT, shortness of breath, anaphylaxis topiramate Allergy Intermediate inadequate Verified 12/23/23 09:43 response Review of Systems Sugical H&P ROS: Negative: Constitution, Cardiovascular, Respiratory, Neurological, Psychiatric, Hem-Onc, Allergic/Immunologic, Gastrointestinal, Genitourinary, Musculoskeletal, Integumentary, Endocrine and Eyes/Ears/Nose/Throat Exam Surgical H&P Exam: Normal: HEENT, Normal: Heart, Normal: Lungs, Normal: Extremities, Normal: Abdomen, Normal: Skin and Normal: Neurological Plan Diagnosis/Plan: Unchanged I have reviewed the history and physical and performed a pertinent physical examination on my patient. No changes have occurred unless specified. Time Spent With Patient Time: Total time managing care of this patient today ____ minutes.
[2024-01-16] MEDS: Lactated Ringers 1,000 ML 100 ML IVCONT (10:45)
--- NOTE | 2024-01-16 11:13 | P.OPN-COLO_ITS ---
Colonoscopy Operative Note Operative Note Date of Service: 01/16/24 Narrative: Operative Information Procedure Description: Colonoscopy Indication: screening- pos FH of CRC Anesthesia: MAC COLONOSCOPY Instrument: Olympus variable stiffness pediatric scope 190L Colonoscopy Monitoring: Vital signs and clinical assessment, continuous EKG monitoring, Pulse oximetry, Carbon Dioxide monitoring and blood pressure monitoring were done throughout the procedure. Colon withdrawal time was 11 minutes. Procedure: The patient was placed in the left lateral decubitis position and pre-procedure medications were administered. After a digital rectal examination of the ano-rectum, the video colonoscope was inserted into the rectum and advanced through the colon to the cecum/TI. The colonoscope was slowly withdrawn in a retrograde panoramic fashion and the colon mucosa was carefully examined including a retroflexed view of the rectum. Findings and interventions are described below. Procedure Difficulty: easy Findings: Terminal Ileum-not intubated Cecum: x 1 sessile polyp 5-6 mm removed with cold forceps, x 1 sessile polyp 7-8 mm removed with cold snare Ascending Colon: normal Transverse Colon -normal Descending Colon:normal Sigmoid Colon: normal Rectum: Retroflexion with small internal hemorrhoids seen, grade I Anorectum - normal Intervention: cold snare and cold forceps Colon preparation: [place] Bowel Preparation Scale Right colon; 1-2 Transverse colon: 2 Left colon; 1-2 (0 = Unprepared colon segment with mucosa not seen due to solid stool that cannot be cleared. 1 = Portion of mucosa of the colon segment seen, but other areas of the colon segment not well seen due to staining, residual stool and/or opaque liquid. 2 = Minor amount of residual staining, small fragments of stool and/or opaque liquid, but mucosa of colon segment seen well. 3 = Entire mucosa of colon segment seen well with no residual staining, small fragments of stool or opaque liquid) Impression and Post Procedure Diagnosis: colon polyps internal hemorrhoids Plan: High fiber diet leaflet Avoid straining at stool, epsom salts and sitz bath, anusol supps or cream Repeat Colonoscopy in 1-2 years due to areas with fair prep or earlier if clinically indicated Above findings were reviewed with the patient and relevant handouts were provided if indicated.
--- NOTE | 2024-01-16 11:20 | P.CONAN_ITS ---
Documented by User: Chanda Garcia NP 01/13/24 12:49 HPI - Anesthesia Eval Consult details Narrative: 58yo F for Colonoscopy PMFSH Active Problems Active Problems: All Active Problems Knee pain (Acute) Cervical lymphadenopathy (Acute) Acute diarrhea (Acute) Diverticulitis (Acute) Physical exam (Acute) LLQ abdominal pain (Acute) Abdominal bloating (Acute) Cognitive impairment (Acute) Nocturnal hypoxemia (Acute) Moderate obstructive sleep apnea (Acute) Periumbilical abdominal pain (Acute) Headache (Acute) Migraine without aura (Acute) Numbness and tingling in right hand (Acute) Cubital tunnel syndrome on left (Acute) Carpal tunnel syndrome of left wrist (Acute) Ulnar neuropathy of left upper extremity (Acute) Cervicalgia (Acute) GERD (gastroesophageal reflux disease) (Acute) Median neuropathy (Acute) Biceps tendonitis on left (Acute) Leukopenia (Acute) Costovertebral angle tenderness (Acute) Family history of colon cancer in father (Acute) Overweight (Acute) Osteoarthritis of lumbar spine (Acute) Flexor tenosynovitis of finger (Acute) Rheumatoid factor positive (Acute) Postmenopausal (Acute) Chronic idiopathic constipation (Acute) Generalized anxiety disorder (Acute) Fibromyalgia (Acute) Essential hypertension (Acute) Meningioma (Acute) Bicytopenia (Chronic) Dyslipidemia (Acute) Hypovitaminosis D (Acute) Polyarthralgia (Acute) Past Medical History Medical History Diverticulitis Physical exam LLQ abdominal pain Pre-op examination Small bowel motility disorder Back pain Lumbar pain Snoring Excessive daytime sleepiness Sleep difficulties Obstructive sleep apnea Right leg pain Left leg pain Upper respiratory tract infection Memory loss Cervical strain Right hip pain Tenderness over frontal sinus Left knee pain Arm numbness Left hip pain Left shoulder pain Leg pain Osteoarthritis of lumbar spine Flexor tenosynovitis of finger Rheumatoid factor positive Postmenopausal Generalized anxiety disorder Mild major depression, single episode Fibromyalgia Essential hypertension Meningioma Bicytopenia Dyslipidemia Hypovitaminosis D Chronic idiopathic constipation Polyarthralgia History of herniated intervertebral disc History of partial adherence to treatment Family History Family History Father Prostate cancer Diabetes mellitus Colon cancer Mother Migraine Arthritis Hypertension Heart disease Emphysema lung CVD (cardiovascular disease) Brother Drug overdose Brother Ulgpbsv-Daeci-Wrmkd disease Sister No problems noted. Sister No problems noted. Son No problems noted. Son No problems noted. Son No problems noted. Daughter No problems noted. Daughter No problems noted. Daughter No problems noted. Family/Other Substance use disorder Surgical History Surgical History History of sleeve gastrectomy Hx of colonoscopy Hx of melanoma excision Hx of hernia repair Hx of ovarian cystectomy History of lumbar fusion Hx of section Social History Social History Household Members: Children Housing: House Are you a primary home care physical therapist to a significant other at home: No Do you presently have visiting nurse or other home services: No Alcohol intake: current Alcohol intake frequency: does not drink Alcohol type: beer Patient Tobacco Use Status: Never used Tobacco e-Cigarette/Vaping Use: Never Used Second Hand Smoke Exposure: No Are you DNR?: No Advance Directives: No Advance Directives Information Provided: Yes service: No Current occupational status: disabled Cognitive needs: No Hearing needs: No Vision needs: No Meds Allergies Allergy/AdvReac Type Severity Reaction Status Date / Time gabapentin Allergy Intermediate inadequate Verified 12/23/23 09:43 response hydromorphone [From DILAUDID] Allergy Intermediate RASH Verified 12/23/23 09:43 lisinopril [LISINOPRIL] Allergy Intermediate CLOGGED Verified 12/23/23 09:43 THROAT, shortness of breath, anaphylaxis topiramate Allergy Intermediate inadequate Verified 12/23/23 09:43 response Home Medications ?Medication ?Instructions ?Recorded ?Confirmed ?Last Taken ?Type biotin 1 mg capsule 1 mg PO DAILY 07/16/20 12/21/23 Unknown History -ajl-dps-other [id number] 1 cap PO DAILY 01/20/22 12/21/23 Unknown History oil 350 mg- 400 mg capsule acetaminophen 500 mg tablet 1,000 mg PO QID PRN Headache 01/26/22 12/21/23 Unknown History (Tylenol Extra Strength) estradiol 0.01% (0.1 mg/gram) vaginal 10/03/23 12/21/23 Unknown History vaginal cream Exam Height,Weight and Vital Signs: Height 5 ft 1 in Weight 71.214 kg Assessment and Plan Assessment Anesthesia Assessment: Chart Reviewed Documented by User: Daysi Hill DO 01/16/24 11:42 PMFSH Past Medical History Medical History Diverticulitis Physical exam LLQ abdominal pain Pre-op examination Small bowel motility disorder Back pain Lumbar pain Snoring Excessive daytime sleepiness Sleep difficulties Obstructive sleep apnea Right leg pain Left leg pain Upper respiratory tract infection Memory loss Cervical strain Right hip pain Tenderness over frontal sinus Left knee pain Arm numbness Left hip pain Left shoulder pain Leg pain Osteoarthritis of lumbar spine Flexor tenosynovitis of finger Rheumatoid factor positive Postmenopausal Generalized anxiety disorder Mild major depression, single episode Fibromyalgia Essential hypertension Meningioma Bicytopenia Dyslipidemia Hypovitaminosis D Chronic idiopathic constipation Polyarthralgia History of herniated intervertebral disc History of partial adherence to treatment Family History Family History Father Prostate cancer Diabetes mellitus Colon cancer Mother Migraine Arthritis Hypertension Heart disease Emphysema lung CVD (cardiovascular disease) Brother Drug overdose Brother Unohupv-Yigky-Aopxz disease Sister No problems noted. Sister No problems noted. Son No problems noted. Son No problems noted. Son No problems noted. Daughter No problems noted. Daughter No problems noted. Daughter No problems noted. Family/Other Substance use disorder Family history of problems with anesthesia: No Surgical History Surgical History History of sleeve gastrectomy Hx of colonoscopy Hx of melanoma excision Hx of hernia repair Hx of ovarian cystectomy History of lumbar fusion Hx of section History of Problems with Anesthesia: No Social History Social History Household Members: Children Housing: House Are you a primary home care physical therapist to a significant other at home: No Do you presently have visiting nurse or other home services: No Alcohol intake: current Alcohol intake frequency: does not drink Alcohol type: beer Patient Tobacco Use Status: Never used Tobacco e-Cigarette/Vaping Use: Never Used Second Hand Smoke Exposure: No Are you DNR?: No Advance Directives: No Advance Directives Information Provided: Yes service: No Current occupational status: disabled Cognitive needs: No Hearing needs: No Vision needs: No Meds Allergies Allergy/AdvReac Type Severity Reaction Status Date / Time gabapentin Allergy Intermediate inadequate Verified 12/23/23 09:43 response hydromorphone [From DILAUDID] Allergy Intermediate RASH Verified 12/23/23 09:43 lisinopril [LISINOPRIL] Allergy Intermediate CLOGGED Verified 12/23/23 09:43 THROAT, shortness of breath, anaphylaxis topiramate Allergy Intermediate inadequate Verified 12/23/23 09:43 response Home Medications ?Medication ?Instructions ?Recorded ?Confirmed ?Last Taken ?Type biotin 1 mg capsule 1 mg PO DAILY 07/16/20 12/21/23 Unknown History [id number] [id number] 1 cap PO DAILY 01/20/22 12/21/23 Unknown History oil 350 mg- 400 mg capsule acetaminophen 500 mg tablet 1,000 mg PO QID PRN Headache 01/26/22 12/21/23 Unknown History (Tylenol Extra Strength) estradiol 0.01% (0.1 mg/gram) vaginal 10/03/23 12/21/23 Unknown History vaginal cream Exam Exam Date and Time: January 16, 2024 1120 Height,Weight and Vital Signs: Height 5 ft 1 in Weight 70.896 kg Vital Signs Temperature 97.5 F 01/16/24 10:28 Pulse Rate 71 01/16/24 10:28 Respiratory Rate 18 01/16/24 10:28 Blood Pressure 159/96 H 01/16/24 10:28 Pulse Oximetry 99 01/16/24 10:28 Oxygen Delivery Method Room Air 01/16/24 10:28 Temperature 97.5 F 01/16/24 10:28 Pulse Rate 71 01/16/24 10:28 Respiratory Rate 18 01/16/24 10:28 Blood Pressure 159/96 H 01/16/24 10:28 Pulse Oximetry 99 01/16/24 10:28 Oxygen Delivery Method Room Air 01/16/24 10:28 Height 5 ft 1 in Weight 71.214 kg Airway Mallampati Class: II TM Dist: >3cm Neck ROM: Full Loose/Missing/Broken Teeth: No (patient denies any loose or broken teeth) Heart: S1S2 Lungs: CTAB Assessment and Plan Assessment Anesthesia Assessment: Anesthesia Plan Discussed and Chart Reviewed Final Anesthetic Review Family History of Problems with Anesthesia: No History of Problems with Anesthesia: No NPO: Yes ASA Class: III Final Preanesthetic Review: No Changes in Pt Med Stat, Meds/Allgs Chart Reviewed, Consent Obtained/Reviewed and Anes Risks/Benef Reviewed Patient Risk: Low Procedure Risk: Low Anesthetic Plan Anesthetic Plan: MAC: and Agree w/ Assess. and Plan Disposition: Standard PACU
[2024-01-16 11:50] VITALS: BP 140/84; PULSE 79; RESP 16; TEMP 36.2; O2SAT 96
[2024-01-16 12:05] VITALS: BP 156/89; PULSE 74; RESP 15; TEMP 36.1; O2SAT 98
== END 2024-01-16 12:46 | disposition home or self-care (01) ==
PROVIDERS: PCP Internal Medicine; Visit Provider Internal Medicine Gastroenterology
PROC: 0DJD8ZZ Inspection of Lower Intestinal Tract, Via Natural or Artificial Opening Endoscopic (ICD-10-PCS; CPT 45378; principal; 2024-01-16 12:10)
DX: Z12.11 Encounter for screening for malignant neoplasm of colon (principal); D12.0 Benign neoplasm of cecum; K64.0 First degree hemorrhoids; Z80.0 Family history of malignant neoplasm of digestive organs; I10 Essential (primary) hypertension; Z88.5 Allergy status to narcotic agent; Z88.8 Allergy status to other drugs, medicaments and biological substances
CPT/HCPCS: 45385; 45380; 88305; J2250; J2704; J3010

== ENCOUNTER → 2024-01-16 09:45 | Outpatient (BNV) | payer OTHER, SELFPAY | PROVIDERS: PCP Internal Medicine; Visit Provider Internal Medicine Gastroenterology | DX: Z12.11 Encounter for screening for malignant neoplasm of colon (principal); Z80.0 Family history of malignant neoplasm of digestive organs; D12.0 Benign neoplasm of cecum; K64.0 First degree hemorrhoids | CPT/HCPCS: 45380; 45385 ==

== ENCOUNTER → 2024-01-18 08:30 | Outpatient (BNVA) | payer OTHER, SELFPAY | PROVIDERS: PCP Internal Medicine; Visit Provider Nurse Practitioner ==

== ENCOUNTER 2024-01-31 08:44 | Outpatient (AMB) | payer OTHER, SELFPAY ==
[2024-01-31 08:48] VITALS: BP 177/98; PULSE 73; BMI 28.9
--- NOTE | 2024-01-31 08:48 | A.OFFVIS_ITS ---
Vital Signs 01/31/24 08:48 Height 5 ft 1 in Weight 153 lb 0.013 oz BMI 28.9 BP 177/98 H Blood Pressure Location Lt brachial Position Sitting Pulse 73 Intake Visit Reasons: s/p colon Intake Note: Abby presents to in office today s/p colonoscopy. CC: Patient states that she continues having abdominal bloating, abdominal pain, rectal bleeding. Brain fog, and getting forgetful. She states that she is concerned because her saw an online video of a young woman with same symptoms she is having was found to have a cancerous tumor. 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 if other organisms Code(s): K57.92 - Diverticulitis of intestine, part unspecified, without perforation or abscess without bleeding (2) Acute diarrhea: Code(s): R19.7 - Diarrhea, unspecified (3) Abdominal bloating: Code(s): R14.0 - Abdominal distension (gaseous) (4) GERD (gastroesophageal reflux disease): Code(s): K21.9 - Gastro-esophageal reflux disease without esophagitis (5) Chronic idiopathic constipation: Code(s): K59.04 - Chronic idiopathic constipation Plan She completed the Augmentin with absolutely no improvement. She continues to have severe pain and soreness in the left lower quadrant along with general malaise and subjective fevers. She is now having diarrhea. Because we only have presumptive diagnosis of diverticulitis on CT scan I think we need to do stool testing to make sure were not missing a different organism. At this point I will treat her with Levaquin and Flagyl hoping that she simply failed Augmentin because of the organisms. I will do a 14 day course. However to be thorough I am also doing a CRP and a fecal calprotectin along with GI panel. Return office visit in 2 weeks Orders: Orders CDiff Gene PCR Today R19.7 - Diarrhea, unspecified C Reactive Protein Today R19.7 - Diarrhea, unspecified Calprotectin, Fecal Today R19.7 - Diarrhea, unspecified GI Panel Today R19.7 - Diarrhea, unspecified Medications: New levofloxacin 500 mg PO DAILY 14 days 14 tabs 0RF K57.92 - Diverticulitis of intestine, part unspecified, without perforation or abscess without bleeding metronidazole 500 mg PO TID 14 days 42 tabs 0RF LABS: Laboratory Tests 12/12/23 12/14/23 09:42 07:51 C-Reactive Protein 0.14 Stool Calprotectin 218 H C. difficile Tox B Gene NEGATIVE COLONOSCOPY 01/16/24 Findings: Terminal Ileum-not intubated Cecum: x 1 sessile polyp 5-6 mm removed with cold forceps, x 1 sessile polyp 7-8 mm removed with cold snare Ascending Colon: normal Transverse Colon -normal Descending Colon:normal Sigmoid Colon: normal Rectum: Retroflexion with small internal hemorrhoids seen, grade I Anorectum - normal Intervention: cold snare and cold forceps Impression and Post Procedure Diagnosis: colon polyps internal hemorrhoids Plan: High fiber diet leaflet Avoid straining at stool, epsom salts and sitz bath, anusol supps or cream Repeat Colonoscopy in 1-2 years due to areas with fair prep or earlier if clinically indicated BIOPSY Received: 01/16/24 Diagnosis Cecum, polypectomies: Fragments of tubular adenomata; negative for high-grade dysplasia or carcinoma. TODAY'S VISIT She is agreeable to repeating the colonoscopy in 1-2 years. The procedure was well tolerated. The results were explained and the patient is agreeable to the follow-up interval as stated. The bowel pattern has returned to normal. Education was provided to tell any 1st degree relatives about their findings to be sure that they are screened by age 45. Educated that they will be put on a recall list when it is time for their repeat scope but should they move out of state or away from the hospital they will need to remember along with their primary to repeat the procedure in a timely fashion to avoid any adverse complications. Her sx are the same. I am not surprised given the elevated fecal calprotectin and although I will add a RAST panel to see if the irritation comes from an autoimmune other than IBD I think that is reasonable to try treating her with steroids to see if this improves her situation. I educate her about IBD in the fact that it can be difficult to diagnose in the early stages because of the exacerbating remitting nature. Even if the inflammation and pain is from an allergic reaction the steroids will help until we pinned down any offending agents as well. Discuss IBD and print pt information in [facility] [place] and [place]. Trial prednisone and mesalamine ROV 2 weeks. RAST and IBD genetics to be thorough. [facility] Medical History Diverticulitis Physical exam LLQ abdominal pain Pre-op examination Small bowel motility disorder Back pain Lumbar pain Snoring Excessive daytime sleepiness Sleep difficulties Obstructive sleep apnea Right leg pain Left leg pain Upper respiratory tract infection Memory loss Cervical strain Right hip pain Tenderness over frontal sinus Left knee pain Arm numbness Left hip pain Left shoulder pain Leg pain Osteoarthritis of lumbar spine Flexor tenosynovitis of finger Rheumatoid factor positive Postmenopausal Generalized anxiety disorder Mild major depression, single episode Fibromyalgia Essential hypertension Meningioma Bicytopenia Dyslipidemia Hypovitaminosis D Chronic idiopathic constipation Polyarthralgia History of herniated intervertebral disc History of partial adherence to treatment Surgical History History of sleeve gastrectomy Hx of colonoscopy Hx of melanoma excision Hx of hernia repair Hx of ovarian cystectomy History of lumbar fusion Hx of section Family History Father Prostate cancer Diabetes mellitus Colon cancer Mother Migraine Arthritis Hypertension Heart disease Emphysema lung CVD (cardiovascular disease) Brother Drug overdose Brother Cddoucp-Sksar-Epows disease Sister No problems noted. Sister No problems noted. Son No problems noted. Son No problems noted. Son No problems noted. Daughter No problems noted. Daughter No problems noted. Daughter No problems noted. Family/Other Substance use disorder Social History Household Members: Children Housing: House Are you a primary child care coordinator to a significant other at home: No Do you presently have visiting nurse or other home services: No Alcohol intake: current Alcohol intake frequency: does not drink Alcohol type: beer Patient Tobacco Use Status: Never used Tobacco e-Cigarette/Vaping Use: Never Used Second Hand Smoke Exposure: No service: No Current occupational status: disabled Cognitive needs: No Hearing needs: No Vision needs: No Review of Systems Const Denies fatigue, Denies fever(s), Denies night sweats, Denies poor appetite and Denies weight loss ENT Reports Normal hearing present, Denies dental pain, Denies dysphagia, Denies hearing loss, Denies mouth pain, Denies odynophagia, Denies throat swelling, Denies tongue swelling and Reports other (Dentition adequate) Card Reports no additional complaints Resp Reports no additional complaints GI Details: Reports abdominal pain, Denies melena, Reports bloating, Denies hematochezia, Denies constipation, Denies GI cramping, Denies dysphagia, Denies excessive flatus, Denies early satiety, Reports heartburn, Reports diarrhea, Denies nausea, Denies odynophagia, Denies vomiting and Denies hematemesis Skin/Breast Denies pruritus, Denies lesions, Denies rash and Denies jaundice Neuro Reports Normal hearing present and Denies Abnormal speech present Endo Denies fatigue Aller/Immun Denies throat swelling and Denies tongue swelling Physical Exam Vital Signs: Last Vital Signs Pulse 73 01/31/24 08:48 BP 177/98 H 01/31/24 08:48 BMI result Body Mass Index 28.9 Const General: cooperative, no acute distress, well developed and well groomed Nutritional Appearance: well nourished and obese Orientation/consciousness: oriented to person, oriented to place and oriented to time Limitations: language barrier and other limitations HEENT Head: Yes normocephalic and Yes atraumatic Eyes General: appearance normal, both eyes and all related structures Pupils: Equal, round and reactive pupils present Neck Neck: Yes normal visual inspection and Yes no lymphadenopathy Thyroid: Thyroid normal Resp Effort & Inspection: normal respiratory effort and able to speak in complete sentences Auscultation: clear to auscultation bilaterally Cardio Rate: regular rate Rhythm: regular rhythm Heart sounds: Normal, physiologic split S2 sound present Peripheral pulses: radial pulses present and posterior tibial pulses present GI Inspection: Yes distended, No Abdominal panniculus present and Yes obesity Palpation (GI): Soft to palpation, Tenderness to palpation present (GI), no guarding, not rigid and No hepatosplenomegaly present Percussion: Yes normal to percussion Auscultation: normal bowel sounds Rectal Exam - Female: deferred Skin General skin exam: no rashes or lesions noted, turgor normal, skin not dry, no jaundice, No spider nevi and no striae Rashes: no rashes Nails: normal Neuro General: oriented to person, oriented to place and oriented to time Cranial nerves: Yes Equal, round and reactive pupils present and Yes Normal hearing present Speech: No Abnormal speech present Extrem General: Yes normal to inspection, No clubbing, No cyanosis and No edema Psych Appearance: grossly normal and well kempt Mental Status: mental status grossly normal Speech and movement: Normal speech and movement present Affect: normal affect Attitude: cooperative Thought process: Normal thought process present and not confabulating Thought content: Normal thought content present Insight: Limited insight present (Psych) Judgement: Limited judgement present (Psych) Results Reviewed Results Reviewed: Laboratory Tests 12/12/23 12/14/23 09:42 07:51 C-Reactive Protein 0.14 Stool Calprotectin 218 H C. difficile Tox B Gene NEGATIVE COLONOSCOPY 01/16/24 Findings: Terminal Ileum-not intubated Cecum: x 1 sessile polyp 5-6 mm removed with cold forceps, x 1 sessile polyp 7-8 mm removed with cold snare Ascending Colon: normal Transverse Colon -normal Descending Colon:normal Sigmoid Colon: normal Rectum: Retroflexion with small internal hemorrhoids seen, grade I Anorectum - normal Intervention: cold snare and cold forceps Impression and Post Procedure Diagnosis: colon polyps internal hemorrhoids Plan: High fiber diet leaflet Avoid straining at stool, epsom salts and sitz bath, anusol supps or cream Repeat Colonoscopy in 1-2 years due to areas with fair prep or earlier if clinically indicated BIOPSY Received: 01/16/24 Diagnosis Cecum, polypectomies: Fragments of tubular adenomata; negative for high-grade dysplasia or carcinoma. Assessment & Plan Assessment & Plan (1) Elevated fecal calprotectin: Code(s): R19.5 - Other fecal abnormalities Category: Medical (2) Tubular adenoma of colon: Comment: 12/2023 SCOPE= 1 TA REPEAT IN 5 YEARS Code(s): D12.6 - Benign neoplasm of colon, unspecified Category: Medical (3) GERD (gastroesophageal reflux disease): Code(s): K21.9 - Gastro-esophageal reflux disease without esophagitis Category: Medical (4) Rheumatoid factor positive: Comment: 04/2021: 23.3 Code(s): R76.8 - Other specified abnormal immunological findings in serum Category: Medical (5) Acute diarrhea: Code(s): R19.7 - Diarrhea, unspecified Category: Medical (6) Inflammatory bowel disease: Code(s): K52.9 - Noninfective gastroenteritis and colitis, unspecified Category: Medical Plan She is agreeable to repeating the colonoscopy in 1-2 years. The procedure was well tolerated. The results were explained and the patient is agreeable to the follow-up interval as stated. The bowel pattern has returned to normal. Education was provided to tell any 1st degree relatives about their findings to be sure that they are screened by age 45. Educated that they will be put on a recall list when it is time for their repeat scope but should they move out of state or away from the hospital they will need to remember along with their primary to repeat the procedure in a timely fashion to avoid any adverse complications. Her sx are the same. I am not surprised given the elevated fecal calprotectin and although I will add a RAST panel to see if the irritation comes from an autoimmune other than IBD I think that is reasonable to try treating her with steroids to see if this improves her situation. I educate her about IBD in the fact that it can be difficult to diagnose in the early stages because of the exacerbating remitting nature. Even if the inflammation and pain is from an allergic reaction the steroids will help until we pinned down any offending agents as well. Discuss IBD and print pt information in [facility] [place] and [place]. Trial prednisone and mesalamine ROV 2 weeks. RAST and IBD genetics to be thorough. Orders: Orders [facility] TPMT Genetics Today R19.5 - Other fecal abnormalities, R19.7 - Diarrhea, unspecified [facility] IBD SGI Today R19.5 - Other fecal abnormalities, R19.7 - Diarrhea, unspecified Rast Allergen Today R19.5 - Other fecal abnormalities, R19.7 - Diarrhea, unspecified Medications: New prednisone 3 tabs day 1, 2 tabs qd thereafter orally daily; 63 tabs 3RF K52.9 - Noninfective gastroenteritis and colitis, unspecified, R19.5 - Other fecal abnormalities mesalamine (Lialda) 2.4 grams (2 x 1.2 gram) PO BID 120 tabs 6RF 30 days K52.9 - Noninfective gastroenteritis and colitis, unspecified, R19.5 - Other fecal abnormalities Coding Level of Care Code Est Pt Level 4 (35931) Diagnoses Elevated fecal calprotectin R19.5 Tubular adenoma of colon D12.6 GERD (gastroesophageal reflux disease) K21.9 Rheumatoid factor positive R76.8 Acute diarrhea R19.7 Inflammatory bowel disease K52.9 Time Spent (min) 33
== END 2024-01-31 09:32 | disposition home or self-care (01) ==
PROVIDERS: PCP Internal Medicine; Visit Provider Nurse Practitioner
DX: R19.5 Other fecal abnormalities (principal); D12.0 Benign neoplasm of cecum; K21.9 Gastro-esophageal reflux disease without esophagitis; K52.9 Noninfective gastroenteritis and colitis, unspecified
CPT/HCPCS: 99214

== ENCOUNTER 2024-01-31 08:44 | Outpatient (REF) | payer OTHER, SELFPAY | END 2024-01-31 08:45 | disposition home or self-care (01) | LOC: HO.LAB 08:44 | PROVIDERS: PCP Internal Medicine; Visit Provider Nurse Practitioner | DX: R19.7 Diarrhea, unspecified (principal); R19.5 Other fecal abnormalities; Z91.09 Other allergy status, other than to drugs and biological substances | CPT/HCPCS: 36415; 81335; 81405; 81479; 82397; 83520; 86003; 86140; 88346; 88350; 99212 ==

== ENCOUNTER 2024-02-03 15:14 | Outpatient (REF) | payer OTHER, SELFPAY ==
--- NOTE | ~2024-02-03 | CT_ITS ---
EXAMINATION: CT CERVICAL SPINE WITHOUT CONTRAST CLINICAL INFORMATION: Neck pain COMPARISON: MRI cervical spine on 11/06/2023 TECHNIQUE: Multiple 2.0 mm axial images were obtained from base of skull to T1 levels without IV contrast enhancement. Sagittal and coronal 2.0 mm bone window images were reconstructed from axial image data. This CT examination was performed using dose optimization techniques as appropriate, variously including the following: *Automated exposure control *Adjustment of mA and/or kV according to patient size (this includes techniques or standardized protocols for targeted exams where dose is matched to indication/reason for exam; i.e. extremities or head) *Use of iterative reconstruction technique DLP: 323 mGy-cm FINDINGS: C1/C2: Bony structures are intact with normal alignment. There is no spinal stenosis. C2/C3: Bony structures are intact with anterior C2 on C3 displacement by 0.2 cm. There is no spinal stenosis. Bilateral C2/C3 neuroforamina are patent. Bilateral apophyseal joints are intact with normal alignment. C3/C4: Bony structures are intact with normal alignment. There is no spinal stenosis. Bilateral C3/C4 neuroforamina are patent. Bilateral apophyseal joints are intact with normal alignment. C4/C5: Bony structures are intact with posterior C4 on C5 displacement by 0.2 cm. Large sharp anterior bridging syndesmophytes, small posterior syndesmophytes are present. There is marked decrease in intervertebral disc height. There is borderline spinal stenosis, with AP diameter of the spinal canal reduced to 10.1 mm. There are mild right and moderate left C4/C5 neuroforamina stenosis. Bilateral apophyseal joints are intact with normal alignment. C5/C6: Bony structures are intact with normal alignment. There is marked decrease in intervertebral disc height. Sharp anterior and posterior syndesmophytes are present. There is no spinal stenosis. There is mild asymmetric left C5/C6 neuroforaminal stenosis. Bilateral apophyseal joints are intact with normal alignment. C6/C7: Bony structures are intact with normal alignment. There is marked decrease in intervertebral disc height. Sharp anterior and posterior syndesmophytes are present. There is no spinal stenosis. There is mild asymmetric left C6/C7 neuroforaminal stenosis. Bilateral apophyseal joints are intact with normal alignment. C7/T1: Bony structures are intact with normal alignment. There is no spinal stenosis. Bilateral C7/T1 neuroforamina are patent. Bilateral apophyseal joints are intact with normal alignment. Multilevel bilateral apophyseal joint and uncovertebral joint osteoarthritis with loss of joint space, sclerosis, facet hypertrophy and osteophytosis are seen. CT/CT cervical spine wo IV con IMPRESSION: 1. No acute fracture or dislocation. 2. Unchanged Multilevel cervical spondylosis, advanced C4-C5, C5-C6 and C6-C7 degenerative cervical disc disease, grade 1 C4-C5 retrolisthesis as described above. 3. Unchanged Borderline C4/C5 spinal stenosis. 4. Mild right and moderate left C4/C5, Mild asymmetric left C5/C6 and C6/C7 neuroforaminal stenosis.
== END 2024-02-03 15:15 | disposition home or self-care (01) ==
LOC: HO.CT 15:14
PROVIDERS: PCP Internal Medicine; Visit Provider Physician Assistant
DX: M54.2 Cervicalgia (principal)
CPT/HCPCS: 72125

== ENCOUNTER 2024-02-08 08:58 | Outpatient (AMB) | payer OTHER, SELFPAY ==
[2024-02-08 09:16] VITALS: BP 158/93; PULSE 71; BMI 29.5
--- NOTE | 2024-02-08 09:16 | A.OFFVIS_ITS ---
Vital Signs 02/08/24 09:16 Height 5 ft 1 in Weight 156 lb 1.396 oz BMI 29.5 BP 158/93 H Blood Pressure Location Lt brachial Position Sitting Pulse 71 Intake Visit Reasons: 2 week follow up Intake Note: Abby presents in office today in follow up of labs. CC: Patient c/o abdominal bloating and continues feeling tired. Denies other GI concerns today. Cath Laboratory Technician Required: No Accompanied by: Self / Same As Patient Allergies gabapentin Allergy (Intermediate, Verified 02/08/24 09:18) inadequate response hydromorphone [From DILAUDID] Allergy (Intermediate, Verified 02/08/24 09:18) RASH lisinopril [LISINOPRIL] Allergy (Intermediate, Verified 02/08/24 09:18) CLOGGED THROAT, shortness of breath, anaphylaxis topiramate Allergy (Intermediate, Verified 02/08/24 09:18) inadequate response HPI HPI 2 week follow up: Details: Assessment & Plan (1) Elevated fecal calprotectin: Code(s): R19.5 - Other fecal abnormalities Category: Medical (2) Tubular adenoma of colon: Comment: 12/2023 SCOPE= 1 TA REPEAT IN 5 YEARS Code(s): D12.6 - Benign neoplasm of colon, unspecified Category: Medical (3) GERD (gastroesophageal reflux disease): Code(s): K21.9 - Gastro-esophageal reflux disease without esophagitis Category: Medical (4) Rheumatoid factor positive: Comment: 04/2021: 23.3 Code(s): R76.8 - Other specified abnormal immunological findings in serum Category: Medical (5) Acute diarrhea: Code(s): R19.7 - Diarrhea, unspecified Category: Medical (6) Inflammatory bowel disease: Code(s): K52.9 - Noninfective gastroenteritis and colitis, unspecified Category: Medical Plan She is agreeable to repeating the colonoscopy in 1-2 years. The procedure was well tolerated. The results were explained and the patient is agreeable to the follow-up interval as stated. The bowel pattern has returned to normal. Education was provided to tell any 1st degree relatives about their findings to be sure that they are screened by age 45. Educated that they will be put on a recall list when it is time for their repeat scope but should they move out of state or away from the hospital they will need to remember along with their primary to repeat the procedure in a timely fashion to avoid any adverse complications. Her sx are the same. I am not surprised given the elevated fecal calprotectin and although I will add a RAST panel to see if the irritation comes from an autoimmune other than IBD I think that is reasonable to try treating her with steroids to see if this improves her situation. I educate her about IBD in the fact that it can be difficult to diagnose in the early stages because of the exacerbating remitting nature. Even if the inflammation and pain is from an allergic reaction the steroids will help until we pinned down any offending agents as well. Discuss IBD and print pt information in [place] and [place]. Trial prednisone and mesalamine ROV 2 weeks. RAST and IBD genetics to be thorough. Orders: Orders [facility] TPMT Genetics Today R19.5 - Other fecal abnormalities, R19.7 - Diarrhea, unspecified [facility] IBD SGI Today R19.5 - Other fecal abnormalities, R19.7 - Diarrhea, unspecified [facility] Allergen Today R19.5 - Other fecal abnormalities, R19.7 - Diarrhea, unspecified Medications: New prednisone 3 tabs day 1, 2 tabs qd thereafter orally daily; 63 tabs 3RF K52.9 - Noninfective gastroenteritis and colitis, unspecified, R19.5 - Other fecal abnormalities mesalamine (Lialda) 2.4 grams (2 x 1.2 gram) PO BID 120 tabs 6RF 30 days K52.9 - Noninfective gastroenteritis and colitis, unspecified, R19.5 - Other fecal abnormalities LABS:. He is allergic to shrimp and [facility] studies are NOT consistent with IBD TODAY'S VISIT She still has pain in the LLQ but diarrhea improved, bloating improved, but pain is not improved. Her bleeding has stopped. So, since she is tolerating the 40mg/dosing of prednisone we will increase it to 60mg /day. She just started the mesalamine 3 days ago. (these were her symptoms in the past:She continues to have severe pain and soreness in the left lower quadrant along with general malaise and subjective fevers. She is now having diarrhea. ) I think we have not had enough time or high enough dose but then some of the s ymptoms are improved we are going to increase in go forward. RROV 3 weeks. [facility] Medical History Diverticulitis Physical exam LLQ abdominal pain Pre-op examination Small bowel motility disorder Back pain Lumbar pain Snoring Excessive daytime sleepiness Sleep difficulties Obstructive sleep apnea Right leg pain Left leg pain Upper respiratory tract infection Memory loss Cervical strain Right hip pain Tenderness over frontal sinus Left knee pain Arm numbness Left hip pain Left shoulder pain Leg pain Osteoarthritis of lumbar spine Flexor tenosynovitis of finger Rheumatoid factor positive Postmenopausal Generalized anxiety disorder Mild major depression, single episode Fibromyalgia Essential hypertension Meningioma Bicytopenia Dyslipidemia Hypovitaminosis D Chronic idiopathic constipation Polyarthralgia History of herniated intervertebral disc History of partial adherence to treatment Surgical History History of sleeve gastrectomy Hx of colonoscopy Hx of melanoma excision Hx of hernia repair Hx of ovarian cystectomy History of lumbar fusion Hx of section Family History Father Prostate cancer Diabetes mellitus Colon cancer Mother Migraine Arthritis Hypertension Heart disease Emphysema lung CVD (cardiovascular disease) Brother Drug overdose Brother Ihmgfig-Crbak-Mbtxd disease Sister No problems noted. Sister No problems noted. Son No problems noted. Son No problems noted. Son No problems noted. Daughter No problems noted. Daughter No problems noted. Daughter No problems noted. Family/Other Substance use disorder Social History Household Members: Children Housing: House Are you a primary healthcare account manager to a significant other at home: No Do you presently have visiting nurse or other home services: No Alcohol intake: current Alcohol intake frequency: does not drink Alcohol type: beer Patient Tobacco Use Status: Never used Tobacco e-Cigarette/Vaping Use: Never Used Second Hand Smoke Exposure: No service: No Current occupational status: disabled Cognitive needs: No Hearing needs: No Vision needs: No Review of Systems Const Denies fatigue, Denies fever(s), Denies night sweats, Reports poor appetite and Denies weight loss ENT Reports Normal hearing present, Denies dental pain, Denies dysphagia, Denies hearing loss, Denies mouth pain, Denies odynophagia, Denies throat swelling, Denies tongue swelling and Reports other (Dentition adequate) Card Reports no additional complaints Resp Reports no additional complaints GI Details: Reports abdominal pain, Denies melena, Reports bloating, Denies hematochezia, Denies constipation, Denies GI cramping, Denies dysphagia, Denies excessive flatus, Denies early satiety, Denies heartburn, Denies diarrhea, Denies nausea, Denies odynophagia, Denies vomiting and Denies hematemesis Skin/Breast Denies pruritus, Denies lesions, Denies rash and Denies jaundice Neuro Reports Normal hearing present and Denies Abnormal speech present Endo Denies fatigue Aller/Immun Denies throat swelling and Denies tongue swelling Physical Exam Vital Signs: Last Vital Signs Pulse 71 02/08/24 09:16 BP 158/93 H 02/08/24 09:16 BMI result Body Mass Index 29.5 Const General: cooperative, no acute distress, well developed and well groomed Nutritional Appearance: well nourished and obese Orientation/consciousness: oriented to person, oriented to place and oriented to time Limitations: No language barrier HEENT Head: Yes normocephalic and Yes atraumatic Eyes General: appearance normal, both eyes and all related structures Pupils: Equal, round and reactive pupils present Neck Neck: Yes normal visual inspection and Yes no lymphadenopathy Thyroid: Thyroid normal Resp Effort & Inspection: normal respiratory effort and able to speak in complete sentences Auscultation: clear to auscultation bilaterally Cardio Rate: regular rate Rhythm: regular rhythm Heart sounds: Normal, physiologic split S2 sound present Peripheral pulses: radial pulses present and posterior tibial pulses present GI Inspection: Yes distended, No Abdominal panniculus present and Yes obesity Palpation (GI): Soft to palpation, Tenderness to palpation present (GI) in the LLQ, no guarding, not rigid and No hepatosplenomegaly present Percussion: Yes normal to percussion Auscultation: normal bowel sounds Rectal Exam - Female: deferred Skin General skin exam: no rashes or lesions noted, turgor normal, skin not dry, no jaundice, No spider nevi and no striae Rashes: no rashes Nails: normal Neuro General: oriented to person, oriented to place and oriented to time Cranial nerves: Yes Equal, round and reactive pupils present and Yes Normal hearing present Speech: No Abnormal speech present Extrem General: Yes normal to inspection, No clubbing, No cyanosis and No edema Psych Appearance: grossly normal and well kempt Mental Status: mental status grossly normal Speech and movement: Normal speech and movement present Affect: normal affect Attitude: cooperative Thought process: Normal thought process present and not confabulating Thought content: Normal thought content present Insight: Limited insight present (Psych) Judgement: Limited judgement present (Psych) Assessment & Plan Assessment & Plan (1) Inflammatory bowel disease: Code(s): K52.9 - Noninfective gastroenteritis and colitis, unspecified Category: Medical (2) Elevated fecal calprotectin: Code(s): R19.5 - Other fecal abnormalities Category: Medical (3) Tubular adenoma of colon: Comment: 12/2023 SCOPE= 1 TA REPEAT IN 5 YEARS Code(s): D12.6 - Benign neoplasm of colon, unspecified Category: Medical (4) GERD (gastroesophageal reflux disease): Code(s): K21.9 - Gastro-esophageal reflux disease without esophagitis Category: Medical Plan She still has pain in the LLQ but diarrhea improved, bloating improved, but pain is not improved. Her bleeding has stopped. So, since she is tolerating the 40mg/dosing of prednisone we will increase it to 60mg /day. She just started the mesalamine 3 days ago. (these were her symptoms in the past:She continues to have severe pain and soreness in the left lower quadrant along with general malaise and subjective fevers. She is now having diarrhea. ) I think we have not had enough time or high enough dose but then some of the symptoms are improved we are going to increase in go forward. RROV 3 weeks. Medications: Changed From prednisone 3 tabs day 1, 2 tabs qd thereafter orally daily; 63 tabs 3RF K52.9 - Noninfective gastroenteritis and colitis, unspecified, R19.5 - Other fecal abnormalities To prednisone 60 mg (3 x 20 mg) PO DAILY 90 tabs 3RF K52.9 - Noninfective gastroenteritis and colitis, unspecified, R19.5 - Other fecal abnormalities Coding Level of Care Code Est Pt Level 3 (70958) Diagnoses Inflammatory bowel disease K52.9 Elevated fecal calprotectin R19.5 Tubular adenoma of colon D12.6 GERD (gastroesophageal reflux disease) K21.9
== END 2024-02-08 09:40 | disposition home or self-care (01) ==
PROVIDERS: PCP Internal Medicine; Visit Provider Nurse Practitioner
DX: K52.9 Noninfective gastroenteritis and colitis, unspecified (principal); R19.5 Other fecal abnormalities; D12.6 Benign neoplasm of colon, unspecified; K21.9 Gastro-esophageal reflux disease without esophagitis
CPT/HCPCS: 99213

== ENCOUNTER → 2024-02-08 08:58 | Outpatient (BNVA) | payer OTHER, SELFPAY | PROVIDERS: PCP Internal Medicine; Visit Provider Nurse Practitioner | DX: K52.9 Noninfective gastroenteritis and colitis, unspecified (principal); K21.9 Gastro-esophageal reflux disease without esophagitis; R19.5 Other fecal abnormalities; D12.6 Benign neoplasm of colon, unspecified | CPT/HCPCS: 99212 ==

== ENCOUNTER 2024-02-29 09:02 | Outpatient (AMB) | payer OTHER, SELFPAY ==
--- NOTE | 2024-02-29 09:08 | A.OFFVIS_ITS ---
Vital Signs 02/29/24 09:13 Height 5 ft 1 in Weight 155 lb 10.342 oz BMI 29.4 BP 140/92 H Blood Pressure Location Lt brachial Position Sitting Pulse 79 Intake Visit Reasons: 3 week follow up Intake Note: Abby presents in office today in fwollow up of abdominal bloating. CC: Patient c/o abdominal bloating and continues feeling very tired. She states that she feels very tired and frustrated that she still not feeling well and does not know what's going. 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 Accompanied by: Self / Same As Patient Allergies gabapentin Allergy (Intermediate, Verified 02/29/24 09:18) inadequate response hydromorphone [From DILAUDID] Allergy (Intermediate, Verified 02/29/24 09:18) RASH lisinopril [LISINOPRIL] Allergy (Intermediate, Verified 02/29/24 09:18) CLOGGED THROAT, shortness of breath, anaphylaxis topiramate Allergy (Intermediate, Verified 02/29/24 09:18) inadequate response HPI HPI 3 week follow up: Details: Assessment & Plan (1) Inflammatory bowel disease: Code(s): K52.9 - Noninfective gastroenteritis and colitis, unspecified Category: Medical (2) Elevated fecal calprotectin: Code(s): R19.5 - Other fecal abnormalities Category: Medical (3) Tubular adenoma of colon: Comment: 12/2023 SCOPE= 1 TA REPEAT IN 5 YEARS Code(s): D12.6 - Benign neoplasm of colon, unspecified Category: Medical (4) GERD (gastroesophageal reflux disease): Code(s): K21.9 - Gastro-esophageal reflux disease without esophagitis Category: Medical Plan She still has pain in the LLQ but diarrhea improved, bloating improved, but pain is not improved. Her bleeding has stopped. So, since she is tolerating the 40mg/dosing of prednisone we will increase it to 60mg /day. She just started the mesalamine 3 days ago. (these were her symptoms in the past:She continues to have severe pain and soreness in the left lower quadrant along with general malaise and subjective fevers. She is now having diarrhea. ) I think we have not had enough time or high enough dose but then some of the symptoms are improved we are going to increase in go forward. RROV 3 weeks. Medications: Changed From prednisone 3 tabs day 1, 2 tabs qd thereafter orally daily; 63 tabs 3RF K52.9 - Noninfective gastroenteritis and colitis, unspecified, R19.5 - Other fecal abnormalities To prednisone 60 mg (3 x 20 mg) PO DAILY 90 tabs 3RF K52.9 - Noninfective gastroenteritis and colitis, unspecified, R19.5 - Other fecal abnormalities TODAY'S VISIT She is not having relief with the mesalamine and the prednisone. She wants to stop it which of course is reasonable. I did let her know that she will be tired if she stops it suddenly and if she wants she can taper it more slowly. She is kind of tired of pills she wants to try a natural tea that fights inflammation; and of course this is fine. I think I am going to get a CT scan to make sure not missing any severe pathology since she continues to have severe bloating especially in the lower abdomen that times she feels like interferes with her breathing. She continues on the Trulance, pantoprazole twice a day and the dicyclomine as needed. We try treating for inflammatory bowel disease because nothing else was working based on the elevated fecal calprotectin. It is possible there something else causing inflammation in the GI system but it does not appear to be responsive to antibiotics, she has had a relatively normal colonoscopy, a negative stool study for infection, and the only food allergy and a RAST panel was too shrimp which she avoids. Return office visit after the CT scan [facility] Medical History Diverticulitis Physical exam LLQ abdominal pain Pre-op examination Small bowel motility disorder Back pain Lumbar pain Snoring Excessive daytime sleepiness Sleep difficulties Obstructive sleep apnea Right leg pain Left leg pain Upper respiratory tract infection Memory loss Cervical strain Right hip pain Tenderness over frontal sinus Left knee pain Arm numbness Left hip pain Left shoulder pain Leg pain Osteoarthritis of lumbar spine Flexor tenosynovitis of finger Rheumatoid factor positive Postmenopausal Generalized anxiety disorder Mild major depression, single episode Fibromyalgia Essential hypertension Meningioma Bicytopenia Dyslipidemia Hypovitaminosis D Chronic idiopathic constipation Polyarthralgia History of herniated intervertebral disc History of partial adherence to treatment Surgical History History of sleeve gastrectomy Hx of colonoscopy Hx of melanoma excision Hx of hernia repair Hx of ovarian cystectomy History of lumbar fusion Hx of section Family History Father Prostate cancer Diabetes mellitus Colon cancer Mother Migraine Arthritis Hypertension Heart disease Emphysema lung CVD (cardiovascular disease) Brother Drug overdose Brother Kvhmrct-Cwltt-Pkkfm disease Sister No problems noted. Sister No problems noted. Son No problems noted. Son No problems noted. Son No problems noted. Daughter No problems noted. Daughter No problems noted. Daughter No problems noted. Family/Other Substance use disorder Social History Household Members: Children Housing: House Are you a primary physician locums urgent care to a significant other at home: No Do you presently have visiting nurse or other home services: No Alcohol intake: current Alcohol intake frequency: does not drink Alcohol type: beer Patient Tobacco Use Status: Never used Tobacco e-Cigarette/Vaping Use: Never Used Second Hand Smoke Exposure: No service: No Current occupational status: disabled Cognitive needs: No Hearing needs: No Vision needs: No Review of Systems Const Denies fatigue, Denies fever(s), Denies night sweats, Denies poor appetite and Denies weight loss ENT Reports Normal hearing present, Denies dental pain, Denies dysphagia, Denies hearing loss, Denies mouth pain, Denies odynophagia, Denies throat swelling, Denies tongue swelling and Reports other (Dentition adequate) Card Reports no additional complaints Resp Reports no additional complaints GI Details: Reports abdominal pain, Denies melena, Reports bloating, Denies hematochezia, Reports constipation, Denies GI cramping, Denies dysphagia, Denies excessive fla tus, Denies early satiety, Reports heartburn, Denies diarrhea, Denies nausea, Denies odynophagia, Denies vomiting and Denies hematemesis Skin/Breast Denies pruritus, Denies lesions, Denies rash and Denies jaundice Neuro Reports Normal hearing present and Denies Abnormal speech present Endo Denies fatigue Aller/Immun Denies throat swelling and Denies tongue swelling Physical Exam Vital Signs: Last Vital Signs Pulse 79 02/29/24 09:13 BP 140/92 H 02/29/24 09:13 BMI result Body Mass Index 29.4 Const General: cooperative, no acute distress, well developed and well groomed Nutritional Appearance: well nourished and overweight Orientation/consciousness: oriented to person, oriented to place and oriented to time Limitations: No language barrier HEENT Head: Yes normocephalic and Yes atraumatic Eyes General: appearance normal, both eyes and all related structures Pupils: Equal, round and reactive pupils present Neck Neck: Yes normal visual inspection and Yes no lymphadenopathy Thyroid: Thyroid normal Resp Effort & Inspection: normal respiratory effort and able to speak in complete sentences Auscultation: clear to auscultation bilaterally Cardio Rate: regular rate Rhythm: regular rhythm Heart sounds: Normal, physiologic split S2 sound present Peripheral pulses: radial pulses present and posterior tibial pulses present GI Inspection: Yes distended, No Abdominal panniculus present and Yes obesity Palpation (GI): Soft to palpation, Tenderness to palpation present (GI) periumbilically, no guarding, not rigid and No hepatosplenomegaly present Percussion: Yes normal to percussion Auscultation: normal bowel sounds Rectal Exam - Female: deferred Skin General skin exam: no rashes or lesions noted, turgor normal, skin not dry, no jaundice, No spider nevi and no striae Rashes: no rashes Nails: normal Neuro General: oriented to person, oriented to place and oriented to time Cranial nerves: Yes Equal, round and reactive pupils present and Yes Normal hearing present Speech: No Abnormal speech present Extrem General: Yes normal to inspection, No clubbing, No cyanosis and No edema Psych Appearance: grossly normal and well kempt Mental Status: mental status grossly normal Speech and movement: Normal speech and movement present Affect: normal affect Attitude: cooperative Thought process: Normal thought process present and not confabulating Thought content: Normal thought content present Insight: Limited insight present (Psych) Judgement: Limited judgement present (Psych) Assessment & Plan Assessment & Plan (1) Inflammatory bowel disease: Code(s): K52.9 - Noninfective gastroenteritis and colitis, unspecified Category: Medical (2) Elevated fecal calprotectin: Code(s): R19.5 - Other fecal abnormalities Category: Medical (3) GERD (gastroesophageal reflux disease): Code(s): K21.9 - Gastro-esophageal reflux disease without esophagitis Category: Medical (4) Abdominal pain: Code(s): R10.9 - Unspecified abdominal pain Category: Medical Plan She is not having relief with the mesalamine and the prednisone. She wants to stop it which of course is reasonable. I did let her know that she will be tired if she stops it suddenly and if she wants she can taper it more slowly. She is kind of tired of pills she wants to try a natural tea that fights infla mmation; and of course this is fine. I think I am going to get a CT scan to make sure not missing any severe pathology since she continues to have severe bloating especially in the lower abdomen that times she feels like interferes with her breathing. She continues on the Trulance, pantoprazole twice a day and the dicyclomine as needed. We try treating for inflammatory bowel disease because nothing else was working based on the elevated fecal calprotectin. It is possible there something else causing inflammation in the GI system but it does not appear to be responsive to antibiotics, she has had a relatively normal colonoscopy, a negative stool study for infection, and the only food allergy and a RAST panel was too shrimp which she avoids. Return office visit after the CT scan Orders: Orders CT abdomen pelvis w IV con Today R10.9 - Unspecified abdominal pain Coding Level of Care Code Est Pt Level 3 (82481) Diagnoses Inflammatory bowel disease K52.9 Elevated fecal calprotectin R19.5 GERD (gastroesophageal reflux disease) K21.9 Abdominal pain R10.9
[2024-02-29 09:13] VITALS: BP 140/92; PULSE 79; BMI 29.4
== END 2024-02-29 09:51 | disposition home or self-care (01) ==
PROVIDERS: PCP Internal Medicine; Visit Provider Nurse Practitioner
DX: K52.9 Noninfective gastroenteritis and colitis, unspecified (principal); R19.5 Other fecal abnormalities; K21.9 Gastro-esophageal reflux disease without esophagitis; R10.9 Unspecified abdominal pain
CPT/HCPCS: 99213

== ENCOUNTER → 2024-02-29 09:02 | Outpatient (BNVA) | payer OTHER, SELFPAY | PROVIDERS: PCP Internal Medicine; Visit Provider Nurse Practitioner | DX: K52.9 Noninfective gastroenteritis and colitis, unspecified (principal); K21.9 Gastro-esophageal reflux disease without esophagitis; R14.0 Abdominal distension (gaseous); R53.83 Other fatigue; R19.5 Other fecal abnormalities; R10.9 Unspecified abdominal pain | CPT/HCPCS: 99212 ==

== ENCOUNTER 2024-03-05 12:56 | Outpatient (AMB) | payer OTHER, SELFPAY ==
--- NOTE | 2024-03-05 13:14 | A.SPINEOV_ITS ---
Intake Visit Reasons: Discuss CT results Intake Note: Ms. Leonardo is here to Discuss CT results. 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 This shows she has severe disc degeneration from C4-C7. Dr. Lee was considering just doing C4-5 as a starting point. On the CT scan it looks like this level may already have auto fused. I will need to review with Dr. Das to get his opinion. I do not see auto fusion at the C5-6 and C6-7 levels, just anterior osteophytes. There is no instability seen on the x-rays. I explained to her that she has in a somewhat complicated situation in that she has severe degeneration at 3 levels of her spine and for treatment of strictly neck pain, this would generally be a 3 level anterior cervical fusion. The surgery itself could give her neck pain simply from the fusion of the 3 segments and put her risk for adjacent segment disease. At this point, she has not sure if the pain is bad enough that she wants to undergo an operation. I explained to her that we would typically only perform an operation for neck pain if the pain was so severe that it was debilitating and life altering. So far right now, she just wants to watch it see how things go. In the interim though I will review the films with Dr. Das to see if he has an opinion about what the best surgical approach would be if she comes back down the road and her pain escalates. Total amount of time spent in this visit was 20 minutes in discussion of symptoms, CT and x-ray imaging results and subsequent plan of care Jovanny Das MD,PhD [facility] Coding Level of Care Code Est Pt Level 3 (47971) Diagnoses Cervicalgia M54.2
== END 2024-03-05 14:04 | disposition home or self-care (01) ==
PROVIDERS: PCP Internal Medicine; Visit Provider Physician Assistant
DX: M54.2 Cervicalgia (principal)
CPT/HCPCS: 99213

== ENCOUNTER → 2024-03-05 12:56 | Outpatient (BNVA) | payer OTHER, SELFPAY | PROVIDERS: PCP Internal Medicine; Visit Provider Physician Assistant | DX: M50.321 Other cervical disc degeneration at C4-C5 level (principal); M50.322 Other cervical disc degeneration at C5-C6 level; M50.323 Other cervical disc degeneration at C6-C7 level | CPT/HCPCS: 99212 ==

== ENCOUNTER 2024-03-21 07:41 | Outpatient (AMB) | payer OTHER, SELFPAY ==
--- NOTE | 2024-03-21 07:53 | A.OFFPC_ITS ---
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 Accompanied by: Self / Same As Patient Allergies gabapentin Allergy (Intermediate, Verified 03/21/24 08:26) inadequate response hydromorphone [From DILAUDID] Allergy (Intermediate, Verified 03/21/24 08:26) RASH lisinopril [LISINOPRIL] Allergy (Intermediate, Verified 03/21/24 08:26) CLOGGED THROAT, shortness of breath, anaphylaxis topiramate Allergy (Intermediate, Verified 03/21/24 08:26) inadequate response Medication List - Last Reconciled 03/21/24 by Quynh Fried MD amlodipine 5 mg PO BID 90 days back brace As directed bisacodyl 10 mg (2 x 5 mg) PO BEDTIME 90 days blood pressure test kit-small As directed cholecalciferol (vitamin D3) 25 mcg PO DAILY dicyclomine 20 mg PO TID PRN [elevating leg wedge As directed] estradiol 0.01%(0.1mg/gram) vaginal [handheld shower As directed] hydrochlorothiazide 25 mg PO DAILY ibuprofen 800 mg PO Q8H PRN 30 days magnesium oxide 400 mg PO BEDTIME 30 days pantoprazole 40 mg PO BID plecanatide (Trulance) 3 mg PO DAILY prednisone 60 mg (3 x 20 mg) PO DAILY simethicone 180 mg PO QID 30 days [wedge pillow As directed] Tobacco use date assessed: 09/14/23 Dental Screening Dental Screen Date: 11/17/23 HPI HPI Comments History of Present Illness Details This is a 58-year-old female with hypertension and lumbar degenerative disc disease that complains of difficulty swallowing liquids that started few weeks ago. Barium swallow will be ordered. Blood pressure elevated today and I will change hydrochlorothiazide to spironolactone. Blood pressure will be recheck in 3 weeks by nurse navigator. Has chronic low back pain due to lumbar degenerative disc disease and needs a shower chair due to that matter to avoid falling. Complains of a right foot mass and an x-ray will be ordered. Also has bilateral heel pain when in bed. Complains of some memory loss and is currently follow by Neurology which has a follow-up in May. MRI of the brain done in August of this year shows no changes with her meningioma. She also has urinary incontinence when coughing and laughing and will benefit from incontinence liner pads. Was advised to do Kegel exercises. [facility] Medical History (Updated 03/21/24 @ 08:43 by Quynh Fried MD) Right hip pain Diverticulitis Physical exam LLQ abdominal pain Pre-op examination Small bowel motility disorder Back pain Lumbar pain Snoring Excessive daytime sleepiness Sleep difficulties Obstructive sleep apnea Right leg pain Left leg pain Upper respiratory tract infection Memory loss Cervical strain Tenderness over frontal sinus Left knee pain Arm numbness Left hip pain Left shoulder pain Leg pain Osteoarthritis of lumbar spine Flexor tenosynovitis of finger Rheumatoid factor positive Postmenopausal Generalized anxiety disorder Mild major depression, single episode Fibromyalgia Essential hypertension Meningioma Bicytopenia Dyslipidemia Hypovitaminosis D Chronic idiopathic constipation Polyarthralgia History of herniated intervertebral disc History of partial adherence to treatment Surgical History History of sleeve gastrectomy Hx of colonoscopy Hx of melanoma excision Hx of hernia repair Hx of ovarian cystectomy History of lumbar fusion Hx of section Family History Father Prostate cancer Diabetes mellitus Colon cancer Mother Migraine Arthritis Hypertension Heart disease Emphysema lung CVD (cardiovascular disease) Brother Drug overdose Brother Evwltrv-Gvojo-Llgey disease Sister No problems noted. Sister No problems noted. Son No problems noted. Son No problems noted. Son No problems noted. Daughter No problems noted. Daughter No problems noted. Daughter No problems noted. Family/Other Substance use disorder Social History Household Members: Children Housing: House Are you a primary managed care nurse to a significant other at home: No Do you presently have visiting nurse or other home services: No Alcohol intake: current Alcohol intake frequency: does not drink Alcohol type: beer Patient Tobacco Use Status: Never used Tobacco e-Cigarette/Vaping Use: Never Used Second Hand Smoke Exposure: No service: No Current occupational status: disabled Cognitive needs: No Hearing needs: No Vision needs: No Questionnaire Thrive Questionnaire Date Thrive assessed: 09/14/23 MARK ANTHONY-7 AMB Questionnaire MARK ANTHONY-7 Date MARK ANTHONY - 7 assessed: 09/14/23 Source: Developed by Drs. Celso Finney, Josefa Morales, Damion Wood and colleagues, with an educational maria r from [employer]. Review of Systems Const All systems reviewed & are unremarkable except as noted in HPI and below ENT Reports dysphagia Card Denies chest pain at rest, Denies chest pain with activity, Denies edema, Denies irregular heart rhythm, Denies claudication, Denies orthopnea, Denies paroxysmal nocturnal dyspnea and Denies slow heart rate GI Reports dysphagia Reports urinary incontinence Musc Reports back pain and Reports arthralgias Neuro Reports memory loss Psych Reports memory loss Physical exam (Primary Care) Vital Signs: Last Vital Signs BP 138/100 H 03/21/24 07:56 BMI result Body Mass Index 29.5 BMI Assessment/Plan discussion: High BMI High, discussed plan: lifestyle, weight reduction, dietary and physical activity Tobacco/Smoking Status: Tobacco use Status Tobacco use date assessed 09/14/23 03/21/24 07:55 Patient Tobacco Use Status Never used Tobacco 03/21/24 07:55 e-Cigarette/Vaping Use Never Used 03/21/24 07:55 Thrive Assessment: Date of Thrive Assessment Date Thrive assessed 09/14/23 03/21/24 07:55 Resp Effort & Inspection: normal respiratory effort Auscultation: clear to auscultation bilaterally Cardio Jugular venous distension: no JVD Rate: regular rate Rhythm: regular rhythm Heart sounds: S1 normal heart sound present and S2 normal heart sound present Assessment and Plan Assessment & Plan (1) Essential hypertension: Code(s): I10 - Essential (primary) hypertension Plan: Continue amlodipine. Discontinue hydrochlorothiazide. Start spironolactone. Blood pressure goal is equal or less than 130/80. Recheck blood pressure with nurse navigator in 3 weeks. (2) Lumbar degenerative disc disease: Code(s): M51.36 - Other intervertebral disc degeneration, lumbar region Plan: Advised to use shower chair to avoid falling. (3) Primary stress urinary incontinence: Code(s): N39.3 - Stress incontinence (female) (male) Plan: Needs incontinence liner pads. Was instructed to do Kegel exercises. (4) Difficulty swallowing: Code(s): R13.10 - Dysphagia, unspecified Plan: Barium swallow ordered. Orders: Orders XR foot RT 2V Today R22.41 - Localized swelling, mass and lump, right lower limb FL barium swallow Today R13.10 - Dysphagia, unspecified XR hip RT min 2V Today M25.551 - Pain in right hip XR foot LT 2V Today M79.672 - Pain in left foot Medications: New spironolactone 25 mg PO DAILY 90 tabs 1RF 90 days I10 - Essential (primary) hypertension incontinence pad, liner, disp Use 1 lincer four times a day prn 120 ea 11RF N39.3 - Stress incontinence (female) (male) blood pressure test kit-medium ([employer] Blood Pressure kit) As directed 1 ea 0RF I10 - Essential (primary) hypertension Shower Chair As directed 1 ea 0RF M51.36 - Other intervertebral disc degeneration, lumbar region Coding Level of Care Code Est Pt Level 4 (90217) Complex EM visit Add On G2211 Diagnoses Essential hypertension I10 Lumbar degenerative disc disease M51.36 Primary stress urinary incontinence N39.3 Difficulty swallowing R13.10 Time Spent (min) 25
[2024-03-21 07:56] VITALS: BP 138/100; BMI 29.5
[2024-03-21 09:03] VITALS: BP 140/100
== END 2024-03-21 08:49 | disposition home or self-care (01) ==
PROVIDERS: PCP Internal Medicine; Visit Provider Internal Medicine
DX: I10 Essential (primary) hypertension (principal); M51.36 Other intervertebral disc degeneration, lumbar region; N39.3 Stress incontinence (female) (male); R13.10 Dysphagia, unspecified
CPT/HCPCS: 99214; G2211

== ENCOUNTER 2024-03-21 08:57 | Outpatient (REF) | payer OTHER, SELFPAY ==
--- NOTE | ~2024-03-21 | XR_ITS ---
EXAMINATION: XR HIP, RIGHT CLINICAL INFORMATION: Right hip pain. COMPARISON: Right hip radiographs dated 09/14/2023. TECHNIQUE: 2 views of the right hip. FINDINGS: No acute fracture or dislocation. Mild right hip joint space narrowing with small marginal osteophytes. No osseous erosion. No evidence of avascular necrosis. Essure device and phleboliths within the pelvis. XR/XR hip RT min 2V IMPRESSION: Mild right hip osteoarthritis.
--- NOTE | ~2024-03-21 | XR_ITS ---
EXAMINATION: XR FOOT, RIGHT XR FOOT, LEFT CLINICAL INFORMATION: Pain and swelling. COMPARISON: None available. TECHNIQUE: AP, oblique, and lateral views of the right and left foot. FINDINGS: RIGHT FOOT: No acute fracture or dislocation. No joint space narrowing or marginal osteophytes. Accessory ossicle adjacent to the cuboid. No concerning lytic or blastic osseous lesion. Plantar and dorsal calcaneal spurs. LEFT FOOT: No acute fracture or dislocation. No joint space narrowing or marginal osteophytes. Accessory ossicle adjacent to the cuboid. No concerning lytic or blastic osseous lesion. Plantar and dorsal calcaneal spurs. XR/XR foot RT 2V IMPRESSION: RIGHT FOOT: No acute osseous abnormality. Plantar and dorsal calcaneal spurs. LEFT FOOT: No acute osseous abnormality. Plantar and dorsal calcaneal spurs.
--- NOTE | ~2024-03-21 | XR_ITS ---
EXAMINATION: XR FOOT, RIGHT XR FOOT, LEFT CLINICAL INFORMATION: Pain and swelling. COMPARISON: None available. TECHNIQUE: AP, oblique, and lateral views of the right and left foot. FINDINGS: RIGHT FOOT: No acute fracture or dislocation. No joint space narrowing or marginal osteophytes. Accessory ossicle adjacent to the cuboid. No concerning lytic or blastic osseous lesion. Plantar and dorsal calcaneal spurs. LEFT FOOT: No acute fracture or dislocation. No joint space narrowing or marginal osteophytes. Accessory ossicle adjacent to the cuboid. No concerning lytic or blastic osseous lesion. Plantar and dorsal calcaneal spurs. XR/XR foot LT 2V IMPRESSION: RIGHT FOOT: No acute osseous abnormality. Plantar and dorsal calcaneal spurs. LEFT FOOT: No acute osseous abnormality. Plantar and dorsal calcaneal spurs.
== END 2024-03-21 08:58 | disposition home or self-care (01) ==
LOC: HO.LAB 08:57
PROVIDERS: PCP Internal Medicine; Visit Provider Internal Medicine
DX: M25.551 Pain in right hip (principal); R22.41 Localized swelling, mass and lump, right lower limb; M79.672 Pain in left foot; R13.10 Dysphagia, unspecified
CPT/HCPCS: 73502; 73620

== ENCOUNTER 2024-04-03 08:42 | Outpatient (AMB) | payer OTHER, SELFPAY ==
--- NOTE | 2024-04-03 08:45 | AM.OFFWIN_ITS ---
Intake Vital Signs 04/03/24 08:46 Height 5 ft 1 in Weight 156 lb BMI 29.5 BP 158/98 H Blood Pressure Location Lt brachial Position Sitting Pulse 84 Pulse Source Pulse Oximeter Temp 98.8 F Temp Source Oral Pulse Oximetry (%) 98 Oxygen Delivery Method Room Air Intake Visit Reasons: EP Lower back pain Intake Note: pt c/o upper back pain. Hard to get up. Started 3-4 days ago` Patient Tobacco Use Status: Never used Tobacco Allergies gabapentin Allergy (Intermediate, Verified 04/03/24 08:45) inadequate response hydromorphone [From DILAUDID] Allergy (Intermediate, Verified 04/03/24 08:45) RASH lisinopril [LISINOPRIL] Allergy (Intermediate, Verified 04/03/24 08:45) CLOGGED THROAT, shortness of breath, anaphylaxis topiramate Allergy (Intermediate, Verified 04/03/24 08:45) inadequate response Do you need a note to return to daycare/school/sports/work: No HPI HPI Comments History of Present Illness Details 58 y/o female patient who presents to [facility] in clinic with c/o Upper back pain for 4 days. Denies any injury or trauma to the back. Denies urinary or bowel problems. [facility] Medical History (Updated 03/21/24 @ 08:43 by Quynh Fried MD) Right hip pain Diverticulitis Physical exam LLQ abdominal pain Pre-op examination Small bowel motility disorder Back pain Lumbar pain Snoring Excessive daytime sleepiness Sleep difficulties Obstructive sleep apnea Right leg pain Left leg pain Upper respiratory tract infection Memory loss Cervical strain Tenderness over frontal sinus Left knee pain Arm numbness Left hip pain Left shoulder pain Leg pain Osteoarthritis of lumbar spine Flexor tenosynovitis of finger Rheumatoid factor positive Postmenopausal Generalized anxiety disorder Mild major depression, single episode Fibromyalgia Essential hypertension Meningioma Bicytopenia Dyslipidemia Hypovitaminosis D Chronic idiopathic constipation Polyarthralgia History of herniated intervertebral disc History of partial adherence to treatment Surgical History History of sleeve gastrectomy Hx of colonoscopy Hx of melanoma excision Hx of hernia repair Hx of ovarian cystectomy History of lumbar fusion Hx of section Family History Father Prostate cancer Diabetes mellitus Colon cancer Mother Migraine Arthritis Hypertension Heart disease Emphysema lung CVD (cardiovascular disease) Brother Drug overdose Brother Avguell-Ucmvr-Dkonp disease Sister No problems noted. Sister No problems noted. Son No problems noted. Son No problems noted. Son No problems noted. Daughter No problems noted. Daughter No problems noted. Daughter No problems noted. Family/Other Substance use disorder Social History Household Members: Children Housing: House Are you a primary child care associate teacher to a significant other at home: No Do you presently have visiting nurse or other home services: No Alcohol intake: current Alcohol intake frequency: does not drink Alcohol type: beer Patient Tobacco Use Status: Never used Tobacco e-Cigarette/Vaping Use: Never Used Second Hand Smoke Exposure: No service: No Current occupational status: disabled Cognitive needs: No Hearing needs: No Vision needs: No Review of Systems Const All systems reviewed & are unremarkable except as noted in HPI and below Physical Exam Vital Signs: Last Vital Signs Temp 98.8 F 04/03/24 08:46 Pulse 84 04/03/24 08:46 BP 158/98 H 04/03/24 08:46 Pulse Ox 98 04/03/24 08:46 Oxygen Delivery Method Room Air 04/03/24 08:46 BMI result Body Mass Index 29.5 Const General: comfortable and no acute distress Nutritional Appearance: overweight Orientation/consciousness: patient oriented x3 Resp Effort & Inspection: normal respiratory effort Auscultation: clear to auscultation bilaterally General: Yes no CVA tenderness Back/Spine/Pelvis Back: no CVA tenderness Cervical Spine: cervical muscular tenderness Thoracic/Lumbar Spine: thoraco-lumbar ROM limited (Due to pain) and thoracic spinal tenderness at T2 and at T3 Skin General skin exam: no rashes or lesions noted Neuro General: patient oriented x3, gait normal and moves all extremities Psych Speech and movement: Normal speech and movement present Assessment & Plan Assessment & Plan (1) Trapezius muscle spasm: Code(s): M62.838 - Other muscle spasm Plan: IceHot NSAIDs for pain relief. Medications: New acetaminophen 1,000 mg (2 x 500 mg) PO Q6H PRN 30 caps 0RF pain M54.50 - Low back pain, unspecified lidocaine 5% leave on most painful area for up to 12 hrs 1 patch topical DAILY 30 ea 0RF M62.838 - Other muscle spasm metaxalone 800 mg PO TID 20 tabs 0RF M62.838 - Other muscle spasm Coding Level of Care Code Est Pt Level 3 (79163) Diagnoses Trapezius muscle spasm M62.838 Time Spent (min) 15
[2024-04-03 08:46] VITALS: BP 158/98; PULSE 84; TEMP 37.1; O2SAT 98; BMI 29.5
== END 2024-04-03 09:01 | disposition home or self-care (01) ==
PROVIDERS: PCP Internal Medicine; Visit Provider Nurse Practitioner Family
DX: M62.838 Other muscle spasm (principal)
CPT/HCPCS: 99213

== ENCOUNTER 2024-04-03 12:49 | Outpatient (AMB) | payer OTHER, SELFPAY ==
--- NOTE | 2024-04-03 12:51 | A.OFFVIS_ITS ---
VS Expanded 04/03/24 13:01 BP 135/80 Blood Pressure Location Rt brachial Blood Pressure Position Sitting Pulse 93 Pulse Source Pulse Oximeter Temp 97.1 F Temperature Source Temporal Artery Scan Pulse Oximetry 98 Oxygen Delivery Method Room Air Height 5 ft 1 in Weight 156 lb 6.4 oz BMI 29.5 Body Fat % 46.5 Body Fat Mass 53.6 Fat Free Mass 102.8 Visceral Fat Rating 8.0 Body Water % 46.5 Body Water Mass 72.8 Muscle Mass/Score 97.4 Basal Metabolic Rate/Score 1,391 Intake Visit Reasons: OV PO LSG 10/01/18 Allergies gabapentin Allergy (Intermediate, Verified 04/03/24 13:05) inadequate response hydromorphone [From DILAUDID] Allergy (Intermediate, Verified 04/03/24 13:05) RASH lisinopril [LISINOPRIL] Allergy (Intermediate, Verified 04/03/24 13:05) CLOGGED THROAT, shortness of breath, anaphylaxis topiramate Allergy (Intermediate, Verified 04/03/24 13:05) inadequate response Medication List - Last Reconciled 04/03/24 by MICAH Hewitt acetaminophen 1,000 mg (2 x 500 mg) PO Q6H PRN amlodipine 5 mg PO BID 90 days bisacodyl 10 mg (2 x 5 mg) PO BEDTIME 90 days blood pressure test kit-medium ([place] Chek Blood Pressure kit) As directed blood pressure test kit-small As directed cholecalciferol (vitamin D3) 25 mcg PO DAILY [elevating leg wedge As directed] estradiol 0.01%(0.1mg/gram) vaginal [handheld shower As directed] ibuprofen 800 mg PO Q8H PRN 30 days incontinence pad, liner, disp Use 1 lincer four times a day prn lidocaine 5% 1 patch topical DAILY magnesium oxide 400 mg PO BEDTIME 30 days metaxalone 800 mg PO TID pantoprazole 40 mg PO BID plecanatide (Trulance) 3 mg PO DAILY Shower Chair As directed spironolactone 25 mg PO DAILY 90 days [wedge pillow As directed] HPI Comments Details: This?is a?58?yo female who is s/p LSG 10/01/2018. Weight gain of 5lbs since last OV in 04/2022.? No complaints of nausea, emesis. Has some abdominal pain related to Crohn's disease. Pt follows with GI. Present meal plan given at last visit includes: breakfast- eggs plus veggies lunch- Ensure protein shake snack- protein bar or [place] yogurt dinner- 3-4oz protein, 3-4oz veggies not always consistent with plan, incorporates 1% milk Exercise routine includes: likes to walk, but limited by pain PFS Medical History (Updated 03/21/24 @ 08:43 by Quynh Fried MD) Right hip pain Diverticulitis Physical exam LLQ abdominal pain Pre-op examination Small bowel motility disorder Back pain Lumbar pain Snoring Excessive daytime sleepiness Sleep difficulties Obstructive sleep apnea Right leg pain Left leg pain Upper respiratory tract infection Memory loss Cervical strain Tenderness over frontal sinus Left knee pain Arm numbness Left hip pain Left shoulder pain Leg pain Osteoarthritis of lumbar spine Flexor tenosynovitis of finger Rheumatoid factor positive Postmenopausal Generalized anxiety disorder Mild major depression, single episode Fibromyalgia Essential hypertension Meningioma Bicytopenia Dyslipidemia Hypovitaminosis D Chronic idiopathic constipation Polyarthralgia History of herniated intervertebral disc History of partial adherence to treatment Surgical History (Updated 04/03/24 @ 13:36 by MICAH Hewitt) History of sleeve gastrectomy Hx of colonoscopy Hx of melanoma excision Hx of hernia repair Hx of ovarian cystectomy History of lumbar fusion Hx of section Family History Father Prostate cancer Diabetes mellitus Colon cancer Mother Migraine Arthritis Hypertension Heart disease Emphysema lung CVD (cardiovascular disease) Brother Drug overdose Brother Vjwrjyl-Aqfij-Jxcfh disease Sister No problems noted. Sister No problems noted. Son No problems noted. Son No problems noted. Son No problems noted. Daughter No problems noted. Daughter No problems noted. Daughter No problems noted. Family/Other Substance use disorder Social History Household Members: Children Housing: House Are you a primary manager progressive care to a significant other at home: No Do you presently have visiting nurse or other home services: No Alcohol intake: current Alcohol intake frequency: does not drink Alcohol type: beer Patient Tobacco Use Status: Never used Tobacco e-Cigarette/Vaping Use: Never Used Second Hand Smoke Exposure: No service: No Current occupational status: disabled Cognitive needs: No Hearing needs: No Vision needs: No Physical Exam Vital Signs: Last Vital Signs Temp 97.1 F 04/03/24 13:01 Pulse 93 04/03/24 13:01 BP 135/80 04/03/24 13:01 Pulse Ox 98 04/03/24 13:01 Oxygen Delivery Method Room Air 04/03/24 13:01 BMI result Body Mass Index 29.5 Assessment & Plan Assessment & Plan (1) Overweight: Code(s): E66.3 - Overweight Category: Medical (2) History of sleeve gastrectomy: Comment: 2019 Code(s): Z90.3 - Acquired absence of stomach [part of] Category: Surgical Plan New meal plan based on what pt can tolerate well- breakfast- 2 eggs, no milk lunch- [place] yogurt snack- protein bar dinner- 4f/4f Walk as much as able for exercise with goal 2000 manju/week burned. RTC 3 months, texted pt and encouraged her to reach out between appts with any concerns. I spent a total of 30 minutes reviewing/updating records, examining the patient and counseling the patient on weight management as detailed above.
[2024-04-03 13:01] VITALS: BP 135/80; PULSE 93; TEMP 36.2; O2SAT 98; BMI 29.5
== END 2024-04-03 13:39 | disposition home or self-care (01) ==
PROVIDERS: PCP Internal Medicine; Visit Provider Physician Assistant Surgical
DX: E66.3 Overweight (principal); Z90.3 Acquired absence of stomach [part of]
CPT/HCPCS: 99214; G2211

== ENCOUNTER → 2024-04-03 12:49 | Outpatient (BNVA) | payer OTHER, SELFPAY | PROVIDERS: PCP Internal Medicine; Visit Provider Physician Assistant Surgical | DX: E66.3 Overweight (principal); Z68.29 Body mass index [BMI] 29.0-29.9, adult; Z90.3 Acquired absence of stomach [part of] | CPT/HCPCS: 99212 ==

== ENCOUNTER 2024-04-16 08:08 | Outpatient (AMB) | payer OTHER, SELFPAY ==
[2024-04-16 08:14] VITALS: BP 138/80; BMI 29.9
--- NOTE | 2024-04-16 08:14 | MHC.PC.OV ---
Vital Signs 04/16/24 08:14 Height 5 ft 1 in Weight 158 lb BMI 29.9 BP 138/80 Blood Pressure Location Lt brachial Position Sitting Intake Visit Reasons: Patsy 04/11 difficulty breathing Spark Plug Tester Required: No Accompanied by: Self / Same As Patient Allergies gabapentin Allergy (Intermediate, Verified 04/16/24 08:27) inadequate response hydromorphone [From DILAUDID] Allergy (Intermediate, Verified 04/16/24 08:27) RASH lisinopril [LISINOPRIL] Allergy (Intermediate, Verified 04/16/24 08:27) CLOGGED THROAT, shortness of breath, anaphylaxis topiramate Allergy (Intermediate, Verified 04/16/24 08:27) inadequate response Medication List - Last Reconciled 04/16/24 by Quynh Fried MD acetaminophen 1,000 mg (2 x 500 mg) PO Q6H PRN amlodipine 5 mg PO BID 90 days bisacodyl 10 mg (2 x 5 mg) PO BEDTIME 90 days blood pressure test kit-medium ([place] Chek Blood Pressure kit) As directed blood pressure test kit-small As directed cholecalciferol (vitamin D3) 25 mcg PO DAILY [elevating leg wedge As directed] estradiol 0.01%(0.1mg/gram) vaginal [handheld shower As directed] ibuprofen 800 mg PO Q8H PRN 30 days incontinence pad, liner, disp Use 1 lincer four times a day prn incontinence pad, liner, disp Use 1 pad three times a day as needed lidocaine 5% 1 patch topical DAILY magnesium oxide 400 mg PO BEDTIME 30 days metaxalone 800 mg PO TID methocarbamol 750 mg PO Q6H pantoprazole 40 mg PO BID plecanatide (Trulance) 3 mg PO DAILY Shower Chair As directed spironolactone 25 mg PO DAILY 90 days [wedge pillow As directed] Tobacco use date assessed: 09/14/23 Dental Screening Dental Screen Date: 11/17/23 HPI HPI Comments History of Present Illness Details This is a 58-year-old female with hypertension that complains of low back pain that has been more prominent for the past 3 weeks. She does have history of lumbar degenerative disc disease and would be interested in local injections. I did refer her to pain management. She also has chest wall pain associated with shortness of breath although clinically is breathing normal. Will order a chest x-ray. Blood pressure stable. Has mild right hip osteoarthritis and bone spurs on foot and I will refer her to Podiatry for this matter. [facility] Medical History (Updated 04/16/24 @ 08:35 by Quynh Fried MD) Right hip pain Diverticulitis Physical exam LLQ abdominal pain Pre-op examination Small bowel motility disorder Back pain Lumbar pain Snoring Excessive daytime sleepiness Sleep difficulties Obstructive sleep apnea Right leg pain Left leg pain Upper respiratory tract infection Memory loss Cervical strain Tenderness over frontal sinus Left knee pain Arm numbness Left hip pain Left shoulder pain Leg pain Osteoarthritis of lumbar spine Flexor tenosynovitis of finger Rheumatoid factor positive Postmenopausal Generalized anxiety disorder Mild major depression, single episode Fibromyalgia Essential hypertension Meningioma Bicytopenia Dyslipidemia Hypovitaminosis D Chronic idiopathic constipation Polyarthralgia History of herniated intervertebral disc History of partial adherence to treatment Surgical History History of sleeve gastrectomy Hx of colonoscopy Hx of melanoma excision Hx of hernia repair Hx of ovarian cystectomy History of lumbar fusion Hx of section Family History Father Prostate cancer Diabetes mellitus Colon cancer Mother Migraine Arthritis Hypertension Heart disease Emphysema lung CVD (cardiovascular disease) Brother Drug overdose Brother Fcylxjt-Ikyyz-Wpcxp disease Sister No problems noted. Sister No problems noted. Son No problems noted. Son No problems noted. Son No problems noted. Daughter No problems noted. Daughter No problems noted. Daughter No problems noted. Family/Other Substance use disorder Social History Household Members: Children Housing: House Are you a primary inspector health care facilities to a significant other at home: No Do you presently have visiting nurse or other home services: No Alcohol intake: current Alcohol intake frequency: does not drink Alcohol type: beer Patient Tobacco Use Status: Never used Tobacco e-Cigarette/Vaping Use: Never Used Second Hand Smoke Exposure: No service: No Current occupational status: disabled Cognitive needs: No Hearing needs: No Vision needs: No Questionnaire Thrive Questionnaire Date Thrive assessed: 09/14/23 MARK ANTHONY-7 AMB Questionnaire MARK ANTHONY-7 Date MARK ANTHONY - 7 assessed: 09/14/23 Source: Developed by Drs. Celso Finney, Josefa Morales, Damion Wood and colleagues, with an educational maria r from [email or web address]. Review of Systems Const All systems reviewed & are unremarkable except as noted in HPI and below Card Denies chest pain at rest, Denies chest pain with activity, Denies edema, Denies irregular heart rhythm, Denies claudication, Denies dyspnea, Denies dyspnea on exertion, Denies orthopnea, Denies paroxysmal nocturnal dyspnea and Denies slow heart rate Resp Denies cough, Denies dyspnea and Denies dyspnea on exertion GI Denies abdominal pain, Denies change in bowel habits, Denies excessive flatus, Denies nausea and Denies vomiting Denies urinary incontinence, Denies urinary hesitancy and Denies urinary urgency Musc Denies abnormal gait, Denies atrophy, Denies deformity and Denies limited range of motion Skin/Breast Denies bleeding lesions, Denies changing lesions and Denies rash Neuro Denies abnormal gait and Denies lack of coordination Physical exam (Primary Care) Vital Signs: Last Vital Signs BP 138/80 04/16/24 08:14 BMI result Body Mass Index 29.9 Tobacco/Smoking Status: Tobacco use Status Tobacco use date assessed 09/14/23 04/16/24 08:17 Patient Tobacco Use Status Never used Tobacco 04/16/24 08:17 e-Cigarette/Vaping Use Never Used 04/16/24 08:17 Thrive Assessment: Date of Thrive Assessment Date Thrive assessed 09/14/23 04/16/24 08:17 Resp Effort & Inspection: normal respiratory effort Auscultation: clear to auscultation bilaterally Cardio Jugular venous distension: no JVD Rate: regular rate Rhythm: regular rhythm Heart sounds: S1 normal heart sound present and S2 normal heart sound present Extrem General: Yes full ROM Assessment and Plan Assessment & Plan (1) Chest wall pain: Code(s): R07.89 - Other chest pain Plan: Chest x-ray ordered. (2) Bone spur of foot: Code(s): M77.50 - Other enthesopathy of unspecified foot and ankle Plan: Referred to Podiatry. (3) Lumbar degenerative disc disease: Code(s): M51.36 - Other intervertebral disc degeneration, lumbar region Plan: Referred to pain management. (4) Essential hypertension: Code(s): I10 - Essential (primary) hypertension Plan: Continue amlodipine and spironolactone. Blood pressure goal is equal or less than 130/80. Orders: Orders XR chest 2V Today R07.89 - Other chest pain Referrals Podiatry Referral M77.50 - Other enthesopathy of unspecified foot and ankle Pain Management Referral M51.36 - Other intervertebral disc degeneration, lumbar region Coding Level of Care Code Est Pt Level 4 (28007) Complex EM visit Add On G2211 Diagnoses Chest wall pain R07.89 Bone spur of foot M77.50 Lumbar degenerative disc disease M51.36 Essential hypertension I10 Time Spent (min) 22
== END 2024-04-16 08:35 | disposition home or self-care (01) ==
PROVIDERS: PCP Internal Medicine; Visit Provider Internal Medicine
DX: R07.89 Other chest pain (principal); M77.50 Other enthesopathy of unspecified foot and ankle; M51.36 Other intervertebral disc degeneration, lumbar region; I10 Essential (primary) hypertension
CPT/HCPCS: 99214; G2211

== ENCOUNTER 2024-04-16 08:39 | Outpatient (REF) | payer OTHER, SELFPAY ==
--- NOTE | ~2024-04-16 | XR_ITS ---
EXAMINATION: XR CHEST CLINICAL INFORMATION: Chest pain COMPARISON: 10/06/2018 TECHNIQUE: 2 views of the chest were obtained. FINDINGS: No significant abnormality is noted involving the heart, lungs, mediastinum, bony thorax or soft tissues. XR/XR chest 2V IMPRESSION: Unremarkable examination. Electronically signed by: Colton Bucio MD 04/24/2024 06:42 PM EDT RP
== END 2024-04-16 08:40 | disposition home or self-care (01) ==
LOC: HO.XRAY 08:39
PROVIDERS: PCP Internal Medicine; Visit Provider Internal Medicine
DX: R07.89 Other chest pain (principal)
CPT/HCPCS: 71046

== ENCOUNTER 2024-04-18 13:19 | Outpatient (REF) | payer OTHER, SELFPAY ==
--- NOTE | ~2024-04-18 | CT_ITS ---
EXAMINATION: CT ABDOMEN AND PELVIS WITH CONTRAST CLINICAL INFORMATION: Abdominal pain COMPARISON: 05/25/2023 TECHNIQUE: Multidetector volumetric images were obtained from the superior aspect of the liver through the pubic symphysis following administration 85 mL of Omnipaque 350 intravenous contrast. Sagittal and coronal reformatted images were obtained on the technologist's workstation. Oral contrast: Yes This CT examination was performed using dose optimization techniques as appropriate, variously including the following: *Automated exposure control *Adjustment of mA and/or kV according to patient size (this includes techniques or standardized protocols for targeted exams where dose is matched to indication/reason for exam; i.e. extremities or head) *Use of iterative reconstruction technique DLP: 384 mGy-cm FINDINGS: LUNG BASES: The visualized lung bases are unremarkable. LIVER, GALLBLADDER, AND BILIARY TREE: The liver is normal in size, shape, and attenuation. Stable hepatic cysts. No biliary ductal dilatation is present. The gallbladder is unremarkable with no evidence of radiopaque gallstones, gallbladder wall thickening, or obvious pericholecystic inflammatory changes. PANCREAS: Unremarkable. SPLEEN: Unremarkable. ADRENAL GLANDS: Unremarkable. KIDNEYS AND URETERS: The kidneys are normal in size, shape, and attenuation. No hydronephrosis, hydroureter, or calculi seen. No perinephric stranding. Focal cortical scarring with subcapsular hypodensity again seen in the left kidney. BLADDER: Unremarkable. GASTROINTESTINAL TRACT: Postsurgical changes along the greater curvature of the stomach. The small and large bowel are unremarkable. The appendix is unremarkable. ABDOMINAL WALL: No significant hernia is appreciated. LYMPH NODES: Normal. VASCULAR: Unremarkable. PELVIC VISCERA: The uterus and adnexa are unremarkable. OSSEOUS STRUCTURES: There are postsurgical changes within the lumbar spine CT/CT abdomen pelvis w IV con IMPRESSION: 1. No acute process. 2. Stable hepatic cysts. 3. Stable cortical scarring with subcapsular hypodensity in the left kidney. 4. Postsurgical changes along the greater curvature of the stomach. Electronically signed by: Colton Bucio MD 04/24/2024 06:42 PM EDT
[2024-04-18 14:09] LABS: Blood Urea Nitrogen 21 mg/dL (9-16); Estimated Glomerular Filt Rate > 60
[2024-04-18] MEDS: iohexoL 350 MG/ML 100 ML INFUS..BTL IV (17:06)
[2024-04-18] MEDS: Barium Sulfate Oral (Vanilla) 450 ML ORAL.SUSP 900 ML PO (17:06)
== END 2024-04-18 13:20 | disposition home or self-care (01) ==
LOC: HO.CT 13:19
PROVIDERS: PCP Internal Medicine; Visit Provider Nurse Practitioner
DX: R10.9 Unspecified abdominal pain (principal); R19.7 Diarrhea, unspecified
CPT/HCPCS: 36415; 74177; 82565; 84520; Q9967

== ENCOUNTER 2024-05-04 08:33 | Outpatient (AMB) | payer OTHER, SELFPAY ==
[2024-05-04 08:51] VITALS: BP 151/81; PULSE 80; O2SAT 98; BMI 30.2
--- NOTE | 2024-05-04 08:51 | A.OFFVIS_ITS ---
Vital Signs 05/04/24 08:51 Height 5 ft 1 in Weight 160 lb BMI 30.2 BP 151/81 H Blood Pressure Location Lt brachial Position Sitting Pulse 80 Pulse Source Pulse Oximeter Pulse Oximetry (%) 98 Oxygen Delivery Method Room Air Intake Visit Reasons: intervertebral disc degeneration Allergies gabapentin Allergy (Intermediate, Verified 05/04/24 08:53) inadequate response hydromorphone [From DILAUDID] Allergy (Intermediate, Verified 05/04/24 08:53) RASH lisinopril [LISINOPRIL] Allergy (Intermediate, Verified 05/04/24 08:53) CLOGGED THROAT, shortness of breath, anaphylaxis topiramate Allergy (Intermediate, Verified 05/04/24 08:53) inadequate response Medication List - Last Reconciled 05/04/24 by Ellen Andres acetaminophen 1,000 mg (2 x 500 mg) PO Q6H PRN amlodipine 5 mg PO BID 90 days bisacodyl 10 mg (2 x 5 mg) PO BEDTIME 90 days blood pressure test kit-medium ([employer] Blood Pressure kit) As directed blood pressure test kit-small As directed cholecalciferol (vitamin D3) 25 mcg PO DAILY [elevating leg wedge As directed] estradiol 0.01%(0.1mg/gram) vaginal [handheld shower As directed] ibuprofen 800 mg PO Q8H PRN 30 days incontinence pad, liner, disp Use 1 lincer four times a day prn incontinence pad, liner, disp Use 1 pad three times a day as needed lidocaine 5% 1 patch topical DAILY magnesium oxide 400 mg PO BEDTIME 30 days metaxalone 800 mg PO TID methocarbamol 750 mg PO Q6H pantoprazole 40 mg PO BID plecanatide (Trulance) 3 mg PO DAILY Shower Chair As directed spironolactone 25 mg PO DAILY 90 days [wedge pillow As directed] HPI Comments Details: Abby is a very pleasant 59-year-old female who presents to the office today for evaluation management of her chronic lower back pain. She has been suffering with this for greater than 20 years. Status post fusion L4-5 performed in 2004. Endorses midline, axial back pain worse with bending, twisting, movement Denies radiation down either lower extremity Endorses tenderness to palpation of her entire back Patient has completed physical therapy with no improvement of her symptoms Trialed massage without improvement. She has been given multiple medications to assist with her pain though not help including muscle relaxers, Lyrica, opioid medications, nonsteroidal anti- inflammatory medications, Tylenol, prednisone. No improvement with heat or ice. No recent imaging available for review Denies red flag symptoms including new loss of bowel, bladder or saddle anesthesia. Pain today is rated as a 10/10, constant throughout the day. In terms of muscle damage condition is described as stabbing, sharp, hot, dull, tight, sore, hurting, aching Pain is negatively impacting patient's enjoyment of life, general activity, sleep, walking, ability to care for herself, relationships with peopl She is currently under care of neurosurgery for her cervical spine, surgery pending Denies implantable devices, pacemaker or defibrillator Denies current use of anticoagulants Denies current use of nicotine, tobacco, alcohol or illicit substances [facility] Medical History (Updated 05/04/24 @ 09:27 by Daniela Sanders, SECURITY INTELLIGENCE ANALYST, CARD FILER) Right hip pain Diverticulitis Physical exam LLQ abdominal pain Pre-op examination Small bowel motility disorder Back pain Lumbar pain Snoring Excessive daytime sleepiness Sleep difficulties Obstructive sleep apnea Right leg pain Left leg pain Upper respiratory tract infection Memory loss Cervical strain Tenderness over frontal sinus Left knee pain Arm numbness Left hip pain Left shoulder pain Leg pain Osteoarthritis of lumbar spine Flexor tenosynovitis of finger Rheumatoid factor positive Postmenopausal Generalized anxiety disorder Mild major depression, single episode Fibromyalgia Essential hypertension Meningioma Bicytopenia Dyslipidemia Hypovitaminosis D Chronic idiopathic constipation Polyarthralgia History of herniated intervertebral disc History of partial adherence to treatment Surgical History History of sleeve gastrectomy Hx of colonoscopy Hx of melanoma excision Hx of hernia repair Hx of ovarian cystectomy History of lumbar fusion Hx of section Family History Father Prostate cancer Diabetes mellitus Colon cancer Mother Migraine Arthritis Hypertension Heart disease Emphysema lung CVD (cardiovascular disease) Brother Drug overdose Brother Flafjvm-Ubgvi-Alhoa disease Sister No problems noted. Sister No problems noted. Son No problems noted. Son No problems noted. Son No problems noted. Daughter No problems noted. Daughter No problems noted. Daughter No problems noted. Family/Other Substance use disorder Social History Household Members: Children Housing: House Are you a primary career resource technician to a significant other at home: No Do you presently have visiting nurse or other home services: No Alcohol intake: current Alcohol intake frequency: does not drink Alcohol type: beer Patient Tobacco Use Status: Never used Tobacco e-Cigarette/Vaping Use: Never Used Second Hand Smoke Exposure: No service: No Current occupational status: disabled Cognitive needs: No Hearing needs: No Vision needs: No Review of Systems Const All systems reviewed & are unremarkable except as noted in HPI and below Physical Exam Vital Signs: Last Vital Signs Pulse 80 05/04/24 08:51 BP 151/81 H 05/04/24 08:51 Pulse Ox 98 05/04/24 08:51 Oxygen Delivery Method Room Air 05/04/24 08:51 BMI result Body Mass Index 30.2 General: awake, alert, oriented. Answers questions appropriately. Fully engaged in examination. Skin: warm, dry, intact HEENT: Normocephalic. Hearing intact. Cardiac: External chest normal in appearance. Respiratory: No cough, audible wheezing or stridor. Abdomen: without gross distension. MS: No obvious swelling or deformities. Able to stand on bilateral tiptoes and bilateral heels.? Able to transition from sit to stand unassisted. Ambulates with bilaterally normal heel strike and toe off SLR negative bilaterally Tender to palpation midline lumbar vertebrae and lumbar paraspinal muscles Bilateral lower extremity strength 5/5 Negative footdrop, negative clonus Well-healed surgical scar over midline lumbar area Significantly decreased range of motion secondary to pain, forward flexion to 40 degrees, extension to 5 degrees Nontender over bilateral PSIS Neurological: Oriented to person, place, time and situation. Thought process intact. No gait abnormalities appreciated. Psychiatric: Appropriate mood and affect. Good judgment and insight. Results Reviewed Results Reviewed: 07/16/2020 XR/XR lumbar spine 4V min EXAMINATION: XR LUMBOSACRAL SPINE WITH OBLIQUES CLINICAL INFORMATION: Low back pain, history of posterior fusion. COMPARISON: CT scan of the abdomen and pelvis dated 04/28/2018. TECHNIQUE: AP, both oblique, and lateral views of the lumbar spine. Lateral view of the lumbosacral junction. FINDINGS: Mild to moderate multilevel degenerative disc disease is seen, most pronounced at L5-S1. The patient is status post posterior fusion at L4-L5 with bilateral pedicle screws and posterior fixation rods intact. A retained screw is seen on the right at S1 without surrounding abnormality. A disc spacer at L4-5 appears intact. The vertebral bodies are intact. The soft tissues are unremarkable. Essure devices overlie the pelvis. IMPRESSION: Multilevel degenerative changes. Posterior fusion hardware appears intact without overt abnormality. Assessment & Plan Assessment & Plan (1) Lumbar spondylosis: Code(s): M47.816 - Spondylosis without myelopathy or radiculopathy, lumbar region Category: Medical (2) Post laminectomy syndrome: Code(s): M96.1 - Postlaminectomy syndrome, not elsewhere classified Category: Medical Plan Patient presented to the office today for evaluation management of her chronic lower back pain She is suffering from lumbar degenerative disc disease and post-laminectomy syndrome. Failed greater than 6 months conservative therapy including PT, massage, heat, ice, prescription medications, nonsteroidal anti-inflammatory medications, [id number] medications movement of her symptoms X-ray ordered for evaluation Patient initially was interested in injections, lengthy discussion with the patient that access to facet joints would be difficult secondary to her surgical hardware. Discussed in length spinal cord stimulator trial/implant. Patient is given a pamphlet for review. She is undecided at this time but will review and call the office if she would like to proceed. TENS unit ordered. Patient was given instructions for use and information pamphlet. Discussed options for treatment with medications, patient adamantly declines as she does not want to take anymore pills. All questions and concerns were answered, patient agrees to the plan. She will call the office if she wishes to proceed with spinal cord stimulator trial. Orders: Orders XR lumbar spine 4V min Today M47.816 - Spondylosis without myelopathy or radiculopathy, lumbar region, M96.1 - Postlaminectomy syndrome, not elsewhere classified Coding Level of Care Code New Pt Level 4 (93929) Complex EM visit Add On G2211 Diagnoses Lumbar spondylosis M47.816 Post laminectomy syndrome M96.1
== END 2024-05-04 09:20 | disposition home or self-care (01) ==
PROVIDERS: PCP Internal Medicine; Referring Provider Internal Medicine; Visit Provider Registered Nurse Emergency
DX: M47.816 Spondylosis without myelopathy or radiculopathy, lumbar region (principal); M96.1 Postlaminectomy syndrome, not elsewhere classified
CPT/HCPCS: 99204; G2211

== ENCOUNTER → 2024-05-04 08:33 | Outpatient (BNVA) | payer OTHER, SELFPAY | PROVIDERS: PCP Internal Medicine; Visit Provider Registered Nurse Emergency | DX: M47.816 Spondylosis without myelopathy or radiculopathy, lumbar region (principal); M96.1 Postlaminectomy syndrome, not elsewhere classified | CPT/HCPCS: 99202 ==

== ENCOUNTER 2024-05-17 10:42 | Outpatient (AMB) | payer OTHER, SELFPAY ==
--- NOTE | 2024-05-17 10:48 | A.OFFVIS_ITS ---
Vital Signs 05/17/24 10:53 Height 5 ft 1 in Weight 160 lb BMI 30.2 Intake Visit Reasons: Newprob-primary osteoarthritis, right hip Intake Note: Abby a 59 year old female who presents today for an evaluation of right hip pain. Patient reports her pain has been present for about a year. NO previous tx. Her pain is constant and is located at the lateral aspect of hip and travels down to her leg as well as numbness or tingling. No relief with Tylenol or Motrin. Hx of left hip surgery. Allergies gabapentin Allergy (Intermediate, Verified 05/17/24 10:49) inadequate response hydromorphone [From DILAUDID] Allergy (Intermediate, Verified 05/17/24 10:49) RASH lisinopril [LISINOPRIL] Allergy (Intermediate, Verified 05/17/24 10:49) CLOGGED THROAT, shortness of breath, anaphylaxis topiramate Allergy (Intermediate, Verified 05/17/24 10:49) inadequate response HPI HPI Newprob-primary osteoarthritis, right hip: Details: 59-year-old female presents to the office today for right hip pain for approximately 1 year. She denies injury. She states the pain starts the low back region which wraps around to the lateral aspect of the hip. She denies numbness or tingling. She denies groin pain. She states she does have pain when she lies on that side. No treatment to date. [facility] Medical History (Updated 05/17/24 @ 11:19 by Ian Sampson PA-C) Right hip pain Diverticulitis Physical exam LLQ abdominal pain Pre-op examination Small bowel motility disorder Back pain Lumbar pain Snoring Excessive daytime sleepiness Sleep difficulties Obstructive sleep apnea Right leg pain Left leg pain Upper respiratory tract infection Memory loss Cervical strain Tenderness over frontal sinus Left knee pain Arm numbness Left hip pain Left shoulder pain Leg pain Osteoarthritis of lumbar spine Flexor tenosynovitis of finger Rheumatoid factor positive Postmenopausal Generalized anxiety disorder Mild major depression, single episode Fibromyalgia Essential hypertension Meningioma Bicytopenia Dyslipidemia Hypovitaminosis D Chronic idiopathic constipation Polyarthralgia History of herniated intervertebral disc History of partial adherence to treatment Surgical History History of sleeve gastrectomy Hx of colonoscopy Hx of melanoma excision Hx of hernia repair Hx of ovarian cystectomy History of lumbar fusion Hx of section Family History Father Prostate cancer Diabetes mellitus Colon cancer Mother Migraine Arthritis Hypertension Heart disease Emphysema lung CVD (cardiovascular disease) Brother Drug overdose Brother Jqnrjwx-Ruefd-Vqywx disease Sister No problems noted. Sister No problems noted. Son No problems noted. Son No problems noted. Son No problems noted. Daughter No problems noted. Daughter No problems noted. Daughter No problems noted. Family/Other Substance use disorder Social History Household Members: Children Housing: House Are you a primary career development manager to a significant other at home: No Do you presently have visiting nurse or other home services: No Alcohol intake: current Alcohol intake frequency: does not drink Alcohol type: beer Patient Tobacco Use Status: Never used Tobacco e-Cigarette/Vaping Use: Never Used Second Hand Smoke Exposure: No service: No Current occupational status: disabled Cognitive needs: No Hearing needs: No Vision needs: No Review of Systems Const All systems reviewed & are unremarkable except as noted in HPI and below Physical Exam Vital Signs: BMI result Body Mass Index 30.2 Const General: cooperative and no acute distress Orientation/consciousness: patient oriented x3 Resp Effort & Inspection: normal respiratory effort and able to speak in complete sentences Cardio Peripheral pulses: Peripheral pulses 2+ throughout Neuro General: patient oriented x3 Extrem Other: Right hip normal to inspection. No pain with ROM of the hip. Pain along the greater trochanter. No pain with hip flexion or abduction.There is tenderness along the si joint, Negative SLR. NVI. Results Reviewed Results Reviewed: XR hip RT min 2V 03/21/24 IMPRESSION: Mild right hip osteoarthritis. Assessment & Plan Assessment & Plan (1) Trochanteric bursitis, right hip: Code(s): M70.61 - Trochanteric bursitis, right hip Category: Medical Plan: We discussed options which include PT, NSAIDs and injections. She will defer on the injection and formal therapy today. If symptoms persist she will contact me for an injection, otherwise, prn. Coding Level of Care Code Est Pt Level 3 (14294) Complex EM visit Add On G2211 Diagnoses Trochanteric bursitis, right hip M70.61
[2024-05-17 10:53] VITALS: BMI 30.2
== END 2024-05-17 11:20 | disposition home or self-care (01) ==
PROVIDERS: PCP Internal Medicine; Visit Provider Physician Assistant
DX: M70.61 Trochanteric bursitis, right hip (principal)
CPT/HCPCS: 99213; G2211

== ENCOUNTER → 2024-05-17 10:42 | Outpatient (BNVA) | payer OTHER, SELFPAY | PROVIDERS: PCP Internal Medicine; Visit Provider Physician Assistant | DX: M70.61 Trochanteric bursitis, right hip (principal) | CPT/HCPCS: 99212 ==

== ENCOUNTER 2024-05-31 09:34 | Outpatient (REF) | payer OTHER, SELFPAY ==
--- NOTE | ~2024-05-31 | MM_ITS ---
EXAMINATION: MM SCREENING DIGITAL BREAST TOMOSYNTHESIS, BILATERAL CLINICAL INFORMATION: Screening. Asymptomatic. COMPARISON: Mammography: Comparison is made with available priors TECHNIQUE: Digital breast mammography with tomosynthesis is performed in both the craniocaudal and mediolateral oblique views along with computer-aided detection (CAD). FINDINGS: There are scattered areas of fibroglandular density (ACR BI-RADS breast composition Category b). Left upper outer marker clip. There are no significant masses, abnormal calcifications, or other abnormalities. MM/MM tomosynthesis screening BI IMPRESSION: No mammographic evidence of malignancy. ASSESSMENT: BI-RADS BI-RADS 2 - Benign Findings RECOMMENDATION: Routine annual mammography screening. 1 year F/U This examination should not preclude the clinical evaluation of a suspicious palpable abnormality. This patient's information was entered into a reminder system with a target due date for their next mammogram. Electronically signed by: Rosita Paul DO 06/13/2024 11:58 AM EDT
== END 2024-05-31 09:35 | disposition home or self-care (01) ==
LOC: HO.MAMMO 09:34
PROVIDERS: PCP Internal Medicine; Visit Provider Internal Medicine
DX: Z12.31 Encounter for screening mammogram for malignant neoplasm of breast (principal)
CPT/HCPCS: 77063; 77067

== ENCOUNTER → 2024-05-31 10:15 | Outpatient (BNV) | payer OTHER, SELFPAY | PROVIDERS: PCP Internal Medicine; Visit Provider Internal Medicine | DX: Z12.31 Encounter for screening mammogram for malignant neoplasm of breast (principal) | CPT/HCPCS: 77063; 77067 ==

== ENCOUNTER 2024-06-07 07:35 | Outpatient (REF) | payer OTHER, SELFPAY ==
--- NOTE | ~2024-06-07 | FL_ITS ---
EXAMINATION: XR FLUOROSCOPY UPPER GI WITH AIR CLINICAL INFORMATION: Abdominal discomfort/bloating. History of sleeve gastrectomy. COMPARISON: None TECHNIQUE: Fluoroscopic air contrast upper GI examination was performed utilizing standard techniques with thin and thick barium and effervescent granules. Numerous spot images were obtained. FINDINGS: Dual and single contrast images of the esophagus demonstrate a patulous esophagus. Moderate cricopharyngeal achalasia is present. No evidence of stricture, mass, or ulcerations identified. Esophageal peristalsis is moderately disorganized. No evidence of hiatus hernia identified. No significant gastroesophageal reflux was seen during the course of the examination and on reflux views. Dual contrast and single contrast images of the stomach demonstrated post surgical changes consistent with prior history of sleeve gastrectomy. No masses, or ulcerations are seen. Contrast freely passed into the gastric antrum and duodenal bulb without delay. Single and air-contrast images of the duodenal bulb demonstrate no abnormality. The duodenal sweep has a normal appearance, course, and mucosal fold appearance. The imaged small bowel a normal fold pattern and caliber. No strictures, masses, or dilated loops are present. There is rapid transit of the barium column with contrast seen in the cecum in less than 10 minutes. Posterior lumbar hardware is noted at L4-L5. FLUOROSCOPY TIME: 5 minutes 43 seconds DOSE AREA PRODUCT: [id number] uGy-m2 (microgray-meter squared) FL/FL barium swallow IMPRESSION: 1. Patulous esophagus with moderately disorganized peristalsis consistent with esophageal dysmotility. 2. Moderate cricopharyngeal achalasia. 3. Post surgical changes consistent with prior history of sleeve gastrectomy. 4. Rapid transit of the barium column with contrast seen in the right colon in less than 10 minutes. Etiology is unclear. This procedure was performed by Steffen Schmitz PA-C, and supervised by Dr. Serrano Electronically signed by: Mendoza Serrano MD 06/07/2024 03:53 PM EDT
== END 2024-06-07 07:36 | disposition home or self-care (01) ==
LOC: HO.XRAY 07:35
PROVIDERS: PCP Internal Medicine; Visit Provider Internal Medicine
DX: R13.10 Dysphagia, unspecified (principal)
CPT/HCPCS: 74220

== ENCOUNTER → 2024-06-07 07:37 | Outpatient (BNV) | payer OTHER, SELFPAY | PROVIDERS: PCP Internal Medicine; Visit Provider Radiology Diagnostic Radiology | DX: R10.9 Unspecified abdominal pain (principal) | CPT/HCPCS: 74221 ==

== ENCOUNTER 2024-06-18 10:46 | Outpatient (AMB) | payer OTHER, SELFPAY ==
--- NOTE | 2024-06-18 10:57 | A.OFFVIS_ITS ---
Vital Signs 06/18/24 10:58 Height 5 ft 1 in Weight 159 lb BMI 30.0 Intake Visit Reasons: Follow up Intake Note: Patient presents for follow up. memory is still an issue. Allergies gabapentin Allergy (Intermediate, Verified 06/18/24 11:00) inadequate response hydromorphone [From DILAUDID] Allergy (Intermediate, Verified 06/18/24 11:00) RASH lisinopril [LISINOPRIL] Allergy (Intermediate, Verified 06/18/24 11:00) CLOGGED THROAT, shortness of breath, anaphylaxis topiramate Allergy (Intermediate, Verified 06/18/24 11:00) inadequate response Medication List - Last Reconciled 06/18/24 by SIMON Johnston acetaminophen 1,000 mg (2 x 500 mg) PO Q6H PRN amlodipine 5 mg PO BID 90 days bisacodyl 10 mg (2 x 5 mg) PO BEDTIME 90 days blood pressure test kit-medium ([place] Chek Blood Pressure kit) As directed blood pressure test kit-small As directed cholecalciferol (vitamin D3) 25 mcg PO DAILY [elevating leg wedge As directed] estradiol 0.01%(0.1mg/gram) vaginal [handheld shower As directed] ibuprofen 800 mg PO Q8H PRN 30 days incontinence pad, liner, disp Use 1 lincer four times a day prn incontinence pad, liner, disp Use 1 pad three times a day as needed lidocaine 5% 1 patch topical DAILY magnesium oxide 400 mg PO BEDTIME 30 days metaxalone 800 mg PO TID methocarbamol 750 mg PO Q6H pantoprazole 40 mg PO BID plecanatide (Trulance) 3 mg PO DAILY Shower Chair As directed spironolactone 25 mg PO DAILY 90 days [wedge pillow As directed] HPI Comments Details: 58-yr-old female presents for f/u visit of sleep, headache, and cognitive difficulties- which she is most interested in discussing today. Pt states she is having episodes where she loses her train of thought. She may forget what she went into a room for. She feels all of a sudden she just does not remember what she is currently doing. When she tries to think and focus- this causes her to have a headache- and her mind just goes blank. She has other STM issues. She states she has been having episodes of spacing out for at least 2 yrs. Her children think this is related to her alcohol intake, but she feels the cognitive issues occur w/wo alcohol intake. States she may drink 6-7 beers at a republican- unable to quantity how frequent this is. She belives she had a normal gestational and early development, She was born in [facility]. She moved to [place] as a child. She completed 6th grade- she had to leave her home as she had her 1st child at age 17. She recalls she needed reinforcements in school, would stay after school for extra help. She did receive her GED. 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 She does continue to have neck pain and BUE numbness/tingling. Pt did have consult / [facility] [place] neuro[place]- they advised her to have a c-spine repair, but she is still considering this. She states her headaches are better. She uses Propranolol 10mg at times. Sumatriptan is helpful. She states she uses her CPAP when she is not in much pain. Compliance data shows no use in the post 30 days, and minimal use in the past 90 days. When used residual AHI is 6/hr. [place] [id number] Email: [email or web address] Compliance Report Usage 03/19/2024 - 06/16/2024 Usage days 8/90 days (9%) >= 4 hours 8 days (9%) < 4 hours 0 days (0%) Usage hours 65 hours 42 minutes Average usage (total days) 44 minutes Average usage (days used) 8 hours 13 minutes Median usage (days used) 8 hours 15 minutes Total used hours (value since last reset - 06/16/2024) 580 hours AirSense 10 AutoSet Serial number [id number] Mode CPAP Set pressure 4 cmH2O EPR Off Therapy Leaks - L/min Median: 1.7 95th percentile: 4.4 Maximum: 25.1 Events per hour AI: 2.8 HI: 3.4 AHI: 6.2 Apnea Index Central: 0.4 Obstructive: 2.1 Unknown: 0.1 PFSH Medical History Right hip pain Diverticulitis Physical exam LLQ abdominal pain Pre-op examination Small bowel motility disorder Back pain Lumbar pain Snoring Excessive daytime sleepiness Sleep difficulties Obstructive sleep apnea Right leg pain Left leg pain Upper respiratory tract infection Memory loss Cervical strain Tenderness over frontal sinus Left knee pain Arm numbness Left hip pain Left shoulder pain Leg pain Osteoarthritis of lumbar spine Flexor tenosynovitis of finger Rheumatoid factor positive Postmenopausal Generalized anxiety disorder Mild major depression, single episode Fibromyalgia Essential hypertension Meningioma Bicytopenia Dyslipidemia Hypovitaminosis D Chronic idiopathic constipation Polyarthralgia History of herniated intervertebral disc History of partial adherence to treatment Surgical History History of sleeve gastrectomy Hx of colonoscopy Hx of melanoma excision Hx of hernia repair Hx of ovarian cystectomy History of lumbar fusion Hx of section Family History Father Prostate cancer Diabetes mellitus Colon cancer Mother Migraine Arthritis Hypertension Heart disease Emphysema lung CVD (cardiovascular disease) Brother Drug overdose Brother Zbyyyyc-Uvpwq-Anqdn disease Sister No problems noted. Sister No problems noted. Son No problems noted. Son No problems noted. Son No problems noted. Daughter No problems noted. Daughter No problems noted. Daughter No problems noted. Family/Other Substance use disorder Social History Household Members: Children Housing: House Are you a primary career developer to a significant other at home: No Do you presently have visiting nurse or other home services: No Alcohol intake: current Alcohol intake frequency: does not drink Alcohol type: beer Patient Tobacco Use Status: Never used Tobacco e-Cigarette/Vaping Use: Never Used Second Hand Smoke Exposure: No service: No Current occupational status: disabled Cognitive needs: No Hearing needs: No Vision needs: No Physical Exam Vital Signs: BMI result Body Mass Index 30.0 Orientation What is the (year) (season) (date) (day) (month)?: year, season, date, day and month Where are we (state) (county) (town or city) (hospital) (floor)?: state, county, town or city, hospital/clinic and floor Registration Name of 3 unrelated objects clearly and slowly, then ask patient to repeat all 3 of them. (1st repeat determines score. Make sure they can repeat all three): object 1, object 2 and object 3 Language Show patient a wristwatch & ask what it is. Repeat for pencil.: watch and pencil Ask the patient to 'take a piece of paper with their right hand' 'fold paper in half' 'place paper on floor': take paper in right hand, fold paper in half and place paper on floor Print the sentence 'CLOSE YOUR EYES' on a piece. If patient actually closes eyes then score.: followed written direction Ask patient to copy figure of intersecting pentagons exactly. Score if all 10 angles & 2 intersects are included.: all 10 angles present & 2 are intersected Score Score: 20 Assessment & Plan Assessment & Plan (1) Cognitive impairment: Comment: MMSE (omitted repeat phrase d/t Syriac is 1st language). Code(s): R41.89 - Other symptoms and signs involving cognitive functions and awareness Category: Medical (2) AMS (altered mental status): Code(s): R41.82 - Altered mental status, unspecified Category: Medical (3) Migraine without aura: Code(s): G43.009 - Migraine without aura, not intractable, without status migrainosus Category: Medical (4) Headache: Comment: likely cervicogenic. Low suspicion for ON as pain relieved by pt applying pressure Code(s): R51.9 - Headache, unspecified Category: Medical (5) Moderate obstructive sleep apnea: Comment: 06/2023- HST AHI 22/hr w/ O2 rain 79% Code(s): G47.33 - Obstructive sleep apnea (adult) (pediatric) Category: Medical (6) Cervicalgia: Code(s): M54.2 - Cervicalgia Category: Medical Plan For episodes of memory loss and memory difficulties in setting of ALEKSANDER and HTN: I would have expected pt to perform better on MMSE than she did- she stated she was unable to start to write a sentence or try to spell WEORLD backwards. She could read the Close your eyes sentence. Advised to increase use of CPAP 4 cmH2O to nightly > 4 hrs. Reduce alcohol intake to occasional 1 alcoholic beverage per day. Check labs for common etiologies. Reviewed previous brain MRI from Aug 2023- Few punctate scattered T2/FLAIR hyperintense foci are non-specific but likely represent chronic change. Will request baseline neuro-psych eval. For occipital headache and cervicalgia: F/u w/ Dr Das as planned For migraine w/o aura: Propranolol 10mg bid. Continue Magnesium Continue Sumatriptan prn. Information shared on Nerivio neuromodulation device- this may help migraine and occipital headache. Previous migraine tx trials- Amitriptyline- not effective, Topiramate- not effective, Gabapentin and Pregabalin- ineffective. Future considerations: CGRP MaB ? Will follow-up upon review of above and patient to follow-up in clinic in 6 months or sooner prn. Orders: Orders 2 Comprehensive Met. Panel Today D64.9 - Anemia, unspecified, E55.9 - Vitamin D deficiency, unspecified, R41.82 - Altered mental status, unspecified, R76.8 - Other specified abnormal immunological findings in serum, R79.89 - Other specified abnormal findings of blood chemistry Syphilis Screen Today D64.9 - Anemia, unspecified, E55.9 - Vitamin D deficiency, unspecified, R41.82 - Altered mental status, unspecified, R76.8 - Other specified abnormal immunological findings in serum, R79.89 - Other specified abnormal findings of blood chemistry Vitamin B12 and Folate Today D64.9 - Anemia, unspecified, E55.9 - Vitamin D deficiency, unspecified, R41.82 - Altered mental status, unspecified, R76.8 - Other specified abnormal immunological findings in serum, R79.89 - Other specified abnormal findings of blood chemistry TOMAS Reflex Titer and Pattern Today D64.9 - Anemia, unspecified, E55.9 - Vitamin D deficiency, unspecified, R41.82 - Altered mental status, unspecified, R76.8 - Other specified abnormal immunological findings in serum, R79.89 - Other specified abnormal findings of blood chemistry Lipid Panel with Reflex Today E78.5 - Hyperlipidemia, unspecified EEG electroencephalogram Today R41.82 - Altered mental status, unspecified Complete Blood Count Auto Diff Today D64.9 - Anemia, unspecified, E55.9 - Vitamin D deficiency, unspecified, R41.82 - Altered mental status, unspecified, R76.8 - Other specified abnormal immunological findings in serum, R79.89 - Other specified abnormal findings of blood chemistry CRP High Sensitivity Today D64.9 - Anemia, unspecified, E55.9 - Vitamin D deficiency, unspecified, R41.82 - Altered mental status, unspecified, R76.8 - Other specified abnormal immunological findings in serum, R79.89 - Other specified abnormal findings of blood chemistry Erythrocyte Sedimentation Rate Today D64.9 - Anemia, unspecified, E55.9 - Vitamin D deficiency, unspecified, R41.82 - Altered mental status, unspecified, R76.8 - Other specified abnormal immunological findings in serum, R79.89 - Other specified abnormal findings of blood chemistry HIV Ab/Ag Today D64.9 - Anemia, unspecified, E55.9 - Vitamin D deficiency, unspecified, R41.82 - Altered mental status, unspecified, R76.8 - Other specified abnormal immunological findings in serum, R79.89 - Other specified abnormal findings of blood chemistry Vitamin D 25-OH (D2 and D3) Today D64.9 - Anemia, unspecified, E55.9 - Vitamin D deficiency, unspecified, R41.82 - Altered mental status, unspecified, R76.8 - Other specified abnormal immunological findings in serum, R79.89 - Other specified abnormal findings of blood chemistry Methylmalonic Acid Today D64.9 - Anemia, unspecified, E55.9 - Vitamin D deficiency, unspecified, R41.82 - Altered mental status, unspecified, R76.8 - Other specified abnormal immunological findings in serum, R79.89 - Other specified abnormal findings of blood chemistry Homocysteine Today D64.9 - Anemia, unspecified, E55.9 - Vitamin D deficiency, unspecified, R41.82 - Altered mental status, unspecified, R76.8 - Other specified abnormal immunological findings in serum, R79.89 - Other specified abnormal findings of blood chemistry Rheumatoid Factor Today D64.9 - Anemia, unspecified, E55.9 - Vitamin D de ficiency, unspecified, R41.82 - Altered mental status, unspecified, R76.8 - Other specified abnormal immunological findings in serum, R79.89 - Other specified abnormal findings of blood chemistry Referrals Neuropsychiatry Referral R41.82 - Altered mental status, unspecified, R41.89 - Other symptoms and signs involving cognitive functions and awareness Medications: Refilled propranolol 10 mg PO BID 30 days 60 tabs 6RF sumatriptan succinate (Imitrex) (0.5 - 1 x 100 mg) 50 - 100 mg orally at onset of headache, may repeat in 2 hrs PRN; max 2 tabs per day or 4 tabs/week (may take with Ibuprofen) 30 days 12 tabs 3RF migraine headache Discontinued metaxalone Discontinued Reason: Patient Completed Course 800 mg PO TID 20 tabs 0RF M62.838 - Other muscle spasm Coding Level of Care Code Est Pt Level 4 (19530) Diagnoses Cognitive impairment R41.89 AMS (altered mental status) R41.82 Migraine without aura G43.009 Headache R51.9 Moderate obstructive sleep apnea G47.33 Cervicalgia M54.2
== END 2024-06-18 11:44 | disposition home or self-care (01) ==
PROVIDERS: PCP Internal Medicine; Visit Provider Nurse Practitioner Family
DX: R41.89 Other symptoms and signs involving cognitive functions and awareness (principal); R41.82 Altered mental status, unspecified; G43.009 Migraine without aura, not intractable, without status migrainosus; R51.9 Headache, unspecified; G47.33 Obstructive sleep apnea (adult) (pediatric); M54.2 Cervicalgia
CPT/HCPCS: 99214

== ENCOUNTER → 2024-06-18 10:46 | Outpatient (BNVA) | payer OTHER, SELFPAY | PROVIDERS: PCP Internal Medicine; Visit Provider Nurse Practitioner Family | DX: R41.82 Altered mental status, unspecified (principal); R41.89 Other symptoms and signs involving cognitive functions and awareness; G43.009 Migraine without aura, not intractable, without status migrainosus; R51.9 Headache, unspecified; G47.33 Obstructive sleep apnea (adult) (pediatric); M54.2 Cervicalgia | CPT/HCPCS: 99212 ==

== ENCOUNTER 2024-06-26 08:11 | Outpatient (REF) | payer OTHER, SELFPAY ==
[2024-06-26 08:34] LABS: MANUAL DIFF FLAG NO
[2024-06-26 09:26] LABS: Basophils Percent Auto 0.7 % (0-2); Eosinophils Absolute Auto 0.1 X10*3/uL (0.0-0.4); Eosinophils Percent Auto 1.1 % (0-4); Hematocrit 42.8 % (37.0-47.0); Hemoglobin 14.5 g/dl (12.0-16.0); Imm Gran Abs Auto 0.01 X10*3/uL (0.00-0.03); Imm Gran Pct Auto 0.2 % (0.0-0.4); Lymphocytes Absolute Auto 0.8 X10*3/uL (1.2-4.9); Lymphocytes Percent Auto 16.6 % (20-40); Mean Corpuscular HGB Conc 33.9 g/dl (31.0-35.0); Mean Corpuscular Hemoglobin 29.4 pg (27.0-33.0); Mean Corpuscular Volume 86.8 fL (80.0-98.0); Mean Platelet Volume 12.7 fL (9.4-12.3); Monocytes Absolute Auto 0.3 X10*3/uL (0.1-1.2); Monocytes Percent Auto 6.8 % (2-11); Neutrophils Absolute Auto 3.4 x10*3/uL (2.0-8.3); Neutrophils Percent Auto 74.6 % (45-73); Platelet Count 189 X10*3/uL (160-400); Red Blood Count 4.93 X10*6/uL (4.20-5.50); Red Cell Distribution Width 13.8 % (11.0-16.0); White Blood Count 4.6 X10*3/uL (4.8-10.8)
[2024-06-26 10:01] LABS: Erythrocyte Sedimentation Rate 8 MM/HR (0-20)
[2024-06-26 10:28] LABS: Alanine Aminotransferase 23 U/L (0-31); Albumin Level 4.6 g/dL (3.5-5.0); Alkaline Phosphatase 64 U/L (39-117); Anion Gap 15 (12-20); Aspartate Amino Transferase 26 U/L (5-31); Bilirubin Total 0.7 mg/dL (0.0-1.0); Blood Urea Nitrogen 18 mg/dL (9-16); Calcium 10.1 mg/dL (8.4-10.2); Carbon Dioxide 27 mmol/L (22-29); Chloride 106 mmol/L (96-108); Cholesterol 223 mg/dL (<200); Estimated Glomerular Filt Rate > 60; Glucose Random 110 mg/dL (60-115); HDL Cholesterol 67 mg/dL (>40); LDL Cholesterol Calculated 130 mg/dL (<100); Potassium 4.1 mmol/L (3.3-5.1); Sodium 144 mmol/L (135-145); Total Protein 7.5 g/dL (6.5-8.0); Triglycerides 132 mg/dL (<150)
[2024-06-26 10:58] LABS: Vitamin B12 317 pg/mL (200-900)
[2024-06-26 11:46] LABS: Syphilis Screen Nonreactive (Nonreactive)
[2024-06-26 11:48] LABS: HIV AB/AG Nonreactive (Nonreactive); HIV Num 1 0.05 S/CO (0.00-0.99)
[2024-06-26 12:11] LABS: Folate 12.8 ng/mL (> or = 4.0)
[2024-06-26 12:55] LABS: Reflex LDLD? No
[2024-06-28 01:22] LABS: CRP High Sensitivity 1.4 mg/L
[2024-06-28 16:38] LABS: Homocysteine 9.4 umol/L (<10.4)
[2024-07-01 14:44] LABS: Vitamin D 25-OH, D2 <4 ng/mL; Vitamin D 25-OH, D3 16 ng/mL; Vitamin D 25-OH, Total 16 ng/mL (30-100)
[2024-07-02 09:58] LABS: Methylmalonic Acid 108 nmol/L (55-335)
[2024-07-02 14:13] LABS: Anti Nuclear Antibody Screen NEGATIVE (NEGATIVE)
== END 2024-06-26 08:12 | disposition home or self-care (01) ==
LOC: HO.LAB 08:11
PROVIDERS: PCP Internal Medicine; Visit Provider Nurse Practitioner Family
DX: R41.82 Altered mental status, unspecified (principal); R76.8 Other specified abnormal immunological findings in serum; E55.9 Vitamin D deficiency, unspecified; D64.9 Anemia, unspecified; R79.89 Other specified abnormal findings of blood chemistry; E78.5 Hyperlipidemia, unspecified
CPT/HCPCS: 36415; 80053; 80061; 82306; 82607; 82746; 83090; 83921; 85025; 85652; 86038; 86141; 86431; 86780; 87389

== ENCOUNTER 2024-08-02 09:46 | Outpatient (AMB) | payer OTHER, SELFPAY ==
--- NOTE | 2024-08-02 09:34 | A.OFFVIS_ITS ---
VS Expanded 08/02/24 09:37 Height 5 ft 1 in Weight 159 lb BMI 30.0 Intake Visit Reasons: TELEPHONE PO LSG 10/01/18 Allergies gabapentin Allergy (Intermediate, Verified 06/18/24 11:00) inadequate response hydromorphone [From DILAUDID] Allergy (Intermediate, Verified 06/18/24 11:00) RASH lisinopril [LISINOPRIL] Allergy (Intermediate, Verified 06/18/24 11:00) CLOGGED THROAT, shortness of breath, anaphylaxis topiramate Allergy (Intermediate, Verified 06/18/24 11:00) inadequate response Medication List - Last Reconciled 08/02/24 by MICAH Hewitt acetaminophen 1,000 mg (2 x 500 mg) PO Q6H PRN amlodipine 5 mg PO BID 90 days bisacodyl 10 mg (2 x 5 mg) PO BEDTIME 90 days blood pressure test kit-medium ([place] Chek Blood Pressure kit) As directed blood pressure test kit-small As directed cholecalciferol (vitamin D3) 25 mcg PO DAILY 90 days [elevating leg wedge As directed] estradiol 0.01%(0.1mg/gram) vaginal [handheld shower As directed] ibuprofen 800 mg PO Q8H PRN 30 days incontinence pad, liner, disp Use 1 lincer four times a day prn incontinence pad, liner, disp Use 1 pad three times a day as needed lidocaine 5% 1 patch topical DAILY magnesium oxide 400 mg PO BEDTIME 30 days methocarbamol 750 mg PO Q6H pantoprazole 40 mg PO BID plecanatide (Trulance) 3 mg PO DAILY propranolol 10 mg PO BID 30 days Shower Chair As directed spironolactone 25 mg PO DAILY 90 days sucralfate (Carafate) 10 mL PO BID sumatriptan succinate (Imitrex) 50 - 100 mg orally at onset of headache, may repeat in 2 hrs PRN; max 2 tabs per day or 4 tabs/week (may take with Ibuprofen) 30 days [wedge pillow As directed] HPI Comments Details: This?is a?59?yo female who is s/p LSG on?10/01/2018. Presents for 5 year 10 month post op visit. Weight gain of 2.6 lbs since last OV.? Has a cold currently. Has Crohn's disease, has a GI and is following up this month. Does takes some ibuprofen but reports she only takes rarely. Reports abdominal pain mostly when she eats and drinks at the same time. Occasional nausea, no vomiting. Present meal plan includes: breakfast- 2 eggs, no milk lunch- Thai yogurt snack- protein bar dinner- 4f/4f At last visit given exercise goal: Walk as much as able for exercise with goal 2000 manju/week burned. [facility] [place] [place] Medical History (Updated 08/02/24 @ 09:52 by MICAH Hewitt) Low vitamin B12 level Anemia Right hip pain Diverticulitis Physical exam LLQ abdominal pain Pre-op examination Small bowel motility disorder Back pain Lumbar pain Snoring Excessive daytime sleepiness Sleep difficulties Obstructive sleep apnea Right leg pain Left leg pain Upper respiratory tract infection Memory loss Cervical strain Tenderness over frontal sinus Left knee pain Arm numbness Left hip pain Left shoulder pain Leg pain Osteoarthritis of lumbar spine Flexor tenosynovitis of finger Rheumatoid factor positive Postmenopausal Generalized anxiety disorder Mild major depression, single episode Fibromyalgia Essential hypertension Meningioma Bicytopenia Dyslipidemia Hypovitaminosis D Chronic idiopathic constipation Polyarthralgia History of herniated intervertebral disc History of partial adherence to treatment Surgical History History of sleeve gastrectomy Hx of colonoscopy Hx of melanoma excision Hx of hernia repair Hx of ovarian cystectomy History of lumbar fusion Hx of section Family History Father Prostate cancer Diabetes mellitus Colon cancer Mother Migraine Arthritis Hypertension Heart disease Emphysema lung CVD (cardiovascular disease) Brother Drug overdose Brother Uvgyqhh-Rzlni-Idmxe disease Sister No problems noted. Sister No problems noted. Son No problems noted. Son No problems noted. Son No problems noted. Daughter No problems noted. Daughter No problems noted. Daughter No problems noted. Family/Other Substance use disorder Social History Household Members: Children Housing: House Are you a primary healthcare financial analyst to a significant other at home: No Do you presently have visiting nurse or other home services: No Alcohol intake: current Alcohol intake frequency: does not drink Alcohol type: beer Patient Tobacco Use Status: Never used Tobacco e-Cigarette/Vaping Use: Never Used Second Hand Smoke Exposure: No service: No Current occupational status: disabled Cognitive needs: No Hearing needs: No Vision needs: No Telehealth Telehealth Telehealth Platform: Telephone Location of provider rendering services: practice address Location of patient: address on file Patient Identification confirmed using: Name, : Yes Telehealth method: voice only Patient verbally consented to treatment: Yes Patient verbally consented to billing insurance company: Yes Patient informed of any privacy concerns related to visit: Yes Minutes spent on Phone/Video with Pt.: 15 Assessment & Plan Assessment & Plan (1) History of sleeve gastrectomy: Comment: 2019 Code(s): Z90.3 - Acquired absence of stomach [part of] Category: Medical (2) Obesity: Code(s): E66.9 - Obesity, unspecified Category: Medical Plan Trial of carafate for pt's complaints of stomach pain, instructed her in proper dosing. Recommended no ibuprofen use. She is already on pantoprazole BID. Will follow up with GI this month. Labs reviewed, vit D low, pt started on supplement last month; ordered remaining vitamin levels. RTC 6 months. I spent a total of 30 minutes reviewing/updating records, examining the patient and counseling the patient on weight management as detailed above. Orders: Orders Vitamin A Today Z90.3 - Acquired absence of stomach [part of] Zinc Today Z90.3 - Acquired absence of stomach [part of] Vitamin B1 Today Z90.3 - Acquired absence of stomach [part of] Medications: New sucralfate (Carafate) 10 mL PO BID 420 mL 3RF
== END 2024-08-02 09:52 | disposition home or self-care (01) ==
LOC: HO.HBS 09:46
PROVIDERS: PCP Internal Medicine; Visit Provider Physician Assistant Surgical
DX: E66.9 Obesity, unspecified (principal); E66.811 Obesity, class 1; Z68.30 Body mass index [BMI] 30.0-30.9, adult; Z98.84 Bariatric surgery status
CPT/HCPCS: 98967

== ENCOUNTER → 2024-08-02 09:46 | Outpatient (BNVA) | payer OTHER, SELFPAY | PROVIDERS: PCP Internal Medicine; Visit Provider Physician Assistant Surgical | DX: Z90.3 Acquired absence of stomach [part of] (principal) ==

== ENCOUNTER 2024-08-07 08:44 | Outpatient (REF) | payer OTHER, SELFPAY ==
--- NOTE | 2024-08-07 08:55 | EEG_ITS ---
FINDINGS: The waking background activity consists of a moderate voltage, well defined 9 to 10 hertz posterior alpha frequency that is seen symmetrically and attenuates well with eye opening while low voltage fast frequencies predominate anteriorly. Photic stimulation is without activation. No sleep stages are identified. Hyperventilation was omitted. No focal, lateralizing, or paroxysmal discharges are seen. IMPRESSION: This waking EEG is within normal limits. MD GERBER Conroy/DAVIAN / [id number]
[2024-08-10 13:27] LABS: Zinc 69 mcg/dL (60-130)
== END 2024-08-07 08:45 | disposition home or self-care (01) ==
LOC: HO.NEURO 08:44
PROVIDERS: Absent Provider Physician Assistant Surgical; PCP Internal Medicine; Visit Provider Nurse Practitioner Family
DX: R41.82 Altered mental status, unspecified (principal); Z90.3 Acquired absence of stomach [part of]
CPT/HCPCS: 36415; 84425; 84590; 84630; 95816

== ENCOUNTER 2024-08-09 11:30 | Outpatient (AMB) | payer OTHER, SELFPAY ==
--- NOTE | 2024-08-09 11:35 | A.OFFVIS_ITS ---
Vital Signs 08/09/24 11:50 Height 5 ft 1 in Weight 161 lb 6.054 oz BMI 30.5 BP 143/85 H Blood Pressure Location Lt brachial Position Sitting Pulse 88 Intake Visit Reasons: Follow up abd pain/pt req appt Intake Note: Abby presents in follow up of abdominal pain and barium swallow. CC: Patient reports that she continues to have abdominal pain and abdominal bloating. 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 by: Self / Same As Patient Allergies gabapentin Allergy (Intermediate, Verified 08/09/24 11:54) inadequate response hydromorphone [From DILAUDID] Allergy (Intermediate, Verified 08/09/24 11:54) RASH lisinopril [LISINOPRIL] Allergy (Intermediate, Verified 08/09/24 11:54) CLOGGED THROAT, shortness of breath, anaphylaxis topiramate Allergy (Intermediate, Verified 08/09/24 11:54) inadequate response HPI HPI Follow up abd pain/pt req appt: Details: Assessment & Plan (1) Inflammatory bowel disease: Code(s): K52.9 - Noninfective gastroenteritis and colitis, unspecified Category: Medical (2) Elevated fecal calprotectin: Code(s): R19.5 - Other fecal abnormalities Category: Medical (3) GERD (gastroesophageal reflux disease): Code(s): K21.9 - Gastro-esophageal reflux disease without esophagitis Category: Medical (4) Abdominal pain: Code(s): R10.9 - Unspecified abdominal pain Category: Medical Plan She is not having relief with the mesalamine and the prednisone. She wants to stop it which of course is reasonable. I did let her know that she will be tired if she stops it suddenly and if she wants she can taper it more slowly. She is kind of tired of pills she wants to try a natural tea that fights inflammation; and of course this is fine. I think I am going to get a CT scan to make sure not missing any severe pathology since she continues to have severe bloating especially in the lower abdomen that times she feels like interferes with her breathing. She continues on the Trulance, pantoprazole twice a day and the dicyclomine as needed. We try treating for inflammatory bowel disease because nothing else was working based on the elevated fecal calprotectin. It is possible there something else causing inflammation in the GI system but it does not appear to be responsive to antibiotics, she has had a relatively normal colonoscopy, a negative stool study for infection, and the only food allergy and a RAST panel was too shrimp which she avoids. Return office visit after the CT scan Orders: Orders CT abdomen pelvis w IV con Today R10.9 - Unspecified abdominal pain CT ABD AND PELVIS 04/24/24 FINDINGS: LUNG BASES: The visualized lung bases are unremarkable. LIVER, GALLBLADDER, AND BILIARY TREE: The liver is normal in size, shape, and attenuation. Stable hepatic cysts. No biliary ductal dilatation is present. The gallbladder is unremarkable with no evidence of radiopaque gallstones, gallbladder wall thickening, or obvious pericholecystic inflammatory changes. PANCREAS: Unremarkable. SPLEEN: Unremarkable. ADRENAL GLANDS: Unremarkable. KIDNEYS AND URETERS: The kidneys are normal in size, shape, and attenuation. No hydronephrosis, hydroureter, or calculi seen. No perinephric stranding. Focal cortical scarring with subcapsular hypodensity again seen in the left kidney. BLADDER: Unremarkable. GASTROINTESTINAL TRACT: Postsurgical changes along the greater curvature of the stomach. The small and large bowel are unremarkable. The appendix is unremarkable. ABDOMINAL WALL: No significant hernia is appreciated. LYMPH NODES: Normal. VASCULAR: Unremarkable. PELVIC VISCERA: The uterus and adnexa are unremarkable. OSSEOUS STRUCTURES: There are postsurgical changes within the lumbar spine CT/CT abdomen pelvis w IV con IMPRESSION: 1. No acute process. 2. Stable hepatic cysts. 3. Stable cortical scarring with subcapsular hypodensity in the left kidney. 4. Postsurgical changes along the greater curvature of the stomach. BARIUM SWALLOW ORDERED BY PCP 06/07/24 FINDINGS: Dual and single contrast images of the esophagus demonstrate a patulous esophagus. Moderate cricopharyngeal achalasia is present. No evidence of stricture, mass, or ulcerations identified. Esophageal peristalsis is moderately disorganized. No evidence of hiatus hernia identified. No significant gastroesophageal reflux was seen during the course of the examination and on reflux views. Dual contrast and single contrast images of the stomach demonstrated post surgical changes consistent with prior history of sleeve gastrectomy. No masses, or ulcerations are seen. Contrast freely passed into the gastric antrum and duodenal bulb without delay. Single and air-contrast images of the duodenal bulb demonstrate no abnormality. The duodenal sweep has a normal appearance, course, and mucosal fold appearance. The imaged small bowel a normal fold pattern and caliber. No strictures, masses, or dilated loops are present. There is rapid transit of the barium column with contrast seen in the cecum in less than 10 minutes. Posterior lumbar hardware is noted at L4-L5. FLUOROSCOPY TIME: 5 minutes 43 seconds DOSE AREA PRODUCT: [id number] uGy-m2 (microgray-meter squared) FL/FL barium swallow IMPRESSION: 1. Patulous esophagus with moderately disorganized peristalsis consistent with esophageal dysmotility. 2. Moderate cricopharyngeal achalasia. 3. Post surgical changes consistent with prior history of sleeve gastrectomy. 4. Rapid transit of the barium column with contrast seen in the right colon in less than 10 minutes. Etiology is unclear. TODAYS VISIT (We tried treating for inflammatory bowel disease because nothing else was working based on the elevated fecal calprotectin. It is possible there something else causing inflammation in the GI system but it does not appear to be responsive to antibiotics, she has had a relatively normal colonoscopy, a negative stool study for infection, and the only food allergy and a RAST panel was to shrimp which she avoids. She also did not do well on Bentyl, we tried treating her for SIBO with antibiotic without results and probiotic supplements did not seem helpful) She continues on the Trulance, pantoprazole twice a day and the dicyclomine as needed. Her bloating and periumbilcal abd pain continues. The pain is worse when she eats. Another provider tried to give her Carafate and I appreciate they were trying to help but given her history of constipation this likely would only make her bloating and the problem worse. In the past we have tried treating her with antibiotic for SIBO without success. She also has not done well on dicyclomine. I think were going to try putting her on Creon to see if this can affect the the bloating which likely is driving bowel irritability mostly in the small bowel. She has taken a probiotic supplement in the past without any impact but is not taking 1 currently. I think were going to repeat her elevated fecal calprotectin since this was puzzling. I even tried treating her for IBD but this did not help the symptoms either. Colonoscopy that she had in the same timeframe did not show any a bnormalities either visually or on biopsies except for tubular adenomas. Return office visit in 6 weeks. [facility] Medical History (Updated 08/09/24 @ 12:25 by GRECIA Burgess) Physical exam LLQ abdominal pain Diverticulitis Acute diarrhea Inflammatory bowel disease Low vitamin B12 level Anemia Right hip pain Pre-op examination Small bowel motility disorder Back pain Lumbar pain Snoring Excessive daytime sleepiness Sleep difficulties Obstructive sleep apnea Right leg pain Left leg pain Upper respiratory tract infection Memory loss Cervical strain Tenderness over frontal sinus Left knee pain Arm numbness Left hip pain Left shoulder pain Leg pain Osteoarthritis of lumbar spine Flexor tenosynovitis of finger Rheumatoid factor positive Postmenopausal Generalized anxiety disorder Mild major depression, single episode Fibromyalgia Essential hypertension Meningioma Bicytopenia Dyslipidemia Hypovitaminosis D Chronic idiopathic constipation Polyarthralgia History of herniated intervertebral disc History of partial adherence to treatment Surgical History (Updated 08/09/24 @ 12:25 by GRECIA Burgess) History of sleeve gastrectomy Hx of colonoscopy Hx of melanoma excision Hx of hernia repair Hx of ovarian cystectomy History of lumbar fusion Hx of section Family History Father Prostate cancer Diabetes mellitus Colon cancer Mother Migraine Arthritis Hypertension Heart disease Emphysema lung CVD (cardiovascular disease) Brother Drug overdose Brother Amymrso-Srtgw-Ctukc disease Sister No problems noted. Sister No problems noted. Son No problems noted. Son No problems noted. Son No problems noted. Daughter No problems noted. Daughter No problems noted. Daughter No problems noted. Family/Other Substance use disorder Social History Household Members: Children Housing: House Are you a primary home care associate to a significant other at home: No Do you presently have visiting nurse or other home services: No Alcohol intake: current Alcohol intake frequency: does not drink Alcohol type: beer Patient Tobacco Use Status: Never used Tobacco e-Cigarette/Vaping Use: Never Used Second Hand Smoke Exposure: No service: No Current occupational status: disabled Cognitive needs: No Hearing needs: No Vision needs: No Review of Systems Const Denies fatigue, Denies fever(s), Denies night sweats, Denies poor appetite and Denies weight loss ENT Reports Normal hearing present, Denies dental pain, Denies dysphagia, Denies hearing loss, Denies mouth pain, Denies odynophagia, Denies throat swelling, Denies tongue swelling and Reports other (Dentition adequate) Card Reports no additional complaints Resp Reports no additional complaints GI Details: Reports abdominal pain, Denies melena, Reports bloating, Denies hematochezia, Denies constipation, Reports GI cramping, Denies dysphagia, Reports excessive flatus, Denies early satiety, Denies heartburn, Denies diarrhea, Denies nausea, Denies odynophagia, Denies vomiting and Denies hematemesis Skin/Breast Denies pruritus, Denies lesions, Denies rash and Denies jaundice Neuro Reports Normal hearing present and Denies Abnormal speech present Endo Denies fatigue Aller/Immun Denies throat swelling and Denies tongue swelling Physical Exam Vital Signs: Last Vital Signs Pulse 88 08/09/24 11:50 BP 143/85 H 08/09/24 11:50 BMI result Body Mass Index 30.5 Const General: cooperative, no acute distress, well developed and well groomed Nutritional Appearance: well nourished and obese Orientation/consciousness: oriented to person, oriented to place and oriented to time Limitations: No language barrier HEENT Head: Yes normocephalic and Yes atraumatic Eyes General: appearance normal, both eyes and all related structures Pupils: Equal, round and reactive pupils present Neck Neck: Yes normal visual inspection and Yes no lymphadenopathy Thyroid: Thyroid normal Resp Effort & Inspection: normal respiratory effort and able to speak in complete sentences Auscultation: clear to auscultation bilaterally Cardio Rate: regular rate Rhythm: regular rhythm Heart sounds: Normal, physiologic split S2 sound present Peripheral pulses: radial pulses present and posterior tibial pulses present GI Inspection: Yes distended, No Abdominal panniculus present and Yes obesity Palpation (GI): Soft to palpation, nontender, no guarding, not rigid and No hepatosplenomegaly present Percussion: Yes normal to percussion Auscultation: normal bowel sounds Rectal Exam - Female: deferred Skin General skin exam: no rashes or lesions noted, turgor normal, skin not dry, no jaundice, No spider nevi and no striae Rashes: no rashes Nails: normal Neuro General: oriented to person, oriented to place and oriented to time Cranial nerves: Yes Equal, round and reactive pupils present and Yes Normal hearing present Speech: No Abnormal speech present Extrem General: Yes normal to inspection, No clubbing, No cyanosis and No edema Psych Appearance: grossly normal and well kempt Mental Status: mental status grossly normal Speech and movement: Normal speech and movement present Affect: normal affect Attitude: cooperative Thought process: Normal thought process present and not confabulating Thought content: Normal thought content present Insight: Limited insight present (Psych) Judgement: Limited judgement present (Psych) Assessment & Plan Assessment & Plan (1) Abdominal bloating: Code(s): R14.0 - Abdominal distension (gaseous) Category: Medical (2) IBS (irritable bowel syndrome): Code(s): K58.9 - Irritable bowel syndrome, unspecified Category: Medical (3) Elevated fecal calprotectin: Code(s): R19.5 - Other fecal abnormalities Category: Medical (4) Periumbilical abdominal pain: Code(s): R10.33 - Periumbilical pain Category: Medical Plan (We tried treating for inflammatory bowel disease because nothing else was working based on the elevated fecal calprotectin. It is possible there something else causing inflammation in the GI system but it does not appear to be responsive to antibiotics, she has had a relatively normal colonoscopy, a negative stool study for infection, and the only food allergy and a RAST panel was to shrimp which she avoids. She also did not do well on Bentyl, we tried treating her for SIBO with antibiotic without results and probiotic supplements did not seem helpful) She continues on the Trulance, pantoprazole twice a day and the dicyclomine as needed. Her bloating and periumbilcal abd pain continues. The pain is worse when she eats. Another provider tried to give her Carafate and I appreciate they were trying to help but given her history of constipation this likely would only make her bloating and the problem worse. In the past we have tried treating her with antibiotic for SIBO without success. She also has not done well on dicyclomine. I think were going to try putting her on Creon to see if this can affect the the bloating which likely is driving bowel irritability mostly in the small bowel. She has taken a probiotic supplement in the past without any impact but is not taking 1 currently. I think were going to repeat her elevated fecal calprotectin since this was puzzling. I even tried treating her for IBD but this did not help the symptoms either. Colonoscopy that she had in the same timeframe did not show any abnormalities either visually or on biopsies except for tubular adenomas. Return office visit in 6 weeks. Orders: Orders Calprotectin, Fecal Today R19.5 - Other fecal abnormalities Medications: New [id number] 36,000-114,000- 180,000 unit (Creon) administer with meals and/or snacks 2 caps PO BID 120 caps 6RF K58.9 - Irritable bowel syndrome, unspecified, R14.0 - Abdominal distension (gaseous) Discontinued sucralfate (Carafate) Discontinued Reason: Doctor's Order 10 mL PO BID 420 mL 3RF Coding Level of Care Code Est Pt Level 3 (16642) Diagnoses Abdominal bloating R14.0 IBS (irritable bowel syndrome) K58.9 Elevated fecal calprotectin R19.5 Periumbilical abdominal pain R10.33
[2024-08-09 11:50] VITALS: BP 143/85; PULSE 88; BMI 30.5
== END 2024-08-09 13:18 | disposition home or self-care (01) ==
PROVIDERS: PCP Internal Medicine; Visit Provider Nurse Practitioner
DX: R14.0 Abdominal distension (gaseous) (principal); K58.9 Irritable bowel syndrome, unspecified; R19.5 Other fecal abnormalities; R10.33 Periumbilical pain
CPT/HCPCS: 99213

== ENCOUNTER → 2024-08-09 11:30 | Outpatient (BNVA) | payer OTHER, SELFPAY | PROVIDERS: PCP Internal Medicine; Visit Provider Nurse Practitioner | DX: K58.9 Irritable bowel syndrome, unspecified (principal); R14.0 Abdominal distension (gaseous); R19.5 Other fecal abnormalities; R10.33 Periumbilical pain | CPT/HCPCS: 99212 ==

== ENCOUNTER 2024-08-15 12:51 | Outpatient (AMB) | payer OTHER, SELFPAY ==
--- NOTE | 2024-08-15 13:04 | A.OFFPC_ITS ---
Vital Signs 08/15/24 13:05 Height 5 ft 1 in Weight 160 lb BMI 30.2 BP 140/104 H Blood Pressure Location Lt brachial Position Sitting Intake Visit Reasons: bp Intake Note: Patient here for a follow up BP Food Safety Coordinator Required: No Accompanied by: Self / Same As Patient Allergies gabapentin Allergy (Intermediate, Verified 08/15/24 13:54) inadequate response hydromorphone [From DILAUDID] Allergy (Intermediate, Verified 08/15/24 13:54) RASH lisinopril [LISINOPRIL] Allergy (Intermediate, Verified 08/15/24 13:54) CLOGGED THROAT, shortness of breath, anaphylaxis topiramate Allergy (Intermediate, Verified 08/15/24 13:54) inadequate response Medication List - Last Reconciled 08/15/24 by Quynh Fried MD acetaminophen 1,000 mg (2 x 500 mg) PO Q6H PRN amlodipine 5 mg PO BID 90 days bisacodyl 10 mg (2 x 5 mg) PO BEDTIME 90 days blood pressure test kit-medium ([place] Chek Blood Pressure kit) As directed blood pressure test kit-small As directed cholecalciferol (vitamin D3) 25 mcg PO DAILY 90 days [elevating leg wedge As directed] estradiol 0.01%(0.1mg/gram) vaginal [handheld shower As directed] ibuprofen 800 mg PO Q8H PRN 30 days incontinence pad, liner, disp Use 1 lincer four times a day prn incontinence pad, liner, disp Use 1 pad three times a day as needed lidocaine 5% 1 patch topical DAILY [id number] 36,000-114,000- 180,000 unit (Creon) 2 caps PO BID magnesium oxide 400 mg PO BEDTIME 30 days methocarbamol 750 mg PO Q6H pantoprazole 40 mg PO BID plecanatide (Trulance) 3 mg PO DAILY propranolol 10 mg PO BID 30 days Shower Chair As directed spironolactone 25 mg PO DAILY 90 days sumatriptan succinate (Imitrex) 50 - 100 mg orally at onset of headache, may repeat in 2 hrs PRN; max 2 tabs per day or 4 tabs/week (may take with Ibuprofen) 30 days [wedge pillow As directed] Tobacco use date assessed: 09/14/23 Dental Screening Dental Screen Date: 08/15/24 Did you have a dental visit in the last 12 months?: Yes Did you have a dental problem in the last 6 months where you did not have access to dental care?: No Was dental information given to patient?: Patient has dentist HPI HPI Comments History of Present Illness Details The patient is a 59-year-old female presenting with ongoing management needs for type 2 diabetes mellitus and hypertension. She reports historical challenges with glycemic control, noting a prior hemoglobin A1c level of 7.3. Although recent random glucose was 110 mg/dL, she believes her sugar levels remain high. A1c of 6.4% today. Previous management attempts included medications that led to adverse effects, such as gabapentin and lisinopril causing rashes and respiratory symptoms, respectively. The patient also has hypertension, for which she has been on amlodipine and spironolactone after switching from hydrochlorothiazide. Despite these changes, the blood pressure remains elevated but she ran out of spironolactone few weeks ago. She reports urinary incontinence, managed partially with incontinence pads. Recently, the patient underwent an MRI due to intensifying musculoskeletal symptoms. She describes a significant decline in joint function, particularly in the knee, requiring injection therapy without notable improvement. An MRI was conducted due to the described symptomatology. Esophageal issues have led to difficulty swallowing, confirmed on a recent barium swallow test which diagnosed dysmotility and achalasia. This has necessitated more frequent endoscopic evaluations, planned within three to four years versus the standard five due to increased complexity. Hypercholesterolemia was noted with a total cholesterol of 223 mg/dL and LDL at 130 mg/dL. Her vitamin D levels were low, and she occasionally supplements, despite it causing gastrointestinal distress. The patient has a further history of receiving a mammogram and varian swallow test in May. [facility] Medical History Physical exam LLQ abdominal pain Diverticulitis Acute diarrhea Inflammatory bowel disease Low vitamin B12 level Anemia Right hip pain Pre-op examination Small bowel motility disorder Back pain Lumbar pain Snoring Excessive daytime sleepiness Sleep difficulties Obstructive sleep apnea Right leg pain Left leg pain Upper respiratory tract infection Memory loss Cervical strain Tenderness over frontal sinus Left knee pain Arm numbness Left hip pain Left shoulder pain Leg pain Osteoarthritis of lumbar spine Flexor tenosynovitis of finger Rheumatoid factor positive Postmenopausal Generalized anxiety disorder Mild major depression, single episode Fibromyalgia Essential hypertension Meningioma Bicytopenia Dyslipidemia Hypovitaminosis D Chronic idiopathic constipation Polyarthralgia History of herniated intervertebral disc History of partial adherence to treatment Surgical History History of sleeve gastrectomy Hx of colonoscopy Hx of melanoma excision Hx of hernia repair Hx of ovarian cystectomy History of lumbar fusion Hx of section Family History Father Prostate cancer Diabetes mellitus Colon cancer Mother Migraine Arthritis Hypertension Heart disease Emphysema lung CVD (cardiovascular disease) Brother Drug overdose Brother Ocsmxkb-Mhiog-Zexge disease Sister No problems noted. Sister No problems noted. Son No problems noted. Son No problems noted. Son No problems noted. Daughter No problems noted. Daughter No problems noted. Daughter No problems noted. Family/Other Substance use disorder Social History (Updated 08/15/24 @ 13:59 by Quynh Fride MD) Household Members: Children Housing: House Are you a primary morning caregiver to a significant other at home: No Do you presently have visiting nurse or other home services: No Alcohol intake: current Alcohol intake frequency: a few times a week Alcohol type: beer Patient Tobacco Use Status: Never used Tobacco e-Cigarette/Vaping Use: Never Used Second Hand Smoke Exposure: No service: No Current occupational status: disabled Cognitive needs: No Hearing needs: No Vision needs: No Questionnaire Thrive Questionnaire Date Thrive assessed: 09/14/23 MARK ANTHONY-7 AMB Questionnaire MARK ANTHONY-7 Date MARK ANTHONY - 7 assessed: 09/14/23 Source: Developed by Drs. Celso Finney, Josefa Morales, Damion Wood and colleagues, with an educational maria r from [employer]. Review of Systems Const Details: - General: Reports feeling generally good. - Musculoskeletal: Diffuse joint pain - Gastroenterology: Reports abdominal bloating. Physical exam (Primary Care) Vital Signs: Last Vital Signs BP 140/104 H 08/15/24 13:05 BMI result Body Mass Index 30.2 BMI Assessment/Plan discussion: High BMI High, discussed plan: lifestyle, weight reduction, dietary, physical activity and alcohol moderation Tobacco/Smoking Status: Tobacco use Status Tobacco use date assessed 09/14/23 08/15/24 13:08 Patient Tobacco Use Status Never used Tobacco 08/15/24 13:59 e-Cigarette/Vaping Use Never Used 08/15/24 13:59 Thrive Assessment: Date of Thrive Assessment Date Thrive assessed 09/14/23 08/15/24 13:08 Const Other: General: No confusion Respiratory: Normal respiratory effort, clear to auscultation bilaterally Cardiovascular: No jugular venous distension, regular rate, regular rhythm, S1 normal heart sound present and S2 normal heart sound present Skin: Rash noted Neurology: Patient oriented x3, no focal motor deficits and No confusion Extremities: Full ROM Office Procedures Flu Questionnaire Does the patient have a severe egg allergy?: No Results AMB Hemoglobin A1c AMB Hemoglobin A1c 6.4 % Last Edit by MARLENE Wiggins on 08/15/24 14:1 3 Immunizations Fluarix Triv [id number] (PF) 45 mcg (15 mcg x 3)/0.5 mL IM syringe Performing Provider: Quynh Fried MD [facility] [place] [facility] Documented (not given) by: MARLENE Wiggins on 08/15/24 13:08 Reason Not Given: Patient Refused Results Reviewed Results Reviewed: Laboratory Last Values Hgb A1c (Clinic) 6.4 % (4.0-6.0) H 08/15/24 14:07 Coding Level of Care Code Est Pt Level 4 (87461) Complex EM visit Add On G2211 Diagnoses Diabetes mellitus E11.9 HLD (hyperlipidemia) E78.5 Essential hypertension I10 Chronic pain of both knees M25.561; M25.562; G89.29 Chronicity: chronic Laterality: bilateral Achalasia K22.0 Urge urinary incontinence N39.41 Time Spent (min) 23 Assessment & Plan Assessment & Plan (1) Diabetes mellitus: Code(s): E11.9 - Type 2 diabetes mellitus without complications Category: Medical (2) HLD (hyperlipidemia): Code(s): E78.5 - Hyperlipidemia, unspecified Category: Medical (3) Essential hypertension: Code(s): I10 - Essential (primary) hypertension Category: Medical (4) Knee pain: Code(s): M25.569 - Pain in unspecified knee Category: Medical Qualifiers: Chronicity: chronic Laterality: bilateral Qualified Code(s): M25.561 - Pain in right knee; M25.562 - Pain in left knee; G89.29 - Other chronic pain (5) Achalasia: Code(s): K22.0 - Achalasia of cardia Category: Medical (6) Urge urinary incontinence: Code(s): N39.41 - Urge incontinence Category: Medical Plan - Type 2 Diabetes Mellitus will be managed with continued monitoring of glucose levels and necessary modifications to the current treatment regimen. - Hypertension management will include revisiting the spironolactone prescription and evaluating its effectiveness. - Urinary incontinence management will continue with current supportive measures. - Joint and musculoskeletal symptoms will be further evaluated with potential referral for specialist intervention if no improvement with current conservative measures. - Esophageal Achalasia noted through barium swallow will be monitored with potential endoscopic assessment sooner than usual intervals. - Hypercholesterolemia management will focus on dietary adjustments and possible pharmaceutical interventions if needed. - Vitamin D supplementation will be adjusted in line with tolerability and necessity based on lab follow-ups. Patient was informed and verbally consented to the use of an ambient scribe for clinic note documentation during this visit. I discussed with the patient the importance of ongoing monitoring and adjustment of her diabetes and hypertension management to ensure optimal control. We reviewed the results of recent imaging and diagnostic tests, especially focusing on esophageal findings which necessitate earlier than usual repeat endoscopic evaluations. I explained that while injection therapy has been initiated for joint pain, further interventions may be necessary if no improvement is noted. I also emphasized the need for adherence to vitamin D supplementation despite gastrointestinal side effects and discussed potential dietary measures to manage elevated cholesterol levels. Orders: Orders Microalbumin, Random (w Creat) 4 Months R80.9 - Proteinuria, unspecified Vitamin D 25-OH Total 4 Months E55.9 - Vitamin D deficiency, unspecified Comprehensive [place]. Panel Fast 4 Months M47.816 - Spondylosis without myelopathy or radiculopathy, lumbar region AMB Hemoglobin A1c Today R73.02 - Impaired glucose tolerance (oral) Influenza [id number] Immunization Today Z23 - Encounter for immunization Lipid Panel 4 Months E78.5 - Hyperlipidemia, unspecified Medications: Refilled [id number] 36,000-114,000- 180,000 unit (Creon) administer with meals and/or snacks 2 caps PO BID 120 caps 6RF K58.9 - Irritable bowel syndrome, unspecified, R14.0 - Abdominal distension (gaseous) spironolactone 25 mg PO DAILY 90 tabs 1RF 90 days I10 - Essential (primary) hypertension amlodipine 5 mg PO BID 180 tabs 1RF 90 days I10 - Essential (primary) hypertension Patient Instructions: - Maintain current wellness. - Continue any prescribed wellness regimen. - Monitor health and return if any issues arise.
[2024-08-15 13:05] VITALS: BP 140/104; BMI 30.2
== END 2024-08-15 14:06 | disposition home or self-care (01) ==
PROVIDERS: PCP Internal Medicine; Visit Provider Internal Medicine
DX: E11.9 Type 2 diabetes mellitus without complications (principal); E78.5 Hyperlipidemia, unspecified; I10 Essential (primary) hypertension; M25.561 Pain in right knee; M25.562 Pain in left knee; G89.29 Other chronic pain; K22.0 Achalasia of cardia; N39.41 Urge incontinence; Z23 Encounter for immunization; R73.02 Impaired glucose tolerance (oral)

== ENCOUNTER → 2024-08-15 12:51 | Outpatient (BNVA) | payer OTHER, SELFPAY | PROVIDERS: PCP Internal Medicine; Visit Provider Internal Medicine | DX: E11.9 Type 2 diabetes mellitus without complications (principal); E78.5 Hyperlipidemia, unspecified; I10 Essential (primary) hypertension; M25.561 Pain in right knee; M25.562 Pain in left knee; G89.29 Other chronic pain; K22.0 Achalasia of cardia; N39.41 Urge incontinence | CPT/HCPCS: 83036; 90471; 99212 ==

== ENCOUNTER 2024-11-21 08:41 | Outpatient (REF) | payer OTHER, SELFPAY ==
[2024-11-29 04:38] LABS: Calprotectin, Fecal 45 mcg/g
== END 2024-11-21 08:42 | disposition home or self-care (01) ==
LOC: HO.LNP 08:41
PROVIDERS: Visit Provider Nurse Practitioner
DX: R19.5 Other fecal abnormalities (principal)
CPT/HCPCS: 83993

== ENCOUNTER 2024-11-22 08:00 | Outpatient (REF) | payer OTHER, SELFPAY ==
[2024-11-22 10:37] LABS: Alanine Aminotransferase 17 U/L (0-31); Albumin Level 4.5 g/dL (3.5-5.0); Alkaline Phosphatase 71 U/L (39-117); Anion Gap 12 (12-20); Aspartate Amino Transferase 23 U/L (5-31); Bilirubin Total 0.7 mg/dL (0.0-1.0); Blood Urea Nitrogen 19 mg/dL (9-16); Calcium 10.1 mg/dL (8.4-10.2); Carbon Dioxide 26 mmol/L (22-29); Chloride 109 mmol/L (96-108); Cholesterol 223 mg/dL (<200); Estimated Glomerular Filt Rate > 60; Glucose Fasting 95 mg/dL (60-99); HDL Cholesterol 64 mg/dL (>40); LDL Cholesterol Calculated 137 mg/dL (<100); Potassium 4.2 mmol/L (3.3-5.1); Sodium 143 mmol/L (135-145); Total Protein 7.3 g/dL (6.5-8.0); Triglycerides 110 mg/dL (<150)
[2024-11-22 10:39] LABS: Vitamin D 25-OH Total 21.1 ng/mL (>30)
[2024-11-22 11:20] LABS: Creatinine Urine 82.33 mg/dL; Microalbum/Creatinine Ratio Ur 35.2 ug/mg cr (<30)
== END 2024-11-22 08:01 | disposition home or self-care (01) ==
LOC: HO.LAB 08:00
PROVIDERS: PCP Internal Medicine; Visit Provider Internal Medicine
DX: Z00.00 Encounter for general adult medical examination without abnormal findings (principal); E11.9 Type 2 diabetes mellitus without complications; D32.9 Benign neoplasm of meninges, unspecified; Z85.828 Personal history of other malignant neoplasm of skin; E78.5 Hyperlipidemia, unspecified; R80.9 Proteinuria, unspecified; E55.9 Vitamin D deficiency, unspecified; M47.816 Spondylosis without myelopathy or radiculopathy, lumbar region
CPT/HCPCS: 36415; 80053; 80061; 82043; 82306; 82570; 83036; 96127; 99396

== ENCOUNTER 2024-11-22 08:00 | Outpatient (AMB) | payer OTHER, SELFPAY ==
--- NOTE | 2024-11-22 08:12 | A.OFFPC_ITS ---
Vital Signs 11/22/24 08:17 Height 5 ft 1 in Weight 158 lb BMI 29.9 BP 136/80 Blood Pressure Location Lt brachial Position Sitting Intake Visit Reasons: Annual Exam Intake Note: Patient here for a physical exam Poll Clerk Required: Yes Poll Clerk Language: Billet Straightener Name: Quynh Fried MD Information Interpreted: non-clinical & clinical Accompanied by: Self / Same As Patient Allergies gabapentin Allergy (Intermediate, Verified 11/22/24 08:42) inadequate response hydromorphone [From DILAUDID] Allergy (Intermediate, Verified 11/22/24 08:42) RASH lisinopril [LISINOPRIL] Allergy (Intermediate, Verified 11/22/24 08:42) CLOGGED THROAT, shortness of breath, anaphylaxis topiramate Allergy (Intermediate, Verified 11/22/24 08:42) inadequate response Medication List - Last Reconciled 11/22/24 by Quynh Fried MD acetaminophen 1,000 mg (2 x 500 mg) PO Q6H PRN amlodipine 5 mg PO BID 90 days bisacodyl 10 mg (2 x 5 mg) PO BEDTIME 90 days blood pressure test kit-medium ([place] Blood Pressure kit) As directed blood pressure test kit-small As directed cholecalciferol (vitamin D3) 25 mcg PO DAILY 90 days [elevating leg wedge As directed] estradiol 0.01%(0.1mg/gram) vaginal [handheld shower As directed] ibuprofen 800 mg PO Q8H PRN 30 days incontinence pad, liner, disp Use 1 lincer four times a day prn incontinence pad, liner, disp Use 1 pad three times a day as needed lidocaine 5% 1 patch topical DAILY qbiwon-swvscsnk-mickrwf 36,000-114,000- 180,000 unit (Creon) 2 caps PO BID magnesium oxide 400 mg PO BEDTIME 30 days methocarbamol 750 mg PO Q6H pantoprazole 40 mg PO BID plecanatide (Trulance) 3 mg PO DAILY propranolol 10 mg PO BID 30 days Shower Chair As directed spironolactone 25 mg PO DAILY 90 days sumatriptan succinate (Imitrex) 50 - 100 mg orally at onset of headache, may repeat in 2 hrs PRN; max 2 tabs per day or 4 tabs/week (may take with Ibuprofen) 30 days [wedge pillow As directed] Tobacco use date assessed: 11/22/24 Dental Screening Dental Screen Date: 11/22/24 Did you have a dental visit in the last 12 months?: Yes Did you have a dental problem in the last 6 months where you did not have access to dental care?: No Was dental information given to patient?: Patient has dentist HPI HPI Comments History of Present Illness Details The patient is a 59-year-old female presenting for her physical exam. She has Type 2 Diabetes Mellitus, Essential Hypertension, and associated health maintenance. Her diabetes control appears adequate with an HbA1c of 6.2%. The patient also follows up for migraines and rheumatoid arthritis, expressing concern about worsening joint symptoms. A previous positive QUYNH test has been noted, and she follows up regularly with rheumatology. Psychiatric concerns include symptoms of depression influenced by stressors from familial responsibilities. She does not smoke but drinks alcohol occasionally. Past medical history is significant for surgical interventions such as sleeve gastrectomy and melanoma excision in 2019. Her preventive health measures are ongoing, with a noted need for updates in vaccination history. Has meningioma follow by Neurosurgery. - HbA1c: 6.2% (good control of diabetes) - Tetanus vaccine overdue; patient decli diandra update - Colonoscopy done 2023 - Mammogram performed in May for oziel veillance - Pending follow-up on lipid profile and full blood work [facility] Medical History (Updated 11/22/24 @ 13:36 by Quynh Fried MD) Physical exam LLQ abdominal pain Diverticulitis Acute diarrhea Inflammatory bowel disease Low vitamin B12 level Anemia Right hip pain Pre-op examination Small bowel motility disorder Back pain Lumbar pain Snoring Excessive daytime sleepiness Sleep difficulties Obstructive sleep apnea Right leg pain Left leg pain Upper respiratory tract infection Memory loss Cervical strain Tenderness over frontal sinus Left knee pain Arm numbness Left hip pain Left shoulder pain Leg pain Osteoarthritis of lumbar spine Flexor tenosynovitis of finger Rheumatoid factor positive Postmenopausal Generalized anxiety disorder Mild major depression, single episode Fibromyalgia Essential hypertension Meningioma Bicytopenia Dyslipidemia Hypovitaminosis D Chronic idiopathic constipation Polyarthralgia History of herniated intervertebral disc History of partial adherence to treatment Surgical History History of sleeve gastrectomy Hx of colonoscopy Hx of melanoma excision Hx of hernia repair Hx of ovarian cystectomy History of lumbar fusion Hx of section Family History Father Prostate cancer Diabetes mellitus Colon cancer Mother Migraine Arthritis Hypertension Heart disease Emphysema lung CVD (cardiovascular disease) Brother Drug overdose Brother Lxcwuwx-Uhgdm-Otwsd disease Sister No problems noted. Sister No problems noted. Son No problems noted. Son No problems noted. Son No problems noted. Daughter No problems noted. Daughter No problems noted. Daughter No problems noted. Family/Other Substance use disorder Social History Household Members: Children Housing: House Are you a primary palliative care specialist to a significant other at home: No Do you presently have visiting nurse or other home services: No Alcohol intake: current Alcohol intake frequency: a few times a week Alcohol type: beer Patient Tobacco Use Status: Never used Tobacco e-Cigarette/Vaping Use: Never Used Second Hand Smoke Exposure: No service: No Current occupational status: disabled Cognitive needs: No Hearing needs: No Vision needs: No Questionnaire PHQ-9 Over the last 2 weeks, how often have you been bothered by any of the following problems? 1. Little interest or pleasure in doing things: more than half the days 2. Feeling down, depressed, or hopeless: more than half the days 3. Trouble falling or staying asleep, or sleeping too much: several days 4. Feeling tired or having little energy: several days 5. Poor appetite or overeating: not at all 6. Feeling bad about yourself - or that you are a failure or have let yourself or your family down: not at all 7. Trouble concentrating on things, such as reading the newspaper or watching television: not at all 8. Moving or speaking so slowly that other people could have noticed. Or the opposite - being so fidgety or restless that you have been moving around a lot more than usual: not at all 9. Thoughts that you would be better off or of hurting yourself in some way: not at all Total score: 6 Depression Screening Interpretation: Positive Depression Screening Follow-up: Existing condition and Follow-up Visit Requested Depression Screening Done: Yes 53937 - PHQ-9 Billing: Yes Source: Developed by Drs. Celso Finney, Josefa Morales, Damion Wood and colleagues, with an educational maria r from [employer]. Thrive Questionnaire Date Thrive assessed: 11/22/24 I am a: Patient What is your living situation today?: I have a steady place to live Within the past 12 months, did the food you bought not last and you didn't have the money to get more?: Never true Within the past 12 months, did you worry whether your food would run out before you got money to buy more?: Never true Do you have trouble paying for medicines?: No Do you have trouble getting transportation to medical appointments?: No Do you have trouble paying your heating and electricity bill?: No Do you have trouble taking care of your child, family member or friend?: No Do you have trouble with day-to-day activities such as bathing, preparing meals, shopping, managing finances, etc.?: No Are you currently unemployed and looking for a job?: No Are you interested in more education?: No Please select the resources that you would like help with: None Currently or been in a relationship where the following occur: No concerns reported THRIVE Score: 0 AUDIT C Alcohol Use Questionnaire (AUDIT-C) 1. How often do you have a drink containing alcohol?: Monthly or less 2. How many drinks containing alcohol do you have on a typical day when you are drinking?: 1 or 2 3. How often do you have six or more drinks on one occasion?: Never Total Score: 1 Score Reviewed/Action Taken: No MARK ANTHONY-7 AMB Questionnaire MARK ANTHONY-7 Date MARK ANTHONY - 7 assessed: 11/22/24 Feeling nervous, anxious, or on edge: 1 = Several days Not being able to stop or control worryin = Not at all Worrying too much about different things: 0 = Not at all Trouble relaxin = Not at all Being so restless that it is hard to sit still: 0 = Not at all Becoming easily annoyed or irritable: 0 = Not at all Feeling afraid as if something awful might happen: 0 = Not at all Total MARK ANTHONY-7 score (0-4 normal; 5-9 mild; 10-14 moderate; 15-21 severe): 1 Source: Developed by Drs. Celso Finney, Damion Mchugh and colleagues, with an educational maria r from [employer]. MARK ANTHONY-7 Assessment Billing MARK ANTHONY-7 Assessment Tool: MARK ANTHONY-7 Assessment 77291 Review of Systems Const All systems reviewed & are unremarkable except as noted in HPI and below Card Denies chest pain at rest, Denies chest pain with activity, Denies edema, Denies irregular heart rhythm, Denies claudication, Denies dyspnea, Denies dyspnea on exertion, Denies orthopnea, Denies paroxysmal nocturnal dyspnea and Denies slow heart rate Resp Denies cough, Denies dyspnea and Denies dyspnea on exertion GI Denies abdominal pain, Denies change in bowel habits, Denies excessive flatus, Denies nausea and Denies vomiting Denies urinary incontinence, Denies urinary hesitancy and Denies urinary urgency Musc Denies abnormal gait, Denies atrophy, Denies deformity and Denies limited range of motion Skin/Breast Denies bleeding lesions, Denies changing lesions and Denies rash Neuro Denies abnormal gait, Denies behavioral changes and Denies lack of coordination Psych Denies behavioral changes Physical exam (Primary Care) Vital Signs: Last Vital Signs BP 136/80 11/22/24 08:17 BMI result Body Mass Index 29.9 Tobacco/Smoking Status: Tobacco use Status Tobacco use date assessed 11/22/24 11/22/24 08:19 Patient Tobacco Use Status Never used Tobacco 11/22/24 08:15 e-Cigarette/Vaping Use Never Used 11/22/24 08:15 PHQ-9: PHQ-9 Score PHQ-9: Total score 6 11/22/24 08:44 Depression Screening Interpretation: Positive Depression Screening Follow-up: Existing condition and Follow-up Visit Requested Thrive Assessment: Date of Thrive Assessment Date Thrive assessed 11/22/24 11/22/24 08:15 Currently or been in a relationship where the following occur: No concerns reported [facility] Head: Yes normal to inspection, Yes normocephalic and Yes atraumatic Ears: external ears normal Eyes General: appearance normal, both eyes and all related structures Eyelids: Yes eyelids normal Conjunctivae: conjunctivae normal Neck Neck: Yes normal visual inspection and Yes supple Resp Effort & Inspection: normal respiratory effort Auscultation: clear to auscultation bilaterally Cardio Jugular venous distension: no JVD Rate: regular rate Rhythm: regular rhythm Heart sounds: S1 normal heart sound present and S2 normal heart sound present GI Inspection: Yes normal to inspection Palpation (GI): Soft to palpation and nontender Auscultation: normal bowel sounds Skin General skin exam: no rashes or lesions noted Neuro General: no focal motor deficits Extrem General: Yes full ROM Psych Appearance: grossly normal Results AMB Hemoglobin A1c AMB Hemoglobin A1c 6.2 % Last Edit by MARLENE Wiggins on 11/22/24 08:4 5 Results Reviewed Results Reviewed: Laboratory Last Values Hgb A1c (Clinic) 6.2 % (4.0-6.0) H 11/22/24 08:12 Coding Level of Care Code Est Pt Level 3 (07979) Est Pt Prev Care 40-64y(92688) Diagnoses Physical exam Z00.00 History of skin cancer Z85.828 Diabetes mellitus E11.9 Meningioma D32.9 Additional Codes MARK ANTHONY-7 Assessment Billing - MARK ANTHONY-7 Assessment Tool: MARK ANTHONY-7 Assessment [id number] ([id number]) PHQ-9 - 24861 - PHQ-9 Billing: Yes ([id number]) Time Spent (min) 33 Assessment & Plan Assessment & Plan (1) Physical exam: Code(s): Z00.00 - Encounter for general adult medical examination without abnormal findings Category: Medical (2) History of skin cancer: Code(s): Z85.828 - Personal history of other malignant neoplasm of skin Category: Medical (3) Diabetes mellitus: Code(s): E11.9 - Type 2 diabetes mellitus without complications Category: Medical (4) Meningioma: Comment: MRI, Aug 2021: 1.8 cm meningioma along the inferior surface of the right tentorial leaflet. Head Ct Sep 2022: stable Code(s): D32.9 - Benign neoplasm of meninges, unspecified Category: Medical Plan I discussed her diabetes management, found to be effectively controlled, and advised maintaining her current medication regimen. An update of her tetanus vaccination is warranted but was declined today. For her rheumatoid arthritis, continued follow-up with rheumatology is crucial. Her migraine management with sumatriptan remains satisfactory, and further lifestyle adjustments may aid in her fibromyalgia symptomatology. A clear family history of colon cancer necessitates routine screenings. I ordered pertinent blood work, including a lipid profile, for comprehensive cardiovascular evaluation. Emotional wellness g uidance was provided, emphasizing managing familial stressors. Patient was informed and verbally consented to the use of an ambient scribe for clinic note documentation during this visit. I thoroughly discussed with the patient her ongoing management for diabetes and hypertension. Her diabetes control is consistent, and the importance of completing health screenings to preempt potential complications was highlighted, particularly due to her family history. Her decision against updating the tetanus vaccine was respected, although the need for preventive health measures was emphasized. I ensured understanding of her current arthritis management and the continued collaboration with rheumatology and neurology. Discussions were comprehensive regarding her pain management options for fibromyalgia and the potential benefit of lifestyle adjustments. We agreed to maintain open communications surrounding her mental health and I recommended pertinent resources if needed. Finally, I outlined the importance of scheduled follow-ups to maintain structured care across her medical needs. Orders: Orders Lipid Panel Today E78.5 - Hyperlipidemia, unspecified Microalbumin, Random (w Creat) Today R80.9 - Proteinuria, unspecified Comprehensive [place]. Panel Fast Today E11.9 - Type 2 diabetes mellitus without complications AMB Hemoglobin A1c Today E11.9 - Type 2 diabetes mellitus without complications Vitamin D 25-OH Total Today E55.9 - Vitamin D deficiency, unspecified Referrals Dermatology Referral Z85.828 - Personal history of other malignant neoplasm of skin Patient Instructions: - Continue taking prescribed diabetes medications and monitor blood glucose liv mcmillan regularly. - Schedule pending blood tests, including lipid profile screening. - Return for regular colonoscopy due to family history of colon cancer. - Maintain current regimen for migraine management with sumatriptan. - Consider updating tetanus vaccine at your earliest convenience. - Follow up appropriately with rheumatology for arthritis management. - Implement lifestyle modifications as discussed for fibromyalgia and consider physical activity to reduce symptoms. - Seek support or counseling services to manage stress and mild depressive symptoms when needed.
[2024-11-22 08:17] VITALS: BP 136/80; BMI 29.9
== END 2024-11-22 08:55 | disposition home or self-care (01) ==
LOC: HO.HMCH 08:00
PROVIDERS: PCP Internal Medicine; Visit Provider Internal Medicine
DX: Z00.00 Encounter for general adult medical examination without abnormal findings (principal); E11.9 Type 2 diabetes mellitus without complications; D32.9 Benign neoplasm of meninges, unspecified; Z85.828 Personal history of other malignant neoplasm of skin

== ENCOUNTER 2024-11-28 08:58 | Outpatient (AMB) | payer OTHER, SELFPAY ==
--- NOTE | 2024-11-28 09:06 | MHC.OFFVIS ---
Vital Signs 11/28/24 09:16 Height 5 ft 1 in Weight 160 lb BMI 30.2 BP 157/85 H Blood Pressure Location Lt brachial Position Sitting Pulse 84 Intake Visit Reasons: abd pain, eval Creon Intake Note: Patient in office today in follow up of abdominal pain. CC: Pt states that she continues having abdominal pain and abd bloating. She states that she can't have a BM unless she takes the medication and she does not like to take that many medications. Development Specialist Required: No Accompanied by: Self / Same As Patient Allergies gabapentin Allergy (Intermediate, Verified 11/28/24 09:20) inadequate response hydromorphone [From DILAUDID] Allergy (Intermediate, Verified 11/28/24 09:20) RASH lisinopril [LISINOPRIL] Allergy (Intermediate, Verified 11/28/24 09:20) CLOGGED THROAT, shortness of breath, anaphylaxis topiramate Allergy (Intermediate, Verified 11/28/24 09:20) inadequate response HPI HPI abd pain, eval Creon: Details: Assessment & Plan (1) Abdominal bloating: Code(s): R14.0 - Abdominal distension (gaseous) Category: Medical (2) IBS (irritable bowel syndrome): Code(s): K58.9 - Irritable bowel syndrome, unspecified Category: Medical (3) Elevated fecal calprotectin: Code(s): R19.5 - Other fecal abnormalities Category: Medical (4) Periumbilical abdominal pain: Code(s): R10.33 - Periumbilical pain Category: Medical Plan (We tried treating for inflammatory bowel disease because nothing else was working based on the elevated fecal calprotectin. It is possible there something else causing inflammation in the GI system but it does not appear to be responsive to antibiotics, she has had a relatively normal colonoscopy, a negative stool study for infection, and the only food allergy and a RAST panel was to shrimp which she avoids. She also did not do well on Bentyl, we tried treating her for SIBO with antibiotic without results and probiotic supplements did not seem helpful) She continues on the Trulance, pantoprazole twice a day and the dicyclomine as needed. Her bloating and periumbilcal abd pain continues. The pain is worse when she eats. Another provider tried to give her Carafate and I appreciate they were trying to help but given her history of constipation this likely would only make her bloating and the problem worse. In the past we have tried treating her with antibiotic for SIBO without success. She also has not done well on dicyclomine. I think were going to try putting her on Creon to see if this can affect the the bloating which likely is driving bowel irritability mostly in the small bowel. She has taken a probiotic supplement in the past without any impact but is not taking 1 currently. I think were going to repeat her elevated fecal calprotectin since this was puzzling. I even tried treating her for IBD but this did not help the symptoms either. Colonoscopy that she had in the same timeframe did not show any abnormalities either visually or on biopsies except for tubular adenomas. Return office visit in 6 weeks. Orders: Orders Calprotectin, Fecal Today R19.5 - Other fecal abnormalities Medications: New mtyxqb-wpdgqdic-zwbjymr 36,000-114,000- 180,000 unit (Creon) administer with meals and/or snacks 2 caps PO BID 120 caps 6RF K58.9 - Irritable bowel syndrome, unspecified, R14.0 - Abdominal distension (gaseous) Discontinued sucralfate (Carafate) Discontinued Reason: Doctor's Order 10 mL PO BID 420 mL 3RF LABS: Laboratory Tests 11/21/24 07:51 Stool Calprotectin Pending TODAY'S VISIT She still has severe constipation alternating with diarrhea. However, with further discussion I realize that she is taking both the Trulance and the Dulcolax and then she either has diarrhea all day so she will stop taking the medicine and then she will not have bowel movements. I did not realize this and I educate her that were probably interrupting her bowel motility which is causing her severe bloating that is a symptom. If we can get her on a regimen where she can move her bowels every day but not have the diarrhea it would be much better. So with that in mind she is going to try just taking the Trulance every day and will go from there to titrate to affect her side effect. Return office visit next available [facility] Medical History Physical exam LLQ abdominal pain Diverticulitis Acute diarrhea Inflammatory bowel disease Low vitamin B12 level Anemia Right hip pain Pre-op examination Small bowel motility disorder Back pain Lumbar pain Snoring Excessive daytime sleepiness Sleep difficulties Obstructive sleep apnea Right leg pain Left leg pain Upper respiratory tract infection Memory loss Cervical strain Tenderness over frontal sinus Left knee pain Arm numbness Left hip pain Left shoulder pain Leg pain Osteoarthritis of lumbar spine Flexor tenosynovitis of finger Rheumatoid factor positive Postmenopausal Generalized anxiety disorder Mild major depression, single episode Fibromyalgia Essential hypertension Meningioma Bicytopenia Dyslipidemia Hypovitaminosis D Chronic idiopathic constipation Polyarthralgia History of herniated intervertebral disc History of partial adherence to treatment Surgical History History of sleeve gastrectomy Hx of colonoscopy Hx of melanoma excision Hx of hernia repair Hx of ovarian cystectomy History of lumbar fusion Hx of section Family History Father Prostate cancer Diabetes mellitus Colon cancer Mother Migraine Arthritis Hypertension Heart disease Emphysema lung CVD (cardiovascular disease) Brother Drug overdose Brother Tdjkstz-Tylcw-Gjmtf disease Sister No problems noted. Sister No problems noted. Son No problems noted. Son No problems noted. Son No problems noted. Daughter No problems noted. Daughter No problems noted. Daughter No problems noted. Family/Other Substance use disorder Social History Household Members: Children Housing: House Are you a primary child care supervisor to a significant other at home: No Do you presently have visiting nurse or other home services: No Alcohol intake: current Alcohol intake frequency: a few times a week Alcohol type: beer Patient Tobacco Use Status: Never used Tobacco e-Cigarette/Vaping Use: Never Used Second Hand Smoke Exposure: No service: No Current occupational status: disabled Cognitive needs: No Hearing needs: No Vision needs: No Review of Systems Const Denies fatigue, Denies fever(s), Denies night sweats, Denies poor appetite and Denies weight loss ENT Reports Normal hearing present, Denies dental pain, Denies dysphagia, Denies hearing loss, Denies mouth pain, Denies odynophagia, Denies throat swelling, Denies tongue swelling and Reports other (Dentition adequate) Card Reports no additional complaints Resp Reports no additional complaints GI Details: Denies abdominal pain, Denies melena, Denies bloating, Denies hematochezia, Reports constipation, Denies GI cramping, Denies dysphagia, Denies excessive flatus, Denies early satiety, Reports heartburn, Reports diarrhea, Denies nausea, Denies odynophagia, Denies vomiting and Denies hematemesis Skin/Breast Denies pruritus, Denies lesions, Denies rash and Denies jaundice Neuro Reports Normal hearing present and Denies Abnormal speech present Endo Denies fatigue Aller/Immun Denies throat swelling and Denies tongue swelling Physical Exam Vital Signs: Last Vital Signs Pulse 84 11/28/24 09:16 BP 157/85 H 11/28/24 09:16 BMI result Body Mass Index 30.2 Const General: cooperative, no acute distress, well developed and well groomed Nutritional Appearance: well nourished and obese Orientation/consciousness: oriented to person, oriented to place and oriented to time Limitations: No language barrier Resp Effort & Inspection: normal respiratory effort and able to speak in complete sentences Skin General skin exam: no rashes or lesions noted Neuro General: oriented to person, oriented to place and oriented to time Cranial nerves: Yes Normal hearing present Speech: No Abnormal speech present Extrem General: Yes normal to inspection Psych Appearance: grossly normal and well kempt Mental Status: mental status grossly normal Speech and movement: Normal speech and movement present Affect: normal affect Attitude: cooperative Thought process: not confabulating and Impoverished thought process present Thought content: Normal thought content present Insight: Limited insight present (Psych) Judgement: Limited judgement present (Psych) Assessment & Plan Assessment & Plan (1) Chronic idiopathic constipation: Code(s): K59.04 - Chronic idiopathic constipation Category: Medical (2) Elevated fecal calprotectin: Code(s): R19.5 - Other fecal abnormalities Category: Medical (3) GERD (gastroesophageal reflux disease): Code(s): K21.9 - Gastro-esophageal reflux disease without esophagitis Category: Medical Plan She still has severe constipation alternating with diarrhea. However, with further discussion I realize that she is taking both the Trulance and the Dulcolax and then she either has diarrhea all day so she will stop taking the medicine and then she will not have bowel movements. I did not realize this and I educate her that were probably interrupting her bowel motility which is causing her severe bloating that is a symptom. If we can get her on a regimen where she can move her bowels every day but not have the diarrhea it would be much better. So with that in mind she is going to try just taking the Trulance every day and will go from there to titrate to affect her side effect. Return office visit next available LABS: Laboratory Tests 11/21/24 07:51 Stool Calprotectin Pending Coding Level of Care Code Est Pt Level 3 (45250) Diagnoses Chronic idiopathic constipation K59.04 Elevated fecal calprotectin R19.5 GERD (gastroesophageal reflux disease) K21.9
[2024-11-28 09:16] VITALS: BP 157/85; PULSE 84; BMI 30.2
--- OUTSIDE RECORDS SUMMARY | 2024-11-28 09:44 | XMS_ITS | Clinical Summary ---
Author Organization [facility] Address [address] [place] [address] Phone Care Team Providers Care Java Developer Name Role Phone Quynh Fried MD Primary Care Provider [phone] Allergies Active Allergy Reactions Criticality Noted Date Comments Gabapentin 06/30/2017 Hydromorphone Itching,Rash 04/28/2020 Lisinopril 06/30/2017 Topiramate 06/30/2017 Medications No known medications Active Problems No known active problems Surgical History Surgery Date Site/Laterality Comments SECTION PROCEDURE: [place] DELIVERY ONLY BACK SURGERY PROCEDURE: HISTORICAL BACK SURGERY; COMMENT: lumbar fusion OTHER SURGICAL HISTORY PROCEDURE: [place] RPR EPIGASTRIC HERNIA REDUCIBLE SPX Medical History Medical History Date Comments Insomnia DX:Insomnia Constipation DX:Constipation Arthritis DX:Arthritis Migraine DX:Migraine Fibromyalgia DX:Fibromyalgia Melanoma (CMS/HCC) DX:Melanoma ( HCC) Cancer of skin of back DX:Cancer of skin of back Meningioma (CMS/HCC) DX:Meningio ma (HCC) Family History Medical History Relation Name Comments Diabetes Father Prostate cancer Father Hypertension Mother Relation Name Status Comments Father Mother Alive Social History Tobacco Use Types Packs/Day Years Used Date Smoking Tobacco: Never Smokeless Tobacco: Never Alcohol Use Standard Drinks/Week Comments Yes 0 (1 standard drink = 0.6 oz pur e alcohol) Comments Unknown Sex and Gender Information Value Date Recorded Sex Assigned at Not on file Legal Sex Female 6:44 PM EST Gender Identity Not on file Sexual Orientation Not on file Obstetrics History Last Filed Vital Signs Vital Sign Reading Time Taken Comments Blood Pressure 166/94 08/23/2024 1:52 PM EST Pulse 74 08/23/2024 1:52 PM EST Temperature 37.1 ??C (98.8 ??F) 08/23/2024 1:52 PM ES T Respiratory Rate 17 08/23/2024 10:25 AM EST Oxygen Saturation 96% 08/23/2024 1:52 PM EST Inhaled Oxygen Concentration - - Weight 70.8 kg (156 lb) 08/23/2024 10:25 AM EST Height 154.9 cm (5' 1 ) 08/23/2024 10:25 AM EST Body Mass Index 29.48 08/23/2024 10:25 AM EST Plan of Treatment Health Maintenance Due Date Last Done Comments Diabetes: Annual GFR (Glomerular Filtration Rate) 1965 COVID-19 Vaccine (#1) 1972 Diabetes: Annual Foot Exam 1977 Diabetes: Annual Retina Eye Exam 1977 DTaP,Tdap,and Td Vaccines (1 - Tdap) 1986 Hepatitis B Vaccines (1 of 3 - 19+ 3-dose series) 1986 Pneumococcal Vaccine: 50+ Years (1 of 2 - PCV) 1986 Pneumococcal Vaccine: Pediatrics (0 to 5 Years) and At-Risk Patients (6 to 64 Years) (1 of 2 - PCV) 1986 Zoster Vaccines (1 of 2) 1986 Cervical Cancer Screening: P ap Smear 1988 Breast Cancer Screening 12/27/2019 12/26/2017 Cholesterol Screening (Lipid Panel) 07/31/2022 Colorectal Cancer Screening: Colonoscopy 07/31/2022 Depression Screening 07/31/2022 HIV Screening 07/31/2022 Hepatitis C Screening 07/31/2022 Medicare Annual Wellness Visit 07/31/2022 Social Influencers of Health Screening 07/31/2022 Diabetes: Annual Urine Albumin-Creatinine Ratio (uACR) 03/23/2024 Diabetes: Blood Sugar Contro l Test (HGBA1C) 03/23/2024 Hypertension/CHF/CAD Annual BMP Blood Test 03/23/2024 Influenza Vaccine (#1) 2024 8, 08/16/2017 HIB Vaccines Aged Out No longer eligi ble based on patient's age to complete this topic HPV Vaccines Aged Out No longer eligi ble based on patient's age to complete this topic Hepatitis A Vaccines Aged Out No long er eligible based on patient's age to complete this topic IPV Vaccines Aged Out No longer eligi ble based on patient's age to complete this topic MMR Vaccines Aged Out No longer eligi ble based on patient's age to complete this topic Meningococcal ACWY Vaccine Aged Out N o longer eligible based on patient's age to complete this topic Meningococcal B Vacine Aged Out No lo nger eligible based on patient's age to complete this topic RSV Immunization Patients Under 20 months Aged Out No longer eligible b ased on patient's age to complete this topic Varicella Vaccines Aged Out No longer eligible based on patient's age to complete this topic Procedures Procedure Name Priority Date/Time Associated Diagnosis Comments [facility] SCREENING [facility]IGITAL Routine 12/26/2017 12:03 PM EDT Encounter for screening mammogram for malignant neoplasm of breast from Last 3 Months or Most Recently Relevant to Health Maintenance Results * [facility] SCREENING [facility] (12/26/2017 12:03 PM EDT) Anatomical Region Laterality Modality Mammography 12/26/2017 9:44 AM EDT Narrative 12/26/2017 12:[address] [facility] Diagnostic Imaging Department [address] [place] [address] Patient: ??ANDRES PALACIOSA ?/Age/Sex: 1965 - 52 - F Unit#: ??[id number] ? Location/Status: ??SPDIMAM/REG CLI ? Mnemonic/Ordering Site: ??DIGSC/SPMAM Ordering Physician: ??KELI CASH MD [facility] Screening Digital - 12/26/17 - 1009 History: Bilateral breast cancer screening. ??Previous benign left breast biopsy (fibroadenoma). Technique: Bilateral digital mammography. Conventional CC and MLO projections with tomosynthesis MLO views and computer aided detection. Comparison: [facility] 12/22/2016, dating back to 05/31/2007. Breast density: Mixture of fatty and fibroglandular elements, category b density. Findings: Small oval masslike asymmetry, site of previous benign biopsy, within the mid to anterior lateral left breast with adjacent ribbon shaped tissue marker is without concerning interval change. There is no suspicious group of microcalcification, suspicious mass, architectural distortion or suspicious change in breast density. Impression: No mammographic evidence of malignancy. BIRADS Category 2: Benign Findings, 3342F 33903, 63498 A negative mammogram in the face of a suspicious abnormality does not exclude the possibility of malignancy nor alter the indications for biopsy. Note: Patient information entered ??into a reminder system with a target due date for the next mammogram; PQRI II 7051F Dictating Physician: ??PRASAD CAMPOVERDE MD Electronically Signed by: ??PRASAD CAMPOVERDE MD Dic Date/Time: ??12/26/17 1201 Sign date/Time: ??12/26/17 1203 Procedure Note Prasad Campoverde MD - 08/17/2022 [facility] Diagnostic Imaging Department [address] [place] [id number] Patient: ABBY PALACIOS D.O.B./Age/Sex: 1965 - 52 - F Unit#: [id number] [facility] Mnemonic/Ordering Site: [facility] Ordering Physician: KELI CASH MD [facility] - 12/26/17 - 1009 History: Bilateral breast cancer screening. Previous benign left breastbiopsy (fibroadenoma). Technique: Bilateral digital mammography. Conventional CC and MLOprojections with tomosynthesis MLO views and computer aided detection. Comparison: [facility] 12/22/2016, dating back to 05/31/2007. Breast density: Mixture of fatty and fibroglandular elements, category b density. Findings: Small oval masslike asymmetry, site of previous benign biopsy,within the mid to anterior lateral left breast with adjacent ribbon shapedtissue marker is without concerning interval change. There is no suspicious group of microcalcification, suspicious mass, architectural distortion or suspicious change in breast density. Impression: No mammographic evidence of malignancy. BIRADS Category 2: Benign Findings, 3342F 91679, [address]009 A negative mammogram in the face of a suspicious abnormality does notexclude the possibility of malignancy nor alter the indications for biopsy. Note: Patient information entered into a reminder system with a targetdue date for the next mammogram; PQRI II 7025F Dictating Physician: PRASAD CAMPOVERDE MD Electronically Signed by: PRASAD CAMPOVERDE MD Dic Date/Time: 12/26/17 1201 Sign date/Time: 12/26/17 1203 Quynh Fried MD IMG BI PROCEDURES Final Result from Last 3 Months or Most Recently Relevant to Health Maintenance Insurance [facility] MEDICARE Member Subscriber Plan / Payer (Ef fective 2019-Present) Name:Abby Palacios Relation to Subscriber:Self Name:Abby Palacios Payer ID:[id number] Group ID:[id number] Type:Not on file Address: [address] [id number] Advance Directives Documents on File Type Date Recorded Patient Supervisor Properties Expl anation Health Care Decision (hx) 02/11/2014 AD GARCIA DIRECTIVE Health Care Decision (hx) 02/11/2014 AD GARCIA DIRECTIVE Health Care Decision (hx) 02/11/2014 AD GARCIA DIRECTIVE Health Care Decision (hx) 02/11/2014 AD GARCIA DIRECTIVE Health Care Decision (hx) 02/11/2014 AD GARCIA DIRECTIVE Health Care Decision (hx) 02/11/2014 AD GARCIA DIRECTIVE Health Care Decision (hx) 02/11/2014 AD GARCIA DIRECTIVE Health Care Decision (hx) 02/11/2014 AD GARCIA DIRECTIVE Health Care Decision (hx) 02/11/2014 AD GARCIA DIRECTIVE Health Care Decision (hx) 02/11/2014 AD GARCIA DIRECTIVE Health Care Decision (hx) 01/26/2014 AD GARCIA DIRECTIVE Health Care Decision (hx) 01/26/2014 AD GARCIA DIRECTIVE Health Care Decision (hx) 01/26/2014 AD GARCIA DIRECTIVE Health Care Decision (hx) 01/26/2014 AD GARCIA DIRECTIVE Health Care Decision (hx) 01/26/2014 AD GARCIA DIRECTIVE Health Care Decision (hx) 01/26/2014 AD GARCIA DIRECTIVE Health Care Decision (hx) 01/26/2014 AD GARCIA DIRECTIVE Health Care Decision (hx) 01/26/2014 AD GARCIA DIRECTIVE Health Care Decision (hx) 01/26/2014 AD GARCIA DIRECTIVE Health Care Decision (hx) 01/26/2014 AD GARCIA DIRECTIVE Care Teams Java Developer Relationship Specialty Start Date End Date Quynh Fried MD [address] [place] [address] , [address] Physician Associ D/B/A: [facility] CHAPIN Funez PCP - General Internal Medicine 05/19/22
--- OUTSIDE RECORDS SUMMARY | 2024-11-28 09:44 | XMS_ITS | Data Portability ---
Author Organization [employer] [facility], [facility] Address [address] [place] [phone] Care Team Providers Care Tread Builder Name Role Phone HIM CCA OTHER Assessment Encounter Date Assessment Date Assessment LastModified by Organization Details LastModified Time 02/27/2024 02/27/2024 I provided real -time medical direction via phone for this encounter and was available for additional phone-based assistance as needed. I have reviewed and agree with the Assessment and Plan as documented by the Rn Lab. Patient given the opportunity to ask questions. Our service contacted for an assessment of: Edema As per above, patient experienced some edema primarily the lower extremity that went away with leg elevation. She does not take Lasix. She does not have a history of heart failure. She denies any pain in her legs. Also denies shortness of breath and dyspnea. Per rigging helper on the scene, vital signs are stable. Please see uploaded pictures of medication. ECG obtained by medic shows normal sinus rhythm without any specific abnormalities. Impression: Resolved edema of the lower extremity Plan: Follow-up encouraged with PCP specifically for medication reconciliation and review. Also patient mentioned that she has a number of GI concerns and has irritable bowel syndrome. PCP f/u: Suggested for medicine reconciliation. Allergies reviewed and are no known We discussed the diagnostic uncertainty of home visits and the risk associated with this. In this case, the patient and I felt this to be an acceptable and reasonable amount of risk given the benefit of avoiding an ED visit. We discussed the need to seek care urgently/emergentl y in the setting of any new or worsening serious symptoms, particularly fever chills lightheadedness altered mental status [email or web address] Not available 02/27/2024 18:49:24 Plan of Treatment Reminders Order Date Submit Date Provider Last Modified By Organization Details Last Modified Time Details Appointments None recorded. Lab BMP, serum or plasma 2023 024 [facility], [address] [place] [address], [phone], 4 21:17:57 rapid SARS CoV 2 Ag, QL IA, respiratory specimen 2023 024 [facility], [address] [place] [address], [phone], 4 21:11:58 hemoglobin + hematocrit, blood 2023 024 [facility], [address] [place] [address], [phone], 4 21:18:24 Referral None recorded. Procedures None recorded. Surgeries None recorded. Imaging electrocard iogram 2023 024 [facility], [address] [place] [address], [phone], 4 21:17:15 electrocard iogram 2023 024 [email or web address] [facility], [address] [place] [address], [phone], 13:46:07 Medication Orders labetalol 200 mg tablet 2023 024 [id number], [address] [place], [address], 21:03:19 metoclopram uche 5 mg/mL injection solution 2023 024 [id number], [address] [place], [address], 4 21:03:19 lactated Ringers intravenous solution 2023 024 [id number], [address] [place], [address], 4 21:24:18 Patient TargetsNo targets recorded. Patient InstructionsNo instructions recorded. Reason for Referral None Reported. Results Created Date Observation Date Name Description Value Unit Range Abnormal Flag Note LastModifiedBy Organization Detail LastModifiedTime 03/13/20 24 03/13/2024 hemog lobin + hemat ocrit , blood Hemoglobin 14.3 Not Available [facility] - [address], [address], 03/13/2024 21:18:06 03/13/20 24 03/13/2024 hemog lobin + hemat ocrit , blood Hematocrit 42 Not Available Main - [address], [address], 03/13/2024 21:18:06 03/13/20 24 03/13/2024 BMP, serum or plasm a BUN 20 Not Available Main - Ins [address], [address], 03/13/2024 20:42:59 03/13/20 24 03/13/2024 BMP, serum or plasm a Ca 1.12 Not Available Main - Ins [address], [address], 03/13/2024 20:42:59 03/13/20 24 03/13/2024 BMP, serum or plasm a CI- 104 Not Available Main - Ins [address], [address], 03/13/2024 20:42:59 03/13/20 24 03/13/2024 BMP, serum or plasm a CRE 0.6 Not Available Main - Ins [address], [address], 03/13/2024 20:42:59 03/13/20 24 03/13/2024 BMP, serum or plasm a GLU 145 Not Available Main - Ins [address], [address], 03/13/2024 20:42:59 03/13/20 24 03/13/2024 BMP, serum or plasm a K+ 4.3 Not Available Main - Ins [address], [address], 03/13/2024 20:42:59 03/13/20 24 03/13/2024 BMP, serum or plasm a Na+ 138 Not Available Main - Ins [address], [address], 03/13/2024 20:42:59 03/13/20 24 03/13/2024 BMP, serum or plasm a tCO2 25 Not Available Main - Ins [address], [address], 03/13/2024 20:42:59 03/13/20 24 03/13/2024 rapid SARS CoV 2 Ag, QL IA, respi rator y speci men rapid SARS CoV 2 Ag, QL IA, respiratory specimen negati ve Not Available Main - Inst [address], [address], 03/13/2024 20:51:03 02/27/20 24 02/27/2024 elect rocar diogr am No observ ation record ed. [email or web address] Main - [facility] [address] [place] [address], [address], 02/27/2024 18:58:53 03/13/20 24 03/13/2024 elect rocar diogr am No observ ation record ed. [facility] Main - [address], [address], 03/13/2024 21:17:14 Result Notes None recorded. Procedures Surgical History None recorded. Imaging Results Imaging Date Name Status LastModified by Organization Details LastModified Time 02/27/2024 electrocardiogram completed [facility] Main - [facility] [address] [place] [address], [phone], 02/27/2024 18:58:53 03/13/2024 electrocardiogram completed [facility] [address] [place] [address], [phone], 03/13/2024 21:17:14 Procedure Notes None recorded. Medical Equipment None Reported. Allergies Allergen ID Allergen Name Allergen Category Reaction Reaction Severity Criticality Documentation Date Start Date Code Code System Note Provider Name and Address Organization Details Recorded Time 5469 lisinopri l medicatio n Not available Not available Not available 03/13/2024 99442 RxNowilberto PARMAR MD [address] [facility],[address], [place], [address], [employer] 4 20:11:21 5470 Dilaudid medicatio n Not available Not available Not available 03/13/2024 663[address] 3 RxKiran PARMAR MD [address] [facility],[address], [place], [address], [employer] 4 20:11:34 Medications Name Sig Start Date Stop Date Status Note LastModified by Organization Details LastModified Time metocloprami de 5 mg/mL injection solution Take 10 mg by injection route. 2023 active Not Available Not Available Not Avai lable labetalol 200 mg tablet Take 1 tablet by oral route. 2023 active Not Available Not Available Not Avai lable ibuprofen 800 mg tablet TAKE 1 TABLET BY MOUTH EVERY 8 HOURS NEEDED FOR PAIN active Not Available Not Available No t Available simethicone 180 mg capsule TAKE 1 CAPSULE BY MOUTH FOUR TIMES A DAY AFTER MEALS FOR 30 DAYS active Not Available Not Available Not Available sumatriptan 100 mg tablet PLEASE SEE ATTACHED FOR DETAILED DIRECTIONS active Not Available Not Available N ot Available prednisone 20 mg tablet TAKE 3 TABLETS BY MOUTH FOR 1 DAY THEN TAKE 2 TABLETS BY MOUTH EVERY DAY THERE AFTER active Not Available Not Available No t Available lactated Ringers intravenous solution Inject 500 mL by intravenous route. 2023 active Not Available Not Available Not Avai lable metronidazol e 500 mg tablet TAKE 1 TABLET BY MOUTH 3 TIMES A DAY FOR 2 WEEKS active Not Available Not Available Not Available amlodipine 5 mg tablet TAKE 1 TABLET BY MOUTH TWICE A DAY active Not Available Not Available No t Available propranolol 10 mg tablet TAKE 1 TABLET ORALLY 2 TIMES A DAY FOR 30 DAYS active Not Available Not Available Not Available magnesium oxide 400 mg (241.3 mg magnesium) tablet TAKE 1 TABLET ORALLY BEDTIME FOR 30 DAYS MAY HOLD FOR LOOSE STOOLS active Not Available Not Available No t Available dicyclomine 20 mg tablet TAKE 1 TABLET BY MOUTH 3 TIMES A DAY NEEDED FOR CRAMPS active Not Available Not Available N ot Available pantoprazole 40 mg tablet,delay ed release TAKE 1 TABLET BY MOUTH TWICE A DAY active Not Available Not Available No t Available erythromycin 5 mg/gram (0.5 %) eye ointment APPLY 1/2 STRIP INSIDE LOWER LIDS AT BEDTIME FOR 5 NIGHTS active Not Available Not Available No t Available neomycin-alyson ymyxin-dexam eth 3.5 mg/mL-10,000 unit/mL-0.1% eye drops INSTILL 1 DROP INTO BOTH EYES 4 TIMES DAILY INTO BOTH EYES X 2 WEEKS THEN STOP DIRECTED active Not Available Not Available No t Available ibuprofen 600 mg tablet TAKE 1 TABLET BY MOUTH EVERY 6 HOURS *MAX 2400 MG PER DAY active Not Available Not Available N ot Available levofloxacin 500 mg tablet TAKE 1 TABLET BY MOUTH EVERY DAY FOR 2 WEEKS active Not Available Not Available No t Available estradiol 0.01% (0.1 mg/gram) vaginal cream INSERT 0.5 G TWICE A WEEK BY VAGINAL ROUTE AT BEDTIME FOR 60 DAYS. active Not Available Not Available No t Available metocloprami de 10 mg tablet TAKE 1 TABLET ORALLY 3 TIMES A DAY active Not Available Not Available Not Available amoxicillin 875 mg-potassium clavulanate 125 mg tablet TAKE 1 TABLET BY MOUTH TWICE A DAY FOR 14 DAYS active Not Available Not Available No t Available Vitamin D3 25 mcg (1,000 unit) capsule TAKE 1 CAPSULE BY MOUTH DAILY. active Not Available Not Available No t Available mesalamine 1.2 gram tablet,delay ed release TAKE 2 TABLETS BY MOUTH TWICE A DAY FOR 30 DAYS active Not Available Not Available No t Available hydrochlorot hiazide 12.5 mg tablet TAKE 1 TABLET BY MOUTH EVERY DAY active Not Available Not Available No t Available GaviLyte-G 236 gram-22.74 gram-6.74 gram-5.86 gram oral solution PLEASE SEE ATTACHED FOR DETAILED DIRECTIONS active Not Available Not Available N ot Available Trulance 3 mg tablet TAKE 1 TABLET BY MOUTH EVERY DAY active Not Available Not Available No t Available baclofen 5 mg tablet TAKE 1-2 TABLETS ORALLY BEDTIME NEEDED FOR MUSCLE SPASM FOR 30 DAYS active Not Available Not Available No t Available Vitals Date Recorded Body weight Body height Respiratory rate Body temperature Heart rate Oxygen saturation Oxygen saturation in Arterial blood by Pulse oximetry Systolic blood pressure Diastolic blood pressure Provider Name and Address Organization Details Last Updated DateTime 4 87722.9 84 g 154.94 cm 16 /min 98 [degF] 89 /min 99 % 99 % 138 mm[Hg] 87 mm[Hg] Not Available [facility] 18:42:57 Date Recorded Body height Oxygen saturation Oxygen saturation in Arterial blood by Pulse oximetry Body weight Respiratory rate Body temperature Heart rate Systolic blood pressure Diastolic blood pressure Provider Name and Address Organization Details Last Updated DateTime 4 154.94 cm 98 % 98 % 83507.9 84 g 16 /min 98.2 [degF] 82 /min 190 mm[Hg] 110 mm[Hg] Not Available [facility] 20:37:22 Social History None recorded. Functional Status None recorded. Mental Status None recorded. Family History Nothing Reported. Medical History No medical history recorded. Gynecological HistoryNo gynecological history recorded. Obstetrics History GPAL:G 0 P 0 0 0 0 Past Encounters Encounter ID Performer Location Encounter Start Date Encounter Closed Date Diagnosis/Indication Diagnosis SNOMED-CT Code Diagnosis ICD10 Code Diagnosis Note [id number] Esme Krishnan MD Main - [facility] [address] [place] [phone] 02/27/2024 18:42:40 02/27/2024 22:47:18 Peripheral edema 742768717 R60.9 [id number] ANUSHA PARMAR MD Main - [address] [phone] 03/13/2024 20:37:18 03/14/2024 22:05:58 Hypertensive urgency [id number] I16.0 As noted, we were called to see this patient regarding concerns of elevated BP and headache. Evaluation in the field was performed by my rigging helper colleague; as noted above, I provided real-time direction and supervisio n for this visit. The evaluation revealed a 58-year-ol d female with a history of hypertensi on on Amlodipine 5 mg and HCTZ 12.5 mg daily, with complaints of headache and elevated BP that started today. The patient reports that yesterday her BP was normal, but today she woke up with a headache and elevated BP. She has been checking her BP multiple times a day (please see the photo with the BP log from today). Patient reports having migraine headaches and was prescribed a medication , but it upsets her stomach so she doesn't take it. She took Ibuprofen 800 mg approximat rosa 6 hours ago with mild relief of her headache. Pt also complains of bilateral cheek pain. She denies any pain inside the mouth, teeth, or jaw, but the skin on her cheeks is sensitive. She denies URI symptoms, fever, chills, chest pain, shortness of breath, nausea, or vomiting. No known sick contacts. VS with elevated BP 190/ 110 mmHg . Afebrile , HR 82 bpm, SpO2 98 % RAECG with nos ST-T changes suggestive of acute ischemiaCo vid negativeBM P unremarkab le. Bun/cre 20/0.6 Allergies reviewed Impression :Hypertens dionisio urgency Plan:-Labe talol 200 mg PO x1-Reglan 10 mg IV x1-NS 500 mg IV x1-BP improved to 160/100 with resolution of the headache .-Pt advised to take extra dose of HCTZ 12.5 mg tonight and if BP still elevated in AM >160 , advised to increase HCTZ to 25 mg for the next few days, until her BP stabilizes .-Red flags discussed with the patient Primary care, consider__ _ Dispositio n: We discussed the diagnostic uncertaint y of home visits and the risk associated with this. In this case, the patient and I felt this to be an acceptable and reasonable amount of risk given the benefit of avoiding an ED visit. We discussed the need to seek care urgently/e mergently in the setting of any new or worsening serious symptoms, particular ly worsening headache, CP, SOB, dizziness, nausea, vomiting, ongoing elevated BP or any other concerns. Health Concerns Section Related Observation LastModified by Organization Detai ls LastModified Time None Recorded Concern Status LastModified by Organization Details LastModified Time None Recorded Advance Directives Directive None Recorded Payers Encounter Date Sequence Insurance Name Policy Number Policy Mir Covered Member ID Mir Member ID Guarantor Name 02/27/2024 1 [facility] - DOS ON OR AFTER 2022 - DUAL ELIGIBLE - ASSISTED OPTIONS AND ONE CARE (MEDICARE REPLACEMENT/AD VANTAGE - HMO) Abby Leonardo [id number] Abby Leonardo 03/13/2024 1 [facility] - DOS ON OR AFTER 2022 - DUAL ELIGIBLE - ASSISTED OPTIONS AND ONE CARE (MEDICARE REPLACEMENT/AD VANTAGE - HMO) Abby Leonardo [id number] Abby Leonardo Notes Date Note Type Note Provider Name and Address Organization Details Recorded Time 02/27/2024 text/html [facility] Nurse Triage Notes (Melinda Maya): Reason For Request: Pain Chief Complaints: Pain Allergies: Unknown Comments: Doper verified the member's name//address and phone number. Member is a rwandan speaking female , a/0 3 58 yr old PMH > arthritis Member is not feeling well c/o tightness in my chest and stomach. Member has had the pain since yesterday. Member is having pain in her legs as well. Member has a h/o nausea. Member has chronic pain and takes ibuprofen. Member has mild sob. Per member does not have COPD/ asthma . Member has arthritis . Education provided on the response time and the member was advised to monitor reported s/s and seek emergency treatment if needed .................. .................. .................. .................. .................. .................. .................. ............... Rn Lab Note From Gregory Zimmer: [facility] visit for female patient with multiple complaints. Pt presents conscious and alert. Pt reports waking yesterday with some chest tightness which she then elaborated to say felt like a burning sensation in addition to some unusual tiredness and lower extremity edema. Pt reports edema went away with elevation. No reported cardiac or respiratory history. Pt's history significant for GI issues however with some possible IBS. V/S taken and WNL. Pt afebrile. Lung sounds clear. Pt abdomen a little firm and distended, non tender on palpation. No lower leg edema at this time. [place] and [place] [facility] with no concerns. [place]ed with [facility] [place] Krishnan who advised no treatments needed at this time. Pt encouraged to follow up with PCP and monitor symptoms. Reviewed red flags for ED. Patient education provided. .................. .................. .................. .................. .................. .................. .................. ............... Disposition: Fulfilled Esme Krishnan MD [address] [place] [address],[address], [place], [address], [employer] 02/27/2024 18:49:44 03/13/2024 text/html [facility] Nurse Triage Notes (Rosemarie Louis): Reason For Request: Patient doesn't feel well, general illness since yesterday, high bp 182/102, and feels nervous. Chief Complaints: Hypertension, Headache PMH: Hypertension, Diabetes, Other Comments: Allergies: Lisinopril, Dilaudid Patient reports BP elevated, chills, headache. Symptoms started yesterday. Denies fever, body aches, or cough. BP 182/102, 178/99. Reports new shortness of breath today, resting or with exertion. Denies chest pain. Able to speak full sentences without difficulty. Advised to call 911 for worsening signs/symptoms. Rn Lab POC Test Results from Jovanny Humphrey HERNAN EKG (22:35:32) EKG test performed. Reason for missing picture: NSR iSTAT Chem8+ (22:35:33) Na: 138 mEq/L K: 4.3 mEq/L Cl: 104 mEq/L iCa: 1.12 mmol/L TCO2: 25 mmol/L Glu: 145 mg/dL BUN: 20 mg/dL Crea: 0.6 mg/dL Hct: 42 % Hb: 14.3 g/dL A Rapid COVID antigen (22:35:38) COVID: - .................. .................. .................. .................. .................. .................. .................. ............... Rn Lab [facility] Patient doesn't feel well, general illness since yesterday, high bp 182/102, and feels nervous.Patient reports BP elevated, chills, headache. Symptoms started yesterday. Denies fever, body aches, or cough. BP 182/102, 178/99. Reports new shortness of breath today, resting or with exertion. Denies chest pain. Able to speak full sentences without difficulty. Advised to call 911 for worsening signs/symptoms. Pt is a 58 yo F c/o HTN and worried due to how elevated it is. She reports waking up yesterday and feeling Ok with a morning SBP of 117. During the day she felt pounding sensation in the center of her chested and noted her BP to be elevated. She adds that she has taken it several times throughout the day and today, and noted a BPs to be elevated, ranging [id number], a picture was uploaded to [employer]. Pt also c/o feeling malaise, but denies SOB, N/V/D, and reports has GI issues so is constipated normally. Pt denies chills or body aches to [facility]. Despite the insted note, pt denies SOB to [facility]. Lungs clear. Pt's face and eyes appears slightly swollen, but pt reports that's normal. MD Consult:Obtained EKG and covid test.EKG - NSR, and Neg for covid. then ordered IV, 500ml of LR, 10mg Reglan, 200mg Labetalol, and an iSTAT. all completed and uploaded. also advised to increased HCTZ tonight by 12.5mg this evening and if BP elevated tomorrow to take 25mg instead of her normal 12.5mg Rx dose. Advised to call back if HTN does not improve. Pt does have an appointment with PCP on the advised to ask about keeping her dose to 25mg instead of 12.5mg. Discussed red flags with pt. BP did come down slightly with second BP taken after treatment. .................. .................. .................. .................. .................. .................. .................. ............... Disposition: Fulfilled ANUSHA PARMAR MD [address] [place] [address],[address] [facility], [place], [phone], [employer] 03/14/2024 07:09:12 OBGyn Episode No OBEpisode recorded.
--- OUTSIDE RECORDS SUMMARY | 2024-11-28 09:44 | XMS_ITS | Clinical Summary ---
Author Organization [facility] Address [address] [place] [address] Care Team Providers Care Process Engineering Manager Name Role Phone Quynh Zuniga MD Primary Care Provid er Social History Tobacco Use Types Packs/Day Years Used Date Smoking Tobacco: Never Assessed Sex and Gender Information Value Date Recorded Sex Assigned at Not on file Gender Identity Not on file Sexual Orientation Not on file Plan of Treatment Health Maintenance Due Date Last Done Comments Hepatitis B Vaccines (1 of 3 - 3-dose series) 1967 Hepatitis C Screening 1967 COVID-19 Vaccine (#1) 1967 Depression Screening 1979 Preventative Health Evaluation 1985 DTap / Tdap / Td (1 - Tdap) 1986 Cervical Cancer Screening (P ap Smear) 1988 Colon Cancer Screening (Colonoscopy) 2012 Breast Cancer Screening (Mammogram) 2017 Shingrix-Zoster Vaccine (1 of 2) 2017 Influenza Vaccine (#1) 2024 Pneumococcal Vaccine Aged Out 01/27/2014 No long er eligible based on patient's age to complete this topic RSV Ped < 20 months Aged Out No longe r eligible based on patient's age to complete this topic Care Teams Process Engineering Manager Relationship Specialty Start Date End Date Quynh Zuniga MD [address] [facility] , [address] [facility] D/B/A: [facility] [place] [address] PCP - General Internal Medicine 05/04/18
== END 2024-11-28 10:31 | disposition home or self-care (01) ==
LOC: HO.HGI 08:58
PROVIDERS: PCP Internal Medicine; Visit Provider Nurse Practitioner
DX: K59.04 Chronic idiopathic constipation (principal); R19.5 Other fecal abnormalities; K21.9 Gastro-esophageal reflux disease without esophagitis
CPT/HCPCS: 99213

== ENCOUNTER → 2024-11-28 08:58 | Outpatient (BNVA) | payer OTHER, SELFPAY | PROVIDERS: PCP Internal Medicine; Visit Provider Nurse Practitioner | DX: K59.04 Chronic idiopathic constipation (principal); K21.9 Gastro-esophageal reflux disease without esophagitis; R19.5 Other fecal abnormalities | CPT/HCPCS: 99212 ==

== ENCOUNTER 2025-01-10 09:12 | Outpatient (AMB) | payer OTHER, SELFPAY ==
[2025-01-10 09:22] VITALS: BP 122/90; PULSE 88; O2SAT 96; BMI 30.4
--- NOTE | 2025-01-10 09:22 | A.OFFVIS_ITS ---
Vital Signs 01/10/25 09:22 Height 5 ft 1 in Weight 161 lb BMI 30.4 BP 122/90 H Blood Pressure Location Rt brachial Position Sitting Pulse 88 Pulse Source Pulse Oximeter Pulse Oximetry (%) 96 Oxygen Delivery Method Room Air Intake Visit Reasons: Follow Up 6mo Intake Note: Patient presents 6 month follow up for migraines/ALEKSANDER. Patient is non compliant with CPAP Knit Goods Washer Required: No Accompanied by: Self / Same As Patient Allergies gabapentin Allergy (Intermediate, Verified 01/10/25 09:23) inadequate response hydromorphone [From DILAUDID] Allergy (Intermediate, Verified 01/10/25 09:23) RASH lisinopril [LISINOPRIL] Allergy (Intermediate, Verified 01/10/25 09:23) CLOGGED THROAT, shortness of breath, anaphylaxis topiramate Allergy (Intermediate, Verified 01/10/25 09:23) inadequate response Medication List - Last Reconciled 01/10/25 by SIMON Johnston acetaminophen 1,000 mg (2 x 500 mg) PO Q6H PRN amlodipine 5 mg PO BID 90 days benzonatate 100 mg PO BID PRN 5 days bisacodyl 10 mg (2 x 5 mg) PO BEDTIME 90 days blood pressure test kit-medium ([facility] [facility] Blood Pressure kit) As directed blood pressure test kit-small As directed cholecalciferol (vitamin D3) 25 mcg PO DAILY 90 days [elevating leg wedge As directed] estradiol 0.01%(0.1mg/gram) vaginal [handheld shower As directed] ibuprofen 800 mg PO Q8H PRN 30 days incontinence pad, liner, disp Use 1 lincer four times a day prn incontinence pad, liner, disp Use 1 pad three times a day as needed lidocaine 5% 1 patch topical DAILY [id number] 36,000-114,000- 180,000 unit (Creon) 2 caps PO BID magnesium oxide 400 mg PO BEDTIME 30 days methocarbamol 750 mg PO Q6H pantoprazole 40 mg PO BID plecanatide (Trulance) 3 mg PO DAILY propranolol 10 mg PO BID 30 days Shower Chair As directed spironolactone 25 mg PO DAILY 90 days sumatriptan succinate (Imitrex) 50 - 100 mg orally at onset of headache, may repeat in 2 hrs PRN; max 2 tabs per day or 4 tabs/week (may take with Ibuprofen) 30 days [wedge pillow As directed] HPI Comments Details: 59-yr-old female presents for f/u visit of sleep, headache, and cognitive difficulties- which she is most interested in discussing today. Interval workup reviewed: 08/08/2024 EEG within normal limits. 06/26/2024 lab workup was notable for: mildly elevated cholesterol 223 and LDL 130, with normal HDL 67 and triglycerides 132. Low vitamin-D 16, elevated rheumatoid factor 31. Low normal vitamin B12 317 with normal folate 12.8, normal methylmalonic acid 108 and homocystine 9.4. 11/22/2024 labs: hemoglobin A1c 6.2% Vitamin-D low at 21.1 She states that she does not understand why if all of her testing is unremarkable, why she continues to have such difficulties with forgetfulness. States she had a conversation with her friend, and then later on could not remember what her friend told her. She notes that she can become distracted, such as when she is doing housework she will stop what she is doing and go do something else, but then forget what she was doing before. She forgets about her appointments, notes that she forgets to write them down. She is still prone to just spacing out states her mind is just blank. She is not currently followed by Psychiatry or a therapist, states she was in the past when she had depression, but she does not feel depressed at this point. She states she typically pays her bills on time. She states she has a 15-year-old grandson with autism. She is not using her CPAP machine at this point. She continues to have generalized body pain. She did start vitamin-D supplement. She has been referred back to Rheumatology, has appointment scheduled for April. She has not had follow-up with Neurosurgery, because she states she is not interested in having any cervical procedures at this point. She states her headaches continue to be better. Using propranolol 10 mg as needed. 06/18/2024, previous HPI: Pt states she is having episodes where she loses her train of thought. She may forget what she went into a room for. She feels all of a sudden she just does not remember what she is currently doing. When she tries to think and focus- this causes her to have a headache- and her mind just goes blank. She has other STM issues. She states she has been having episodes of spacing out for at least 2 yrs. Her children think this is related to her alcohol intake, but she feels the cognitive issues occur w/wo alcohol intake. States she may drink 6-7 beers at a libertarian- unable to quantity how frequent this is. She believes she had a normal gestational and early development, She was born in [facility]. She moved to [place] as a child. She completed 6th grade- she had to leave her home as she had her 1st child at age 17. She recalls she needed reinforcements in school, would stay after school for extra help. She did receive her GED. 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 She does continue to have neck pain and BUE numbness/tingling. Pt did have consult / [facility]- they advised her to have a c-spine repair, but she is still considering this. She states her headaches are better. She uses Propranolol 10mg at times. Sumatriptan is helpful. She states she uses her CPAP when she is not in much pain. Compliance data shows no use in the post 30 days, and minimal use in the past 90 days. When used residual AHI is 6/hr. [address], [facility] Email: [email or web address] Compliance Report Usage 03/19/2024 - 06/16/2024 Usage days 8/90 days (9%) >= 4 hours 8 days (9%) < 4 hours 0 days (0%) Usage hours 65 hours 42 minutes Average usage (total days) 44 minutes Average usage (days used) 8 hours 13 minutes Median usage (days used) 8 hours 15 minutes Total used hours (value since last reset - 06/16/2024) 580 hours AirSense 10 AutoSet Serial number [id number] Mode CPAP Set pressure 4 cmH2O EPR Off Therapy Leaks - L/min Median: 1.7 95th percentile: 4.4 Maximum: 25.1 Events per hour AI: 2.8 HI: 3.4 AHI: 6.2 Apnea Index Central: 0.4 Obstructive: 2.1 Unknown: 0.1 [facility] Medical History Physical exam LLQ abdominal pain Diverticulitis Acute diarrhea Inflammatory bowel disease Low vitamin B12 level Anemia Right hip pain Pre-op examination Small bowel motility disorder Back pain Lumbar pain Snoring Excessive daytime sleepiness Sleep difficulties Obstructive sleep apnea Right leg pain Left leg pain Upper respiratory tract infection Memory loss Cervical strain Tenderness over frontal sinus Left knee pain Arm numbness Left hip pain Left shoulder pain Leg pain Osteoarthritis of lumbar spine Flexor tenosynovitis of finger Rheumatoid factor positive Postmenopausal Generalized anxiety disorder Mild major depression, single episode Fibromyalgia Essential hypertension Meningioma Bicytopenia Dyslipidemia Hypovitaminosis D Chronic idiopathic constipation Polyarthralgia History of herniated intervertebral disc History of partial adherence to treatment Surgical History History of sleeve gastrectomy Hx of colonoscopy Hx of melanoma excision Hx of hernia repair Hx of ovarian cystectomy History of lumbar fusion Hx of section Family History Father Prostate cancer Diabetes mellitus Colon cancer Mother Migraine Arthritis Hypertension Heart disease Emphysema lung CVD (cardiovascular disease) Brother Drug overdose Brother Kpbyora-Qivyx-Pjzqe disease Sister No problems noted. Sister No problems noted. Son No problems noted. Son No problems noted. Son No problems noted. Daughter No problems noted. Daughter No problems noted. Daughter No problems noted. Family/Other Substance use disorder Social History Household Members: Children Housing: House Are you a primary career development coordinator to a significant other at home: No Do you presently have visiting nurse or other home services: No Alcohol intake: current Alcohol intake frequency: a few times a week Alcohol type: beer Patient Tobacco Use Status: Never used Tobacco e-Cigarette/Vaping Use: Never Used Second Hand Smoke Exposure: No service: No Current occupational status: disabled Cognitive needs: No Hearing needs: No Vision needs: No Physical Exam Vital Signs: Last Vital Signs Pulse 88 01/10/25 09:22 BP 122/90 H 01/10/25 09:22 Pulse Ox 96 01/10/25 09:22 Oxygen Delivery Method Room Air 01/10/25 09:22 BMI result Body Mass Index 30.4 Const General: cooperative and no acute distress Orientation/consciousness: patient oriented x3 Resp Effort & Inspection: normal respiratory effort and able to speak in complete sentences Neuro General: patient oriented x3 and deep tendon reflexes 2+ bilaterally Cranial nerves: Yes CN's II-XII intact bilaterally Cognition (Neuro): normal cognition Psych Appearance: grossly normal Mental Status: mental status grossly normal Speech and movement: Normal speech and movement present Affect: normal affect Attitude: cooperative Assessment & Plan Assessment & Plan (1) Cognitive impairment: Comment: MMSE 20/29 (omitted repeat phrase d/t Faroese is 1st language). Code(s): R41.89 - Other symptoms and signs involving cognitive functions and awareness Category: Medical (2) Migraine without aura: Code(s): G43.009 - Migraine without aura, not intractable, without status migrainosus Category: Medical (3) Headache: Comment: likely cervicogenic. Low suspicion for ON as pain relieved by pt applying pressure Code(s): R51.9 - Headache, unspecified Category: Medical (4) Moderate obstructive sleep apnea: Comment: 06/2023- HST AHI 22/hr w/ O2 rani 79% Code(s): G47.33 - Obstructive sleep apnea (adult) (pediatric) Category: Medical (5) Cervicalgia: Code(s): M54.2 - Cervicalgia Category: Medical Plan For episodes of memory loss and memory difficulties in setting of ALEKSANDER: Previous brain MRI from Aug 2023- Few punctate scattered T2/FLAIR hyperintense foci are non-specific but likely represent chronic change. Eeg within normal limits Labs were unremarkable, other than vitamin-D deficiency, which we are repleting with vitamin-D supplement, mild HLD which is being followed by PCP, and elevated rheumatoid factor- patient is being referred back to Rheumatology. Encourage patient to resume CPAP 4 cmH2O to nightly > 4 hrs. Engage in regular physical, cognitive, social activities. Continue vitamin-D supplement. Follow-up with rheumatology as scheduled, as treating her body pain symptoms, may help her cognitive symptoms as well We will request psychological evaluation for cognitive difficulties, including evaluation for potentially undiagnosed ADD. For occipital headache and cervicalgia: F/u w/ Dr Das or pain management as needed For migraine w/o aura: Propranolol 10mg bid. Continue Magnesium Continue Sumatriptan prn. Information previously shared on iCentera neuromodulation device- this may help migraine and occipital headache. Previous migraine tx trials- Amitriptyline- not effective, Topiramate- not effective, Gabapentin and Pregabalin- ineffective. Future considerations: CGRP MaB ? Will follow-up upon review of above and patient to follow-up in clinic in 6 months or sooner prn. Orders: Referrals Psychology Referral R41.89 - Other symptoms and signs involving cognitive functions and awareness Coding Level of Care Code Est Pt Level 4 (41136) Diagnoses Cognitive impairment R41.89 Migraine without aura G43.009 Headache R51.9 Moderate obstructive sleep apnea G47.33 Cervicalgia M54.2
--- OUTSIDE RECORDS SUMMARY | 2025-01-10 09:47 | XMS_ITS | Clinical Summary ---
Author Organization [facility] Address [address] [place] [address] Care Team Providers Care Shale Planer Operator Helper Name Role Phone Quynh Zuniga MD Primary [...] age to complete this topic Care Teams Shale Planer Operator Helper Relationship Specialty Start Date End Date Quynh Zuniga MD [address] [facility] , [address] [facility]ician [facility] D/B/A: [facility] [place] [address] PCP - General Internal Medicine 05/04/18
--- OUTSIDE RECORDS SUMMARY | 2025-01-10 09:47 | XMS_ITS | Data Portability ---
Author Organization [facility], [facility] Address [address] [place] [id number] Care Team Providers Care Shear Scrapman Name Role Phone HIM CCA OTHER Assessment Encounter Date Assessment Date Assessment LastModified by Organization Details LastModified Time 02/27/2024 02/27/2024 I provided real -time medical direction via phone for this encounter and was available for additional phone-based assistance as needed. I have reviewed and agree with the Assessment and Plan as documented by the Tax Senior Associate. Patient given the opportunity to ask questions. Our service contacted for an assessment of: Edema As per above, patient experienced some edema primarily the lower extremity that went away with leg elevation. She does not take Lasix. She does not have a history of heart failure. She denies any pain in her legs. Also denies shortness of breath and dyspnea. Per enrobing machine operator on the scene, vital signs are stable. [...] BMP, serum or plasma 2023 024 [email or web address], [address] [place] [address], [id number] 4 21:17:57 rapid SARS CoV 2 Ag, QL IA, respiratory specimen 2023 024 [facility], [address] [place] [address], [id number] 4 21:11:58 hemoglobin + hematocrit, blood 2023 024 [facility], [address] [place] [address], [phone] 4 21:18:24 Referral None recorded. Procedures None recorded. Surgeries None recorded. Imaging electrocard iogram 2023 024 [facility], [address] [place] [address], [id number] 4 21:17:15 electrocard iogram [email or web address] [facility], [address] [place] [address], [phone] 4 13:46:07 Medication Orders labetalol 200 mg tablet 2023 024 [id number], [address] [place], [address], 4 21:03:19 metoclopram uche 5 mg/mL injection solution 2023 024 [id number], [address] [place], [address], 4 21:03:19 lactated Ringers intravenous solution 2023 024 [id number], [address] [place], [address], 4 21:24:18 Patient TargetsNo targets recorded. Patient InstructionsNo instructions recorded. Reason for Referral None Reported. Results Created Date Observation Date Name Description Value Unit Range Abnormal Flag Note LastModifiedBy Organization Detail LastModifiedTime 03/13/20 24 03/13/2024 hemog lobin + hemat ocrit , blood Hemoglobin 14.3 Not Available [address], [place], [address] 03/13/2024 21:18:06 03/13/20 24 03/13/2024 hemog lobin + hemat ocrit , blood Hematocrit 42 Not Available [facility] - [address], [address] [place] [address] 03/13/2024 21:18:06 03/13/20 24 03/13/2024 BMP, serum or plasm a BUN 20 Not Available [facility] - [facility] [address], [address] [place] [address] 03/13/2024 20:42:59 03/13/20 24 03/13/2024 BMP, serum or plasm a Ca 1.12 Not Available Main - [facility] [address], [address] [place] [address] 03/13/2024 20:42:59 03/13/20 24 03/13/2024 BMP, serum or plasm a CI- 104 Not Available Main - [facility] [address], [address] [place] [address] 03/13/2024 20:42:59 03/13/20 24 03/13/2024 BMP, serum or plasm a CRE 0.6 Not Available Main - [facility] [address], [address] [place] [address] 03/13/2024 20:42:59 03/13/20 24 03/13/2024 BMP, serum or plasm a GLU 145 Not Available Main - Ins [address], [address] 03/13/2024 20:42:59 03/13/20 24 03/13/2024 BMP, serum or plasm a K+ 4.3 Not Available Main - Ins [address], [address] 03/13/2024 20:42:59 03/13/20 24 03/13/2024 BMP, serum or plasm a Na+ 138 Not Available Main - [facility] [address], [address] 03/13/2024 20:42:59 03/13/20 24 03/13/2024 BMP, serum or plasm a tCO2 25 Not Available Main - [facility] [address], [address] [place] [address] 03/13/2024 20:42:59 03/13/20 24 03/13/2024 rapid SARS CoV 2 Ag, QL IA, respi rator y speci men rapid SARS CoV 2 Ag, QL IA, respiratory specimen negati ve Not Available Main - [facility] ed [address] [place] [address], [phone] 03/13/2024 20:51:03 02/27/20 24 02/27/2024 elect rocar diogr am No observ ation record ed. [address] [place] [address], [id number] 02/27/2024 18:58:53 03/13/20 24 03/13/2024 elect rocar diogr am No observ ation record ed. [address], [address] 03/13/2024 21:17:14 Result Notes None recorded. Procedures Surgical History None recorded. Imaging Results Imaging Date Name Status LastModified by Organization Details LastModified Time 02/27/2024 electrocardiogram completed [address], [address] 02/27/2024 18:58:53 03/13/2024 electrocardiogram completed [address], [address] 03/13/2024 21:17:14 Procedure Notes None recorded. Medical Equipment None Reported. Allergies Allergen ID Allergen Name Allergen Category Reaction Reaction Severity Criticality Documentation Date Start Date Code Code System Note Provider Name and Address Organization Details Recorded Time 5469 lisinopri l medicatio n Not available Not available Not available 03/13/2024 59086 RxNorm ANUSHA PARMAR MD [address] [place] [address],[address], [place], [address], [employer] 4 20:11:21 5470 Dilaudid medicatio n Not available Not available Not available 03/13/2024 87624 3 RxKiran PARMAR MD [address] [place] [address],[address], [place], [address], [employer] 4 20:11:34 Medications Name Sig Start Date [...] Address Organization Details Last Updated DateTime 4 31007.9 84 g 154.94 cm 16 /min 98 [degF] 89 /min 99 % 99 % 138 mm[Hg] 87 mm[Hg] Not Available [employer] 4 18:42:57 Date Recorded Body height Oxygen saturation Oxygen saturation in Arterial blood by Pulse oximetry Body weight Respiratory rate Body temperature Heart rate Systolic blood pressure Diastolic blood pressure Provider Name and Address Organization Details Last Updated DateTime 4 154.94 cm 98 % 98 % 00637.9 84 g 16 /min 98.2 [degF] 82 /min 190 mm[Hg] 110 mm[Hg] Not Available [employer] 4 20:37:22 Social History None recorded. Functional Status None recorded. Mental Status None recorded. Family History Nothing Reported. Medical History No medical history recorded. Gynecological HistoryNo gynecological history recorded. Obstetrics History GPAL:G 0 P 0 0 0 0 Past Encounters Encounter ID Performer Location Encounter Start Date Encounter Closed Date Diagnosis/Indication Diagnosis SNOMED-CT Code Diagnosis ICD10 Code Diagnosis Note [id number] Esme Krishnan MD Main - [facility] [address] [place] [phone] 02/27/2024 18:42:40 02/27/2024 22:47:18 Peripheral edema 111062444 R60.9 [id number] ANUSHA PARMAR MD Main - [address] [phone] 03/13/2024 20:37:18 03/14/2024 22:05:58 Hypertensive urgency [id number] I16.0 As noted, we were called to see this patient regarding concerns of elevated BP and headache. Evaluation in the field was performed by my enrobing machine operator colleague; as noted above, I provided real-time [...] Recorded Advance Directives Directive None Recorded Payers Insurance Date Sequence Insurance Name Policy Number Policy Mir Covered Member ID Mir Member ID Guarantor Name 03/15/2024 1 [facility] - DOS ON OR AFTER 2022 - DUAL ELIGIBLE - ASSISTED OPTIONS AND ONE CARE (MEDICARE REPLACEMENT/AD VANTAGE - HMO) Abby Leonardo [id number] Abby Leonardo Notes Date Note Type Note Provider Name and Address Organization Details Recorded Time 02/27/2024 text/html CRC Nurse Triage Notes (Melinda Maya): Reason For Request: Pain Chief Complaints: Pain Allergies: Unknown Comments: Customer Advisor verified the member's name//address and phone number. Member is a indonesian speaking female , a/[age] yr [...] .................. .................. .................. .................. .................. .................. ............... Tax Senior Associate Note From Gregory Zimmer[facility]. [...] this time. EKG completed and uploaded to [facility] with no concerns. Consulted with [facility] Dr. Krishnan who advised no treatments needed at this time. Pt encouraged to follow up with PCP and monitor symptoms. Reviewed red flags for ED. Patient education provided. .................. .................. .................. .................. .................. .................. .................. ............... Disposition: Fulfilled Esme Krishnan MD [address] [facility],[address], [place], [address], [employer]ES 02/27/2024 18:49:44 03/13/2024 text/html CRC Nurse Triage [...] Advised to call 911 for worsening signs/symptoms. Tax Senior Associate POC Test Results from Jovanny Humphrey [facility] EKG (22:35:32) EKG test performed. Reason for missing picture: NSR iSTAT Chem8+ (22:35:33) Na: 138 mEq/L K: 4.3 mEq/L Cl: 104 mEq/L iCa: 1.12 mmol/L TCO2: 25 mmol/L Glu: 145 mg/dL BUN: 20 mg/dL Crea: 0.6 mg/dL Hct: 42 % Hb: 14.3 g/dL A Rapid COVID antigen (22:35:38) COVID: - .................. .................. .................. .................. .................. .................. .................. ............... Tax Senior Associate Note From Jovanny Humphrey: Insted Note: Patient doesn't feel well, general illness [...] noted a BPs to be elevated, ranging mghepa532/110, a picture was uploaded to [employer]. Pt also c/o feeling malaise, but denies SOB, N/V/D, and reports has GI issues so is constipated normally. Pt denies chills or body aches to [facility]. Despite the insted note, pt denies SOB to [facility]. Lungs clear. Pt's face and eyes appears slightly swollen, but pt reports that's normal. MD Consult:Obtained EKG and covid test.EKG - NSR, and Neg for covid. MD then ordered IV, 500ml of LR, 10mg [...] .................. .................. .................. .................. .................. ............... Disposition: Magdi PARMAR MD [address] [facility],[address], [place], [address], [facility] [employer] 03/14/2024 07:09:12 OBGyn Episode No OBEpisode recorded.
--- OUTSIDE RECORDS SUMMARY | 2025-01-10 09:47 | XMS_ITS | Clinical Summary ---
Author Organization [facility] Address [address] [place] [address] Phone Care Team Providers Care Buffing Turner And Counter Name Role Phone Quynh Fried MD Primary Care Provider [phone] Allergies Active Allergy Reactions Criticality Noted Date Comments Gabapentin 06/30/2017 Hydromorphone Itching,Rash 04/28/2020 Lisinopril 06/30/2017 Topiramate 06/30/2017 Medications No known medications Active Problems No known active problems Surgical History Surgery Date Site/Laterality Comments SECTION PROCEDURE: [place] DELIVERY ONLY BACK SURGERY PROCEDURE: HISTORICAL BACK SURGERY; COMMENT: lumbar fusion OTHER SURGICAL HISTORY PROCEDURE: [place] RPR EPIGASTRIC HERNIA REDUCIBLE SPX Medical History Medical History Date Comments Insomnia DX:Insomnia Constipation DX:Constipation Arthritis DX:Arthritis Migraine DX:Migraine Fibromyalgia DX:Fibromyalgia Melanoma ([facility] V24, [facility] V28) DX:Melanoma (HCC) Cancer of skin of back DX:Cancer of skin of back Meningioma ([facility] V24, [facility] V28) DX:Meningioma (HCC) Family History Medical History Relation Name [...] Annual BMP Blood Test 03/23/2024 Influenza Vaccine (Season Ended) 2025 05/23/2018, 08/16/2017 HIB Vaccines Aged Out No longer [...] age to complete this topic Meningococcal B Vaccine Aged Out No l onger eligible based on patient's age to complete this topic RSV Immunization Patients Under 20 months Aged Out No longer eligible b ased on patient's age to complete this topic Varicella Vaccines Aged Out No longer eligible based on patient's age to complete this topic Procedures Procedure Name Priority Date/Time Associated Diagnosis Comments [facility] Routine 12/26/2017 12:03 PM EDT Encounter for screening mammogram for malignant neoplasm of breast from Last 3 Months or Most Recently Relevant to Health Maintenance Results * [facility] (12/26/2017 12:03 PM EDT) Anatomical Region Laterality Modality Mammography 12/26/2017 9:44 AM EDT Narrative 12/26/2017 12:03 PM EDT [facility] Diagnostic Imaging Department [address] [place] [address] Patient: ??ABBY PALACIOS ?/Age/Sex: 1965 - 52 - F Unit#: ??[id number] ? Location/Status: ??SPDIMAM/REG CLI ? Mnemonic/Ordering Site: ??DIGSC/SPMAM Ordering Physician: ??KELI CASH MD [facility] - 12/26/17 - 1009 History: Bilateral breast cancer screening. ??Previous benign left breast biopsy (fibroadenoma). Technique: Bilateral digital mammography. Conventional CC and MLO projections with tomosynthesis MLO views and computer aided detection. Comparison: 12/22/2016, dating back to 05/31/2007. Breast density: [...] malignancy. BIRADS Category 2: Benign Findings, [id number], 98266 A negative mammogram in the face of a suspicious abnormality does not exclude the possibility of malignancy nor alter the indications for biopsy. Note: Patient information entered ??into a reminder system with a target due date for the next mammogram; PQRI II [id number] Dictating Physician: ??PRASAD CAMPOVERDE MD Electronically Signed by: ??PRASAD CAMPOVERDE MD Dic Date/Time: ??12/26/17 1201 Sign date/Time: ??12/26/17 1203 Procedure Note Prasad Campoverde MD - 08/17/2022 [facility] Diagnostic Imaging Department [address] [place] [address] Patient: ABBY PALACIOS /Age/Sex: 1965 - 52 - F Unit#: [id number] [facility] Mnemonic/Ordering Site: DIGSC/SPMAM Ordering Physician: KELI CASH MD [facility] Digital - 12/26/17 - 1009 History: Bilateral breast cancer screening. Previous benign left breastbiopsy (fibroadenoma). Technique: Bilateral digital mammography. Conventional CC and MLOprojections with tomosynthesis MLO views and computer aided detection. Comparison: 12/22/2016, dating back to 05/31/2007. Breast density: [...] malignancy. 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
== END 2025-01-10 10:02 | disposition home or self-care (01) ==
LOC: HO.HSMS 09:13
PROVIDERS: PCP Internal Medicine; Visit Provider Nurse Practitioner Family
DX: R41.89 Other symptoms and signs involving cognitive functions and awareness (principal); G43.009 Migraine without aura, not intractable, without status migrainosus; R51.9 Headache, unspecified; G47.33 Obstructive sleep apnea (adult) (pediatric); M54.2 Cervicalgia
CPT/HCPCS: 99214

== ENCOUNTER → 2025-01-10 09:12 | Outpatient (BNVA) | payer OTHER, SELFPAY | PROVIDERS: PCP Internal Medicine; Visit Provider Nurse Practitioner Family | DX: G47.33 Obstructive sleep apnea (adult) (pediatric) (principal); R41.89 Other symptoms and signs involving cognitive functions and awareness; G43.009 Migraine without aura, not intractable, without status migrainosus; M54.2 Cervicalgia; Z99.89 Dependence on other enabling machines and devices; Z91.199 Patient's noncompliance with other medical treatment and regimen due to unspecified reason | CPT/HCPCS: 99212 ==

== ENCOUNTER 2025-02-05 10:06 | Outpatient (AMB) | payer OTHER, SELFPAY ==
--- NOTE | 2025-02-05 10:10 | A.OFFVIS_ITS ---
Vital Signs 02/05/25 10:21 Height 5 ft 1 in Weight 160 lb 12 oz BMI 30.4 BP 138/86 Blood Pressure Location Rt brachial Position Sitting Pulse 68 Pulse Source Pulse Oximeter Pulse Oximetry (%) 99 Oxygen Delivery Method Room Air Intake Visit Reasons: ibs Intake Note: Established patient for mgmt of IBS. Azael yates tx CC; C.O. LLQ pain, bloating, constipation despite her current tx. Pt reports GERD still under good control with PPI. Pt denies any additional sx or concerns at this time. Aligner Required: No Accompanied by: Self / Same As Patient Allergies gabapentin Allergy (Intermediate, Verified 02/05/25 10:14) inadequate response hydromorphone [From DILAUDID] Allergy (Intermediate, Verified 02/05/25 10:14) RASH lisinopril [LISINOPRIL] Allergy (Intermediate, Verified 02/05/25 10:14) CLOGGED THROAT, shortness of breath, anaphylaxis topiramate Allergy (Intermediate, Verified 02/05/25 10:14) inadequate response HPI HPI ibs: Details: Assessment & Plan (1) Chronic idiopathic constipation: Code(s): K59.04 - Chronic idiopathic constipation Category: Medical (2) Elevated fecal calprotectin: Code(s): R19.5 - Other fecal abnormalities Category: Medical (3) GERD (gastroesophageal reflux disease): Code(s): K21.9 - Gastro-esophageal reflux disease without esophagitis Category: Medical Plan She still has severe constipation alternating with diarrhea. However, with further discussion I realize that she is taking both the Trulance and the Dulcolax and then she either has diarrhea all day so she will stop taking the medicine and then she will not have bowel movements. I did not realize this and I educate her that were probably interrupting her bowel motility which is causing her severe bloating that is a symptom. If we can get her on a regimen where she can move her bowels every day but not have the diarrhea it would be much better. So with that in mind she is going to try just taking the Trulance every day and will go from there to titrate to affect her side effect. Return office visit next available LABS: Laboratory Tests 11/21/24 07:51 Stool Calprotectin Pending Laboratory Tests 11/21/24 07:51 Stool Calprotectin 45 TODAYS VISIT She still has bloating and intermittent, brief sharp stabbing LLQ pains. She is moving her bowels well drinking alot of water and using the Turlance/bisa. Gerd well controlled on pantoprazole. Seems PCP tried to rx creon, she never received this. WIll try and assess ROV 6 weeks. [facility] Medical History (Updated 02/05/25 @ 10:24 by GRECIA Burgess) Achalasia Median neuropathy Carpal tunnel syndrome of left wrist Cubital tunnel syndrome on left Cervical lymphadenopathy Tubular adenoma of colon HLD (hyperlipidemia) Knee pain Abdominal bloating AMS (altered mental status) Polyarthralgia Flexor tenosynovitis of finger Osteoarthritis of lumbar spine Costovertebral angle tenderness Biceps tendonitis on left Cervicalgia Nocturnal hypoxemia Right hip pain Left foot pain Difficulty swallowing Urge urinary incontinence Chest wall pain History of skin cancer Physical exam LLQ abdominal pain Diverticulitis Acute diarrhea Inflammatory bowel disease Low vitamin B12 level Anemia Pre-op examination Small bowel motility disorder Back pain Lumbar pain Snoring Excessive daytime sleepiness Sleep difficulties Obstructive sleep apnea Right leg pain Left leg pain Upper respiratory tract infection Memory loss Cervical strain Tenderness over frontal sinus Left knee pain Arm numbness Left hip pain Left shoulder pain Leg pain Rheumatoid factor positive Postmenopausal Generalized anxiety disorder Mild major depression, single episode Fibromyalgia Essential hypertension Meningioma Bicytopenia Dyslipidemia Hypovitaminosis D Chronic idiopathic constipation History of herniated intervertebral disc History of partial adherence to treatment Surgical History History of sleeve gastrectomy Hx of colonoscopy Hx of melanoma excision Hx of hernia repair Hx of ovarian cystectomy History of lumbar fusion Hx of section Family History Father Prostate cancer Diabetes mellitus Colon cancer Mother Migraine Arthritis Hypertension Heart disease Emphysema lung CVD (cardiovascular disease) Brother Drug overdose Brother Vmbsion-Uwvvy-Zuxrh disease Sister No problems noted. Sister No problems noted. Son No problems noted. Son No problems noted. Son No problems noted. Daughter No problems noted. Daughter No problems noted. Daughter No problems noted. Family/Other Substance use disorder Social History Household Members: Children Housing: House Are you a primary healthcare customer service to a significant other at home: No Do you presently have visiting nurse or other home services: No Alcohol intake: current Alcohol intake frequency: a few times a week Alcohol type: beer Patient Tobacco Use Status: Never used Tobacco e-Cigarette/Vaping Use: Never Used Second Hand Smoke Exposure: No service: No Current occupational status: disabled Cognitive needs: No Hearing needs: No Vision needs: No Review of Systems Const Denies fatigue, Denies fever(s), Denies night sweats, Denies poor appetite and Denies weight loss ENT Reports Normal hearing present, Denies dental pain, Denies dysphagia, Denies hearing loss, Denies mouth pain, Denies odynophagia, Denies throat swelling, Denies tongue swelling and Reports other (Dentition adequate) Card Reports no additional complaints Resp Reports no additional complaints GI Details: Denies abdominal pain, Denies melena, Reports bloating, Denies hematochezia, Reports constipation, Reports GI cramping, Denies dysphagia, Denies excessive flatus, Denies early satiety, Reports heartburn, Denies diarrhea, Denies nausea, Denies odynophagia, Denies vomiting and Denies hematemesis Skin/Breast Denies pruritus, Denies lesions, Denies rash and Denies jaundice Neuro Reports Normal hearing present and Denies Abnormal speech present Endo Denies fatigue Aller/Immun Denies throat swelling and Denies tongue swelling Physical Exam Vital Signs: Last Vital Signs Pulse 68 02/05/25 10:21 BP 138/86 02/05/25 10:21 Pulse Ox 99 02/05/25 10:21 Oxygen Delivery Method Room Air 02/05/25 10:21 BMI result Body Mass Index 30.4 Const General: cooperative, no acute distress, well developed and well groomed Nutritional Appearance: well nourished and obese Orientation/consciousness: oriented to person, oriented to place and oriented to time Limitations: No language barrier HEENT Head: Yes normocephalic and Yes atraumatic Eyes General: appearance normal, both eyes and all related structures Pupils: Equal, round and reactive pupils present Neck Neck: Yes normal visual inspection and Yes no lymphadenopathy Thyroid: Thyroid normal Resp Effort & Inspection: normal respiratory effort and able to speak in complete sentences Auscultation: clear to auscultation bilaterally Cardio Rate: regular rate Rhythm: regular rhythm Heart sounds: Normal, physiologic split S2 sound present Peripheral pulses: radial pulses present and posterior tibial pulses present GI Inspection: Yes distended, Yes Abdominal panniculus present and Yes obesity Palpation (GI): Soft to palpation, nontender, no guarding, not rigid and No hepatosplenomegaly present Percussion: Yes normal to percussion Auscultation: normal bowel sounds Rectal Exam - Female: deferred Skin General skin exam: no rashes or lesions noted, turgor normal, skin not dry, no jaundice, No spider nevi and no striae Rashes: no rashes Nails: normal Neuro General: oriented to person, oriented to place and oriented to time Cranial nerves: Yes Equal, round and reactive pupils present and Yes Normal hearing present Speech: No Abnormal speech present Extrem General: Yes normal to inspection, No clubbing, No cyanosis and No edema Psych Appearance: grossly normal and well kempt Mental Status: mental status grossly normal Speech and movement: Normal speech and movement present Affect: normal affect Attitude: cooperative Thought process: Normal thought process present and not confabulating Thought content: Normal thought content present Insight: Fair insight present (Psych) Judgement: Fair judgement present (Psych) Assessment & Plan Assessment & Plan (1) Chronic idiopathic constipation: Code(s): K59.04 - Chronic idiopathic constipation Category: Medical (2) Elevated fecal calprotectin: Comment: Normalized 10/2024 retest Code(s): R19.5 - Other fecal abnormalities Category: Medical (3) GERD (gastroesophageal reflux disease): Code(s): K21.9 - Gastro-esophageal reflux disease without esophagitis Category: Medical (4) Periumbilical abdominal pain: Code(s): R10.33 - Periumbilical pain Category: Medical (5) IBS (irritable bowel syndrome): Code(s): K58.9 - Irritable bowel syndrome, unspecified Category: Medical Plan She still has bloating and intermittent, brief sharp stabbing LLQ pains. She is moving her bowels well drinking alot of water and using the Turlance/bisa. Gerd well controlled on pantoprazole. Seems PCP tried to rx creon, she never received this. WIll try and assess ROV 6 weeks. Medications: Refilled pantoprazole 40 mg PO BID 180 tabs 2RF K21.9 - Gastro-esophageal reflux disease without esophagitis [id number] 36,000-114,000- 180,000 unit (Creon) administer with meals and/or snacks 2 caps PO BID 120 caps 6RF K58.9 - Irritable bowel syndrome, unspecified, R14.0 - Abdominal distension (gaseous) plecanatide (Trulance) 3 mg PO DAILY 30 tabs 0RF K59.04 - Chronic idiopathic constipation bisacodyl 10 mg (2 x 5 mg) PO BEDTIME 180 tabs 1RF 90 days K59.04 - Chronic idiopathic constipation Coding Level of Care Code Est Pt Level 3 (13863) Diagnoses Chronic idiopathic constipation K59.04 Elevated fecal calprotectin R19.5 GERD (gastroesophageal reflux disease) K21.9 Periumbilical abdominal pain R10.33 IBS (irritable bowel syndrome) K58.9
[2025-02-05 10:21] VITALS: BP 138/86; PULSE 68; O2SAT 99; BMI 30.4
--- OUTSIDE RECORDS SUMMARY | 2025-02-05 11:36 | XMS_ITS | Clinical Summary ---
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
== END 2025-02-05 10:36 | disposition home or self-care (01) ==
LOC: HO.HGI 10:07
PROVIDERS: PCP Internal Medicine; Visit Provider Nurse Practitioner
DX: K59.04 Chronic idiopathic constipation (principal); R19.5 Other fecal abnormalities; K21.9 Gastro-esophageal reflux disease without esophagitis; R10.33 Periumbilical pain; K58.9 Irritable bowel syndrome, unspecified
CPT/HCPCS: 99213

== ENCOUNTER → 2025-02-05 10:06 | Outpatient (BNVA) | payer OTHER, SELFPAY | PROVIDERS: PCP Internal Medicine; Visit Provider Nurse Practitioner | DX: K59.04 Chronic idiopathic constipation (principal); R19.5 Other fecal abnormalities; K21.9 Gastro-esophageal reflux disease without esophagitis; R10.33 Periumbilical pain; K58.9 Irritable bowel syndrome, unspecified | CPT/HCPCS: 99212 ==

== ENCOUNTER 2025-04-16 16:01 | Outpatient (AMB) | payer OTHER, SELFPAY ==
--- NOTE | 2025-04-16 16:02 | MHC.PC.OV ---
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: No Accompanied by: Self / Same As Patient Allergies gabapentin Allergy (Intermediate, Verified 04/16/25 16:35) inadequate response hydromorphone (From DILAUDID) Allergy (Intermediate, Verified 04/16/25 16:35) RASH lisinopril (LISINOPRIL) Allergy (Intermediate, Verified 04/16/25 16:35) CLOGGED THROAT, shortness of breath, anaphylaxis topiramate Allergy (Intermediate, Verified 04/16/25 16:35) inadequate response Medication List - Last Reconciled 04/16/25 by Quynh Fried MD acetaminophen 1,000 mg (2 x 500 mg) PO Q6H PRN amlodipine 5 mg PO BID 90 days bisacodyl 10 mg (2 x 5 mg) PO BEDTIME 90 days blood pressure test kit-medium ([place] Chek Blood Pressure kit) As directed blood pressure test kit-small As directed cholecalciferol (vitamin D3) 25 mcg PO DAILY 90 days [elevating leg wedge As directed] estradiol 0.01%(0.1mg/gram) vaginal [handheld shower As directed] ibuprofen 800 mg PO Q8H PRN 30 days incontinence pad, liner, disp Use 1 lincer four times a day prn incontinence pad, liner, disp Use 1 pad three times a day as needed lidocaine 5% 1 patch topical DAILY magnesium oxide 400 mg PO BEDTIME 30 days methocarbamol 750 mg PO Q6H pantoprazole 40 mg PO BID plecanatide (Trulance) 3 mg PO DAILY propranolol 10 mg PO BID 30 days Shower Chair As directed spironolactone 25 mg PO DAILY 90 days sumatriptan succinate (Imitrex) 50 - 100 mg orally at onset of headache, may repeat in 2 hrs PRN; max 2 tabs per day or 4 tabs/week (may take with Ibuprofen) 30 days [wedge pillow As directed] Tobacco use date assessed: 04/16/25 Dental Screening Dental Screen Date: 04/16/25 Did you have a dental visit in the last 12 months?: Yes Did you have a dental problem in the last 6 months where you did not have access to dental care?: No Was dental information given to patient?: Patient has dentist HPI HPI Comments History of Present Illness Details The patient is a 59-year-old female presenting with peripheral edema and chest pain. Diabetes controlled iwith diet. The patient reports significant swelling in her legs, which she describes as serious and persistent. She has a history of a left leg ultrasound in July to check for coagulation issues, which was performed at [facility]. The patient is currently taking spironolactone, a diuretic, to manage the swelling. The patient also reports experiencing chest pain and palpitations, which have been concerning enough to warrant further investigation. She has experienced episodes of chest pain that required her to sit down while at work. There is a plan to conduct an echocardiogram to assess her heart condition further. Additionally, the patient has a history of hypertension, for which she is taking amlodipine. She has tried various medications in the past, including lisinopril, which caused shortness of breath, and gabapentin, dilaudid, and topamax, which were ineffective. The patient also suffers from migraines, for which she takes propranolol and isometriptan. She reports that certain shoes exacerbate her symptoms, causing discomfort in her back and contributing to weight gain. The patient has a history of sinusitis, which has previously led to significant breathing difficulties. She is concerned about potential infections and has been advised to manage her sinusitis symptoms carefully. [facility] Medical History (Updated 04/16/25 @ 16:46 by Quynh Fried MD) Achalasia Median neuropathy Carpal tunnel syndrome of left wrist Cubital tunnel syndrome on left Cervical lymphadenopathy Tubular adenoma of colon HLD (hyperlipidemia) Knee pain Abdominal bloating AMS (altered mental status) Polyarthralgia Flexor tenosynovitis of finger Osteoarthritis of lumbar spine Costovertebral angle tenderness Biceps tendonitis on left Cervicalgia Nocturnal hypoxemia Right hip pain Left foot pain Difficulty swallowing Urge urinary incontinence Chest wall pain History of skin cancer Physical exam LLQ abdominal pain Diverticulitis Acute diarrhea Inflammatory bowel disease Low vitamin B12 level Anemia Pre-op examination Small bowel motility disorder Back pain Lumbar pain Snoring Excessive daytime sleepiness Sleep difficulties Obstructive sleep apnea Right leg pain Left leg pain Upper respiratory tract infection Memory loss Cervical strain Tenderness over frontal sinus Left knee pain Arm numbness Left hip pain Left shoulder pain Leg pain Rheumatoid factor positive Postmenopausal Generalized anxiety disorder Mild major depression, single episode Fibromyalgia Essential hypertension Meningioma Bicytopenia Dyslipidemia Hypovitaminosis D Chronic idiopathic constipation History of herniated intervertebral disc History of partial adherence to treatment Surgical History History of sleeve gastrectomy Hx of colonoscopy Hx of melanoma excision Hx of hernia repair Hx of ovarian cystectomy History of lumbar fusion Hx of section Family History Father Prostate cancer Diabetes mellitus Colon cancer Mother Migraine Arthritis Hypertension Heart disease Emphysema lung CVD (cardiovascular disease) Brother Drug overdose Brother Iloscys-Erctm-Qkrln disease Sister No problems noted. Sister No problems noted. Son No problems noted. Son No problems noted. Son No problems noted. Daughter No problems noted. Daughter No problems noted. Daughter No problems noted. Family/Other Substance use disorder Social History Household Members: Children Housing: House Are you a primary career resource specialist to a significant other at home: No Do you presently have visiting nurse or other home services: No Alcohol intake: current Alcohol intake frequency: a few times a week Alcohol type: beer Patient Tobacco Use Status: Never used Tobacco e-Cigarette/Vaping Use: Never Used Second Hand Smoke Exposure: No service: No Current occupational status: disabled Cognitive needs: No Hearing needs: No Vision needs: No Questionnaire PHQ-9 Over the last 2 weeks, how often have you been bothered by any of the following problems? 8. Moving or speaking so slowly that other people could have noticed. Or the opposite - being so fidgety or restless that you have been moving around a lot more than usual: not at all Source: Developed by Drs. Celso Finney, Damion Mchugh and colleagues, with an educational maria r from [employer]. Thrive Questionnaire Date Thrive assessed: 04/16/25 MARK ANTHONY-7 AMB Questionnaire MARK ANTHONY-7 Date MARK ANTHONY - 7 assessed: 04/16/25 Source: Developed by Drs. Celso Finney, Damion Mchugh and colleagues, with an educational maria r from [employer]. Review of Systems Const All systems reviewed & are unremarkable except as noted in HPI and below Card Denies chest pain at rest, Denies chest pain with activity, Denies edema, Denies irregular heart rhythm, Denies claudication, Denies dyspnea, Denies dyspnea on exertion, Denies orthopnea, Denies paroxysmal nocturnal dyspnea and Denies slow heart rate Resp Denies cough, Denies dyspnea and Denies dyspnea on exertion GI Denies abdominal pain, Denies change in bowel habits, Denies excessive flatus, Denies nausea and Denies vomiting Skin/Breast Denies bleeding lesions, Denies changing lesions and Denies rash Neuro Denies lack of coordination Physical exam (Primary Care) Vital Signs: Last Vital Signs Pulse 87 04/16/25 16:04 BP 150/90 H 04/16/25 16:04 Pulse Ox 99 04/16/25 16:04 Oxygen Delivery Method Room Air 04/16/25 16:04 BMI result Body Mass Index 31.2 Tobacco/Smoking Status: Tobacco use Status Tobacco use date assessed 04/16/25 04/16/25 16:11 Patient Tobacco Use Status Never used Tobacco 04/16/25 16:03 e-Cigarette/Vaping Use Never Used 04/16/25 16:03 Thrive Assessment: Date of Thrive Assessment Date Thrive assessed 04/16/25 04/16/25 16:11 Resp Effort & Inspection: normal respiratory effort Auscultation: clear to auscultation bilaterally Cardio Jugular venous distension: no JVD Rate: regular rate Rhythm: regular rhythm Heart sounds: Murmur heart sound present Extrem General: Yes full ROM Coding Level of Care Code Est Pt Level 4 (63018) Complex EM visit Add On G2211 Diagnoses Essential hypertension I10 Murmur R01.1 Chest pain R07.9 Dyslipidemia E78.5 Chronic idiopathic constipation K59.04 Diabetes mellitus E11.9 Time Spent (min) 20 Assessment & Plan Assessment & Plan (1) Essential hypertension: Code(s): I10 - Essential (primary) hypertension Category: Medical (2) Murmur: Code(s): R01.1 - Cardiac murmur, unspecified Category: Medical (3) Chest pain: Code(s): R07.9 - Chest pain, unspecified Category: Medical (4) Dyslipidemia: Code(s): E78.5 - Hyperlipidemia, unspecified Category: Medical (5) Chronic idiopathic constipation: Code(s): K59.04 - Chronic idiopathic constipation Category: Medical (6) Diabetes mellitus: Code(s): E11.9 - Type 2 diabetes mellitus without complications Category: Medical Plan The patient will undergo an echocardiogram to further evaluate her heart condition, given her reports of chest pain and palpitations. She will be referred to a machine featheredger and reducer for further assessment and management of her cardiovascular symptoms. Laboratory tests will be conducted to evaluate her thyroid function and other potential underlying causes of her symptoms. The patient is advised to continue taking spironolactone to manage her peripheral edema and to monitor her symptoms closely. For her migraines, the patient will continue with propranolol and isometriptan as needed. She is advised to avoid triggers that may exacerbate her symptoms, such as certain footwear. The patient is also advised to manage her sinusitis symptoms to prevent further breathing difficulties and potential infections. Patient was informed and verbally consented to the use of an ambient scribe for clinic note documentation during this visit. Orders: Orders CA echo transthoracic complete Today R01.1 - Cardiac murmur, unspecified Lipid Panel Today E78.5 - Hyperlipidemia, unspecified Microalbumin, Random (w Creat) Today R80.9 - Proteinuria, unspecified Vitamin D 25-OH Total Today E55.9 - Vitamin D deficiency, unspecified Comprehensive Fisher. Panel Fast Today I10 - Essential (primary) hypertension Complete Blood Count Auto Diff Today D64.9 - Anemia, unspecified Vitamin B12 and Folate Today E53.8 - Deficiency of other specified B group vitamins Thyroid Stimulating Hormone Today E66.9 - Obesity, unspecified Referrals Cardiology Referral R07.9 - Chest pain, unspecified
[2025-04-16 16:04] VITALS: BP 150/90; PULSE 87; O2SAT 99; BMI 31.2
--- OUTSIDE RECORDS SUMMARY | 2025-04-16 17:31 | XMS_ITS | Clinical Summary ---
Author Organization [facility] Address [address] [place] [address] Care Team Providers Care Project Coordinator Name Role Phone Quynh Zuniga MD Primary [...] (1 of 2) 2017 Influenza Vaccine (#1) 2025 Pneumococcal Vaccine Aged Out 01/27/2014 No long er eligible based on patient's age to complete this topic RSV Ped < 20 months Aged Out No longe r eligible based on patient's age to complete this topic Care Teams Project Coordinator Relationship Specialty Start Date End Date Quynh Zuniga MD [address] [facility] , [address] [facility] D/B/A: [facility] [place] [address] PCP - General Internal Medicine 05/04/18
--- OUTSIDE RECORDS SUMMARY | 2025-04-16 17:32 | XMS_ITS | Clinical Summary ---
Author Organization [facility] Address [address] [place] [address] Phone Care Team Providers Care Architectural Examiner Name Role Phone Quynh Fried MD Primary Care Provider [phone] Allergies Active Allergy Reactions Criticality Noted Date Comments Gabapentin 06/30/2017 Hydromorphone Itching,Rash 04/28/2020 Lisinopril 06/30/2017 Topiramate 06/30/2017 Medications No known medications Active Problems No known active problems Surgical History Surgery Date Site/Laterality Comments SECTION PROCEDURE: UT DELIVERY ONLY BACK SURGERY PROCEDURE: HISTORICAL BACK SURGERY; COMMENT: lumbar fusion OTHER SURGICAL HISTORY PROCEDURE: UT RPR EPIGASTRIC HERNIA REDUCIBLE SPX Medical History Medical History Date Comments Insomnia DX:Insomnia Constipation DX:Constipation Arthritis DX:Arthritis Migraine DX:Migraine Fibromyalgia DX:Fibromyalgia Melanoma ([facility] V24, [facility] V28) DX:Melanoma (HCC) Cancer of skin of back DX:Cancer of skin of back Meningioma ([facility] V24, [facility] V28) DX:Meningioma (HCC) Family History Medical History [...] 74 08/23/2024 1:52 PM EST Temperature 37.1 C (98.8 F) 08/23/2024 1:52 PM EST Respiratory Rate 17 08/23/2024 10:25 AM EST Oxygen Saturation 96% 08/23/2024 1:52 PM EST Inhaled Oxygen Concentration - - Weight 70.8 kg (156 lb) 08/23/2024 10:25 AM EST Height 154.9 cm (5' 1 ) 08/23/2024 10:25 AM EST Body Mass Index 29.48 08/23/2024 10:25 AM EST Plan of Treatment Health Maintenance Due Date Last Done Comments Diabetes: Annual GFR (Glomerular Filtration Rate) 1967 Diabetes: Annual Foot Exam 1977 Diabetes: Annual Retina Eye Exam 1977 DTaP,Tdap,and Td Vaccines (1 - Tdap) 1986 Hepatitis B Vaccines (1 of 3 - 19+ 3-dose series) 1986 Cervical Cancer Screening: P ap Smear 1988 Pneumococcal Vaccine: 50+ Years (1 of 1 - PCV) 2017 Zoster Vaccines (1 of 2) 2017 Breast Cancer Screening 12/27/2019 12/26/2017 Cholesterol Screening (Lipid Panel) 07/31/2022 Colorectal Cancer Screening: Colonoscopy 07/31/2022 HIV Screening 07/31/2022 Hepatitis C Screening 07/31/2022 Medicare Annual Wellness Visit 07/31/2022 Social Influencers of Health Screening 07/31/2022 Diabetes: Annual Urine Albumin-Creatinine Ratio (uACR) 03/23/2024 Diabetes: Blood Sugar Contro l Test (HGBA1C) 03/23/2024 Hypertension/CHF/CAD Annual BMP Blood Test 03/23/2024 COVID-19 Vaccine (1 - 2023-2 5 season) 2024 Depression Screening 08/29/2024 Influenza Vaccine (#1) 2025 8, 08/16/2017 HIB Vaccines Aged Out No [...] Procedure Name Priority Date/Time Associated Diagnosis Comments [facility] SCREENING DIGITAL Routine 12/26/2017 12:03 PM EDT Encounter for screening mammogram for malignant neoplasm of breast from Last 3 Months or Most Recently Relevant to Health Maintenance Results * [facility] SCREENING DIGITAL (12/26/2017 12:03 PM EDT) Anatomical Region Laterality Modality Mammography 12/26/2017 9:44 AM EDT Narrative 12/26/2017 12:03 PM EDT [facility] Diagnostic Imaging Department [address] [place] [address] Patient: SUZANNEABBY /Age/Sex: 1965 - 52 - F Unit#: [id number] Location/Status: [facility] CLI Mnemonic/Ordering Site: [facility] Ordering Physician: KELI CASH MD [facility] Screening Digital - 12/26/171008 History: Bilateral breast cancer screening. Previous benign left breast biopsy (fibroadenoma). Technique: Bilateral digital mammography. Conventional CC and MLO projections with tomosynthesis MLO views and computer aided detection. Comparison: [facility] 12/22/2016, dating back to 05/31/2007. Breast density: [...] malignancy. BIRADS Category 2: Benign Findings, 3342F 85185, [address]01 A negative mammogram in the face of a suspicious abnormality does not exclude the possibility of malignancy nor alter the indications for biopsy. Note: Patient information entered into a reminder system with a target due date for the next mammogram; PQRI II [id number] Dictating Physician: PRASAD CAMPOVERDE MD Electronically Signed by: PRASAD CAMPOVERDE MD Dic Date/Time: 12/26/17 1201 Sign date/Time: 12/26/17 1203 Procedure Note Prasad Campoverde MD - 08/17/2022 [facility] Diagnostic Imaging Department [address] [place] [id number] Patient: ABBY PALACIOS /Age/Sex: 1965 - 52 - F Unit#: [id number] [facility] Mnemonic/Ordering Site: [facility] Ordering Physician: KELI CASH MD [facility] Screening Digital - 12/26/17 - 1009 History: Bilateral breast cancer screening. Previous benign left breastbiopsy (fibroadenoma). Technique: Bilateral digital mammography. Conventional CC and MLOprojections with tomosynthesis MLO views and computer aided detection. Comparison: [facility] 12/22/2016, dating back to 05/31/2007. Breast density: [...] malignancy. 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
== END 2025-04-16 16:49 | disposition home or self-care (01) ==
LOC: HO.HMCH 16:01
PROVIDERS: PCP Internal Medicine; Visit Provider Internal Medicine
DX: E11.69 Type 2 diabetes mellitus with other specified complication (principal); E78.5 Hyperlipidemia, unspecified; I10 Essential (primary) hypertension; R01.1 Cardiac murmur, unspecified; R07.9 Chest pain, unspecified; K59.04 Chronic idiopathic constipation

== ENCOUNTER → 2025-04-16 16:01 | Outpatient (BNVA) | payer OTHER, SELFPAY | PROVIDERS: PCP Internal Medicine; Visit Provider Internal Medicine | DX: R60.0 Localized edema (principal); R07.9 Chest pain, unspecified; E11.9 Type 2 diabetes mellitus without complications; R00.2 Palpitations; I10 Essential (primary) hypertension; R01.1 Cardiac murmur, unspecified; E78.5 Hyperlipidemia, unspecified; K59.04 Chronic idiopathic constipation; G43.909 Migraine, unspecified, not intractable, without status migrainosus | CPT/HCPCS: 96127; 99212 ==

== ENCOUNTER 2025-04-24 11:13 | Outpatient (AMB) | payer OTHER, SELFPAY ==
--- NOTE | 2025-04-24 11:17 | A.OFFVIS_ITS ---
Vital Signs 04/24/25 11:29 Height 5 ft 1 in Weight 165 lb 5.547 oz BMI 31.2 BP 157/82 H Blood Pressure Location Lt brachial Position Sitting Pulse 78 Intake Visit Reasons: Follow up IBS, bloating, GERD Intake Note: Patient is seen in office for follow up visit, following IBS, bloating and GERD. 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 Accompanied by: Self / Same As Patient Allergies gabapentin Allergy (Intermediate, Verified 04/24/25 11:29) inadequate response hydromorphone (From DILAUDID) Allergy (Intermediate, Verified 04/24/25 11:29) RASH lisinopril (LISINOPRIL) Allergy (Intermediate, Verified 04/24/25 11:29) CLOGGED THROAT, shortness of breath, anaphylaxis topiramate Allergy (Intermediate, Verified 04/24/25 11:29) inadequate response HPI HPI Follow up IBS, bloating, GERD: Details: Assessment & Plan (1) Chronic idiopathic constipation: Code(s): K59.04 - Chronic idiopathic constipation Category: Medical (2) Elevated fecal calprotectin: Comment: Normalized 10/2024 retest Code(s): R19.5 - Other fecal abnormalities Category: Medical (3) GERD (gastroesophageal reflux disease): Code(s): K21.9 - Gastro-esophageal reflux disease without esophagitis Category: Medical (4) Periumbilical abdominal pain: Code(s): R10.33 - Periumbilical pain Category: Medical (5) IBS (irritable bowel syndrome): Code(s): K58.9 - Irritable bowel syndrome, unspecified Category: Medical Plan She still has bloating and intermittent, brief sharp stabbing LLQ pains. She is moving her bowels well drinking alot of water and using the [place]/bisa. Gerd well controlled on pantoprazole. Seems PCP tried to rx creon, she never received this. WIll try and assess ROV 6 weeks. Medications: Refilled pantoprazole 40 mg PO BID 180 tabs 2RF K21.9 - Gastro-esophageal reflux disease without esophagitis [id number]-[id number]-[id number] 36,000-114,000- 180,000 unit (Creon) administer with meals and/or snacks 2 caps PO BID 120 caps 6RF K58.9 - Irritable bowel syndrome, unspecified, R14.0 - Abdominal distension (gaseous) plecanatide (Trulance) 3 mg PO DAILY 30 tabs 0RF K59.04 - Chronic idiopathic constipation bisacodyl 10 mg (2 x 5 mg) PO BEDTIME 180 tabs 1RF 90 days K59.04 - Chronic idiopathic constipation TODAY'S VISIT Confounding factors for constipation are use of methocarbamol, spironolactone, and amlodipine. [facility] Medical History Achalasia Median neuropathy Carpal tunnel syndrome of left wrist Cubital tunnel syndrome on left Cervical lymphadenopathy Tubular adenoma of colon HLD (hyperlipidemia) Knee pain Abdominal bloating AMS (altered mental status) Polyarthralgia Flexor tenosynovitis of finger Osteoarthritis of lumbar spine Costovertebral angle tenderness Biceps tendonitis on left Cervicalgia Nocturnal hypoxemia Right hip pain Left foot pain Difficulty swallowing Urge urinary incontinence Chest wall pain History of skin cancer Physical exam LLQ abdominal pain Diverticulitis Acute diarrhea Inflammatory bowel disease Low vitamin B12 level Anemia Pre-op examination Small bowel motility disorder Back pain Lumbar pain Snoring Excessive daytime sleepiness Sleep difficulties Obstructive sleep apnea Right leg pain Left leg pain Upper respiratory tract infection Memory loss Cervical strain Tenderness over frontal sinus Left knee pain Arm numbness Left hip pain Left shoulder pain Leg pain Rheumatoid factor positive Postmenopausal Generalized anxiety disorder Mild major depression, single episode Fibromyalgia Essential hypertension Meningioma Bicytopenia Dyslipidemia Hypovitaminosis D Chronic idiopathic constipation History of herniated intervertebral disc History of partial adherence to treatment Surgical History History of sleeve gastrectomy Hx of colonoscopy Hx of melanoma excision Hx of hernia repair Hx of ovarian cystectomy History of lumbar fusion Hx of section Family History Father Prostate cancer Diabetes mellitus Colon cancer Mother Migraine Arthritis Hypertension Heart disease Emphysema lung CVD (cardiovascular disease) Brother Drug overdose Brother Lilfyxe-Jvwgi-Emubd disease Sister No problems noted. Sister No problems noted. Son No problems noted. Son No problems noted. Son No problems noted. Daughter No problems noted. Daughter No problems noted. Daughter No problems noted. Family/Other Substance use disorder Social History Household Members: Children Housing: House Are you a primary field care advocate to a significant other at home: No Do you presently have visiting nurse or other home services: No Alcohol intake: current Alcohol intake frequency: a few times a week Alcohol type: beer Patient Tobacco Use Status: Never used Tobacco e-Cigarette/Vaping Use: Never Used Second Hand Smoke Exposure: No service: No Current occupational status: disabled Cognitive needs: No Hearing needs: No Vision needs: No Review of Systems Const Denies fatigue, Denies fever(s), Reports headache(s), Denies night sweats, Denies poor appetite and Denies weight loss ENT Reports Normal hearing present, Denies dental pain, Denies dysphagia, Reports dizziness, Reports headache(s), Denies hearing loss, Denies mouth pain, Denies odynophagia, Denies throat swelling, Denies tongue swelling and Reports other (Dentition adequate) Card Reports leg edema and Reports dyspnea Resp Details: ? Restrictive related bloating Denies cough and Reports dyspnea GI Details: Reports abdominal pain, Denies melena, Reports bloating, Denies hematochezia, Reports constipation, Denies GI cramping, Denies dysphagia, Denies excessive flatus, Denies early satiety, Reports heartburn, Denies diarrhea, Denies nausea, Denies odynophagia, Denies vomiting and Denies hematemesis Musc Reports myalgias and Reports arthralgias Skin/Breast Denies pruritus, Denies lesions, Denies rash and Denies jaundice Neuro Reports Normal hearing present, Denies Abnormal speech present, Reports dizziness and Reports headache(s) Endo Denies fatigue Aller/Immun Denies throat swelling and Denies tongue swelling Physical Exam Vital Signs: Last Vital Signs Pulse 78 04/24/25 11:29 BP 157/82 H 04/24/25 11:29 BMI result Body Mass Index 31.2 Const General: cooperative, no acute distress, well developed and well groomed Nutritional Appearance: well nourished and obese centrally obese Orientation/consciousness: oriented to person, oriented to place and oriented to time Limitations: No language barrier HEENT Head: Yes normocephalic and Yes atraumatic Eyes General: appearance normal, both eyes and all related structures Pupils: Equal, round and reactive pupils present Neck Neck: Yes normal visual inspection and Yes no lymphadenopathy Thyroid: Thyroid normal Resp Effort & Inspection: normal respiratory effort and able to speak in complete sentences Auscultation: clear to auscultation bilaterally Cardio Rate: regular rate Rhythm: regular rhythm Heart sounds: Normal, physiologic split S2 sound present Peripheral pulses: radial pulses present and posterior tibial pulses present GI Inspection: Yes distended, Yes Abdominal panniculus present, Yes obesity and Yes striae Palpation (GI): Soft to palpation, Tenderness to palpation present (GI) periumbilically, no guarding, not rigid and No hepatosplenomegaly present Percussion: Yes normal to percussion Auscultation: Hypoactive bowel sounds present Rectal Exam - Female: deferred Skin General skin exam: no rashes or lesions noted, turgor normal, skin not dry, no jaundice, No spider nevi and no striae Rashes: no rashes Nails: normal Neuro General: oriented to person, oriented to place and oriented to time Cranial nerves: Yes Equal, round and reactive pupils present and Yes Normal hearing present Speech: No Abnormal speech present Extrem General: Yes normal to inspection, No clubbing, No cyanosis and No edema Psych Appearance: grossly normal and well kempt Mental Status: mental status grossly normal Speech and movement: Normal speech and movement present Affect: normal affect Attitude: cooperative Thought process: Normal thought process present and not confabulating Thought content: Normal thought content present Insight: Fair insight present (Psych) and Limited insight present (Psych) Judgement: Fair judgement present (Psych) and Limited judgement present (Psych) Assessment & Plan Assessment & Plan (1) GERD (gastroesophageal reflux disease): Code(s): K21.9 - Gastro-esophageal reflux disease without esophagitis Category: Medical (2) IBS (irritable bowel syndrome): Code(s): K58.9 - Irritable bowel syndrome, unspecified Category: Medical (3) Chronic idiopathic constipation: Code(s): K59.04 - Chronic idiopathic constipation Category: Medical (4) Periumbilical abdominal pain: Code(s): R10.33 - Periumbilical pain Category: Medical (5) Ankle swelling: Code(s): M25.473 - Effusion, unspecified ankle Category: Medical Plan - The patient is a 59-year-old female presenting with abdominal bloating and constipation. - Constipation has persisted despite medication use, such as Trulance, Pricilla, and bisacodyl, required together to produce bowel movements. - Diffuse abdominal pain occurs postprandially, not alleviated by bowel movements. - The constipatory pattern worsened over time causing severe discomfort, possibly impacting breathing when the abdomen is bloated. - A history of gastric bypass surgery was mentioned, alongside possible rheumatoid arthritis marked by a prior positive rheumatoid factor. - her current medication regimen consists of medications include Trulance, bisacodyl, pantoprazole twice a day, magnesium. She has tried simethicone in the past without relief from her bloating, she has also had no relief with Creon or antibiotic treatment for SIBO. She is also utilize probiotics and fiber at various times. We will stop the Creon as this has not produced any benefit for her. - History of elevated fecal calprotectin without definite diagnosis. -because she is also reporting shortness of breath and ankle swelling we will get a BNP and I think we need an abdominal x-ray to actually evaluate her stool/gas burden to see if constipation or gas trapping he is actually driving her proceed symptom of bloating. She has had multiple radiologic exams in the past not yielding any particular disease and her colonoscopies have not been revealing for any underlying pathology. She does have marked central adiposity so it could be that adipose tissue is actually causing her symptomatology. Return office visit in 2 weeks Orders: Orders TSH reflex Free T4 Today K59.04 - Chronic idiopathic constipation B Type Natriuretic Peptide Today M25.473 - Effusion, unspecified ankle Coding Level of Care Code Est Pt Level 3 (04018) Diagnoses GERD (gastroesophageal reflux disease) K21.9 IBS (irritable bowel syndrome) K58.9 Chronic idiopathic constipation K59.04 Periumbilical abdominal pain R10.33 Ankle swelling M25.473
[2025-04-24 11:29] VITALS: BP 157/82; PULSE 78; BMI 31.2
--- OUTSIDE RECORDS SUMMARY | 2025-04-24 12:09 | XMS_ITS | Clinical Summary ---
Author Organization [facility] Address [address] [place] [address] Care Team Providers Care Party Director Name Role Phone Quynh Zuniga MD Primary [...] age to complete this topic Care Teams Party Director Relationship Specialty Start Date End Date Quynh Zuniga MD [address] [facility] , [address] [facility] D/B/A: [facility] [place] [address] PCP - General Internal Medicine 05/04/18
--- OUTSIDE RECORDS SUMMARY | 2025-04-24 12:09 | XMS_ITS | Clinical Summary ---
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 Name Role Phone Quynh Fried MD Primary Care Provider [phone] Allergies Active Allergy Reactions Criticality Noted Date Comments Gabapentin 06/30/2017 Hydromorphone Itching,Rash 04/28/2020 Lisinopril 06/30/2017 Topiramate 06/30/2017 Medications No known medications Active Problems No known active problems Surgical History Surgery Date Site/Laterality Comments SECTION PROCEDURE: ME DELIVERY ONLY BACK SURGERY PROCEDURE: HISTORICAL BACK SURGERY; COMMENT: lumbar fusion OTHER SURGICAL HISTORY PROCEDURE: ME RPR EPIGASTRIC HERNIA REDUCIBLE SPX Medical History Medical History Date Comments Insomnia DX:Insomnia Constipation DX:Constipation Arthritis DX:Arthritis Migraine DX:Migraine Fibromyalgia DX:Fibromyalgia Melanoma ([facility] V24, [facility] V28) DX:Melanoma (HCC) Cancer of skin of back DX:Cancer of skin of back Meningioma ([facility] V24, [facility] V28) DX:Meningioma (HCC) Family History Medical [...] Procedure Name Priority Date/Time Associated Diagnosis Comments [facility] SCREENING DIGITAL Routine 12/26/2017 12:03 PM EDT Encounter for screening mammogram for malignant neoplasm of breast from Last 3 Months or Most Recently Relevant to Health Maintenance Results * [facility] SCREENING DIGITAL (12/26/2017 12:03 PM EDT) Anatomical Region Laterality Modality Mammography 12/26/2017 9:44 AM EDT Narrative 12/26/2017 12:03 PM EDT [facility] Diagnostic Imaging Department [address] [place] [address] Patient: SUZANNEABBY /Age/Sex: 1965 - 52 - F Unit#: [id number] Location/Status: [facility] CLI Mnemonic/Ordering Site: [facility] Ordering Physician: KELI CASH MD [facility] Screening Digital - 12/26/171008 History: Bilateral breast cancer screening. Previous benign left breast biopsy (fibroadenoma). Technique: Bilateral digital mammography. Conventional CC and MLO projections with tomosynthesis MLO views and computer aided detection. Comparison: [facility] 12/22/2016, dating back to 05/31/2007. Breast [...] malignancy. BIRADS Category 2: Benign Findings, 3342F 53256, 84704 A negative mammogram in the face of a suspicious abnormality does not exclude the possibility of malignancy nor alter the indications for biopsy. Note: Patient information entered into a reminder system with a target due date for the next mammogram; PQRI II [id number] Dictating Physician: PRASAD CAMPOVERDE MD Electronically Signed by: PRASAD CAMPOVERDE MD Dic Date/Time: 12/26/17 1201 Sign date/Time: 12/26/17 1203 Procedure Note Prasad Campoverde MD - 08/17/2022 [facility] Diagnostic Imaging Department [address] [place] [id number] Patient: ABBY PALACIOS /Age/Sex: 1965 - 52 - F Unit#: [id number] [facility] Mnemonic/Ordering Site: [facility] Ordering Physician: KELI CASH MD [facility] Screening Digital - 12/26/17 - 1009 History: Bilateral breast cancer screening. Previous benign left breastbiopsy (fibroadenoma). Technique: Bilateral digital mammography. Conventional CC and MLOprojections with tomosynthesis MLO views and computer aided detection. Comparison: [facility] 12/22/2016, dating back to 05/31/2007. Breast [...] malignancy. BIRADS Category 2: Benign Findings, 3342F 71014, 14170 A negative mammogram in the face of [...] Most Recently Relevant to Health Maintenance Insurance [facility] [employer] Member Subscriber Plan / Payer (Ef fective 2019-Present) Name:Abby Palacios Relation to Subscriber:Self Name:Abby Palacios Payer ID:[id number] Group ID:[id number] Type:Not on file Address: [place] [address] [address] [phone] Advance Directives Documents on File Type Date Recorded Patient Test Preparation Tutor Expl anation Health Care Decision (hx) 02/11/2014 [...] (hx) 01/26/2014 AD GARCIA DIRECTIVE Care Teams [employer] Operator Relationship Specialty Start Date End Date Quynh Fried MD [address] [place] [address] , [address] [facility]ician Associ D/B/A: [facility] Funez PCP - General Internal Medicine 05/19/22
== END 2025-04-24 11:52 | disposition home or self-care (01) ==
LOC: HO.HGI 11:14
PROVIDERS: PCP Internal Medicine; Visit Provider Nurse Practitioner
DX: K21.9 Gastro-esophageal reflux disease without esophagitis (principal); K58.9 Irritable bowel syndrome, unspecified; K59.04 Chronic idiopathic constipation; R10.33 Periumbilical pain; M25.473 Effusion, unspecified ankle
CPT/HCPCS: 99213

== ENCOUNTER 2025-04-24 11:13 | Outpatient (REF) | payer OTHER, SELFPAY ==
--- NOTE | ~2025-04-24 | XR_ITS ---
EXAMINATION: XR LUMBOSACRAL SPINE WITH OBLIQUES CLINICAL INFORMATION: M47.816 - Spondylosis without myelopathy or radiculopathy, lumbar region COMPARISON: July 16, 2020 TECHNIQUE: AP, both oblique, and lateral views of the lumbar spine. Lateral view of the lumbosacral junction. FINDINGS: Metallic transpedicle screws at L4 and L5, bilaterally. Status post intervertebral disc spacer at L4-5. There is a segment of the screw at the right side of S1 level with lucency. Minimal lucency at the screws at L4 and L5 bilaterally. Status post laminectomy, L5-S1. Prominent transverse processes of L5 articulating with the sacrum and associated sclerosis along the articular surface. Endplate sclerosis marginal osteophyte formation and decreased intervertebral disc height and vacuum phenomena at L3-4. There is grade 1 anterolisthesis L3-4. Multilevel small marginal 5 formation and endplate sclerosis throughout the axial skeleton. Small Schmorl nodes at L2-3. Vascular clips in the left upper quadrant abdomen. Linear metallic wires at the both sides of the pelvis likely ensure procedure. XR/XR lumbar spine 4V min IMPRESSION: Spondylosis at L3-4, worsened since prior examination. Grade 1 anterolisthesis C4, unchanged. Questionable loosening, transvesical screws. 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 In the correct clinical settings. Electronically signed by: Sundar Keating MD 04/24/2025 12:59 PM EDT
--- NOTE | ~2025-04-24 | XR_ITS ---
EXAMINATION: XR ABDOMEN 2 VIEWS SUPINE ERECT HISTORY: K59.04 - Chronic idiopathic constipation COMPARISON: Comparison is made with the prior examination dated 07/07/2022. FINDINGS: Supine and upright views of the abdomen are submitted. The bowel gas pattern is unremarkable, without evidence of mechanical obstruction. There is no free intraperitoneal gas. There is a small amount of stool in the colon. There are surgical clips in the left upper quadrant. The patient is status post tubal ligation. No abnormal calcifications are identified. There are no abnormal soft tissue masses. Findings of prior lumbar fusion are again noted with pedicle screws. There is a fragment of a pedicle screw on the right without change. XR/XR abdomen min 2V IMPRESSION: Small amount of stool in the colon. Electronically signed by: Celso Barraza MD 04/24/2025 12:55 PM EDT
[2025-04-24 14:29] LABS: B Type Natriuretic Peptide 29 pg/mL (<100)
== END 2025-04-24 11:14 | disposition home or self-care (01) ==
LOC: HO.LAB 11:13
PROVIDERS: PCP Internal Medicine; Visit Provider Nurse Practitioner
DX: K58.1 Irritable bowel syndrome with constipation (principal); K21.9 Gastro-esophageal reflux disease without esophagitis; M47.816 Spondylosis without myelopathy or radiculopathy, lumbar region; M96.1 Postlaminectomy syndrome, not elsewhere classified; M25.473 Effusion, unspecified ankle; R10.33 Periumbilical pain; R06.02 Shortness of breath; Z79.899 Other long term (current) drug therapy; Z98.84 Bariatric surgery status
CPT/HCPCS: 36415; 72110; 74019; 83880; 84443; 99212

== ENCOUNTER → 2025-04-24 12:34 | Outpatient (BNV) | payer OTHER, SELFPAY | PROVIDERS: PCP Internal Medicine; Visit Provider Radiology Diagnostic Radiology | DX: M47.816 Spondylosis without myelopathy or radiculopathy, lumbar region (principal); K59.04 Chronic idiopathic constipation | CPT/HCPCS: 72110; 74019 ==

== ENCOUNTER 2025-05-21 10:30 | Outpatient (AMB) | payer OTHER, SELFPAY ==
--- NOTE | 2025-05-21 11:12 | A.OFFVIS_ITS ---
Vital Signs 05/21/25 11:15 Height 5 ft 1 in Weight 163 lb 12.855 oz BMI 30.9 BP 122/80 Blood Pressure Location Lt brachial Position Sitting Pulse 74 Pulse Source Pulse Oximeter Pulse Oximetry (%) 97 Oxygen Delivery Method Room Air Intake Visit Reasons: Abnormal labs/New Patient Intake Note: New patient presents for abnormal labs. Allergies gabapentin Allergy (Intermediate, Verified 05/21/25 11:15) inadequate response hydromorphone (From DILAUDID) Allergy (Intermediate, Verified 05/21/25 11:15) RASH lisinopril (LISINOPRIL) Allergy (Intermediate, Verified 05/21/25 11:15) CLOGGED THROAT, shortness of breath, anaphylaxis topiramate Allergy (Intermediate, Verified 05/21/25 11:15) inadequate response HPI Comments Details: Patient is a 60-year-old morbidly obese female with hypertension, hyperlipidemia, GERD, diabetes, IBS, polyarticular osteoarthritis and degene rative disease of the spine, fibromyalgia and generalized anxiety disorder here today for the evaluation of positive RF in the setting of polyarthralgias Patient has had several years of polyarticular joint pain involving her back, knees, shoulders, hands, wrists, elbows She has had back surgery in the past with not much improvement AM stiffness - lasting 30-60mins Pain is worse at the end of the day No prolonged AM stiffness No joint swelling Follows with ortho for her OA [facility] Medical History Achalasia Median neuropathy Carpal tunnel syndrome of left wrist Cubital tunnel syndrome on left Cervical lymphadenopathy Tubular adenoma of colon HLD (hyperlipidemia) Knee pain Abdominal bloating AMS (altered mental status) Polyarthralgia Flexor tenosynovitis of finger Osteoarthritis of lumbar spine Costovertebral angle tenderness Biceps tendonitis on left Cervicalgia Nocturnal hypoxemia Right hip pain Left foot pain Difficulty swallowing Urge urinary incontinence Chest wall pain History of skin cancer Physical exam LLQ abdominal pain Diverticulitis Acute diarrhea Inflammatory bowel disease Low vitamin B12 level Anemia Pre-op examination Small bowel motility disorder Back pain Lumbar pain Snoring Excessive daytime sleepiness Sleep difficulties Obstructive sleep apnea Right leg pain Left leg pain Upper respiratory tract infection Memory loss Cervical strain Tenderness over frontal sinus Left knee pain Arm numbness Left hip pain Left shoulder pain Leg pain Rheumatoid factor positive Postmenopausal Generalized anxiety disorder Mild major depression, single episode Fibromyalgia Essential hypertension Meningioma Bicytopenia Dyslipidemia Hypovitaminosis D Chronic idiopathic constipation History of herniated intervertebral disc History of partial adherence to treatment Surgical History History of sleeve gastrectomy Hx of colonoscopy Hx of melanoma excision Hx of hernia repair Hx of ovarian cystectomy History of lumbar fusion Hx of section Family History Father Prostate cancer Diabetes mellitus Colon cancer Mother Migraine Arthritis Hypertension Heart disease Emphysema lung CVD (cardiovascular disease) Brother Drug overdose Brother Ilyoaeg-Fotay-Yhlap disease Sister No problems noted. Sister No problems noted. Son No problems noted. Son No problems noted. Son No problems noted. Daughter No problems noted. Daughter No problems noted. Daughter No problems noted. Family/Other Substance use disorder Social History Household Members: Children Housing: House Are you a primary laboratory animal care veterinarian to a significant other at home: No Do you presently have visiting nurse or other home services: No Alcohol intake: current Alcohol intake frequency: a few times a week Alcohol type: beer Patient Tobacco Use Status: Never used Tobacco e-Cigarette/Vaping Use: Never Used Second Hand Smoke Exposure: No service: No Current occupational status: disabled Cognitive needs: No Hearing needs: No Vision needs: No Review of Systems Const All systems reviewed & are unremarkable except as noted in HPI and below Physical Exam Exam Exam: Vital signs reviewed Physical Examination CONSTITUITIONAL Patient alert and cooperative. Well appearing and in no apparent painful distress MSK Hands * Right Hand: Able to make a fist. No swelling or tenderness to palpation of the MCPs, PIPs or DIPs. * Left Hand: Able to make a fist. No swelling or tenderness to palpation of the MCPs, PIPs or DIPs. * Herbedens nodes noted bilaterally Wrists * Right Wrist: Full ROM to flexion and extension. No swelling or TTP * Left Wrist: Full ROM to flexion and extension. No swelling or TTP Elbows * Right Elbow: Full ROM. No swelling or TTP. No TTP of the medial epicondyle. No TTP of the lateral epicondyle * Left Elbow: Full ROM. No swelling or TTP. No TTP of the medial epicondyle. No TTP of the lateral epicondyle Shoulders * Right shoulder: Full ROM. No swelling noted. No TTP of the AC joint. TTP of the subacromial bursa. No TTP of the posterior shoulder * Left shoulder: Full ROM. No swelling noted. No TTP of the AC joint. TTP of the subacromial bursa. No TTP of the posterior shoulder Hip bursa: Tenderness to palpation bilaterally Knees * Right knee: Full ROM. No swelling noted. No TTP of the knee joint line. * Left knee: Full ROM. No swelling noted. No TTP of the knee joint line. * Crepitations felt bilaterally * TTP of bilateral pes anserine bursa Ankles * Right ankle: Good ankle dorsiflexion and plantar flexion. No swelling. No TTP of the ankle joint * Left ankle: Good ankle dorsiflexion and plantar flexion. No swelling. No TTP of the ankle joint Feet * Right foot: Negative squeeze test * Left foot: Negative squeeze test Tender points? * Tenderness to palpation of the bilateral trapezius, supraspinatus, anterior costochondral junctions, bilateral suboccipital muscle insertions SKIN No rashes Vital Signs: Last Vital Signs Pulse 74 05/21/25 11:15 BP 122/80 05/21/25 11:15 Pulse Ox 97 05/21/25 11:15 Oxygen Delivery Method Room Air 05/21/25 11:15 BMI result Body Mass Index 30.9 Results Reviewed Results Reviewed: Laboratory Tests 12/12/23 11/22/24 09:42 09:28 Sodium 143 Potassium 4.2 Chloride 109 H Carbon Dioxide 26 BUN 19 H Creatinine 0.71 AST 23 ALT 17 C-Reactive Protein 0.14 25-OH Vitamin D Total 21.1 L Laboratory Tests 01/26/22 06/26/24 09:19 08:33 Rheumatoid Factor 31.0 H Cycl Citrul Peptide IgG <16 QUYNH Screen NEGATIVE Assessment & Plan Assessment & Plan (1) Polyarticular osteoarthritis: Code(s): M15.9 - Polyosteoarthritis, unspecified Plan: #Polyarticualr OA Patient is a female here today for evaluation of polyarticular joint pain in the setting of positive rheumatoid factor. There is no evidence of synovitis on examination. Her exam and history is consistent with polyarticular osteoarthritis. Had a long discussion with patient about the diagnosis of polyarticular osteoarthritis especially in the setting of fibromyalgia which patient also concomitantly has on her somatic symptom score, pain score as well as positive fibromyalgia tender points. Unfortunately there is no cure or good medication treatments for this. Recommended that she continue following up with Orthopedics for her joint injections would also continue following up with her spine surgeon. She had a recent x-ray of her spine show loosening and is requiring further imaging Plan - no rheum intervention indicated at this time - follow up with ortho - RTC prn (2) Rheumatoid factor positive: Comment: 04/2021: 23.3 Code(s): R76.8 - Other specified abnormal immunological findings in serum Category: Medical Plan: #Positive RF At this time there is no evidence of any underlying synovitis. ?Approximately 1 2 5% of healthy individuals have positive rheumatoid factor tests. ?Factors that can cause elevated rheumatoid factor vitals include age and smoking. No concern for rheumatoid arthritis at this time Tam Daugherty, Maggie R, Marvin R. Rheumatoid factors: clinical applications. Dis Markers. 2013;35(6):727-34. doi: 10.1155/2013/542003. Epub 2012Jul 11. PMID: [id number]; PMCID: [id number]. Plan I spent 45 minutes reviewing the record and labs, taking a history, examining the patient, discussing the treatment plan, ordering diagnostic work up and documenting in the medical record Coding Level of Care Code New Pt Level 3 (03196) Complex EM visit Add On G2211 Diagnoses Polyarticular osteoarthritis M15.9 Rheumatoid factor positive R76.8
[2025-05-21 11:15] VITALS: BP 122/80; PULSE 74; O2SAT 97; BMI 30.9
--- OUTSIDE RECORDS SUMMARY | 2025-05-21 12:48 | XMS_ITS | Clinical Summary ---
Author Organization [facility] Address [address] [place] [address] Care Team Providers Care Cloth Printing Back Tender Name Role Phone Quynh Zuniga MD Primary [...] age to complete this topic Care Teams Cloth Printing Back Tender Relationship Specialty Start Date End Date Quynh Zuniga MD 2 [facility] , [address] [facility] Physician Associ D/B/A: [facility] [place] [id number] PCP - General Internal Medicine 05/04/18
--- OUTSIDE RECORDS SUMMARY | 2025-05-21 12:48 | XMS_ITS | Clinical Summary ---
Author Organization [facility] Address [address] [place] [address] Phone Care Team Providers Care Well Driller Name Role Phone Quynh Fried MD Primary Care Provider [phone] Allergies Active Allergy Reactions Criticality Noted Date Comments Gabapentin 06/30/2017 Hydromorphone Itching,Rash 04/28/2020 Lisinopril 06/30/2017 Topiramate 06/30/2017 Medications No known medications Active Problems No known active problems Surgical History Surgery Date Site/Laterality Comments SECTION PROCEDURE: [place] DELIVERY ONLY BACK SURGERY PROCEDURE: HISTORICAL BACK SURGERY; COMMENT: lumbar fusion OTHER SURGICAL HISTORY PROCEDURE: [place] RPR EPIGASTRIC HERNIA REDUCIBLE SPX Medical History Medical History Date Comments Insomnia DX:Insomnia Constipation DX:Constipation Arthritis DX:Arthritis Migraine DX:Migraine Fibromyalgia DX:Fibromyalgia Melanoma ([facility] V24, [facility] V28) DX:Melanoma (HCC) Cancer of skin of back DX:Cancer of skin of back Meningioma ([facility] V24, [facility] V28) DX:Meningioma (HCC) Family History [...] 03/23/2024 Hypertension/CHF/CAD Annual BMP Blood Test 03/23/2024 Depression Screening 08/29/2024 COVID-19 Vaccine ( - 2023-2 5 season) 2025 Influenza Vaccine (#1) 2025 8, 08/16/2017 HIB [...] Procedure Name Priority Date/Time Associated Diagnosis Comments [facility] SCREENING DIGITAL Routine 12/26/2017 12:03 PM EDT Encounter for screening mammogram for malignant neoplasm of breast from Last 3 Months or Most Recently Relevant to Health Maintenance Results * [facility] SCREENING DIGITAL (12/26/2017 12:03 PM EDT) Anatomical Region Laterality Modality Mammography 12/26/2017 9:44 AM EDT Narrative 12/26/2017 12:03 PM EDT [facility] Diagnostic Imaging Department [address] [place] [address] Patient: SUZANNEABBY /Age/Sex: 1965 - 52 - F Unit#: [id number] Location/Status: [facility] CLI Mnemonic/Ordering Site: [facility] Ordering Physician: KELI CASH MD [facility] Screening Digital - 12/26/171008 History: Bilateral breast cancer screening. Previous benign left breast biopsy (fibroadenoma). Technique: Bilateral digital mammography. Conventional CC and MLO projections with tomosynthesis MLO views and computer aided detection. Comparison: [facility] 12/22/2016, dating back to 05/31/2007. Breast [...] malignancy. BIRADS Category 2: Benign Findings, 3342F 42562, 31858 A negative mammogram in the face of a suspicious abnormality does not exclude the possibility of malignancy nor alter the indications for biopsy. Note: Patient information entered into a reminder system with a target due date for the next mammogram; PQRI II 7089F Dictating Physician: PRASAD CAMPOVERDE MD Electronically Signed by: PRASAD CAMPOVERDE MD Dic Date/Time: 12/26/17 1201 Sign date/Time: 12/26/17 1203 Procedure Note Prasad Campoverde MD - 08/17/2022 [facility] Diagnostic Imaging Department [address] [place] [address] Patient: ABBY PALACIOS /Age/Sex: 1965 - 52 - F Unit#: [id number] [facility] CLI Mnemonic/Ordering Site: [facility] Ordering Physician: KELI CASH MD [facility] Screening Digital - 12/26/17 - 1009 History: Bilateral breast cancer screening. Previous benign left breastbiopsy (fibroadenoma). Technique: Bilateral digital mammography. Conventional CC and MLOprojections with tomosynthesis MLO views and computer aided detection. Comparison: [facility] 12/22/2016, dating back to 05/31/2007. Breast [...] malignancy. 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
== END 2025-05-21 11:56 | disposition home or self-care (01) ==
LOC: HO.RHES 10:31
PROVIDERS: PCP Internal Medicine; Visit Provider Student in an Organized Health Care Education/Training Program
DX: M15.9 Polyosteoarthritis, unspecified (principal); R76.8 Other specified abnormal immunological findings in serum
CPT/HCPCS: 99203; G2211

== ENCOUNTER → 2025-05-21 10:30 | Outpatient (BNVA) | payer OTHER, SELFPAY | PROVIDERS: PCP Internal Medicine; Visit Provider Student in an Organized Health Care Education/Training Program | DX: R76.8 Other specified abnormal immunological findings in serum (principal); M15.9 Polyosteoarthritis, unspecified | CPT/HCPCS: 99202 ==

== ENCOUNTER → 2025-05-23 14:23 | Outpatient (REF) | payer OTHER, SELFPAY ==
--- NOTE | 2025-05-23 14:26 | CA_ITS ---
Transthoracic Echocardiogram Patient (Last, First, Middle): Abby Leonardo, Gender: F Date of : 1965 Age: 60 Procedure Date: 05/23/2025 Procedure Type: Transthoracic Echocardiogram Location: OP Height: 154.94 cm Weight: 73.94 kg BSA: 1.73 m2 Heart Rate: bpm BP: 122 / 80 mmHg Real Estate Investor: SEVERO Referring MD: Quynh Fried MD Customs Collector: Dima Blanco MD Symptoms: R01.1 - Cardiac murmur, unspecified Study Quality: Fair, contrast ECG Rhythm: Sinus Conclusions: - 1. Normal LV ejection fraction of 60 65% 2. Mild calcific aortic valve changes noted with trace aortic regurgitation 3. Mildly dilated ascending aorta at 4.1 cm 4. Normal RV systolic pressure 5. No gross pericardial effusion Findings Procedure Information Contrast agent, definity, is being given per protocol without apparent complications. Left Ventricle Normal left ventricular size, thickness, and systolic function. The visually estimated ejection fraction is between 60-65%. Spectral Doppler is indicative of a normal filling pattern. Right Ventricle Normal right ventricular cavity size and systolic function. Atria Both atria are normal in size. Interatrial shunt cannot be excluded. Aortic Valve There is mild calcification of the aortic valve. There is no aortic valve stenosis. There is trace (trivial) aortic valve regurgitation. Mitral Valve Normal mitral valve structure and function. There is trace mitral valve regurgitation. There is no mitral valve stenosis. Pulmonic Valve The pulmonic valve is likely normal. Tricuspid Valve Normal tricuspid valve structure. There is trace tricuspid valve regurgitation. The right ventricular systolic pressure is normal. The right ventricular systolic pressure is 14 mmHg. Normal right atrial pressure. There is no evidence of pulmonary hypertension. Great Vessels The pulmonary artery was not well visualized. There is mild dilatation of the ascending aorta measuring 4.10 cm. Small plaque is seen in the sino tubular ridge. Venous The inferior vena cava is normal in size and collapses greater than 50% with inspiration. Pericardium/Pleural There is no evidence of pericardial effusion. Prior Study Comparison No prior study available for comparison. Measurements 2D Linear Measurements IVSd: 0.89 0.6-0.9/0.6-1.0 cm LVIDd: 3.91 3.9-5.3/4.2-5.9 cm LVIDd Index: 2.26 2.4-3.2/2.2-3.1 cm/m2 LVIDs: 2.57 2.0-3.6 cm LVPWd: 0.95 0.7-1.1 cm LA Diam: 3.70 2.7-3.8/3.0-4.0 cm LAIDs Index: 2.14 1.5-2.3 cm/m2 LV Mass: 179.75 67-162/88-224 g LV Mass Index: 103.90 43-95/49-115 g/m2 LVOT Diam: 2.10 3.0+(-)1.3 cm 2D Systolic Function EF 4C: 66.80 >55% EF 2C: 65.10 >55% EF BiP: 65.80 >55% Mitral Valve MV Pk E: 0.58 MV PK A: 0.78 MV Decel Time: 211.00 E/A: 0.70 E'Lateral: 8.16 E'Medial: 7.62 E/E' Med: 7.60 E/E' Lat: 7.10 PHT: 62.00 MVA PHT: 3.[address]: 2.75 Aortic Valve AoV Pk Al: 1.55 AoV Mn Al: 1.11 AoV VTI: 0.35 AoV Pk Grad: 10.00 Aov Mn Grad: 5.00 LAURA Cont.VTI: 2.42 LVOT LVOT Pk Al: 1.06 LVOT Mn Al: 0.72 LVOT VTI: 0.24 LVOT Pk Grad: 4.00 LVOT Mn Grad: 2.00 LVOT Diam: 2.10 LVOT Area: 3.46 Diastolic Function MV Pk E: 0.58 MV Pk A: 0.78 E/A: 0.70 E'Medial: 7.62 E/E' Med: 7.60 E' Laterial: 8.16 E/E' Lat: 7.10 Right Ventricle TAPSE (mm): 22.60 TVS' Al: 12.80 Tricuspid Valve TR Pk Al: 1.64 TR Pk Grad: 11.00 RA Press: 3.00 RVSP: 14.00 Great Vessels Aorta Sinus of Valsalva: 3.03 2.0-3.[address] Ridge: 2.34 1.7-3.4 cm Ao Asc: 4.10 2.1-3.4 cm Pulmonary Veins Pulm Vein S/D 1.60 Updated in Other Vendor System with Status of Final Dima Blanco MD electronically signed on 05/23/2025 4:26:13 PM with status of Final
--- OUTSIDE RECORDS SUMMARY | 2025-05-23 18:47 | XMS_ITS | Clinical Summary ---
Author Organization [facility] Address [address] [place] [address] Care Team Providers Care Career Education Teacher Name Role Phone Quynh Zuniga MD Primary [...] age to complete this topic Care Teams Career Education Teacher Relationship Specialty Start Date End Date Quynh Zuniga MD 2 [facility] , [address] [facility] Physician Associ D/B/A: [facility] [place] [address] PCP - General Internal Medicine 05/04/18
== END ==
LOC: HO.CARD 14:23
PROVIDERS: PCP Internal Medicine; Visit Provider Internal Medicine
DX: R01.1 Cardiac murmur, unspecified (principal)
CPT/HCPCS: 93306; Q9957

== ENCOUNTER → 2025-05-23 14:26 | Outpatient (BNV) | payer OTHER, SELFPAY | PROVIDERS: PCP Internal Medicine; Visit Provider Internal Medicine Cardiovascular Disease | DX: R01.1 Cardiac murmur, unspecified (principal); I35.8 Other nonrheumatic aortic valve disorders; I77.810 Thoracic aortic ectasia | CPT/HCPCS: 93306 ==

== ENCOUNTER 2025-05-27 07:53 | Outpatient (AMB) | payer OTHER, SELFPAY ==
--- OUTSIDE RECORDS SUMMARY | 2025-05-27 07:55 | XMS_ITS | Clinical Summary ---
Author Organization [facility] Address [address] [place] [address] Care Team Providers Care It Technician Name Role Phone Quynh Zuniga MD Primary [...] age to complete this topic Care Teams It Technician Relationship Specialty Start Date End Date Quynh Zuniga MD 2 [facility] , [address] [facility] Physician Associ D/B/A: [facility] [place] [address] PCP - General Internal Medicine 05/04/18
--- OUTSIDE RECORDS SUMMARY | 2025-05-27 07:55 | XMS_ITS | Clinical Summary ---
Author Organization [facility] Address [address] [place] [address] Phone Care Team Providers Care Brake Specialist Name Role Phone Quynh Fried MD Primary Care Provider Allergies Active Allergy Reactions Criticality Noted Date Comments Gabapentin 06/30/2017 Hydromorphone Itching,Rash 04/28/2020 Lisinopril 06/30/2017 Topiramate 06/30/2017 Medications No known medications Active Problems No known active problems Surgical History Surgery Date Site/Laterality Comments SECTION PROCEDURE: [place] DELIVERY ONLY BACK SURGERY PROCEDURE: HISTORICAL BACK SURGERY; COMMENT: lumbar fusion OTHER SURGICAL HISTORY PROCEDURE: [place] RPR EPIGASTRIC HERNIA REDUCIBLE SPX Medical History Medical History Date Comments Insomnia DX:Insomnia Constipation DX:Constipation Arthritis DX:Arthritis Migraine DX:Migraine Fibromyalgia DX:Fibromyalgia Melanoma ([facility] V24, [facility] V28) DX:Melanoma (HCC) Cancer of skin of back DX:Cancer of skin of back Meningioma ([facility] V24, [facility] V28) DX:Meningioma (HCC) Family History [...] Procedure Name Priority Date/Time Associated Diagnosis Comments [facility] Routine 12/26/2017 12:03 PM EDT Encounter for screening mammogram for malignant neoplasm of breast from Last 3 Months or Most Recently Relevant to Health Maintenance Results * [facility] (12/26/2017 12:03 PM EDT) Anatomical Region Laterality Modality Mammography 12/26/2017 9:44 AM EDT Narrative 12/26/2017 12:03 PM EDT [facility] Diagnostic Imaging Department [address] [place] [address] Patient: SUZANNEABBY /Age/Sex: 1965 - 52 - F Unit#: [id number] Location/Status: [facility] CLI Mnemonic/Ordering Site: [facility] Ordering Physician: KELI CASH MD [facility] Screening Digital - 12/26/171008 History: Bilateral breast cancer screening. Previous benign left breast biopsy (fibroadenoma). Technique: Bilateral digital mammography. Conventional CC and MLO projections with tomosynthesis MLO views and computer aided detection. Comparison: [facility] 12/22/2016, dating back to 05/31/2007. Breast [...] malignancy. BIRADS Category 2: Benign Findings, 3342F 71290, 70687 A negative mammogram in the face of a suspicious abnormality does not exclude the possibility of malignancy nor alter the indications for biopsy. Note: Patient information entered into a reminder system with a target due date for the next mammogram; PQRI II 7059F Dictating Physician: PRASAD CAMPOVERDE MD Electronically Signed by: PRASAD CAMPOVERDE MD Dic Date/Time: 12/26/17 1201 Sign date/Time: 12/26/17 1203 Procedure Note Prasad Campoverde MD - 08/17/2022 [facility] Diagnostic Imaging Department [address] [place] [address] Patient: ABBY PALACIOS /Age/Sex: 1965 - 52 - F Unit#: [id number] [facility] Mnemonic/Ordering Site: [facility] Ordering Physician: KELI CASH MD [facility] Screening Digital - 12/26/17 - 1009 History: Bilateral breast cancer screening. Previous benign left breastbiopsy (fibroadenoma). Technique: Bilateral digital mammography. Conventional CC and MLOprojections with tomosynthesis MLO views and computer aided detection. Comparison: [facility] 12/22/2016, dating back to 05/31/2007. Breast [...] malignancy. BIRADS Category 2: Benign Findings, 3342F 53330, 12120 A negative mammogram in the face of [...] Most Recently Relevant to Health Maintenance Insurance 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
--- NOTE | 2025-05-27 08:02 | A.OFFPC_ITS ---
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 Technician Required: No Accompanied by: Self / Same As Patient Allergies gabapentin Allergy (Intermediate, Verified 05/27/25 08:17) inadequate response hydromorphone (From DILAUDID) Allergy (Intermediate, Verified 05/27/25 08:17) RASH lisinopril (LISINOPRIL) Allergy (Intermediate, Verified 05/27/25 08:17) CLOGGED THROAT, shortness of breath, anaphylaxis topiramate Allergy (Intermediate, Verified 05/27/25 08:17) inadequate response Medication List - Last Reconciled 05/27/25 by Quynh Fried MD acetaminophen 1,000 mg (2 x 500 mg) PO Q6H PRN amlodipine 5 mg PO BID 90 days bisacodyl 10 mg (2 x 5 mg) PO BEDTIME 90 days blood pressure test kit-medium ([place] Chek Blood Pressure kit) As directed blood pressure test kit-small As directed cholecalciferol (vitamin D3) 25 mcg PO DAILY 90 days [elevating leg wedge As directed] estradiol 0.01%(0.1mg/gram) vaginal [handheld shower As directed] ibuprofen 800 mg PO Q8H PRN 30 days incontinence pad, liner, disp Use 1 lincer four times a day prn incontinence pad, liner, disp Use 1 pad three times a day as needed lidocaine 5% 1 patch topical DAILY magnesium oxide 400 mg PO BEDTIME 30 days methocarbamol 750 mg PO Q6H pantoprazole 40 mg PO BID plecanatide (Trulance) 3 mg PO DAILY propranolol 10 mg PO BID 30 days Shower Chair As directed spironolactone 25 mg PO DAILY 90 days sumatriptan succinate (Imitrex) 50 - 100 mg orally at onset of headache, may repeat in 2 hrs PRN; max 2 tabs per day or 4 tabs/week (may take with Ibuprofen) 30 days [wedge pillow As directed] Tobacco use date assessed: 04/16/25 Dental Screening Dental Screen Date: 04/16/25 HPI HPI Comments History of Present Illness Details The patient is a 60-year-old female presenting for management of hypertension, migraines, GERD and fibromyalgia. She also has meningioma follow by Neurology and chronic low back pain follow by ortho. The patient's diabetes mellitus is currently well-controlled with an A1c of 5.9%. She had been diagnosed with diabetes long time ago but did lost weight and does not require any medication. She is obese with a BMI of 31.4 and has tried diet and exercise with no significant improvement. Has obstructive sleep apnea on CPAP and I will start her on Wegovy if insurance approved. Hypertension is another chronic condition for which she is under treatment. Her blood pressure reading today was 140/78 mmHg, which is slightly elevated compared to her usual readings. The patient also reports urinary incontinence, for which she uses incontinence pads. She experiences migraines and is prescribed sumatriptan for management. Cardiac evaluation revealed a mildly dilated ascending aorta measuring 4.1 cm and aortic valve calcification with trace aortic regurgitation. [facility] Medical History (Updated 05/27/25 @ 08:57 by Quynh Fried MD) Diabetes mellitus Achalasia Median neuropathy Carpal tunnel syndrome of left wrist Cubital tunnel syndrome on left Cervical lymphadenopathy Tubular adenoma of colon HLD (hyperlipidemia) Knee pain Abdominal bloating AMS (altered mental status) Polyarthralgia Flexor tenosynovitis of finger Osteoarthritis of lumbar spine Costovertebral angle tenderness Biceps tendonitis on left Cervicalgia Nocturnal hypoxemia Right hip pain Left foot pain Difficulty swallowing Urge urinary incontinence Chest wall pain History of skin cancer Physical exam LLQ abdominal pain Diverticulitis Acute diarrhea Inflammatory bowel disease Low vitamin B12 level Anemia Pre-op examination Small bowel motility disorder Back pain Lumbar pain Snoring Excessive daytime sleepiness Sleep difficulties Obstructive sleep apnea Right leg pain Left leg pain Upper respiratory tract infection Memory loss Cervical strain Tenderness over frontal sinus Left knee pain Arm numbness Left hip pain Left shoulder pain Leg pain Rheumatoid factor positive Postmenopausal Generalized anxiety disorder Mild major depression, single episode Fibromyalgia Essential hypertension Meningioma Bicytopenia Dyslipidemia Hypovitaminosis D Chronic idiopathic constipation History of herniated intervertebral disc History of partial adherence to treatment Surgical History History of sleeve gastrectomy Hx of colonoscopy Hx of melanoma excision Hx of hernia repair Hx of ovarian cystectomy History of lumbar fusion Hx of section Family History Father Prostate cancer Diabetes mellitus Colon cancer Mother Migraine Arthritis Hypertension Heart disease Emphysema lung CVD (cardiovascular disease) Brother Drug overdose Brother Fyvtnfs-Crirb-Hgrff disease Sister No problems noted. Sister No problems noted. Son No problems noted. Son No problems noted. Son No problems noted. Daughter No problems noted. Daughter No problems noted. Daughter No problems noted. Family/Other Substance use disorder Social History Household Members: Children Housing: House Are you a primary career placement specialist to a significant other at home: No Do you presently have visiting nurse or other home services: No Alcohol intake: current Alcohol intake frequency: a few times a week Alcohol type: beer Patient Tobacco Use Status: Never used Tobacco Tobacco use type: Cigarette e-Cigarette/Vaping Use: Never Used Second Hand Smoke Exposure: No service: No Current occupational status: disabled Cognitive needs: No Hearing needs: No Vision needs: No Questionnaire PHQ-9 Over the last 2 weeks, how often have you been bothered by any of the following problems? 9. Thoughts that you would be better off or of hurting yourself in some way: not at all Source: Developed by Drs. Celso Finney, Josefa Morales, Damion Wood and colleagues, with an educational maria r from [employer]. Thrive Questionnaire Date Thrive assessed: 05/27/25 I am a: Patient What is your living situation today?: I have a steady place to live Within the past 12 months, did the food you bought not last and you didn't have the money to get more?: Never true Within the past 12 months, did you worry whether your food would run out before you got money to buy more?: Never true Do you have trouble paying for medicines?: No Do you have trouble getting transportation to medical appointments?: No Do you have trouble paying your heating and electricity bill?: No Do you have trouble taking care of your child, family member or friend?: No Do you have trouble with day-to-day activities such as bathing, preparing meals, shopping, managing finances, etc.?: No Are you currently unemployed and looking for a job?: No Are you interested in more education?: No Currently or been in a relationship where the following occur: No concerns reported THRIVE Score: 0 AUDIT C Alcohol Use Questionnaire (AUDIT-C) 1. How often do you have a drink containing alcohol?: Monthly or less 2. How many drinks containing alcohol do you have on a typical day when you are drinking?: 1 or 2 3. How often do you have six or more drinks on one occasion?: Never Total Score: 1 Score Reviewed/Action Taken: No MARK ANTHONY-7 AMB Questionnaire MARK ANTHONY-7 Date MARK ANTHONY - 7 assessed: 04/16/25 Source: Developed by Drs. Celso Finney, Josefa Morales, Damion Wood and colleagues, with an educational maria r from [employer]. Review of Systems Const All systems reviewed & are unremarkable except as noted in HPI and below Card Denies chest pain at rest, Denies chest pain with activity, Denies edema, Denies irregular heart rhythm, Denies claudication, Denies dyspnea, Denies dyspnea on exertion, Denies orthopnea, Denies paroxysmal nocturnal dyspnea and Denies slow heart rate Resp Denies cough, Denies dyspnea and Denies dyspnea on exertion GI Denies abdominal pain, Denies change in bowel habits, Denies excessive flatus, Denies nausea and Denies vomiting Physical exam (Primary Care) Vital Signs: Last Vital Signs Pulse 88 05/27/25 08:03 BP 140/78 H 05/27/25 08:03 Pulse Ox 98 05/27/25 08:03 Oxygen Delivery Method Room Air 05/27/25 08:03 BMI result Body Mass Index 31.4 Tobacco/Smoking Status: Tobacco use Status Tobacco use date assessed 04/16/25 05/27/25 08:04 Patient Tobacco Use Status Never used Tobacco 05/27/25 08:04 Tobacco use type Cigarette 05/27/25 08:04 e-Cigarette/Vaping Use Never Used 05/27/25 08:04 Thrive Assessment: Date of Thrive Assessment Date Thrive assessed 05/27/25 05/27/25 08:04 Currently or been in a relationship where the following occur: No concerns reported Resp Effort & Inspection: normal respiratory effort Auscultation: clear to auscultation bilaterally Cardio Jugular venous distension: no JVD Rate: regular rate Rhythm: regular rhythm Heart sounds: S1 normal heart sound present and S2 normal heart sound present Extrem General: Yes full ROM Results AMB Hemoglobin A1c AMB Hemoglobin A1c 5.9 % Last Edit by Miroslava Smith CMA on 05/27/25 08 :20 Coding Level of Care Code Est Pt Level 4 (13477) Complex EM visit Add On G2211 Diagnoses Essential hypertension I10 GERD (gastroesophageal reflux disease) K21.9 Meningioma D32.9 Migraine without aura G43.009 Moderate obstructive sleep apnea G47.33 Time Spent (min) 23 Assessment & Plan Assessment & Plan (1) Essential hypertension: Code(s): I10 - Essential (primary) hypertension Category: Medical (2) GERD (gastroesophageal reflux disease): Code(s): K21.9 - Gastro-esophageal reflux disease without esophagitis Category: Medical (3) Meningioma: Comment: MRI, Aug 2021: 1.8 cm meningioma along the inferior surface of the right tentorial leaflet. Head Ct Sep 2022: stable Code(s): D32.9 - Benign neoplasm of meninges, unspecified Category: Medical (4) Migraine without aura: Code(s): G43.009 - Migraine without aura, not intractable, without status migrainosus Category: Medical (5) Moderate obstructive sleep apnea: Comment: 06/2023- HST AHI 22/hr w/ O2 rani 79% Code(s): G47.33 - Obstructive sleep apnea (adult) (pediatric) Category: Medical Plan Plan Patient was informed and verbally consented to the use of an ambient scribe for clinic note documentation during this visit. 1. Essential (primary) hypertension I10 The patient's blood pressure was recorded at 140/78 mmHg today, which is slightly elevated. She is advised to continue her current antihypertensive regimen and monitor her blood pressure regularly. 2. Obesity, unspecified E66.9 The patient is obese with a BMI of 31.4 and is considering weight management options, including the use of semaglutide if approved by insurance. 3. Sleep apnea, unspecified G47.30 The patient has sleep apnea and uses a CPAP machine at night. Continued use of CPAP is recommended to manage symptoms. 4. Benign neoplasm of meninges, unspecified D32.9 HCC 12 Follow up with neurology 5. Migraine, unspecified, not intractable, without status migrainosus G43.909 Follow up with neurology Orders: Orders AMB Hemoglobin A1c Today Z13.9 - Encounter for screening, unspecified Complete Blood Count Auto Diff 5 Months D64.9 - Anemia, unspecified IRON PROFILE 5 Months D64.9 - Anemia, unspecified Vitamin B12 and Folate 5 Months E53.8 - Deficiency of other specified B group vitamins Vitamin D 25-OH Total 5 Months E55.9 - Vitamin D deficiency, unspecified Lipid Panel 5 Months E78.5 - Hyperlipidemia, unspecified Comprehensive [place]. Panel Fast 5 Months I10 - Essential (primary) hypertension Medications: New semaglutide (weight loss) (Kendy) administer weeks 1 through 4 of therapy 0.25 mg (0.5 mL) subcut QWEEK 2 mL 0RF 4 weeks E66.9 - Obesity, unspecified, G47.33 - Obstructive sleep apnea (adult) (pediatric)
[2025-05-27 08:03] VITALS: BP 140/78; PULSE 88; O2SAT 98; BMI 31.4
== END 2025-05-27 08:30 | disposition home or self-care (01) ==
LOC: HO.HMCH 07:53
PROVIDERS: PCP Internal Medicine; Visit Provider Internal Medicine
DX: I10 Essential (primary) hypertension (principal); K21.9 Gastro-esophageal reflux disease without esophagitis; D32.9 Benign neoplasm of meninges, unspecified; G43.009 Migraine without aura, not intractable, without status migrainosus; G47.33 Obstructive sleep apnea (adult) (pediatric); Z13.9 Encounter for screening, unspecified

== ENCOUNTER → 2025-05-27 07:53 | Outpatient (BNVA) | payer OTHER, SELFPAY | PROVIDERS: PCP Internal Medicine; Visit Provider Internal Medicine | DX: E11.9 Type 2 diabetes mellitus without complications (principal); I10 Essential (primary) hypertension; G43.909 Migraine, unspecified, not intractable, without status migrainosus; K21.9 Gastro-esophageal reflux disease without esophagitis; M79.7 Fibromyalgia; R32 Unspecified urinary incontinence; D32.9 Benign neoplasm of meninges, unspecified; G43.009 Migraine without aura, not intractable, without status migrainosus; G47.33 Obstructive sleep apnea (adult) (pediatric); E66.9 Obesity, unspecified; D64.9 Anemia, unspecified; E53.8 Deficiency of other specified B group vitamins; E55.9 Vitamin D deficiency, unspecified; E78.5 Hyperlipidemia, unspecified; Z68.31 Body mass index [BMI] 31.0-31.9, adult; Z99.89 Dependence on other enabling machines and devices | CPT/HCPCS: 83036; 99212 ==

== ENCOUNTER 2025-06-06 09:20 | Outpatient (REF) | payer OTHER, SELFPAY | END 2025-06-06 09:21 | disposition home or self-care (01) | LOC: HO.MAMMO 09:20 | PROVIDERS: PCP Internal Medicine; Visit Provider Internal Medicine | DX: Z12.31 Encounter for screening mammogram for malignant neoplasm of breast (principal) | CPT/HCPCS: 77063; 77067 ==

== ENCOUNTER → 2025-06-06 09:45 | Outpatient (BNV) | payer OTHER, SELFPAY | PROVIDERS: PCP Internal Medicine; Visit Provider Internal Medicine | DX: Z12.31 Encounter for screening mammogram for malignant neoplasm of breast (principal) | CPT/HCPCS: 77063; 77067 ==

== ENCOUNTER 2025-07-04 08:13 | Outpatient (AMB) | payer OTHER, SELFPAY ==
[2025-07-04 08:25] VITALS: BP 164/90; PULSE 71; BMI 31.8
--- NOTE | 2025-07-04 08:25 | A.OFFVIS_ITS ---
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 Feeder Operator Automatic Required: Yes Feeder Operator Automatic Language: Supervisor Crack Off Name: margaux wolf [id number] Allergies gabapentin Allergy (Intermediate, Verified 07/04/25 08:28) inadequate response hydromorphone (From DILAUDID) Allergy (Intermediate, Verified 07/04/25 08:28) RASH lisinopril (LISINOPRIL) Allergy (Intermediate, Verified 07/04/25 08:28) CLOGGED THROAT, shortness of breath, anaphylaxis topiramate Allergy (Intermediate, Verified 07/04/25 08:28) inadequate response Medication List - Last Reconciled 07/04/25 by Ariella Sheth NP-C acetaminophen 1,000 mg (2 x 500 mg) PO Q6H PRN amlodipine 5 mg PO BID 90 days bisacodyl 10 mg (2 x 5 mg) PO BEDTIME 90 days blood pressure test kit-medium ([place] Chek Blood Pressure kit) As directed blood pressure test kit-small As directed cholecalciferol (vitamin D3) 25 mcg PO DAILY 90 days [elevating leg wedge As directed] estradiol 0.01%(0.1mg/gram) vaginal [handheld shower As directed] ibuprofen 800 mg PO Q8H PRN 30 days incontinence pad, liner, disp Use 1 lincer four times a day prn incontinence pad, liner, disp Use 1 pad three times a day as needed lidocaine 5% 1 patch topical DAILY magnesium oxide 400 mg PO BEDTIME 30 days methocarbamol 750 mg PO Q6H pantoprazole 40 mg PO BID plecanatide (Trulance) 3 mg PO DAILY propranolol 10 mg PO BID 30 days semaglutide (weight loss) (Wegovy) 0.25 mg (0.5 mL) subcut QWEEK 4 weeks Shower Chair As directed spironolactone 25 mg PO DAILY 90 days sumatriptan succinate (Imitrex) 50 - 100 mg orally at onset of headache, may repeat in 2 hrs PRN; max 2 tabs per day or 4 tabs/week (may take with Ibuprofen) 30 days [wedge pillow As directed] HPI HPI 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 Today she presents for cardiology consultation. Today she reports that she does get random anterior chest pressure without pattern. She is vague in describing how this feels but states it is newer for her in recent months. She has some shortness of breath with activity which she also feels is newer. No PND, orthopnea or edema. Wear CPAP periodically, not every night. No chest symptoms clearly brought on by physical activity. No palpitations, lightheadedness, presyncope, syncope, falls. No prior cardiac history. No known family history of heart disease. Nonsmoker, occasional alcohol use. She has fibromyalgia which limits her physical activity. Walks periodically for exercise. Meds r eviewed with her and she says she does not take spironolactone. She has a having back surgery in July due to an issue with her prior hardware. 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 [facility] Medical History Diabetes mellitus Achalasia Median neuropathy Carpal tunnel syndrome of left wrist Cubital tunnel syndrome on left Cervical lymphadenopathy Tubular adenoma of colon HLD (hyperlipidemia) Knee pain Abdominal bloating AMS (altered mental status) Polyarthralgia Flexor tenosynovitis of finger Osteoarthritis of lumbar spine Costovertebral angle tenderness Biceps tendonitis on left Cervicalgia Nocturnal hypoxemia Right hip pain Left foot pain Difficulty swallowing Urge urinary incontinence Chest wall pain History of skin cancer Physical exam LLQ abdominal pain Diverticulitis Acute diarrhea Inflammatory bowel disease Low vitamin B12 level Anemia Pre-op examination Small bowel motility disorder Back pain Lumbar pain Snoring Excessive daytime sleepiness Sleep difficulties Obstructive sleep apnea Right leg pain Left leg pain Upper respiratory tract infection Memory loss Cervical strain Tenderness over frontal sinus Left knee pain Arm numbness Left hip pain Left shoulder pain Leg pain Rheumatoid factor positive Postmenopausal Generalized anxiety disorder Mild major depression, single episode Fibromyalgia Essential hypertension Meningioma Bicytopenia Dyslipidemia Hypovitaminosis D Chronic idiopathic constipation History of herniated intervertebral disc History of partial adherence to treatment Surgical History History of sleeve gastrectomy Hx of colonoscopy Hx of melanoma excision Hx of hernia repair Hx of ovarian cystectomy History of lumbar fusion Hx of section Family History Father Prostate cancer Diabetes mellitus Colon cancer Mother Migraine Arthritis Hypertension Heart disease Emphysema lung CVD (cardiovascular disease) Brother Drug overdose Brother Payzlbp-Sxjdy-Txkip disease Sister No problems noted. Sister No problems noted. Son No problems noted. Son No problems noted. Son No problems noted. Daughter No problems noted. Daughter No problems noted. Daughter No problems noted. Family/Other Substance use disorder Social History Household Members: Children Housing: House Are you a primary insurance healthcare consultant to a significant other at home: No Do you presently have visiting nurse or other home services: No Alcohol intake: current Alcohol intake frequency: a few times a week Alcohol type: beer Patient Tobacco Use Status: Never used Tobacco Tobacco use type: Cigarette e-Cigarette/Vaping Use: Never Used Second Hand Smoke Exposure: No service: No Current occupational status: disabled Cognitive needs: No Hearing needs: No Vision needs: No Review of Systems Const All systems reviewed & are unremarkable except as noted in HPI and below ENT Denies dizziness Card Reports chest pain, Reports chest pain at rest, Denies chest pain with activity, Denies rapid heart rate, Denies pedal edema, Denies edema, Denies leg edema, Denies lightheadedness, Denies palpitations, Denies dyspnea, Reports dyspnea on exertion and Denies orthopnea Resp Denies cough, Denies dyspnea and Reports dyspnea on exertion GI Denies hematochezia and Denies change in stool character Musc Details: chronic back pains Reports abnormal gait, Denies limited range of motion, Denies muscle cramps, Denies muscle weakness, Denies numbness, Denies radiating pain into limb, Denies stiffness and Denies tingling Neuro Reports abnormal gait, Denies dizziness, Denies numbness and Denies tingling Endo Denies palpitations Physical Exam Vital Signs: BMI result Body Mass Index 31.8 Const General: cooperative, healthy appearing, comfortable and no acute distress Orientation/consciousness: patient oriented x3 Neck Neck: Yes normal visual inspection Resp Effort & Inspection: normal respiratory effort Auscultation: clear to auscultation bilaterally, no rales, no rhonchi and no wheezes Cardio Rate: regular rate Rhythm: regular rhythm Heart sounds: S1 normal heart sound present, S2 normal heart sound present, no gallops, no murmurs and no rubs Neuro General: patient oriented x3 Extrem General: Yes normal to inspection, No no pedal edema and No calf tenderness Psych Appearance: grossly normal Mental Status: mental status grossly normal Speech and movement: Normal speech and movement present Office Procedures EKG Details: Today, read by me, normal sinus rhythm, no acute ST or T-wave abnormalities, rate 71, QTC 432 milliseconds [id number], Complete Results Reviewed Results Reviewed: - Echocardiogram 05/23/2025: EF 60-65%, mild calcific aortic valve changes, trace aortic regurgitation, mildly dilated ascending aorta 4.1 cm, normal RV systolic pressure Assessment & Plan Assessment & Plan (1) Chest pain: Code(s): R07.9 - Chest pain, unspecified Category: Medical Plan: Vague reports of anterior chest pressure also shortness of breath with exertional activities each of which is newer for her. Cardiac risks of hypertension, hyperlipidemia, diabetes, sedentary, obesity. EKG today showing normal sinus rhythm with no acute ST or T-wave abnormalities, rate 71. Recent echocardiogram showed normal EF and no regional wall motion abnormalities. Will check a pharmacological nuclear stress test to assess for ischemia. She has fibromyalgia and decreased activity tolerance. Cardiology follow-up 4 weeks, sooner if needed. (2) Essential hypertension: Code(s): I10 - Essential (primary) hypertension Category: Medical Plan: Blood pressure goal less than 130/80. Elevated at this visit, 164/90. Meds reviewed with her in detail and she says she is not taking spironolactone. Will have her start on spironolactone which is on her med list. I sent this to her pharmacy. Continue amlodipine and propranolol. Plan recheck of blood pressure next visit. (3) Mild ascending aorta dilation: Code(s): I77.810 - Thoracic aortic ectasia Category: Medical Plan: Recent echo showing ascending aorta 4.1 cm. The importance of good blood pressure control reviewed. Will monitor periodically with echocardiograms. (4) Obesity: Code(s): E66.9 - Obesity, unspecified Category: Medical Plan: Benefits of weight loss and increase physical activity as able reviewed Plan I discussed with the patient the need for a stress test to assess cardiac f unction due to her chest pain and upcoming surgery. We also talked about the importance of controlling her blood pressure and the addition of spironolactone to her regimen, weight loss and physical activity. Orders: Orders CA lexiscan stress w josue Today I10 - Essential (primary) hypertension, R07.9 - Chest pain, unspecified NM cardiolite stress test Today I10 - Essential (primary) hypertension, R07.9 - Chest pain, unspecified Medications: Refilled spironolactone 25 mg PO DAILY 90 tabs 1RF 90 days I10 - Essential (primary) hypertension Patient Instructions: - Schedule and complete the stress test as planned. - Begin taking spironolactone as prescribed to help manage blood pressure. - Follow up in one month for further evaluation and discussion of test results. Patient was informed and verbally consented to the use of an ambient scribe for clinic note documentation during this visit. Visit time spent on chart review, interview, assessment, orders, documentation. Coding Level of Care Code New Pt Level 4 (53198) Complex EM visit Add On G2211 Diagnoses Chest pain R07.9 Essential hypertension I10 Mild ascending aorta dilation I77.810 Obesity E66.9 CPT Codes EKG - CPT: [id number], Complete ([id number]) Time Spent (min) 32
--- OUTSIDE RECORDS SUMMARY | 2025-07-04 08:25 | XMS_ITS | Clinical Summary ---
Author Organization [facility] Address [address] [place] [address] Care Team Providers Care Consulting Technical Director Name Role Phone Quynh Zuniga MD [...] age to complete this topic Care Teams Consulting Technical Director Relationship Specialty Start Date End Date Quynh Zuniga MD [address] [facility] , [address] [facility] Physician Associ D/B/A: [facility] [place] [address] PCP - General Internal Medicine 05/04/18
--- OUTSIDE RECORDS SUMMARY | 2025-07-04 08:26 | XMS_ITS | Clinical Summary ---
Author Organization [facility] Address [address] [place] [address] Phone Care Team Providers Care Sound Ranging Crewmember Name Role Phone Quynh Fried MD Primary Care Provider [phone] Allergies Active Allergy Reactions Criticality Noted Date Comments Gabapentin 06/30/2017 Hydromorphone Itching,Rash 04/28/2020 Lisinopril 06/30/2017 Topiramate 06/30/2017 Medications No known medications Active Problems No known active problems Surgical History Surgery Date Site/Laterality Comments SECTION PROCEDURE: OK DELIVERY ONLY BACK SURGERY PROCEDURE: HISTORICAL BACK SURGERY; COMMENT: lumbar fusion OTHER SURGICAL HISTORY PROCEDURE: OK RPR EPIGASTRIC HERNIA REDUCIBLE SPX Medical History Medical History Date Comments Insomnia DX:Insomnia Constipation DX:Constipation Arthritis DX:Arthritis Migraine DX:Migraine Fibromyalgia DX:Fibromyalgia Melanoma ([facility] V24, [facility] V28) DX:Melanoma (HCC) Cancer of skin of back DX:Cancer of skin of back Meningioma ([facility] V24, [facility] V28) DX:Meningioma (HCC) Family History [...] Health Maintenance Due Date Last Done Comments Colorectal Cancer Screening: Colonoscopy 1965 Diabetes: Annual GFR (Glomerular Filtration Rate) 1965 [...] 12/27/2019 12/26/2017 Cholesterol Screening (Lipid Panel) 07/31/2022 HIV Screening 07/31/2022 Hepatitis C Screening 07/31/2022 Medicare Annual Wellness Visit 07/31/2022 Social Influencers of Health Screening 07/31/2022 Diabetes: Annual Urine Albumin-Creatinine Ratio (uACR) 03/23/2024 Diabetes: Blood Sugar Contro l Test (HGBA1C) 03/23/2024 Hypertension/CHF/CAD Annual BMP Blood Test 03/23/2024 Depression Screening 08/29/2024 COVID-19 Vaccine ( - 2023-2 5 season) 2025 Influenza Vaccine (#1) 2025 8, 08/16/2017 RSV Immunization Adult Patients (1 - 1-dose 75+ series) 2042 HIB Vaccines Aged Out No longer eligi [...] Procedure Name Priority Date/Time Associated Diagnosis Comments [facility] SCREENING DIGITAL Routine 12/26/2017 12:03 PM EDT Encounter for screening mammogram for malignant neoplasm of breast from Last 3 Months or Most Recently Relevant to Health Maintenance Results * [facility] SCREENING [facility] (12/26/2017 12:03 PM EDT) Anatomical Region Laterality Modality Mammography 12/26/2017 9:44 AM EDT Narrative 12/26/2017 12:03 PM EDT [facility] Diagnostic Imaging Department [address] [place] [address] Patient: ABBY PALACIOS /Age/Sex: 1965 - 52 - F Unit#: [id number] [facility] Mnemonic/Ordering Site: [facility] Ordering Physician: KELI CASH MD [facility] Screening Digital - 12/26/171008 History: Bilateral breast cancer screening. Previous benign left breast biopsy (fibroadenoma). Technique: Bilateral digital mammography. Conventional CC and MLO projections with tomosynthesis MLO views and computer aided detection. Comparison: [facility] 12/22/2016, dating back to 05/31/2007. Breast density: [...] malignancy. BIRADS Category 2: Benign Findings, 3342F 58177, 05502 A negative mammogram in the face of a suspicious abnormality does not exclude the possibility of malignancy nor alter the indications for biopsy. Note: Patient information entered into a reminder system with a target due date for the next mammogram; PQRI II 7044F Dictating Physician: PRASAD CAMPOVERDE MD Electronically Signed by: PRASAD CAMPOVERDE MD Dic Date/Time: 12/26/17 1201 Sign date/Time: 12/26/17 1203 Procedure Note Prasad Campoverde MD - 08/17/2022 [facility] Diagnostic Imaging Department [address] [place] [address] Patient: SUZANNEABBY D.O.B./Age/Sex: 1965 - 52 - F Unit#: [id number] [facility] CLI Mnemonic/Ordering Site: [facility] Ordering Physician: KELI CASH MD [facility] Screening Digital - 12/26/17 - 1009 History: Bilateral breast cancer screening. Previous benign left breastbiopsy (fibroadenoma). Technique: Bilateral digital mammography. Conventional CC and MLOprojections with tomosynthesis MLO views and computer aided detection. Comparison: [facility] 12/22/2016, dating back to 05/31/2007. Breast density: [...] malignancy. BIRADS Category 2: Benign Findings, 3342F 73623, 85466 A negative mammogram in the face of [...] Most Recently Relevant to Health Maintenance Insurance [facility] [employer] MEDICARE Member Subscriber Plan / Payer (Ef fective 2019-Present) Name:Abby Palacios Relation to Subscriber:Self Name:Abby Palacios Payer ID:[id number] Group ID:[id number] Type:Not on file Address: [address] [facility] [place] [id number] Advance Directives Documents on File Type Date Recorded Patient [employer] Expl anation Health Care Decision (hx) 02/11/2014 [...] (hx) 01/26/2014 AD GARCIA DIRECTIVE Care Teams Sound Ranging Crewmember Relationship Specialty Start Date End Date Quynh Fried MD [address] [place] [address] , [address] Physician Associ D/B/A: [facility] CHAPIN Funez PCP - General Internal Medicine 05/19/22
== END 2025-07-04 08:58 | disposition home or self-care (01) ==
LOC: HO.HCS 08:13
PROVIDERS: PCP Internal Medicine; Visit Provider Nurse Practitioner Family
DX: R07.9 Chest pain, unspecified (principal); I10 Essential (primary) hypertension; I77.810 Thoracic aortic ectasia; E66.9 Obesity, unspecified
CPT/HCPCS: 93010; 99204; G2211

== ENCOUNTER → 2025-07-04 08:13 | Outpatient (BNVA) | payer OTHER, SELFPAY | PROVIDERS: PCP Internal Medicine; Visit Provider Nurse Practitioner Family | DX: I10 Essential (primary) hypertension (principal); R07.9 Chest pain, unspecified; I77.810 Thoracic aortic ectasia; E66.9 Obesity, unspecified | CPT/HCPCS: 93005; 99202 ==

== ENCOUNTER 2025-07-05 09:35 | Outpatient (AMB) | payer OTHER, SELFPAY ==
--- NOTE | 2025-07-05 10:12 | A.OFFVIS_ITS ---
Vital Signs 07/05/25 10:13 Height 5 ft 1 in Weight 171 lb BMI 32.3 BP 140/90 H Blood Pressure Location Rt brachial Position Sitting Pulse 75 Pulse Source Pulse Oximeter Pulse Oximetry (%) 96 Oxygen Delivery Method Room Air Intake Visit Reasons: 6 mnts f/u appt-Conf Intake Note: Patient presents 6 month follow up for migraines/ALEKSANDER. Patient is non compliant with CPAP Cloud Infrastructure Architect Required: No Accompanied by: Self / Same As Patient Allergies gabapentin Allergy (Intermediate, Verified 07/05/25 10:15) inadequate response hydromorphone (From DILAUDID) Allergy (Intermediate, Verified 07/05/25 10:15) RASH lisinopril (LISINOPRIL) Allergy (Intermediate, Verified 07/05/25 10:15) CLOGGED THROAT, shortness of breath, anaphylaxis topiramate Allergy (Intermediate, Verified 07/05/25 10:15) inadequate response Medication List - Last Reconciled 07/05/25 by SIMON Johnston acetaminophen 1,000 mg (2 x 500 mg) PO Q6H PRN amlodipine 5 mg PO BID 90 days bisacodyl 10 mg (2 x 5 mg) PO BEDTIME 90 days blood pressure test kit-medium ([place] Blood Pressure kit) As directed blood pressure test kit-small As directed cholecalciferol (vitamin D3) 25 mcg PO DAILY 90 days [elevating leg wedge As directed] estradiol 0.01%(0.1mg/gram) vaginal [handheld shower As directed] ibuprofen 800 mg PO Q8H PRN 30 days incontinence pad, liner, disp Use 1 lincer four times a day prn incontinence pad, liner, disp Use 1 pad three times a day as needed lidocaine 5% 1 patch topical DAILY magnesium oxide 400 mg PO BEDTIME 30 days methocarbamol 750 mg PO Q6H pantoprazole 40 mg PO BID plecanatide (Trulance) 3 mg PO DAILY propranolol 10 mg PO BID 30 days semaglutide (weight loss) (Wegovy) 0.25 mg (0.5 mL) subcut QWEEK 4 weeks Shower Chair As directed spironolactone 25 mg PO DAILY 90 days sumatriptan succinate (Imitrex) 50 - 100 mg orally at onset of headache, may repeat in 2 hrs PRN; max 2 tabs per day or 4 tabs/week (may take with Ibuprofen) 30 days [wedge pillow As directed] HPI Comments Details: 60-yr-old female presents for f/u visit of sleep, headache, and cognitive difficulties. Interval history: Yesterday, cardiology added a 3rd BP med due to ongoing HTN, and advised her to take the amlodipine and the prorpanolol daily. She is scheduled to have back surgery for collapsed lumbar disc- in July by Dr Andrea. She has not been using her CPAP, but plans to clean it, and find a plug and more conducive place to keep it. She reports her migraines are not occurring very often, about 4 x's per month. Sumatriptan is still effective. She continues moments of forgetfulness, spacing out and mind going blank, She did have the baseline neuro-psych eval- showed mild neurocognitive d/o not c/w Alzheimer's; and poorly controlled depression and anxiety. Recommendations included- resume CPAP, consider EEG, manage mood s/s, consider cognitive pain reprocessing therapy. She states she is on a wait list to see a psychologist 01/10/2025, HPI: Interval workup reviewed: 08/08/2024 EEG within normal limits. 06/26/2024 lab workup was notable for: mildly elevated cholesterol 223 and LDL 130, with normal HDL 67 and triglycerides 132. Low vitamin-D 16, elevated rheumatoid factor 31. Low normal vitamin B12 317 with normal folate 12.8, normal methylmalonic acid 108 and homocystine 9.4. 11/22/2024 labs: hemoglobin A1c 6.2% Vitamin-D low at 21.1 She states that she does not understand why if all of her testing is unremarkable, why she continues to have such difficulties with forgetfulness. States she had a conversation with her friend, and then later on could not remember what her friend told her. She notes that she can become distracted, such as when she is doing housework she will stop what she is doing and go do something else, but then forget what she was doing before. She forgets about her appointments, notes that she forgets to write them down. She is still prone to just spacing out states her mind is just blank. She is not currently followed by Psychiatry or a therapist, states she was in the past when she had depression, but she does not feel depressed at this point. She states she typically pays her bills on time. She states she has a 15-year-old grandson with autism. She is not using her CPAP machine at this point. She continues to have generalized body pain. She did start vitamin-D supplement. She has been referred back to Rheumatology, has appointment scheduled for April. She has not had follow-up with Neurosurgery, because she states she is not interested in having any cervical procedures at this point. She states her headaches continue to be better. Using propranolol 10 mg as needed. 06/18/2024, previous HPI: Pt states she is having episodes where she loses her train of thought. She may forget what she went into a room for. She feels all of a sudden she just does not remember what she is currently doing. When she tries to think and focus- this causes her to have a headache- and her mind just goes blank. She has other STM issues. She states she has been having episodes of spacing out for at least 2 yrs. Her children think this is related to her alcohol intake, but she feels the cognitive issues occur w/wo alcohol intake. States she may drink 6-7 beers at a democrat- unable to quantity how frequent this is. She believes she had a normal gestational and early development, She was born in [facility]. She moved to [place] as a child. She completed 6th grade- she had to leave her home as she had her 1st child at age 17. She recalls she needed reinforcements in school, would stay after school for extra help. She did receive her GED. 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 She does continue to have neck pain and BUE numbness/tingling. Pt did have consult / [facility] neurospine clinic- they advised her to have a c-spine repair, but she is still considering this. She states her headaches are better. She uses Propranolol 10mg at times. Sumatriptan is helpful. She states she uses her CPAP when she is not in much pain. Compliance data shows no use in the post 30 days, and minimal use in the past 90 days. When used residual AHI is 6/hr. [place] [id number] Email: [email or web address] Compliance Report Usage 03/19/2024 - 06/16/2024 Usage days /90 days (9%) >= 4 hours 8 days (9%) < 4 hours 0 days (0%) Usage hours 65 hours 42 minutes Average usage (total days) 44 minutes Average usage (days used) 8 hours 13 minutes Median usage (days used) 8 hours 15 minutes Total used hours (value since last reset - 06/16/2024) 580 hours AirSense 10 AutoSet Serial number [id number] Mode CPAP Set pressure 4 cmH2O EPR Off Therapy Leaks - L/min Median: 1.7 95th percentile: 4.4 Maximum: 25.1 Events per hour AI: 2.8 HI: 3.4 AHI: 6.2 Apnea Index Central: 0.4 Obstructive: 2.1 Unknown: 0.1 PFSH Medical History Diabetes mellitus Achalasia Median neuropathy Carpal tunnel syndrome of left wrist Cubital tunnel syndrome on left Cervical lymphadenopathy Tubular adenoma of colon HLD (hyperlipidemia) Knee pain Abdominal bloating AMS (altered mental status) Polyarthralgia Flexor tenosynovitis of finger Osteoarthritis of lumbar spine Costovertebral angle tenderness Biceps tendonitis on left Cervicalgia Nocturnal hypoxemia Right hip pain Left foot pain Difficulty swallowing Urge urinary incontinence Chest wall pain History of skin cancer Physical exam LLQ abdominal pain Diverticulitis Acute diarrhea Inflammatory bowel disease Low vitamin B12 level Anemia Pre-op examination Small bowel motility disorder Back pain Lumbar pain Snoring Excessive daytime sleepiness Sleep difficulties Obstructive sleep apnea Right leg pain Left leg pain Upper respiratory tract infection Memory loss Cervical strain Tenderness over frontal sinus Left knee pain Arm numbness Left hip pain Left shoulder pain Leg pain Rheumatoid factor positive Postmenopausal Generalized anxiety disorder Mild major depression, single episode Fibromyalgia Essential hypertension Meningioma Bicytopenia Dyslipidemia Hypovitaminosis D Chronic idiopathic constipation History of herniated intervertebral disc History of partial adherence to treatment Surgical History History of sleeve gastrectomy Hx of colonoscopy Hx of melanoma excision Hx of hernia repair Hx of ovarian cystectomy History of lumbar fusion Hx of section Family History Father Prostate cancer Diabetes mellitus Colon cancer Mother Migraine Arthritis Hypertension Heart disease Emphysema lung CVD (cardiovascular disease) Brother Drug overdose Brother Nxjghgz-Svoky-Qukfy disease Sister No problems noted. Sister No problems noted. Son No problems noted. Son No problems noted. Son No problems noted. Daughter No problems noted. Daughter No problems noted. Daughter No problems noted. Family/Other Substance use disorder Social History Household Members: Children Housing: House Are you a primary healthcare business analyst to a significant other at home: No Do you presently have visiting nurse or other home services: No Alcohol intake: current Alcohol intake frequency: a few times a week Alcohol type: beer Patient Tobacco Use Status: Never used Tobacco Tobacco use type: Cigarette e-Cigarette/Vaping Use: Never Used Second Hand Smoke Exposure: No service: No Current occupational status: disabled Cognitive needs: No Hearing needs: No Vision needs: No Physical Exam Vital Signs: Last Vital Signs Pulse 75 07/05/25 10:13 BP 140/90 H 07/05/25 10:13 Pulse Ox 96 07/05/25 10:13 Oxygen Delivery Method Room Air 07/05/25 10:13 BMI result Body Mass Index 32.3 Const General: cooperative and no acute distress Orientation/consciousness: patient oriented x3 Resp Effort & Inspection: normal respiratory effort and able to speak in complete sentences Neuro General: patient oriented x3 and deep tendon reflexes 2+ bilaterally Cranial nerves: Yes CN's II-XII intact bilaterally Cognition (Neuro): normal cognition Psych Appearance: grossly normal Mental Status: mental status grossly normal Speech and movement: Normal speech and movement present Affect: normal affect Attitude: cooperative Assessment & Plan Assessment & Plan (1) Cognitive impairment: Comment: MMSE 20/29 (omitted repeat phrase d/t Rwandan is 1st language). Code(s): R41.89 - Other symptoms and signs involving cognitive functions and awareness Category: Medical (2) Migraine without aura: Code(s): G43.009 - Migraine without aura, not intractable, without status migrainosus Category: Medical Qualifiers: Status migrainosus presence: without status migrainosus Intractability: not intractable Qualified Code(s): G43.009 - Migraine without aura, not intractable, without status migrainosus (3) Headache: Comment: likely cervicogenic. Low suspicion for ON as pain relieved by pt applying pressure Code(s): R51.9 - Headache, unspecified Category: Medical Qualifiers: Headache type: cervicogenic headache Qualified Code(s): G44.86 - Cervicogenic headache (4) Moderate obstructive sleep apnea: Comment: 06/2023- HST AHI 22/hr w/ O2 rani 79% Code(s): G47.33 - Obstructive sleep apnea (adult) (pediatric) Category: Medical (5) Cervicalgia: Code(s): M54.2 - Cervicalgia Category: Medical Plan For episodes of memory loss and memory difficulties in setting of ALEKSANDER: Previous brain MRI from Aug 2023- Few punctate scattered T2/FLAIR hyperintense f oci are non-specific but likely represent chronic change. Previous EEEG within normal limits Continue to optimize CV risk factors, including poorly controlled HTN. Previous labs were unremarkable, other than vitamin-D deficiency, which we are repleting with vitamin-D supplement, and elevated rheumatoid factor- patient is now seeing Rheumatology. Encourage patient to resume CPAP 4 cmH2O to nightly > 4 hrs. Engage in regular physical, cognitive, social activities. Continue vitamin-D supplement. Follow-up with cardiology and rheumatology as scheduled. Reviewed neuropsych report- start psychology tx as ordered. Plan to repeat EEG and consider cognitive pain reprocessing tx at f/u- per pt request. For occipital headache and cervicalgia: F/u w/ Dr Das or pain management as needed For migraine w/o aura prevention: Propranolol 10mg bid Continue Magnesium 400mg daily at bedtime Previous migraine tx trials- Amitriptyline- not effective, Topiramate- not effective, Gabapentin and Pregabalin- ineffective. Future considerations: CGRP MaB For acute migarine tx: Discontinue Sumatriptan prn order due to uncontrolled HTN. Trial Rimegepant ODT (Nurtec ODT) 75mg, 1 tab at onset of headache.. Max of 1 tabs (75mg) per 24 hours. * May adjunct with OTC Tylenol 650-1000mg eveyr 4-6 hours as needed. * Potential adverse effects, include but are not limited to fatigue, nausea, dry mouth, constipation. Information previously shared on Nerivio neuromodulation device- this may help migraine and occipital headache. Acute migraine tx's: all triptans and DHE d/t uncontrolled HTN- BP as high as 160s/90. ? Will follow-up upon review of above and patient to follow-up in clinic in 6 months or sooner prn. Medications: New rimegepant (Nurtec ODT) 75 mg PO ONCE PRN 16 tabs 3RF migraine headache 30 days MDD 1 tab Refilled magnesium oxide may hold for loose stools 400 mg PO BEDTIME 30 tabs 11RF 30 days propranolol 10 mg PO BID 60 tabs 6RF 30 days Discontinued sumatriptan succinate (Imitrex) Discontinued Reason: Doctor's Order (0.5 - 1 x 100 mg) 50 - 100 mg orally at onset of headache, may repeat in 2 hrs PRN; max 2 tabs per day or 4 tabs/week (may take with Ibuprofen) 30 days 12 tabs 3RF migraine headache Coding Level of Care Code Est Pt Level 4 (82208) Diagnoses Cognitive impairment R41.89 Migraine without aura and without status migrainosus, not intractable G43.009 Status migrainosus presence: without status migrainosus Intractability: not intractable Cervicogenic headache G44.86 Headache type: cervicogenic headache Moderate obstructive sleep apnea G47.33 Cervicalgia M54.2
[2025-07-05 10:13] VITALS: BP 140/90; PULSE 75; O2SAT 96; BMI 32.3
--- OUTSIDE RECORDS SUMMARY | 2025-07-05 10:58 | XMS_ITS | Data Portability ---
Author Organization [employer] [facility], [facility] Address [address] [place] [id number] Care Team Providers Care Soft Work Cigar Machine Operator Name Role Phone HIM CCA OTHER Assessment Encounter Date Assessment Date Assessment LastModified by Organization Details LastModified Time 02/27/2024 02/27/2024 I provided real -time medical direction via phone for this encounter and was available for additional phone-based assistance as needed. I have reviewed and agree with the Assessment and Plan as documented by the Heatset Winder Operator. Patient given the opportunity to ask questions. Our service contacted for an assessment of: Edema As per above, patient experienced some edema primarily the lower extremity that went away with leg elevation. She does not take Lasix. She does not have a history of heart failure. She denies any pain in her legs. Also denies shortness of breath and dyspnea. Per welder fabricator on the scene, vital signs are stable. [...] Lab BMP, serum or plasma 2023 024 [facility], [address] [place] [address], [phone] 4 21:17:57 rapid SARS CoV 2 Ag, QL IA, respiratory specimen 2023 024 [facility], [address] [place] [address], [id number] 4 21:11:58 hemoglobin + hematocrit, blood 2023 024 [facility], [address] [place] [address], [id number] 4 21:18:24 Referral None recorded. Procedures None recorded. Surgeries None recorded. Imaging electrocard iogram 2023 024 [facility], [address] [place] [address], [id number] 21:17:15 electrocard iogram 2023 024 [email or web address] [facility], [address] [place] [address], [phone] 4 13:46:07 Medication Orders labetalol 200 mg tablet 2023 024 [id number], [address] [place], [address], 4 21:03:19 metoclopram uche 5 mg/mL injection solution 2023 024 [id number], [address] [place], [address], 21:03:19 lactated Ringers intravenous solution 2023 024 [id number], [address] [place], [address], 4 21:24:18 Patient TargetsNo targets recorded. Patient InstructionsNo instructions recorded. Reason for Referral None Reported. Results Created Date Observation Date Name Description Value Unit Range Abnormal Flag Note LastModifiedBy Organization Detail LastModifiedTime 03/13/2003/13/2024 hemog lobin + hemat ocrit , blood Hemoglobin 14.3 Not Available Main - [facility] [address] [place] [address], [address] [place] [address] 03/13/2024 21:18:06 03/13/20 24 03/13/2024 hemog lobin + hemat ocrit , blood Hematocrit 42 Not Available [facility] - [address], [address] [place] [address] 03/13/2024 21:18:06 03/13/20 24 03/13/2024 BMP, serum or plasm a BUN 20 Not Available Main - [facility] [address], [address] [place] [address] 03/13/2024 20:42:59 03/13/20 24 03/13/2024 BMP, serum or plasm a Ca 1.12 Not Available Main - [facility] [address], [address] [place] [address] 03/13/2024 20:42:59 03/13/20 24 03/13/2024 BMP, serum or plasm a CI- 104 Not Available Main - [facility] [address], [address] [place] [address] 03/13/2024 20:42:59 03/13/20 24 03/13/2024 BMP, serum or plasm a CRE 0.6 Not Available Main - [facility] [address], [address] [place] [address] 03/13/2024 20:42:59 03/13/20 24 03/13/2024 BMP, serum or plasm a GLU 145 Not Available Main - [facility] [address], [address] [place] [address] 03/13/2024 20:42:59 03/13/20 24 03/13/2024 BMP, serum or plasm a K+ 4.3 Not Available Main - [facility] [address], [address] [place] [address] 03/13/2024 20:42:59 03/13/20 24 03/13/2024 BMP, serum or plasm a Na+ 138 Not Available Main - [facility] [address], [address] [place] [address] 03/13/2024 20:42:59 03/13/20 24 03/13/2024 BMP, serum or plasm a tCO2 25 Not Available Main - [facility] [address], [address] [place] [address] 03/13/2024 20:42:59 03/13/20 24 03/13/2024 rapid SARS CoV 2 Ag, QL IA, respi rator y speci men rapid SARS CoV 2 Ag, QL IA, respiratory specimen negati ve Not Available Main - [facility] ed [address] [place] [address], [phone] 03/13/2024 20:51:03 02/27/20 24 02/27/2024 elect rocar diogr am No observ ation record ed. [email or web address] [facility] [address] [place] [address], [phone] 02/27/2024 18:58:53 03/13/20 24 03/13/2024 elect rocar diogr am No observ ation record ed. [email or web address] [address], [phone] 03/13/2024 21:17:14 Result Notes None recorded. Medical Equipment None Reported. Allergies Allergen ID Allergen Name Allergen Category Reaction Reaction Severity Criticality Documentation Date Start Date Code Code System Note Provider Name and Address Organization Details Recorded Time 5469 lisinopri l medicatio n Not available Not available Not available 03/13/2024 89655 RxNorm ANUSHA PARMAR MD [address] [place] [address],[address], [place], [phone], [employer] 4 20:11:21 5470 Dilaudid medicatio n Not available Not available Not available 03/13/2024 18796 3 RxKiran PARMAR MD [address] [place] [address],[address], [place], [phone], [employer] 4 20:11:34 Medications Name Sig Start Date [...] in Arterial blood by Pulse oximetry Systolic And Diastolic Provider Name and Address Organization Details Last Updated DateTime 4 96751.9 84 g 154.94 cm 16 /min 98 [degF] 89 /min 99 % 99 % 138/87 mm[Hg] Not Available [facility] 4 18:42:57 Date Recorded Body height Oxygen saturation Oxygen saturation in Arterial blood by Pulse oximetry Body weight Respiratory rate Body temperature Heart rate Systolic And Diastolic Provider Name and Address Organization Details Last Updated DateTime 4 154.94 cm 98 % 98 % 59757.9 84 g 16 /min 98.2 [degF] 82 /min 190/110 mm[Hg] Not Available [facility] 4 20:37:22 Social History None recorded. Functional Status None recorded. Mental Status None recorded. Family History Nothing Reported. Medical History No medical history recorded. Gynecological HistoryNo gynecological history recorded. Obstetrics History GPAL:G 0 P 0 0 0 0 Past Encounters Encounter ID Performer Location Encounter Start Date Encounter Closed Date Diagnosis/Indication Diagnosis SNOMED-CT Code Diagnosis ICD10 Code Diagnosis IMO Codes Diagnosis Note [id number] Esme Krishnan MD Main - [facility] [address] [place] [phone] 02/27/2024 18:42:40 02/27/2024 22:47:18 Peripheral edema 985370350 R60.9 [id number] ANUSHA PARMAR MD Main - [facility] [address] [place] [phone] 03/13/2024 20:37:18 03/14/2024 22:05:58 Hypertensive urgency 766221547 I16.0 As noted, we were called to see this patient regarding concerns of elevated BP and headache. Evaluation in the field was performed by my welder fabricator colleague; as noted above, I provided real-time [...] Mir Member ID Guarantor Name 03/15/2024 1 [facility] - DOS ON OR AFTER 2022 - DUAL ELIGIBLE - USP OPTIONS AND ONE CARE (MEDICARE REPLACEMENT/AD VANTAGE - HMO) Abby Leonardo [id number] Abby Leonardo Notes Date Note Type Note Provider Name and Address Organization Details Recorded Time 02/27/2024 text/html CRC Nurse Triage Notes (Melinda Maya): Reason For Request: Pain Chief Complaints: Pain Allergies: Unknown Comments: A Auxiliary verified the member's name//address and phone number. Member is a lithuanian speaking female , a/[age] yr [...] .................. .................. .................. .................. .................. .................. ............... Heatset Winder Operator Note From Gregory Zimmer: Smartcare visit for female patient with multiple complaints. [...] this time. EKG completed and uploaded to [facility] with no concerns. Consulted with [facility] Dr. Krishnan who advised no treatments needed at this time. Pt encouraged to follow up with PCP and monitor symptoms. Reviewed red flags for ED. Patient education provided. .................. .................. .................. .................. .................. .................. .................. ............... Disposition: Magdi Krishnan MD [address] [place] [address],[address], [place], [phone], [employer] 02/27/2024 18:49:44 03/13/2024 text/html ROS as noted in the [facility] CRC Nurse Triage Notes (Rosemarie Louis): Reason [...] Advised to call 911 for worsening signs/symptoms. Heatset Winder Operator POC Test Results from Jovanny Humphrey - [facility] EKG (22:35:32) EKG test performed. Reason for missing picture: NSR iSTAT Chem8+ (22:35:33) Na: 138 mEq/L K: 4.3 mEq/L Cl: 104 mEq/L iCa: 1.12 mmol/L TCO2: 25 mmol/L Glu: 145 mg/dL BUN: 20 mg/dL Crea: 0.6 mg/dL Hct: 42 % Hb: 14.3 g/dL A Rapid COVID antigen (22:35:38) COVID: - .................. .................. .................. .................. .................. .................. .................. ............... Heatset Winder Operator Note From Jovanny Humphrey: Insted Note: Patient [...] noted a BPs to be elevated, ranging swsnek937/110, a picture was uploaded to [facility]. Pt also c/o feeling malaise, but denies SOB, N/V/D, and reports has GI issues so is constipated normally. Pt denies chills or body aches to [facility]. Despite the insted note, pt denies SOB to [facility]. Lungs clear. Pt's face and eyes appears [...] .................. ............... Disposition: Fulfilled ANUSHA PARMAR MD [address] [facility],[address], [place], [phone], [employer] 03/14/2024 07:09:12 OBGyn Episode No OBEpisode recorded.
--- OUTSIDE RECORDS SUMMARY | 2025-07-05 10:58 | XMS_ITS | Clinical Summary ---
Author Organization [facility] Address [address] [place] [address] Phone Care Team Providers Care Clay Grinder Name Role Phone Quynh Fried MD Primary Care Provider [phone] Allergies Active Allergy Reactions Criticality Noted Date Comments Gabapentin 06/30/2017 Hydromorphone Itching,Rash 04/28/2020 Lisinopril 06/30/2017 Topiramate 06/30/2017 Medications No known medications Active Problems No known active problems Surgical History Surgery Date Site/Laterality Comments SECTION PROCEDURE: DC DELIVERY ONLY BACK SURGERY PROCEDURE: HISTORICAL BACK SURGERY; COMMENT: lumbar fusion OTHER SURGICAL HISTORY PROCEDURE: DC RPR EPIGASTRIC HERNIA REDUCIBLE SPX Medical History Medical History Date Comments Insomnia DX:Insomnia Constipation DX:Constipation Arthritis DX:Arthritis Migraine DX:Migraine Fibromyalgia DX:Fibromyalgia Melanoma ([facility] V24, [facility] V28) DX:Melanoma (HCC) Cancer of skin of back DX:Cancer of skin of back Meningioma ([facility] V24, [facility] V28) DX:Meningioma (HCC) Family History Medical [...] Procedure Name Priority Date/Time Associated Diagnosis Comments [facility] Routine 12/26/2017 12:03 PM EDT Encounter for screening mammogram for malignant neoplasm of breast from Last 3 Months or Most Recently Relevant to Health Maintenance Results * [facility] (12/26/2017 12:03 PM EDT) Anatomical Region Laterality Modality Mammography 12/26/2017 9:44 AM EDT Narrative 12/26/2017 12:[address] [facility] Diagnostic Imaging Department [address] [place] [address] Patient: ABBY PALACIOS /Age/Sex: 1965 - 52 - F Unit#: [id number] [facility]Ordering Site: [facility] Ordering Physician: KELI CASH MD [facility] Screening Digital - 12/26/171008 History: Bilateral [...] malignancy. BIRADS Category 2: Benign Findings, 3342F 23152, [address]180 A negative mammogram in the face of a suspicious abnormality does not exclude the possibility of malignancy nor alter the indications for biopsy. Note: Patient information entered into a reminder system with a target due date for the next mammogram; PQRI II [id number] Dictating Physician: PRASAD CAMPOVERDE MD Electronically Signed by: PRASAD CAMPOVERDE MD Dic Date/Time: 12/26/17 1201 Sign date/Time: 12/26/17 1203 Procedure Note Prasad Campoverde MD - 08/17/2022 [facility] Diagnostic Imaging Department [address] [place] [address] Patient: SUZANNEABBY D.O.B./Age/Sex: 1965 - 52 - F Unit#: [id number] Location/Status: [facility] CLI Mnemonic/Ordering Site: [facility] Ordering Physician: KELI CASH MD [facility] Screening [...] malignancy. BIRADS Category 2: Benign Findings, 3342F [address]4230, [address] A negative mammogram in the face of [...] Most Recently Relevant to Health Maintenance Insurance [facility] MEDICARE Member Subscriber Plan / Payer (Ef fective 2019-Present) Name:Abby Palacios Relation to Subscriber:Self Name:Abby Palacios Payer ID:[id number] Group ID:[id number] Type:Not on file Address: [address] [facility] [place] [phone] Advance Directives Documents on File Type Date Recorded Patient Heel Caser Expl anation Health Care Decision (hx) 02/11/2014 [...] (hx) 01/26/2014 AD GARCIA DIRECTIVE Care Teams Clay Grinder Relationship Specialty Start Date End Date Quynh Fried MD [address] [place] [address] , [address] [place] [address] Physician Associ D/B/A: [facility] CHAPIN Funez PCP - General Internal Medicine 05/19/22
--- OUTSIDE RECORDS SUMMARY | 2025-07-05 10:58 | XMS_ITS | Clinical Summary ---
Author Organization [facility] Address [address] [place] [address] Care Team Providers Care Application Software Engineer Name Role Phone Quynh Zuniga MD Primary [...] age to complete this topic Care Teams Application Software Engineer Relationship Specialty Start Date End Date Quynh Zuniga MD [address] [facility] , [address] [facility] Physician Associ D/B/A: [facility] [place] [address] PCP - General Internal Medicine 05/04/18
== END 2025-07-05 10:47 | disposition home or self-care (01) ==
LOC: HO.HSMS 09:36
PROVIDERS: PCP Internal Medicine; Visit Provider Nurse Practitioner Family
DX: R41.89 Other symptoms and signs involving cognitive functions and awareness (principal); G43.009 Migraine without aura, not intractable, without status migrainosus; G44.86 Cervicogenic headache; G47.33 Obstructive sleep apnea (adult) (pediatric); M54.2 Cervicalgia
CPT/HCPCS: 99214

== ENCOUNTER → 2025-07-05 09:35 | Outpatient (BNVA) | payer OTHER, SELFPAY | PROVIDERS: PCP Internal Medicine; Visit Provider Nurse Practitioner Family | DX: G47.33 Obstructive sleep apnea (adult) (pediatric) (principal); R41.89 Other symptoms and signs involving cognitive functions and awareness; G43.009 Migraine without aura, not intractable, without status migrainosus; M54.2 Cervicalgia; Z99.89 Dependence on other enabling machines and devices; Z91.199 Patient's noncompliance with other medical treatment and regimen due to unspecified reason | CPT/HCPCS: 99212 ==

== ENCOUNTER 2025-07-09 09:43 | Outpatient (AMB) | payer OTHER, SELFPAY ==
--- NOTE | 2025-07-09 10:08 | A.OFFPC_ITS ---
Vital Signs 07/09/25 10:09 Height 5 ft 1 in Weight 167 lb 6 oz BMI 31.6 BP 138/92 H Blood Pressure Location Lt brachial Position Sitting Pulse 75 Pulse Source Pulse Oximeter Temp 97.1 F Temp Source Temporal Artery Scan Pulse Oximetry (%) 97 Oxygen Delivery Method Room Air Intake Visit Reasons: High blood pressure Belt Fixer Required: No Accompanied by: Self / Same As Patient Allergies gabapentin Allergy (Intermediate, Verified 07/09/25 10:09) inadequate response hydromorphone (From DILAUDID) Allergy (Intermediate, Verified 07/09/25 10:09) RASH lisinopril (LISINOPRIL) Allergy (Intermediate, Verified 07/09/25 10:09) CLOGGED THROAT, shortness of breath, anaphylaxis topiramate Allergy (Intermediate, Verified 07/09/25 10:09) inadequate response Tobacco use date assessed: 04/16/25 Dental Screening Dental Screen Date: 04/16/25 Did you have a dental visit in the last 12 months?: Yes Did you have a dental problem in the last 6 months where you did not have access to dental care?: No Was dental information given to patient?: Patient has dentist HPI HPI Comments History of Present Illness Details The patient is a 60-year-old female presenting for evaluation of uncontrolled hypertension. She reports that for the past week, her home blood pressure readings have been significantly elevated, with values such as 175/106 mmHg and 198/107 mmHg. Her blood pressure in the clinic today was 138/92 mmHg. Associated symptoms include headaches, which she has a history of, and intermittent chest pain that comes and goes and is not new. Her past medical history is significant for sleep apnea, for which she uses a machine, a history of heartburn, and a herniated disc, for which surgery is planned in July. For preoperative clearance given her intermittent chest pain, she is scheduled to have a stress test. A recent echocardiogram in 04/2025 was normal. Her current antihypertensive regimen includes amlodipine 5 mg twice a day, propranolol 10 mg twice a day, and spironolactone 25 mg daily. The patient reports a known allergy to lisinopril and Dilaudid. [facility], [facility] Medical History Diabetes mellitus Achalasia Median neuropathy Carpal tunnel syndrome of left wrist Cubital tunnel syndrome on left Cervical lymphadenopathy Tubular adenoma of colon HLD (hyperlipidemia) Knee pain Abdominal bloating AMS (altered mental status) Polyarthralgia Flexor tenosynovitis of finger Osteoarthritis of lumbar spine Costovertebral angle tenderness Biceps tendonitis on left Cervicalgia Nocturnal hypoxemia Right hip pain Left foot pain Difficulty swallowing Urge urinary incontinence Chest wall pain History of skin cancer Physical exam LLQ abdominal pain Diverticulitis Acute diarrhea Inflammatory bowel disease Low vitamin B12 level Anemia Pre-op examination Small bowel motility disorder Back pain Lumbar pain Snoring Excessive daytime sleepiness Sleep difficulties Obstructive sleep apnea Right leg pain Left leg pain Upper respiratory tract infection Memory loss Cervical strain Tenderness over frontal sinus Left knee pain Arm numbness Left hip pain Left shoulder pain Leg pain Rheumatoid factor positive Postmenopausal Generalized anxiety disorder Mild major depression, single episode Fibromyalgia Essential hypertension Meningioma Bicytopenia Dyslipidemia Hypovitaminosis D Chronic idiopathic constipation History of herniated intervertebral disc History of partial adherence to treatment Surgical History History of sleeve gastrectomy Hx of colonoscopy Hx of melanoma excision Hx of hernia repair Hx of ovarian cystectomy History of lumbar fusion Hx of section Family History Father Prostate cancer Diabetes mellitus Colon cancer Mother Migraine Arthritis Hypertension Heart disease Emphysema lung CVD (cardiovascular disease) Brother Drug overdose Brother Qaymwpz-Bjylo-Fpxrm disease Sister No problems noted. Sister No problems noted. Son No problems noted. Son No problems noted. Son No problems noted. Daughter No problems noted. Daughter No problems noted. Daughter No problems noted. Family/Other Substance use disorder Social History Household Members: Children Housing: House Are you a primary rn care transition to a significant other at home: No Do you presently have visiting nurse or other home services: No Alcohol intake: current Alcohol intake frequency: a few times a week Alcohol type: beer Patient Tobacco Use Status: Never used Tobacco Tobacco use type: Cigarette e-Cigarette/Vaping Use: Never Used Second Hand Smoke Exposure: No service: No Current occupational status: disabled Cognitive needs: No Hearing needs: No Vision needs: No Questionnaire PHQ-9 Over the last 2 weeks, how often have you been bothered by any of the following problems? 1. Little interest or pleasure in doing things: not at all 2. Feeling down, depressed, or hopeless: not at all 3. Trouble falling or staying asleep, or sleeping too much: several days 4. Feeling tired or having little energy: several days 5. Poor appetite or overeating: not at all 6. Feeling bad about yourself - or that you are a failure or have let yourself or your family down: not at all 7. Trouble concentrating on things, such as reading the newspaper or watching television: several days 8. Moving or speaking so slowly that other people could have noticed. Or the opposite - being so fidgety or restless that you have been moving around a lot more than usual: not at all 9. Thoughts that you would be better off or of hurting yourself in some way: not at all Total score: 3 Depression Screening Interpretation: Positive Depression Screening Done: Yes Source: Developed by Drs. Celso Finney, Josefa Morales, Damion Wood and colleagues, with an educational maria r from [employer]. Thrive Questionnaire Date Thrive assessed: 05/27/25 I am a: Patient What is your living situation today?: I choose not to answer this question Within the past 12 months, did the food you bought not last and you didn't have the money to get more?: I choose not to answer this question Within the past 12 months, did you worry whether your food would run out before you got money to buy more?: I choose not to answer this question Do you have trouble paying for medicines?: I choose not to answer this question Do you have trouble getting transportation to medical appointments?: No Do you have trouble paying your heating and electricity bill?: I choose not to answer this question Do you have trouble taking care of your child, family member or friend?: I choose not to answer this question Do you have trouble with day-to-day activities such as bathing, preparing meals, shopping, managing finances, etc.?: I choose not to answer this question Are you currently unemployed and looking for a job?: No Are you interested in more education?: No Please select the resources that you would like help with: None Currently or been in a relationship where the following occur: I choose not to answer THRIVE Score: 0 AUDIT C Alcohol Use Questionnaire (AUDIT-C) 1. How often do you have a drink containing alcohol?: 2-3 times a week 2. How many drinks containing alcohol do you have on a typical day when you are drinking?: 7 to 9 3. How often do you have six or more drinks on one occasion?: Weekly Total Score: 9 Score Reviewed/Action Taken: No MARK ANTHONY-7 AMB Questionnaire MARK ANTHONY-7 Date MARK ANTHONY - 7 assessed: 04/16/25 Feeling nervous, anxious, or on edge: 0 = Not at all Not being able to stop or control worryin = Not at all Worrying too much about different things: 0 = Not at all Trouble relaxin = Several days Being so restless that it is hard to sit still: 1 = Several days Becoming easily annoyed or irritable: 1 = Several days Feeling afraid as if something awful might happen: 0 = Not at all Total MARK ANTHONY-7 score (0-4 normal; 5-9 mild; 10-14 moderate; 15-21 severe): 3 Source: Developed by Drs. Celso Finney, Josefa Morales, Damion Wood and colleagues, with an educational maria r from [employer]. Physical exam (Primary Care) Vital Signs: Last Vital Signs Temp 97.1 F 07/09/25 10:09 Pulse 75 07/09/25 10:09 BP 138/92 H 07/09/25 10:09 Pulse Ox 97 07/09/25 10:09 Oxygen Delivery Method Room Air 07/09/25 10:09 General: Well-appearing, alert, oriented ?3, in no acute distress. Cardiovascular: RRR, S1-S2 appreciated, no murmurs, rubs or gallops. Respiratory: Lungs clear to auscultation bilaterally, no wheezes, rales or rhonchi. Abdomen: Soft, nontender, nondistended. Normoactive bowel sounds. BMI result Body Mass Index 31.6 Tobacco/Smoking Status: Tobacco use Status Tobacco use date assessed 04/16/25 07/09/25 10:17 Patient Tobacco Use Status Never used Tobacco 07/09/25 10:17 Tobacco use type Cigarette 07/09/25 10:17 e-Cigarette/Vaping Use Never Used 07/09/25 10:17 PHQ-9: PHQ-9 Score PHQ-9: Total score 3 07/09/25 10:27 Depression Screening Interpretation: Positive Thrive Assessment: Date of Thrive Assessment Date Thrive assessed 05/27/25 07/09/25 10:17 Currently or been in a relationship where the following occur: I choose not to answer Coding Level of Care Code Est Pt Level 3 (41567) Diagnoses Uncontrolled hypertension I10 Assessment & Plan Assessment & Plan (1) Uncontrolled hypertension: Code(s): I10 - Essential (primary) hypertension Plan: Patient presents with reportedly significantly elevated home blood pressure readings despite being on 3 drug regimen of amlodipine 5 mg twice a day, propranolol 10 mg twice a day, and spironolactone 25 mg daily. Plan -start losartan 25 mg daily -patient to monitor blood pressure at home, keep a log and return for nurse visit in 2 weeks for blood pressure check -obtain CMP to check electrolytes and kidney function -patient will proceed with her scheduled stress test for preoperative clearance Orders: Orders Comprehensive Met. Panel Today I10 - Essential (primary) hypertension Medications: New losartan 25 mg PO DAILY 30 tabs 2RF hypertension
[2025-07-09 10:09] VITALS: BP 138/92; PULSE 75; TEMP 36.2; O2SAT 97; BMI 31.6
--- OUTSIDE RECORDS SUMMARY | 2025-07-09 10:57 | XMS_ITS | Clinical Summary ---
Author Organization [facility] Address [address] [place] [address] Phone Care Team Providers Care Director Correctional Agency Name Role Phone Quynh Fried MD Primary Care Provider [phone] Allergies Active Allergy Reactions Criticality Noted Date [...] Arthritis DX:Arthritis Migraine DX:Migraine Fibromyalgia DX:Fibromyalgia Melanoma ([facility] V24, [facility] V28) DX:Melanoma (HCC) Cancer of skin of back DX:Cancer of skin of back Meningioma ([facility] V24, [facility] V28) DX:Meningioma (HCC) Family History [...] Depression Screening 08/29/2024 COVID-19 Vaccine ( - 2024-2 6 season) 2025 Influenza Vaccine (#1) 2025 8, [...] Procedure Name Priority Date/Time Associated Diagnosis Comments [facility] SCREENING DIGITAL Routine 12/26/2017 12:03 PM EDT Encounter for screening mammogram for malignant neoplasm of breast from Last 3 Months or Most Recently Relevant to Health Maintenance Results * [facility] SCREENING DIGITAL (12/26/2017 12:03 PM EDT) Anatomical Region Laterality Modality Mammography 12/26/2017 9:44 AM EDT Narrative 12/26/2017 12:03 PM EDT [facility] Diagnostic Imaging Department [address] [place] [address] Patient: ABBY PALACIOS /Age/Sex: 1965 - 52 - F Unit#: [id number] [facility] Mnemonic/Ordering Site: [facility] Ordering Physician: KELI CASH MD [facility] Screening Digital - 12/26/171008 History: Bilateral breast cancer screening. Previous benign left breast biopsy (fibroadenoma). Technique: Bilateral digital mammography. Conventional CC and MLO projections with tomosynthesis MLO views and computer aided detection. Comparison: [facility] 12/22/2016, dating back to 05/31/2007. Breast [...] malignancy. BIRADS Category 2: Benign Findings, 3342F 07298, 45440 A negative mammogram in the face of a suspicious abnormality does not exclude the possibility of malignancy nor alter the indications for biopsy. Note: Patient information entered into a reminder system with a target due date for the next mammogram; PQRI II [id number] Dictating Physician: PRASAD CAMPOVERDE MD Electronically Signed by: PRAASD CAMPOVERDE MD Dic Date/Time: 12/26/17 1201 Sign date/Time: 12/26/17 1203 Procedure Note Prasad Campoverde MD - 08/17/2022 [facility] Diagnostic Imaging Department [address] [place] [address] Patient: SUZANNEABBY D.O.B./Age/Sex: 1965 - 52 - F Unit#: [id number] Location/Status: [facility] CLI Mnemonic/Ordering Site: [facility] Ordering Physician: KELI CASH MD [facility] Screening Digital - 12/26/17 - 1009 History: Bilateral breast cancer screening. Previous benign left breastbiopsy (fibroadenoma). Technique: Bilateral digital mammography. Conventional CC and MLOprojections with tomosynthesis MLO views and computer aided detection. Comparison: [facility] 12/22/2016, dating back to 05/31/2007. Breast [...] malignancy. 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
--- OUTSIDE RECORDS SUMMARY | 2025-07-09 10:57 | XMS_ITS | Data Portability ---
Author Organization [employer] [facility] Address [address] [place] [phone] Care Team Providers Care Full Stack Java Developer Name Role Phone HIM CCA OTHER Assessment Encounter Date Assessment Date Assessment LastModified by Organization Details LastModified Time 02/27/2024 02/27/2024 I provided real -time medical direction via phone for this encounter and was available for additional phone-based assistance as needed. I have reviewed and agree with the Assessment and Plan as documented by the Doll Dresser. Patient given the opportunity to ask questions. Our service contacted for an assessment of: Edema As per above, patient experienced some edema primarily the lower extremity that went away with leg elevation. She does not take Lasix. She does not have a history of heart failure. She denies any pain in her legs. Also denies shortness of breath and dyspnea. Per policy writer sales on the scene, vital signs are stable. [...] Lab BMP, serum or plasma 2023 024 [facility], [address] [place] [address], [id number] 4 21:17:57 rapid SARS CoV 2 Ag, QL IA, respiratory specimen 2023 024 [facility], [address] [place] [address], [id number] 4 21:11:58 hemoglobin + hematocrit, blood 2023 024 [facility], [address] [place] [address], [id number] 4 21:18:24 Referral None recorded. Procedures None recorded. Surgeries None recorded. Imaging electrocard iogram 2023 024 [facility], [address] [place] [address], [id number] 21:17:15 electrocard iogram 2023 024 [email or web address] [facility], [address] [place] [address], [id number] 4 13:46:07 Medication Orders labetalol 200 mg tablet 2023 024 [id number], [address] [place], [address], 4 21:03:19 metoclopram uche 5 mg/mL injection solution 2023 024 [id number], [address] [place], [address], 21:03:19 lactated Ringers intravenous solution 2023 024 [id number], [address] [place], [address], 4 21:24:18 Patient TargetsNo targets recorded. Patient InstructionsNo instructions recorded. Reason for Referral None Reported. Results Created Date Observation Date Name Description Value Unit Range Abnormal Flag Note LastModifiedBy Organization Detail LastModifiedTime 03/13/2003/13/2024 hemog lobin + hemat ocrit , blood Hemoglobin 14.3 Not Available Main - [facility] [address] [place] [address], [address] [place] [address] 03/13/2024 21:18:06 03/13/20 24 03/13/2024 hemog lobin + hemat ocrit , blood Hematocrit [address] [facility] - [address], [address] [place] [address] 03/13/2024 21:18:06 03/13/20 24 03/13/2024 BMP, serum or plasm a BUN 20 Not Available Main - [facility] [address], [address] [place] [address] 03/13/2024 20:42:59 03/13/20 24 03/13/2024 BMP, serum or plasm a Ca 1.12 Not Available Main - [facility] [address], [address] [place] [address] 03/13/2024 20:42:59 03/13/20 24 03/13/2024 BMP, serum or plasm a CI- 104 Not Available Main - [facility] [address], [address] [place] [address] 03/13/2024 20:42:59 03/13/20 24 03/13/2024 BMP, serum or plasm a CRE 0.6 Not Available Main - [facility] [address], [address] [place] [address] 03/13/2024 20:42:59 03/13/20 24 03/13/2024 BMP, serum or plasm a GLU 145 Not Available Main - [facility] [address], [address] [place] [address] 03/13/2024 20:42:59 03/13/20 24 03/13/2024 BMP, serum or plasm a K+ 4.3 Not Available Main - [facility] [address], [address] [place] [address] 03/13/2024 20:42:59 03/13/20 24 03/13/2024 BMP, serum or plasm a Na+ 138 Not Available Main - [facility] [address], [address] [place] [address] 03/13/2024 20:42:59 03/13/20 24 03/13/2024 BMP, serum or plasm a tCO2 25 Not Available Main - [facility] [address], [address] [place] [address] 03/13/2024 20:42:59 03/13/20 24 03/13/2024 rapid SARS CoV 2 Ag, QL IA, respi rator y speci men rapid SARS CoV 2 Ag, QL IA, respiratory specimen negati ve Not Available Main - [facility] ed [address] [place] [address], [phone] 03/13/2024 20:51:03 02/27/20 24 02/27/2024 elect rocar diogr am No observ ation record ed. [email or web address] [facility] [address] [place] [address], [phone] 02/27/2024 18:58:53 03/13/20 24 03/13/2024 elect rocar diogr am No observ ation record ed. [email or web address] [address], [phone] 03/13/2024 21:17:14 Result Notes None recorded. Medical Equipment None Reported. Allergies Allergen ID Allergen Name Allergen Category Reaction Reaction Severity Criticality Documentation Date Start Date Code Code System Note Provider Name and Address Organization Details Recorded Time 5469 lisinopri l medicatio n Not available Not available Not available 03/13/2024 28612 RxNorm ANUSHA PARMAR MD [address] [place] [address],[address], [place], [phone], [employer] 4 20:11:21 5470 Dilaudid medicatio n Not available Not available Not available 03/13/2024 15679 3 RxKiran PARMAR MD [address] [place] [address],[address], [place], [phone], [employer] 4 20:11:34 Medications Name Sig Start Date [...] Address Organization Details Last Updated DateTime 4 42938.9 84 g 154.94 cm 16 /min 98 [degF] 89 /min 99 % 99 % 138/87 mm[Hg] Not Available [employer] 1 4 18:42:57 Date Recorded Body height Oxygen saturation Oxygen saturation in Arterial blood by Pulse oximetry Body weight Respiratory rate Body temperature Heart rate Systolic And Diastolic Provider Name and Address Organization Details Last Updated DateTime 4 154.94 cm 98 % 98 % 02766.9 84 g 16 /min 98.2 [degF] 82 /min 190/110 mm[Hg] Not Available [employer] 1 4 20:37:22 Social History None recorded. Functional Status None recorded. Mental Status None recorded. Family History Nothing Reported. Medical History No medical history recorded. Gynecological HistoryNo gynecological history recorded. Obstetrics History GPAL:G 0 P 0 0 0 0 Past Encounters Encounter ID Performer Location Encounter Start Date Encounter Closed Date Diagnosis/Indication Diagnosis SNOMED-CT Code Diagnosis ICD10 Code Diagnosis IMO Codes Diagnosis Note [id number] Esme Krishnan MD Main - [facility] [address] [place] [phone] 02/27/2024 18:42:40 02/27/2024 22:47:18 Peripheral edema 242026296 R60.9 [id number] ANUSHA PARMAR MD Main - [facility] [address] [place] [phone] 03/13/2024 20:37:18 03/14/2024 22:05:58 Hypertensive urgency 400369610 I16.0 As noted, we were called to see this patient regarding concerns of elevated BP and headache. Evaluation in the field was performed by my policy writer sales colleague; as noted above, I provided real-time [...] Mir Member ID Guarantor Name 03/15/2024 1 [facility] - DOS ON OR AFTER 2022 - DUAL ELIGIBLE - DETENTION OPTIONS AND ONE CARE (MEDICARE REPLACEMENT/AD VANTAGE - HMO) Abby Leonardo [id number] Abby Leonardo Notes Date Note Type Note Provider Name and Address Organization Details Recorded Time 02/27/2024 text/html CRC Nurse Triage Notes (Melinda Maya): Reason For Request: Pain Chief Complaints: Pain Allergies: Unknown Comments: Cro verified the member's name//address and phone number. Member is a mozambican speaking female , a/[age] yr [...] .................. .................. .................. .................. .................. .................. ............... Doll Dresser Note From Gregory Zimmer: Smartcare visit for [...] this time. EKG completed and uploaded to [facility] with no concerns. Consulted with [facility] Dr. Krishnan who advised no treatments needed at this time. Pt encouraged to follow up with PCP and monitor symptoms. Reviewed red flags for ED. Patient education provided. .................. .................. .................. .................. .................. .................. .................. ............... Disposition: Magdi Krishnan MD [address] [place] [address],[address], [place], [phone], [employer] 02/27/2024 18:49:44 03/13/2024 text/html ROS as noted in the [facility] CRC Nurse Triage Notes (Rosemarie Louis): Reason [...] Advised to call 911 for worsening signs/symptoms. Doll Dresser POC Test Results from Jovanny Humphrey - [facility] EKG (22:35:32) EKG test performed. Reason for missing picture: NSR iSTAT Chem8+ (22:35:33) Na: 138 mEq/L K: 4.3 mEq/L Cl: 104 mEq/L iCa: 1.12 mmol/L TCO2: 25 mmol/L Glu: 145 mg/dL BUN: 20 mg/dL Crea: 0.6 mg/dL Hct: 42 % Hb: 14.3 g/dL A Rapid COVID antigen (22:35:38) COVID: - .................. .................. .................. .................. .................. .................. .................. ............... Doll Dresser Note From Jovanny Humphrey: Insted Note: Patient [...] noted a BPs to be elevated, ranging weevnu123/110, a picture was uploaded to [employer]. Pt also c/o feeling malaise, but denies SOB, N/V/D, and reports has GI issues so is constipated normally. Pt denies chills or body aches to [facility]. Despite the insted note, pt denies SOB to [facility]. Lungs clear. Pt's face and eyes appears [...] ............... Disposition: Fulfilled ANUSHA PARMAR MD [address] [facility], [place], [phone], [employer] 03/14/2024 07:09:12 OBGyn Episode No OBEpisode recorded.
== END 2025-07-09 10:45 | disposition home or self-care (01) ==
LOC: HO.HMCH 09:44
PROVIDERS: PCP Internal Medicine; Visit Provider Student in an Organized Health Care Education/Training Program
DX: I10 Essential (primary) hypertension (principal)

== ENCOUNTER 2025-07-09 09:43 | Outpatient (REF) | payer OTHER, SELFPAY ==
[2025-07-09 11:56] LABS: Alanine Aminotransferase 24 U/L (0-31); Albumin Level 4.9 g/dL (3.5-5.0); Alkaline Phosphatase 83 U/L (39-117); Anion Gap 13 (12-20); Aspartate Amino Transferase 23 U/L (5-31); Blood Urea Nitrogen 21 mg/dL (9-16); Calcium 10.1 mg/dL (8.4-10.2); Carbon Dioxide 27 mmol/L (22-29); Chloride 109 mmol/L (96-108); Estimated Glomerular Filt Rate > 60; Potassium 3.8 mmol/L (3.3-5.1); Sodium 145 mmol/L (135-145); Total Protein 7.7 g/dL (6.5-8.0)
== END 2025-07-09 09:44 | disposition home or self-care (01) ==
LOC: HO.LAB 09:43
PROVIDERS: PCP Internal Medicine; Visit Provider Student in an Organized Health Care Education/Training Program
DX: I10 Essential (primary) hypertension (principal)
CPT/HCPCS: 36415; 80053

== ENCOUNTER → 2025-07-31 07:50 | Outpatient (REF) | payer OTHER, SELFPAY ==
--- NOTE | ~2025-07-31 | NM_ITS ---
Lexiscan Myocardial perfusion study Indication: Chest pain Technique: The patient was brought in for a Lexiscan perfusion study on 07/31/2025 and was injected 0.4 mg of Lexiscan intravenously. Within a minute of this injection 25 mCi of sestamibi was given intravenously. Images were obtained using the SPECT gamma camera interlaced with the gating device. Images were obtained in supine position. Resting perfusion study was performed on 08/01/2025. Patient was administered 25 mCi of sestamibi intravenously at rest. Images were then obtained in supine position. Total DLP 102 mGy-cm. Images were processed with the software and compared side to side in short axis, horizontal long axis and vertical long axis views. Findings: Raw aquisition reviewed. The stress perfusion study showed no significant perfusion abnormality. Both uncorrected as well as CT attenuation corrected images were reviewed. The gated study shows normal LV systolic function with calculated LVEF of 67%. LV cavity is normal in size. The gated study shows normal wall thickening and contraction of segments. Resting study shows decreased tracer uptake in the inferolateral wall. There is improvement with CT attenuation correction suggestive of components of diaphragmatic attenuation artifact. Gating at rest reveals normal wall motion with ejection fraction at 66%. The findings are consistent with no clear reversible or fixed perfusion abnormality. NM/NM cardiolite stress test Impression: 1. Myocardial perfusion imaging study shows no clear evidence of ischemia or infarction. 2. Gated LVEF is 67% during stress and 66% during rest. 3. Transient ischemic dilatation not present. EKG component of the test reported separately. Electronically signed by: Navid Saldaña MD 08/01/2025 04:59 PM [facility]
--- OUTSIDE RECORDS SUMMARY | 2025-07-31 07:55 | XMS_ITS | Clinical Summary ---
Author Organization [facility] Address [address] [place] [address] Care Team Providers Care Dry Pan Charger Name Role Phone Quynh Zuniga MD Primary [...] age to complete this topic Care Teams Dry Pan Charger Relationship Specialty Start Date End Date Quynh Zuniga MD [address] [facility] , [address] [facility] Physician Associ D/B/A: [facility] [place] [address] PCP - General Internal Medicine 05/04/18
--- OUTSIDE RECORDS SUMMARY | 2025-07-31 07:55 | XMS_ITS | Clinical Summary ---
Author Organization [facility] Address [address] [place] [address] Phone Care Team Providers Care Weigher Production Name Role Phone Quynh Fried MD Primary Care Provider [phone] Allergies Active Allergy Reactions Criticality Noted Date Comments Gabapentin 06/30/2017 Hydromorphone Itching,Rash 04/28/2020 Lisinopril 06/30/2017 Topiramate 06/30/2017 Medications No known medications Active Problems No known active problems Surgical History Surgery Date Site/Laterality Comments SECTION PROCEDURE: NV DELIVERY ONLY BACK SURGERY PROCEDURE: HISTORICAL BACK SURGERY; COMMENT: lumbar fusion OTHER SURGICAL HISTORY PROCEDURE: NV RPR EPIGASTRIC HERNIA REDUCIBLE SPX Medical History Medical History Date Comments Insomnia DX:Insomnia Constipation DX:Constipation Arthritis DX:Arthritis Migraine DX:Migraine Fibromyalgia DX:Fibromyalgia Melanoma ([facility] V24, [facility] V28) DX:Melanoma (HCC) Cancer of skin of back DX:Cancer of skin of back Meningioma ([facility] V24, [facility] V28) DX:Meningioma (HCC) Family History Medical History [...] Procedure Name Priority Date/Time Associated Diagnosis Comments [facility] SCREENING DIGITAL Routine 12/26/2017 12:03 PM EDT Encounter for screening mammogram for malignant neoplasm of breast from Last 3 Months or Most Recently Relevant to Health Maintenance Results * [facility] SCREENING DIGITAL (12/26/2017 12:03 PM EDT) Anatomical Region Laterality Modality Mammography 12/26/2017 9:44 AM EDT Narrative 12/26/2017 12:03 PM EDT [facility] Diagnostic Imaging Department [address] [place] [address] Patient: ABBY PALACIOS /Age/Sex: 1965 - 52 - F Unit#: [id number] [facility] Mnemonic/Ordering Site: [facility] Ordering Physician: KELI CASH MD [facility] Screening Digital - 12/26/171008 History: Bilateral breast cancer screening. Previous benign left breast biopsy (fibroadenoma). Technique: Bilateral digital mammography. Conventional CC and MLO projections with tomosynthesis MLO views and computer aided detection. Comparison: [facility] 12/22/2016, dating back to 05/31/2007. [...] malignancy. BIRADS Category 2: Benign Findings, 3342F 57929, 87884 A negative mammogram in the face of a suspicious abnormality does not exclude the possibility of malignancy nor alter the indications for biopsy. Note: Patient information entered into a reminder system with a target due date for the next mammogram; PQRI II [id number] Dictating Physician: PRASAD CAMPOVERDE MD Electronically Signed by: PRASAD CAMPOVERDE MD Dic Date/Time: 12/26/17 1201 Sign date/Time: 12/26/17 1203 Procedure Note Prasad Campoverde MD - 08/17/2022 [facility] Diagnostic Imaging Department [address] [place] [address] Patient: SUZANNEABBY D.O.B./Age/Sex: 1965 - 52 - F Unit#: [id number] Location/Status: [facility] CLI Mnemonic/Ordering Site: [facility] Ordering Physician: KELI CASH MD [facility] Screening Digital - 12/26/17 - 1009 History: Bilateral breast cancer screening. Previous benign left breastbiopsy (fibroadenoma). Technique: Bilateral digital mammography. Conventional CC and MLOprojections with tomosynthesis MLO views and computer aided detection. Comparison: [facility] 12/22/2016, dating back to 05/31/2007. [...] malignancy. 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
--- NOTE | 2025-07-31 07:58 | CA_ITS ---
Acquisition Time: 2025-07-31 08:10:02 Total Exercise Time: 00:02:00 Test Indications: CP Medications: SEE H&P Protocol: LEXISCAN Max HR: 92 BPM 56% of Pred: 162 BPM Max BP: 140/94 mmHG Max Work Load: 1.0 METS Pharmacological stress test with Lexiscan while pt swings her legs in chair, without any symptoms, without any arrythmias, with normotensive response to injection. Nondiagnostic EKG for ischemia. In recovery, pt continued to feel well. Nuclear image spending. Test reviewed with Dr. Saldaña. Referred By: Ariella Sheth Electronically Signed By: Joaquin Grande
== END ==
LOC: HO.CARD 07:50
PROVIDERS: PCP Internal Medicine; Visit Provider Nurse Practitioner Family
DX: I10 Essential (primary) hypertension (principal); R07.9 Chest pain, unspecified
CPT/HCPCS: 78452; 93017; A9500; J0280; J2785

== ENCOUNTER → 2025-07-31 07:58 | Outpatient (BNV) | payer OTHER, SELFPAY | PROVIDERS: PCP Internal Medicine | DX: R07.9 Chest pain, unspecified (principal) | CPT/HCPCS: 78452; 93016; 93018 ==

== ENCOUNTER 2025-08-05 08:28 | Outpatient (AMB) | payer OTHER, SELFPAY ==
[2025-08-05 08:44] VITALS: BP 130/82; PULSE 74; BMI 32.1
--- NOTE | 2025-08-05 08:44 | A.OFFVIS_ITS ---
Vital Signs 08/05/25 08:44 Height 5 ft 1 in Weight 169 lb 12.095 oz BMI 32.1 BP 130/82 Blood Pressure Location Lt brachial Position Sitting Pulse 74 Pulse Source Pulse Oximeter Intake Visit Reasons: 1mnth/jesenia Supervisor Baking Required: No Supervisor Baking Services: Supervisor Baking Offered & Declined Allergies gabapentin Allergy (Intermediate, Verified 08/05/25 08:48) inadequate response hydromorphone (From DILAUDID) Allergy (Intermediate, Verified 08/05/25 08:48) RASH lisinopril (LISINOPRIL) Allergy (Intermediate, Verified 08/05/25 08:48) CLOGGED THROAT, shortness of breath, anaphylaxis topiramate Allergy (Intermediate, Verified 08/05/25 08:48) inadequate response Medication List - Last Reconciled 08/05/25 by NORA Butler acetaminophen 1,000 mg (2 x 500 mg) PO Q6H PRN amlodipine 5 mg PO BID 90 days bisacodyl 10 mg (2 x 5 mg) PO BEDTIME 90 days blood pressure test kit-medium ([place] Chek Blood Pressure kit) As directed blood pressure test kit-small As directed cholecalciferol (vitamin D3) 25 mcg PO DAILY 90 days [elevating leg wedge As directed] estradiol 0.01%(0.1mg/gram) vaginal [handheld shower As directed] ibuprofen 800 mg PO Q8H PRN 30 days incontinence pad, liner, disp Use 1 lincer four times a day prn incontinence pad, liner, disp Use 1 pad three times a day as needed lidocaine 5% 1 patch topical DAILY losartan 25 mg PO DAILY methocarbamol 750 mg PO Q6H pantoprazole 40 mg PO BID plecanatide (Trulance) 3 mg PO DAILY propranolol 10 mg PO BID 30 days rimegepant (Nurtec ODT) 75 mg PO ONCE PRN 30 days MDD 1 tab semaglutide (weight loss) (Wegovy) 0.25 mg (0.5 mL) subcut QWEEK 4 weeks Shower Chair As directed spironolactone 25 mg PO DAILY 90 days [wedge pillow As directed] HPI HPI 1mnth/jesenia: Details: Abby is a 60-year-old female past medical history of obesity, hypertension, hyperlipidemia, diabetes, meningioma followed by Neurology, sleep apnea with CPAP use, chronic back pain, mildly dilated ascending aorta who was referred to Cardiology for chest discomfort. On last visit a nuclear stress test was odered, which came out normal and she now presents for follow up. Today she reports that she still gets random anterior chest pains and pressure without pattern. She has some shortness of breath with activity which she also feels is newer and unchanged since last visit. No PND, orthopnea or edema. Wear CPAP periodically, not every night. No chest symptoms clearly brought on by physical activity. No palpitations, lightheadedness, presyncope, syncope, falls. No prior cardiac history. No known family history of heart disease. Nonsmoker, occasional alcohol use. She has fibromyalgia which limits her physical activity. Walks periodically for exercise. She has a having back surgery in a few weeks to adjust hardware that is in place. Speaking Kiswahili this visit. [facility] Medical History Diabetes mellitus Achalasia Median neuropathy Carpal tunnel syndrome of left wrist Cubital tunnel syndrome on left Cervical lymphadenopathy Tubular adenoma of colon HLD (hyperlipidemia) Knee pain Abdominal bloating AMS (altered mental status) Polyarthralgia Flexor tenosynovitis of finger Osteoarthritis of lumbar spine Costovertebral angle tenderness Biceps tendonitis on left Cervicalgia Nocturnal hypoxemia Right hip pain Left foot pain Difficulty swallowing Urge urinary incontinence Chest wall pain History of skin cancer Physical exam LLQ abdominal pain Diverticulitis Acute diarrhea Inflammatory bowel disease Low vitamin B12 level Anemia Pre-op examination Small bowel motility disorder Back pain Lumbar pain Snoring Excessive daytime sleepiness Sleep difficulties Obstructive sleep apnea Right leg pain Left leg pain Upper respiratory tract infection Memory loss Cervical strain Tenderness over frontal sinus Left knee pain Arm numbness Left hip pain Left shoulder pain Leg pain Rheumatoid factor positive Postmenopausal Generalized anxiety disorder Mild major depression, single episode Fibromyalgia Essential hypertension Meningioma Bicytopenia Dyslipidemia Hypovitaminosis D Chronic idiopathic constipation History of herniated intervertebral disc History of partial adherence to treatment Surgical History History of sleeve gastrectomy Hx of colonoscopy Hx of melanoma excision Hx of hernia repair Hx of ovarian cystectomy History of lumbar fusion Hx of section Family History Father Prostate cancer Diabetes mellitus Colon cancer Mother Migraine Arthritis Hypertension Heart disease Emphysema lung CVD (cardiovascular disease) Brother Drug overdose Brother Vdeomjb-Usaqp-Evrop disease Sister No problems noted. Sister No problems noted. Son No problems noted. Son No problems noted. Son No problems noted. Daughter No problems noted. Daughter No problems noted. Daughter No problems noted. Family/Other Substance use disorder Social History Household Members: Children Housing: House Are you a primary rehab care assistant to a significant other at home: No Do you presently have visiting nurse or other home services: No Alcohol intake: current Alcohol intake frequency: a few times a week Alcohol type: beer Patient Tobacco Use Status: Never used Tobacco Tobacco use type: Cigarette e-Cigarette/Vaping Use: Never Used Second Hand Smoke Exposure: No service: No Current occupational status: disabled Cognitive needs: No Hearing needs: No Vision needs: No Review of Systems Const All systems reviewed & are unremarkable except as noted in HPI and below ENT Denies dizziness Card Reports chest pain, Denies chest pain at rest, Denies chest pain with activity, Denies rapid heart rate, Denies pedal edema, Denies edema, Denies leg edema, Denies lightheadedness, Denies palpitations, Denies dyspnea, Denies dyspnea on exertion and Denies orthopnea Resp Denies cough, Denies dyspnea and Denies dyspnea on exertion GI Denies hematochezia and Denies change in stool character Musc Details: Body pains Denies abnormal gait, Denies limited range of motion, Denies muscle cramps, Denies muscle weakness, Denies numbness, Denies radiating pain into limb, Denies stiffness and Denies tingling Neuro Denies abnormal gait, Denies dizziness, Denies numbness and Denies tingling Endo Denies palpitations Physical Exam Vital Signs: Last Vital Signs Pulse 74 08/05/25 08:44 BP 130/82 08/05/25 08:44 BMI result Body Mass Index 32.1 Const General: cooperative, healthy appearing, comfortable and no acute distress Orientation/consciousness: patient oriented x3 Neck Neck: Yes normal visual inspection Resp Effort & Inspection: normal respiratory effort Auscultation: clear to auscultation bilaterally, no rales, no rhonchi and no wheezes Cardio Rate: regular rate Rhythm: regular rhythm Heart sounds: S1 normal heart sound present, S2 normal heart sound present, no gallops, no murmurs and no rubs Neuro General: patient oriented x3 Extrem General: Yes normal to inspection, No no pedal edema and No calf tenderness Psych Appearance: grossly normal Mental Status: mental status grossly normal Speech and movement: Normal speech and movement present Assessment & Plan Assessment & Plan (1) Chest pain: Code(s): R07.9 - Chest pain, unspecified Category: Medical Plan: Vague reports of anterior chest discomfort, nonexertional. Cardiac risks of hypertension, hyperlipidemia, diabetes, sedentary, obesity. Recent echocardiogram showed normal EF and no regional wall motion abnormalities. Pharmacological nuclear stress test 07/31/25 showed no evidence of infarct or ischemia. Results reviewed with her. Her symptoms is most likely musculoskeletal in nature. signs and symptoms of angina reviewed. Offered reassurance. (2) Essential hypertension: Code(s): I10 - Essential (primary) hypertension Category: Medical Plan: Blood pressure goal less than 130/80. BP at goal today. Labs 07/09/25 showed K 3.8, Cr 0.67. Continue amlodipine, spironolactone and propranolol. (3) Mild ascending aorta dilation: Code(s): I77.810 - Thoracic aortic ectasia Category: Medical Plan: Recent echo showing ascending aorta 4.1 cm. The importance of good blood pressure control reviewed. Will recheck echocardiogram in 1 yr. . (4) Obesity: Code(s): E66.9 - Obesity, unspecified Category: Medical Plan: Benefits of weight loss and increase physical activity as able reviewed Plan I reviewed the patient's recent workup, including the normal nuclear stress test and the echocardiogram. I explained that these results are reassuring and indicate that her chest discomfort is not cardiac in origin, suggesting it may be musculoskeletal or related to her fibromyalgia. We discussed the finding of a dilated ascending aorta at 4.1 cm, and I emphasized the importance of maintaining strict blood pressure control to prevent further enlargement. I recommended she continue all her current blood pressure medications. The plan is to monitor this with another echocardiogram before a follow-up appointment in one year. I also advised that she could inform her surgical team about her normal stress test result, if they require cardiac clearance. Orders: Orders CA echo transthoracic complete 11 Months I10 - Essential (primary) hypertension, I77.810 - Thoracic aortic ectasia Patient Instructions: - Your recent heart tests were normal, which is good news. It means your chest pain is not coming from your heart. - Continue taking all of your blood pressure medications every morning and every night as prescribed. It is very important to keep your blood pressure well- controlled. - Once you recover from your upcoming surgery, try to stay physically active. - Schedule a follow-up appointment with cardiology in one year. - You will need to get another heart ultrasound (echocardiogram) before your next visit in one year to monitor the main blood vessel coming from your heart. Patient was informed and verbally consented to the use of an ambient scribe for clinic note documentation during this visit. Visit time spent on chart review, interview, assessment, orders, documentation. Coding Level of Care Code Est Pt Level 3 (37757) Complex visit Add On G2211 Diagnoses Chest pain R07.9 Essential hypertension I10 Mild ascending aorta dilation I77.810 Obesity E66.9 Time Spent (min) 22
== END 2025-08-05 09:07 | disposition home or self-care (01) ==
LOC: HO.HCS 08:29
PROVIDERS: PCP Internal Medicine; Visit Provider Nurse Practitioner Family
DX: R07.9 Chest pain, unspecified (principal); I10 Essential (primary) hypertension; I77.810 Thoracic aortic ectasia; E66.9 Obesity, unspecified
CPT/HCPCS: 99213; G2211

== ENCOUNTER → 2025-08-05 08:28 | Outpatient (BNVA) | payer OTHER, SELFPAY | PROVIDERS: PCP Internal Medicine; Visit Provider Nurse Practitioner Family | DX: I10 Essential (primary) hypertension (principal); R07.89 Other chest pain; I77.810 Thoracic aortic ectasia; E66.9 Obesity, unspecified; Z68.32 Body mass index [BMI] 32.0-32.9, adult; G47.33 Obstructive sleep apnea (adult) (pediatric); Z99.89 Dependence on other enabling machines and devices | CPT/HCPCS: 99212 ==

== ENCOUNTER 2025-08-06 11:28 | Outpatient (AMB) | payer OTHER, SELFPAY ==
[2025-08-06 11:33] VITALS: BP 131/87; PULSE 67; BMI 31.8
--- NOTE | 2025-08-06 11:33 | MHC.OFFVIS ---
Vital Signs 08/06/25 11:33 Height 5 ft 1 in Weight 168 lb 6.931 oz BMI 31.8 BP 131/87 Blood Pressure Location Lt brachial Position Sitting Pulse 67 Intake Visit Reasons: severe cic bloating Intake Note: Abby returns in follow up of CIC and lab results. CC: Brian c/o abd bloating. She states that she is able to have BMs with medications. Primary Special Educator Required: No Accompanied by: Self / Same As Patient Allergies gabapentin Allergy (Intermediate, Verified 08/06/25 11:42) inadequate response hydromorphone (From DILAUDID) Allergy (Intermediate, Verified 08/06/25 11:42) RASH lisinopril (LISINOPRIL) Allergy (Intermediate, Verified 08/06/25 11:42) CLOGGED THROAT, shortness of breath, anaphylaxis topiramate Allergy (Intermediate, Verified 08/06/25 11:42) inadequate response HPI HPI severe cic bloating: Details: Assessment & Plan (1) GERD (gastroesophageal reflux disease): Code(s): K21.9 - Gastro-esophageal reflux disease without esophagitis Category: Medical (2) IBS (irritable bowel syndrome): Code(s): K58.9 - Irritable bowel syndrome, unspecified Category: Medical (3) Chronic idiopathic constipation: Code(s): K59.04 - Chronic idiopathic constipation Category: Medical (4) Periumbilical abdominal pain: Code(s): R10.33 - Periumbilical pain Category: Medical (5) Ankle swelling: Code(s): M25.473 - Effusion, unspecified ankle Category: Medical Plan - The patient is a 59-year-old female presenting with abdominal bloating and constipation. - Constipation has persisted despite medication use, such as Trulance, Pricilla, and bisacodyl, required together to produce bowel movements. - Diffuse abdominal pain occurs postprandially, not alleviated by bowel movements. - The constipatory pattern worsened over time causing severe discomfort, possibly impacting breathing when the abdomen is bloated. - A history of gastric bypass surgery was mentioned, alongside possible rheumatoid arthritis marked by a prior positive rheumatoid factor. - her current medication regimen consists of medications include Trulance, bisacodyl, pantoprazole twice a day, magnesium. She has tried simethicone in the past without relief from her bloating, she has also had no relief with Creon or antibiotic treatment for SIBO. She is also utilize probiotics and fiber at various times. We will stop the Creon as this has not produced any benefit for her. - History of elevated fecal calprotectin without definite diagnosis. -because she is also reporting shortness of breath and ankle swelling we will get a BNP and I think we need an abdominal x-ray to actually evaluate her stool/gas burden to see if constipation or gas trapping he is actually driving her proceed symptom of bloating. She has had multiple radiologic exams in the past not yielding any particular disease and her colonoscopies have not been revealing for any underlying pathology. She does have marked central adiposity so it could be that adipose tissue is actually causing her symptomatology. Return office visit in 2 weeks Orders: Orders TSH reflex Free T4 Today K59.04 - Chronic idiopathic constipation B Type Natriuretic Peptide Today M25.473 - Effusion, unspecified ankle LABS: Laboratory Tests 04/24/25 12:32 B-Natriuretic Peptide 29 TSH 0.45 TODAY'S VISIT [facility] Medical History (Updated 08/06/25 @ 11:53 by GRECIA Burgess) Abdominal bloating Diabetes mellitus Achalasia Median neuropathy Carpal tunnel syndrome of left wrist Cubital tunnel syndrome on left Cervical lymphadenopathy Tubular adenoma of colon HLD (hyperlipidemia) Knee pain AMS (altered mental status) Polyarthralgia Flexor tenosynovitis of finger Osteoarthritis of lumbar spine Costovertebral angle tenderness Biceps tendonitis on left Cervicalgia Nocturnal hypoxemia Right hip pain Left foot pain Difficulty swallowing Urge urinary incontinence Chest wall pain History of skin cancer Physical exam LLQ abdominal pain Diverticulitis Acute diarrhea Inflammatory bowel disease Low vitamin B12 level Anemia Pre-op examination Small bowel motility disorder Back pain Lumbar pain Snoring Excessive daytime sleepiness Sleep difficulties Obstructive sleep apnea Right leg pain Left leg pain Upper respiratory tract infection Memory loss Cervical strain Tenderness over frontal sinus Left knee pain Arm numbness Left hip pain Left shoulder pain Leg pain Rheumatoid factor positive Postmenopausal Generalized anxiety disorder Mild major depression, single episode Fibromyalgia Essential hypertension Meningioma Bicytopenia Dyslipidemia Hypovitaminosis D Chronic idiopathic constipation History of herniated intervertebral disc History of partial adherence to treatment Surgical History History of sleeve gastrectomy Hx of colonoscopy Hx of melanoma excision Hx of hernia repair Hx of ovarian cystectomy History of lumbar fusion Hx of section Family History Father Prostate cancer Diabetes mellitus Colon cancer Mother Migraine Arthritis Hypertension Heart disease Emphysema lung CVD (cardiovascular disease) Brother Drug overdose Brother Fuccldv-Smjjy-Uymkb disease Sister No problems noted. Sister No problems noted. Son No problems noted. Son No problems noted. Son No problems noted. Daughter No problems noted. Daughter No problems noted. Daughter No problems noted. Family/Other Substance use disorder Social History Household Members: Children Housing: House Are you a primary career advisor to a significant other at home: No Do you presently have visiting nurse or other home services: No Alcohol intake: current Alcohol intake frequency: a few times a week Alcohol type: beer Patient Tobacco Use Status: Never used Tobacco Tobacco use type: Cigarette e-Cigarette/Vaping Use: Never Used Second Hand Smoke Exposure: No service: No Current occupational status: disabled Cognitive needs: No Hearing needs: No Vision needs: No Review of Systems Const Denies fatigue, Denies fever(s), Denies night sweats, Denies poor appetite and Denies weight loss ENT Reports Normal hearing present, Denies dental pain, Denies dysphagia, Denies hearing loss, Denies mouth pain, Denies odynophagia, Denies throat swelling, Denies tongue swelling and Reports other (Dentition adequate) Card Reports no additional complaints Resp Reports no additional complaints GI Details: Denies abdominal pain, Denies melena, Reports bloating, Denies hematochezia, Reports constipation, Denies GI cramping, Denies dysphagia, Denies excessive flatus, Denies early satiety, Reports heartburn, Denies diarrhea, Denies nausea, Denies odynophagia, Denies vomiting and Denies hematemesis Musc Reports back pain and Reports stiffness Skin/Breast Denies pruritus, Denies lesions, Denies rash and Denies jaundice Neuro Reports Normal hearing present and Denies Abnormal speech present Endo Denies fatigue Aller/Immun Denies throat swelling and Denies tongue swelling Physical Exam Vital Signs: Last Vital Signs Pulse 67 08/06/25 11:33 BP 131/87 08/06/25 11:33 BMI result Body Mass Index 31.8 Const General: cooperative, no acute distress, well developed and well groomed Nutritional Appearance: well nourished and obese Orientation/consciousness: oriented to person, oriented to place and oriented to time Limitations: No language barrier HEENT Head: Yes normocephalic and Yes atraumatic Eyes General: appearance normal, both eyes and all related structures Pupils: Equal, round and reactive pupils present Neck Neck: Yes normal visual inspection and Yes no lymphadenopathy Thyroid: Thyroid normal Resp Effort & Inspection: normal respiratory effort and able to speak in complete sentences Auscultation: clear to auscultation bilaterally Cardio Rate: regular rate Rhythm: regular rhythm Heart sounds: Normal, physiologic split S2 sound present Peripheral pulses: radial pulses present and posterior tibial pulses present GI Inspection: No distended, Yes Abdominal panniculus present and Yes obesity Palpation (GI): Soft to palpation, nontender, no guarding, not rigid and No hepatosplenomegaly present Percussion: Yes normal to percussion Auscultation: normal bowel sounds Rectal Exam - Female: deferred Skin General skin exam: no rashes or lesions noted, turgor normal, skin not dry, no jaundice, No spider nevi and no striae Rashes: no rashes Nails: normal Neuro General: oriented to person, oriented to place and oriented to time Cranial nerves: Yes Equal, round and reactive pupils present and Yes Normal hearing present Speech: No Abnormal speech present Extrem General: Yes normal to inspection, No clubbing, No cyanosis and No edema Psych Appearance: grossly normal and well kempt Mental Status: mental status grossly normal Speech and movement: Normal speech and movement present Affect: normal affect Attitude: cooperative Thought process: Normal thought process present and not confabulating Thought content: Normal thought content present Insight: Good insight present (Psych) Judgement: Good judgement present (Psych) Assessment & Plan Assessment & Plan (1) Abdominal bloating: Code(s): R14.0 - Abdominal distension (gaseous) Category: Medical (2) Chronic idiopathic constipation: Code(s): K59.04 - Chronic idiopathic constipation Category: Medical (3) Elevated fecal calprotectin: Comment: Normalized 10/2024 retest Code(s): R19.5 - Other fecal abnormalities Category: Medical (4) GERD (gastroesophageal reflux disease): Code(s): K21.9 - Gastro-esophageal reflux disease without esophagitis Category: Medical Plan (She has tried simethicone in the past without relief from her bloating, she has also had no relief with Creon or antibiotic treatment for SIBO. She is also utilize probiotics and fiber at various times.History of elevated fecal calprotectin without definite diagnosis. She has had multiple radiologic exams in the past not yielding any particular disease and her colonoscopies have not been revealing for any underlying pathology. She does have marked central adiposity so it could be that adipose tissue is actually causing her symptomatology.) Her current GI regimen consists of pantoprazole twice a day, Trulance and bisacodyl. Subjective Patient reports persistent, diffuse abdominal bloating that is sometimes firm and painful, described as ?all over.? Symptoms persist despite regular bowel movements with Trulance and a laxative. Prior trials including simethicone, a course of antibiotics for suspected small intestinal bacterial overgrowth, and probiotics have not improved bloating. Patient notes ongoing leg swelling and generalized joint aches worsened by cold weather. Upcoming back surgery for disc disease is scheduled for . Relevant Past Medical, Social, and Family History - Scheduled lumbar spine surgery for disc disease this week. Objective - Prior testing reportedly normal: thyroid function normal. - Cardiac evaluation does not suggest heart failure as cause of leg edema. - Abdominal CT scans: no abnormalities identified related to bloating. - Colonoscopy: no abnormalities identified. Assessment & Plan Constipation is well managed with Trulance and bisacodyl. GERD is well controlled on pantoprazole. Chronic abdominal bloating: Refractory bloating despite normal abdominal imaging and colonoscopy and lack of response to simethicone, probiotics, SIBO-directed antibiotics, and constipation management. Etiology remains unclear. - Defer additional GI interventions until after recovery from upcoming back surgery. - Continue current bowel regimen (Trulance and laxative) as it maintains bowel movements. - Option offered for consultation with one of the physicians for a second opinion; patient elects to follow up with me. - Follow up with me in 6 months, or sooner if symptoms significantly worsen. Leg swelling, likely venous etiology: Thyroid function normal and no evidence of heart failure on prior evaluation. Clinical picture suggests venous insufficiency/varicosities as a potential contributor. - Recommend evaluation by a vein specialist for assessment of venous insufficiency/varicose veins and management options. Coding Level of Care Code Est Pt Level 3 (86837) Diagnoses Abdominal bloating R14.0 Chronic idiopathic constipation K59.04 Elevated fecal calprotectin R19.5 GERD (gastroesophageal reflux disease) K21.9
== END 2025-08-06 12:06 | disposition home or self-care (01) ==
LOC: HO.HGI 11:29
PROVIDERS: PCP Internal Medicine; Visit Provider Nurse Practitioner
DX: R14.0 Abdominal distension (gaseous) (principal); K59.04 Chronic idiopathic constipation; R19.5 Other fecal abnormalities; K21.9 Gastro-esophageal reflux disease without esophagitis
CPT/HCPCS: 99213

== ENCOUNTER → 2025-08-06 11:28 | Outpatient (BNVA) | payer OTHER, SELFPAY | PROVIDERS: PCP Internal Medicine; Visit Provider Nurse Practitioner | DX: K21.9 Gastro-esophageal reflux disease without esophagitis (principal); K58.1 Irritable bowel syndrome with constipation; R10.13 Epigastric pain; M25.473 Effusion, unspecified ankle | CPT/HCPCS: 99212 ==